=== PATIENT | male | born 1970 | race Two or more races ===

== ENCOUNTER 2020-03-23 09:07 | Outpatient (REF) | payer OTHER, SELFPAY ==
--- NOTE | 2020-03-23 | XR_ITS ---
EXAMINATION: XR SHOULDER, LEFT CLINICAL INFORMATION: Left shoulder pain COMPARISON: None TECHNIQUE: 2 views of the left shoulder FINDINGS: Moderate hypertrophic acromioclavicular osteoarthritis. The glenohumeral joint is unremarkable. Normal alignment with no fracture. No suspicious soft tissue calcification. IMPRESSION: Moderate acromioclavicular osteoarthritis.
--- NOTE | 2020-03-23 | XR_ITS ---
EXAMINATION: XR SHOULDER, RIGHT CLINICAL INFORMATION: Right shoulder pain COMPARISON: 04/16/2016 TECHNIQUE: 2 views of the right shoulder FINDINGS: Mild acromioclavicular osteoarthritis. The glenohumeral joint is unremarkable. Normal alignment. No fracture. No suspicious soft tissue calcification. IMPRESSION: Mild acromioclavicular osteoarthritis. No significant change.
== END 2020-03-23 09:08 | disposition home or self-care (01) ==
LOC: HO.XRAY 09:07
PROVIDERS: PCP Internal Medicine; Visit Provider Internal Medicine
DX: M25.511 Pain in right shoulder (principal); M25.512 Pain in left shoulder
CPT/HCPCS: 73030

== ENCOUNTER 2020-04-27 12:56 | Emergency (ER) | payer OTHER, SELFPAY ==
[2020-04-27 13:50] VITALS: BP 154/78; PULSE 84; RESP 16; TEMP 36.6; O2SAT 97; BMI 63.3
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
[2020-04-27] MEDS: Cyclobenzaprine HCl 5 MG TABLET PO (14:39)
[2020-04-27] MEDS: Acetaminophen 325 MG TABLET 650 MG PO (14:39)
== END 2020-04-27 16:45 | disposition home or self-care (01) ==
PROVIDERS: Emergency Provider Emergency Medicine; PCP Internal Medicine
DX: S39.92XA Unspecified injury of lower back, initial encounter (principal); S09.90XA Unspecified injury of head, initial encounter; M79.10 Myalgia, unspecified site; G44.309 Post-traumatic headache, unspecified, not intractable; R42 Dizziness and giddiness; V49.9XXA Car occupant (driver) (passenger) injured in unspecified traffic accident, initial encounter; Y93.9 Activity, unspecified; Y92.410 Unspecified street and highway as the place of occurrence of the external cause; Y99.9 Unspecified external cause status; Z79.899 Other long term (current) drug therapy
CPT/HCPCS: 70450; 99284

== ENCOUNTER 2020-05-04 15:43 | Outpatient (REF) | payer OTHER, SELFPAY ==
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
== END 2020-05-04 15:44 | disposition home or self-care (01) ==
LOC: HO.XRAY 15:43
PROVIDERS: PCP Internal Medicine; Visit Provider Internal Medicine
DX: M54.5 Low back pain (principal); V89.2XXA Person injured in unspecified motor-vehicle accident, traffic, initial encounter
CPT/HCPCS: 72220

== ENCOUNTER → 2020-09-05 09:06 | Outpatient (BNVA) | payer OTHER, SELFPAY | PROVIDERS: PCP Internal Medicine; Visit Provider Internal Medicine Endocrinology, Diabetes & Metabolism | DX: E11.21 Type 2 diabetes mellitus with diabetic nephropathy (principal); E11.22 Type 2 diabetes mellitus with diabetic chronic kidney disease; I12.9 Hypertensive chronic kidney disease with stage 1 through stage 4 chronic kidney disease, or unspecified chronic kidney disease; N18.32 Chronic kidney disease, stage 3b; Z79.4 Long term (current) use of insulin; E78.00 Pure hypercholesterolemia, unspecified; E55.9 Vitamin D deficiency, unspecified; E66.3 Overweight | CPT/HCPCS: 82947; 99212 ==

== ENCOUNTER 2020-09-05 09:47 | Outpatient (REF) | payer OTHER, SELFPAY ==
[2020-09-05 11:07] LABS: Alanine Aminotransferase 48 U/L (0-40); Albumin Level 4.4 g/dL (3.5-5.0); Alkaline Phosphatase 103 U/L (39-117); Anion Gap 13 (12-20); Aspartate Amino Transferase 20 U/L (5-37); Bilirubin Total 0.8 mg/dL (0.0-1.0); Blood Urea Nitrogen 23 mg/dL (9-16); Calcium 8.8 mg/dL (8.4-10.2); Carbon Dioxide 21 mmol/L (22-29); Chloride 110 mmol/L (96-108); Cholesterol 155 mg/dL; Estimated Glomerular Filt Rate 41; Glucose Fasting 166 mg/dL (60-99); HDL Cholesterol 43 mg/dL; LDL Cholesterol Calculated 87 mg/dl; Potassium 4.1 mmol/L (3.3-5.1); Sodium 140 mmol/L (135-145); Total Protein 6.7 g/dL (6.5-8.0); Triglycerides 125 mg/dL
[2020-09-05 11:11] LABS: Creatinine Urine 188.63 mg/dL; Microalbum/Creatinine Ratio Ur 51.9 ug/mg cr
[2020-09-05 11:22] LABS: Vitamin D 25-OH Total 20.4 ng/mL (>30)
[2020-09-06 08:07] LABS: LDL Cholesterol Direct 93 mg/dL (<100)
== END 2020-09-05 09:48 | disposition home or self-care (01) ==
LOC: HO.10HDL 09:47
PROVIDERS: Visit Provider Internal Medicine Endocrinology, Diabetes & Metabolism
DX: E11.21 Type 2 diabetes mellitus with diabetic nephropathy (principal); E11.22 Type 2 diabetes mellitus with diabetic chronic kidney disease; N18.32 Chronic kidney disease, stage 3b
CPT/HCPCS: 36415; 80053; 80061; 82043; 82306; 83721

== ENCOUNTER 2021-03-12 06:05 | Outpatient (REF) | payer OTHER, SELFPAY ==
[2021-03-12 07:10] LABS: MANUAL DIFF FLAG NO
[2021-03-12 07:12] LABS: Basophils Percent Auto 0.4 % (0-2); Eosinophils Absolute Auto 0.1 X10*3/uL (0.0-0.4); Eosinophils Percent Auto 1.5 % (0-4); Hematocrit 47.6 % (42-52); Hemoglobin 16.3 g/dl (14.0-18.0); Imm Gran Abs Auto 0.04 X10*3/uL (0.00-0.03); Imm Gran Pct Auto 0.6 % (0.0-0.4); Lymphocytes Absolute Auto 2.2 X10*3/uL (1.2-4.9); Lymphocytes Percent Auto 32.1 % (20-40); Mean Corpuscular HGB Conc 34.2 g/dl (31.0-36.0); Mean Corpuscular Hemoglobin 29.4 pg (27.0-33.0); Mean Corpuscular Volume 85.9 fL (80-98); Mean Platelet Volume 12.4 fL (9.4-12.4); Monocytes Absolute Auto 0.7 X10*3/uL (0.1-1.2); Monocytes Percent Auto 10.3 % (2-11); Neutrophils Absolute Auto 3.7 X10*3/uL (2.0-8.3); Neutrophils Percent Auto 55.1 % (45-73); Platelet Count 135 X10*3/uL (160-400); Red Blood Count 5.54 X10*6/uL (4.60-5.80); Red Cell Distribution Width 12.4 % (11.0-16.0); White Blood Count 6.7 X10*3/uL (4.8-10.8)
[2021-03-12 07:16] LABS: Appearance Urine CLEAR; Color Urine YELLOW; Glucose Urine UA NEG (NEG); Leukocyte Esterase Urine NEG (NEG); Nitrite Urine NEG (NEG); Urine Blood NEG (NEG); Urine Ketones NEG (NEG); Urine Protein NEG (NEG-TRACE)
[2021-03-12 07:41] LABS: Estimated Average Glucose 131 mg/dL; Hemoglobin A1c % 6.2 %
[2021-03-12 07:48] LABS: Alanine Aminotransferase 34 U/L (0-40); Albumin Level 4.3 g/dL (3.5-5.0); Alkaline Phosphatase 78 U/L (39-117); Anion Gap 11 (12-20); Aspartate Amino Transferase 22 U/L (5-37); Bilirubin Total 0.3 mg/dL (0.0-1.0); Blood Urea Nitrogen 24 mg/dL (9-16); Calcium 8.4 mg/dL (8.4-10.2); Carbon Dioxide 22 mmol/L (22-29); Chloride 111 mmol/L (96-108); Cholesterol 191 mg/dL; Estimated Glomerular Filt Rate 42; Glucose Fasting 128 mg/dL (60-99); HDL Cholesterol 40 mg/dL; LDL Cholesterol Calculated 111 mg/dl; Sodium 140 mmol/L (135-145); Total Protein 6.3 g/dL (6.5-8.0); Triglycerides 204 mg/dL
[2021-03-12 07:59] LABS: Microalbum/Creatinine Ratio Ur 43.2 ug/mg cr
[2021-03-12 08:03] LABS: TSH reflex Free T4 1.76 uIU/mL (0.32-4.0); Vitamin D 25-OH Total 22.4 ng/mL (>30)
== END 2021-03-12 06:06 | disposition home or self-care (01) ==
LOC: HO.LAB 06:05
PROVIDERS: PCP Internal Medicine; Visit Provider Internal Medicine
DX: I12.9 Hypertensive chronic kidney disease with stage 1 through stage 4 chronic kidney disease, or unspecified chronic kidney disease (principal); N18.32 Chronic kidney disease, stage 3b; E11.22 Type 2 diabetes mellitus with diabetic chronic kidney disease; E11.21 Type 2 diabetes mellitus with diabetic nephropathy; E78.00 Pure hypercholesterolemia, unspecified; E55.9 Vitamin D deficiency, unspecified; E66.9 Obesity, unspecified; C64.1 Malignant neoplasm of right kidney, except renal pelvis; D69.6 Thrombocytopenia, unspecified; D75.1 Secondary polycythemia
CPT/HCPCS: 36415; 80053; 80061; 81003; 82043; 82306; 83036; 84443; 85025

== ENCOUNTER → 2021-05-02 11:15 | Outpatient (REF) | payer OTHER, SELFPAY ==
--- NOTE | 2021-05-02 11:19 | HM_ITS ---
Total monitoring time 4 days and 1 hour. Underlying rhythm is sinus. Minimum heart rate 46/Min. Maximum 128/Min. Average 76/Min. No atrial fibrillation or flutter or AV blocks or pauses. Rare supraventricular ectopy with a burden of 1.5%. No significant runs. Very rare PVCs with a burden of less than 0.01%. No patient events. MTDD
== END ==
LOC: HO.CARD 11:15
PROVIDERS: Visit Provider Internal Medicine
DX: R55 Syncope and collapse (principal)
CPT/HCPCS: 93242

== ENCOUNTER 2021-07-23 06:09 | Outpatient (REF) | payer OTHER, SELFPAY ==
[2021-07-23 06:22] LABS: MANUAL DIFF FLAG NO
[2021-07-23 07:27] LABS: Appearance Urine CLEAR; Color Urine STRAW; Glucose Urine UA >=1000 MG/DL (NEG); Leukocyte Esterase Urine NEG (NEG); Nitrite Urine NEG (NEG); Urine Blood NEG (NEG); Urine Ketones NEG (NEG); Urine Protein NEG (NEG-TRACE)
[2021-07-23 07:36] LABS: Estimated Average Glucose 309 mg/dL; Hemoglobin A1c % 12.4 %
[2021-07-23 07:37] LABS: RBC Urine 0 /HPF (0); Squamous Epithelial Cell Urine TRACE /LPF; WBC Urine 0-2 /HPF (0-4)
[2021-07-23 07:41] LABS: Basophils Percent Auto 0.6 % (0-2); Eosinophils Absolute Auto 0.1 X10*3/uL (0.0-0.4); Eosinophils Percent Auto 0.9 % (0-4); Hematocrit 48.3 % (42.0-52.0); Hemoglobin 16.7 g/dl (14.0-18.0); Imm Gran Abs Auto 0.06 X10*3/uL (0.00-0.03); Imm Gran Pct Auto 0.9 % (0.0-0.4); Lymphocytes Percent Auto 28.4 % (20-40); Mean Corpuscular HGB Conc 34.6 g/dl (31.0-36.0); Mean Corpuscular Hemoglobin 29.3 pg (27.0-33.0); Mean Corpuscular Volume 84.9 fL (80.0-98.0); Mean Platelet Volume 13.1 fL (9.4-12.4); Monocytes Absolute Auto 0.6 X10*3/uL (0.1-1.2); Monocytes Percent Auto 8.4 % (2-11); Neutrophils Absolute Auto 4.3 x10*3/uL (2.0-8.3); Neutrophils Percent Auto 60.8 % (45-73); Platelet Count 128 X10*3/uL (160-400); Red Blood Count 5.69 X10*6/uL (4.60-5.80); Red Cell Distribution Width 11.9 % (11.0-16.0); White Blood Count 7.1 X10*3/uL (4.8-10.8)
[2021-07-23 08:06] LABS: Alanine Aminotransferase 47 U/L (0-40); Albumin Level 4.3 g/dL (3.5-5.0); Alkaline Phosphatase 115 U/L (39-117); Anion Gap 12 (12-20); Aspartate Amino Transferase 30 U/L (5-37); Bilirubin Total 0.6 mg/dL (0.0-1.0); Blood Urea Nitrogen 29 mg/dL (9-16); Calcium 9.3 mg/dL (8.4-10.2); Carbon Dioxide 23 mmol/L (22-29); Chloride 105 mmol/L (96-108); Cholesterol 272 mg/dL; Estimated Glomerular Filt Rate 31; Glucose Fasting 374 mg/dL (60-99); HDL Cholesterol 37 mg/dL; LDL Cholesterol Calculated 163 mg/dl; Potassium 4.5 mmol/L (3.3-5.1); Sodium 135 mmol/L (135-145); Total Protein 6.7 g/dL (6.5-8.0); Triglycerides 360 mg/dL
[2021-07-23 08:15] LABS: TSH reflex Free T4 2.04 uIU/mL (0.32-4.0); Vitamin D 25-OH Total 12.9 ng/mL (>30)
[2021-07-23 08:36] LABS: Creatinine Urine 64.71 mg/dL; Microalbum/Creatinine Ratio Ur 108.1 ug/mg cr
== END 2021-07-23 06:10 | disposition home or self-care (01) ==
LOC: HO.LAB 06:09
PROVIDERS: PCP Internal Medicine; Visit Provider Internal Medicine
DX: E78.00 Pure hypercholesterolemia, unspecified (principal); E11.9 Type 2 diabetes mellitus without complications; I10 Essential (primary) hypertension; E55.9 Vitamin D deficiency, unspecified
CPT/HCPCS: 36415; 80053; 80061; 81001; 82043; 82306; 83036; 84443; 85025

== ENCOUNTER 2021-11-07 05:59 | Outpatient (REF) | payer OTHER, SELFPAY ==
[2021-11-07 06:11] LABS: MANUAL DIFF FLAG NO
[2021-11-07 07:30] LABS: Basophils Percent Auto 0.4 % (0-2); Eosinophils Absolute Auto 0.1 X10*3/uL (0.0-0.4); Hematocrit 48.3 % (42.0-52.0); Hemoglobin 16.6 g/dl (14.0-18.0); Imm Gran Abs Auto 0.04 X10*3/uL (0.00-0.03); Imm Gran Pct Auto 0.6 % (0.0-0.4); Lymphocytes Absolute Auto 1.9 X10*3/uL (1.2-4.9); Lymphocytes Percent Auto 28.3 % (20-40); Mean Corpuscular HGB Conc 34.4 g/dl (31.0-36.0); Mean Corpuscular Hemoglobin 29.2 pg (27.0-33.0); Mean Corpuscular Volume 84.9 fL (80.0-98.0); Mean Platelet Volume 12.5 fL (9.4-12.4); Monocytes Absolute Auto 0.6 X10*3/uL (0.1-1.2); Monocytes Percent Auto 9.4 % (2-11); Neutrophils Absolute Auto 4.1 x10*3/uL (2.0-8.3); Neutrophils Percent Auto 59.3 % (45-73); Platelet Count 156 X10*3/uL (160-400); Red Blood Count 5.69 X10*6/uL (4.60-5.80); Red Cell Distribution Width 12.3 % (11.0-16.0); White Blood Count 6.8 X10*3/uL (4.8-10.8)
[2021-11-07 07:33] LABS: Appearance Urine CLEAR; Color Urine YELLOW; Glucose Urine UA NEG (NEG); Leukocyte Esterase Urine NEG (NEG); Nitrite Urine NEG (NEG); Specific Gravity - Urine 1.025 (1.005-1.025); Urine Blood NEG (NEG); Urine Ketones NEG (NEG); Urine Protein TRACE MG/DL (NEG-TRACE)
[2021-11-07 08:01] LABS: Alanine Aminotransferase 41 U/L (0-40); Albumin Level 4.2 g/dL (3.5-5.0); Alkaline Phosphatase 101 U/L (39-117); Anion Gap 15 (12-20); Aspartate Amino Transferase 24 U/L (5-37); Bilirubin Total 0.4 mg/dL (0.0-1.0); Blood Urea Nitrogen 28 mg/dL (9-16); Calcium 9.5 mg/dL (8.4-10.2); Carbon Dioxide 22 mmol/L (22-29); Chloride 107 mmol/L (96-108); Cholesterol 169 mg/dL; Estimated Glomerular Filt Rate 39; Glucose Fasting 164 mg/dL (60-99); HDL Cholesterol 39 mg/dL; LDL Cholesterol Calculated 78 mg/dl; Potassium 4.2 mmol/L (3.3-5.1); Sodium 140 mmol/L (135-145); Total Protein 6.5 g/dL (6.5-8.0); Triglycerides 263 mg/dL
[2021-11-07 08:21] LABS: Microalbum/Creatinine Ratio Ur 77.6 ug/mg cr
[2021-11-07 08:23] LABS: TSH reflex Free T4 2.07 uIU/mL (0.32-4.0); Vitamin D 25-OH Total 18.5 ng/mL (>30)
== END 2021-11-07 06:00 | disposition home or self-care (01) ==
LOC: HO.LAB 05:59
PROVIDERS: PCP Internal Medicine; Visit Provider Internal Medicine
DX: I10 Essential (primary) hypertension (principal); E78.00 Pure hypercholesterolemia, unspecified; E11.9 Type 2 diabetes mellitus without complications; E55.9 Vitamin D deficiency, unspecified
CPT/HCPCS: 36415; 80053; 80061; 81003; 82043; 82306; 84443; 85025

== ENCOUNTER → 2022-01-30 15:16 | Outpatient (BNVA) | payer OTHER, SELFPAY | PROVIDERS: PCP Internal Medicine; Visit Provider Internal Medicine Endocrinology, Diabetes & Metabolism | DX: E11.22 Type 2 diabetes mellitus with diabetic chronic kidney disease (principal); N18.32 Chronic kidney disease, stage 3b; Z90.5 Acquired absence of kidney | CPT/HCPCS: 82947; 83036; 99212 ==

== ENCOUNTER 2022-07-20 16:47 | Emergency (ER) | payer OTHER, SELFPAY ==
--- NOTE | ~2022-07-20 | US_ITS ---
EXAMINATION: US EXTRACRANIAL CAROTID DUPLEX, BILATERAL CLINICAL INFORMATION: TIA COMPARISON: None TECHNIQUE: Real-time ultrasound and Doppler techniques (integrating B-mode 2-D vascular images, Doppler spectral analysis and color-flow Doppler imaging) were utilized to interrogate the extracranial carotid arteries, the vertebral arteries and proximal subclavian arteries bilaterally. The degree of stenosis is determined by criteria similar to NASCET. FINDINGS: Right Side: 1. There is minimal atherosclerotic plaque seen in the bifurcation/proximal ICA region. 2. The common carotid artery PSV proximally is 98 cm/s and distally 84 cm/s. 3. The proximal internal carotid artery velocities are 69 cm/s systolic and 14 cm/s diastolic. 4. The proximal external carotid artery PSV is 91 cm/s. 5. The vertebral artery shows antegrade flow. 6. The subclavian artery waveforms are normal. Left Side: 1. There is minimal atherosclerotic plaque seen in the bifurcation/proximal ICA region. 2. The common carotid artery PSV proximally is 94 cm/s and distally 70 set cm/s. 3. The proximal internal carotid artery velocities are 83 cm/s systolic and 22 cm/s diastolic. 4. The proximal external carotid artery PSV is 97 cm/s. 5. The vertebral artery shows antegrade flow. 6. The subclavian artery waveforms are normal. US/US carotid duplex BI IMPRESSION: 1. RIGHT: Minimal, non-hemodynamically significant stenosis of the proximal right internal carotid artery corresponding to a 0-49% stenosis by velocity criteria. 2. LEFT: Minimal, non-hemodynamically significant stenosis of the proximal left internal carotid artery corresponding to a 0-49% stenosis by velocity criteria.
--- NOTE | ~2022-07-20 | CT_ITS ---
EXAMINATION: CHEST. CT BRAIN WITHOUT CONTRAST. CLINICAL INFORMATION: Left-sided weakness. COMPARISON: None TECHNIQUE: Chest 2 views. 5 mm thin axial and reformatted 2 mm thin sagittal and coronal images of brain were obtained. DLP 629. mGy/cm. FINDINGS: Chest: The lungs are well-expanded and clear. The heart size and pulmonary vascularity is normal. There is a moderate-sized vertebral osteophyte and mid dorsal spine on lateral view Brain: There is no acute intra-axial, extra-axial bleed, masses or midline shift. There is extra-axial right CP angle arachnoid cyst. It is unchanged to previous CT brain exam 04/27/2020 and MRI brain 12/25/2012. There is no acute infarction evolution. The sorto to white matter differentiation is maintained. The lateral ventricles are symmetrical in size and configuration without enlargement. Bone windows reveal no calvarial abnormality. There is no scalp soft tissue abnormality. The nasal sinuses and mastoid air cells are well-aerated. CT/CT head/brain wo IV con IMPRESSION: 1. Unremarkable chest exam. 2. No acute intracranial process seen.
--- NOTE | 2022-07-20 16:49 | ED.GENADULT ---
HPI - General Adult General Chief complaint: General Medical <VANESSA Tovar - Last Filed: 07/20/22 16:52> Stated complaint: Left side numbness <VANESSA Tovar - Last Filed: 07/20/22 16:52> Time Seen by Provider: 07/20/22 17:54 <VANESSA Tovar - Last Filed: 07/20/22 16:52> Source: patient and family <Francisco Blount MD - Last Filed: 07/20/22 23:58> Mode of arrival: ambulatory <Francisco Blount MD - Last Filed: 07/20/22 23:58> Limitations: no limitations <Francisco Blount MD - Last Filed: 07/20/22 23:58> History of Present Illness HPI narrative: Patient with history of absence seizure ADHD thrombocytopenia hypertension renal cell carcinoma with single kidney was in stable health working outside felt funny with left-sided numbness and weakness came inside the house noticed that patient was weak on the left side with slight slurred speech whole symptoms lasted for 10-15 minutes by the time patient came to the ER no numbness or weakness noticed patient had mild headache which is resolved no seizures activity patient never had similar symptoms in the past <Francisco Blount MD - Last Filed: 07/20/22 23:58> Related Data Home medications: Home Medications Medication Instructions Recorded Confirmed blood sugar diagnostic (FreeStyle 01/30/22 02/01/22 Lite Strips) flash glucose scanning reader 01/30/22 02/01/22 (FreeStyle Dexter 14 Day [place]) insulin glargine U-300 conc 300 20 unit subcut .AM 01/30/22 02/01/22 unit/mL (3 mL) subcutaneous pen lancets 28 gauge (FreeStyle 01/30/22 02/01/22 Lancets) Previous Rx's Medication Instructions Recorded acetaminophen 500 mg tablet 500 mg PO Q6H PRN pain or fever 04/27/20 (Tylenol Extra Strength) #20 tabs pen needle, diabetic 32 gauge x #50 ea 09/05/20 (BD Katya 2nd Gen Pen Needle) cholecalciferol (vitamin D3) 50 100 mcg PO DAILY 30 days #60 caps 07/24/21 mcg (2,000 unit) capsule rosuvastatin 40 mg tablet 40 mg PO DAILY 30 days #30 tabs 07/24/21 Trulicity 1.5 mg/0.5 mL 1.5 mg (0.5 mL) subcut QWEEK 4 04/22/22 subcutaneous pen injector weeks #2 mL (dulaglutide) aspirin 81 mg tablet,delayed 81 mg PO DAILY #30 tabs 07/20/22 release (Adult Low Dose Aspirin) <VANESSA Tovar - Last Filed: 07/20/22 16:52> Allergies/adverse reactions: Allergies Allergy/AdvReac Type Severity Reaction Status Date / Time Latex, Natural Rubber Allergy Mild Rash Verified 02/01/22 13:35 pseudoephedrine [Sudafed] AdvReac Intermediate dizziness, Verified 02/01/22 13:35 panic attacks <VANESSA Tovar - Last Filed: 07/20/22 16:52> Review of Systems Review of Systems: Yes all other systems are reviewed and are negative <Francisco Blount MD - Last Filed: 07/20/22 23:58> FOR[facility]LY [facility] Past Medical History Medical History: 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), stage III (moderate) snf (current) use of insulin Overweight (BMI 25.0-29.9) Polycythemia Pure hypercholesterolemia Renal cell carcinoma of right kidney Thrombocytopenia Type 2 diabetes mellitus with diabetic chronic kidney disease Vitamin D deficiency <VANESSA Tovar - Last Filed: 07/20/22 16:52> Surgical History: Surgical History History of right nephrectomy (~03/30/13) Status post cervical discectomy (~09/04/16) <VANESSA Tovar - Last Filed: 07/20/22 16:52> Family History Family History: Family History Mother Hypertension <VANESSA Tovar - Last Filed: 07/20/22 16:52> Social History Social History: Social History Housing: House Alcohol intake: never Patient Tobacco Use Status: Former Tobacco user Smoked in Last 30 Days: No e-Cigarette/Vaping Use: Never Used Second Hand Smoke Exposure: Yes Use of substances other than those prescribed or required for medical reasons: No Advance Directives: No Advance Directives Information Provided: No service: No Current occupational status: employed Cognitive needs: No Hearing needs: No Vision needs: Yes (glasses) <VANESSA Tovar - Last Filed: 07/20/22 16:52> Physical Exam ED Vital Signs: Vital Signs - 24 hr 07/20/22 16:50 07/20/22 18:00 07/20/22 21:48 Temperature 97.9 F 97.5 F Pulse Rate 85 69 71 Respiratory Rate 20 16 16 Blood Pressure 162/84 H 132/83 130/67 Pulse Oximetry 98 98 98 Oxygen Delivery Method Room Air Room Air Room Air BMI result Body Mass Index 29.0 <VANESSA Tovar - Last Filed: 07/20/22 16:52> Vital Signs - 24 hr 07/20/22 16:50 07/20/22 18:00 07/20/22 21:48 Temperature 97.9 F 97.5 F Pulse Rate 85 69 71 Respiratory Rate 20 16 16 Blood Pressure 162/84 H 132/83 130/67 Pulse Oximetry 98 98 98 Oxygen Delivery Method Room Air Room Air Room Air BMI result Body Mass Index 29.0 <Francisco Blount MD - Last Filed: 07/20/22 23:58> Appearance: Alert. Oriented X3. No acute distress. Eyes: PERRLA, No Nystagmus ENT: Pharynx normal. Oral Mucosa moist Neck: Normal inspection. Neck supple. CVS: Normal heart rate and rhythm. Pulses normal. Respiratory: No respiratory distress. Equal air entry bilateral, no wheezing/rales/rhonchi Abdomen: Soft and nontender. Bowel sounds are present, no mass palpable, no CVA tenderness Skin: Skin warm and dry. Normal skin color. Normal skin turgor. Extremities: No lower extremity edema. No calf tenderness Neuro: Oriented X 3. No motor deficit. No sensory deficit.No cerebellar signs , cranial nerves II-XII intact normal speech <Francisco Blount MD - Last Filed: 07/20/22 23:58> NIH Stroke Scale Internal: Initial- Upon Arrival <Francisco Blount MD - Last Filed: 07/20/22 23:58> Level of Consciousness: Alert <Francisco Blount MD - Last Filed: 07/20/22 23:58> Level of Consciousness Questions: Answers both questions correctly <Francisco Blount MD - Last Filed: 07/20/22 23:58> Level of Consciousness Commands: Performs both tasks correctly <Francisco Blount MD - Last Filed: 07/20/22 23:58> Best Gaze: Normal <Francisco Blount MD - Last Filed: 07/20/22 23:58> Visual: No visual loss <Francisco Blount MD - Last Filed: 07/20/22 23:58> Facial Palsy: Normal <Francisco Blount MD - Last Filed: 07/20/22 23:58> Motor Arm (Right): No drift <Francisco Blount MD - Last Filed: 07/20/22 23:58> Motor Arm (Left): No drift <Francisco Blount MD - Last Filed: 07/20/22 23:58> Motor Leg (Right): No drift <Francisco Blount MD - Last Filed: 07/20/22 23:58> Motor Leg (Left): No drift <Francisco Blount MD - Last Filed: 07/20/22 23:58> Limb Ataxia: Absent <Francisco Blount MD - Last Filed: 07/20/22 23:58> Sensory: Normal <Francisco Blount MD - Last Filed: 07/20/22 23:58> Best Language: No aphasia <Francisco Blount MD - Last Filed: 07/20/22 23:58> Dysarthia: Normal <Francisco Blount MD - Last Filed: 07/20/22 23:58> Extinction and Inattention: No abnormality <Francisco Blount MD - Last Filed: 07/20/22 23:58> Score: 0 <Francisco Blount MD - Last Filed: 07/20/22 23:58> Course Course Course Narrative: RME performed by Keisha Yin PA-C. Patient is a 52 year old male presenting to the emergency department with left sided numbness. Patient states that the left side of his tongue was numb and that was affected his speech. Patient states that he is a diabetic. Patient states that he does have a left sided headache. Patient states that he has a history of silent seizures. Blood work and head CT ordered. <VANESSA Tovar - Last Filed: 07/20/22 16:52> Medications Administered Discontinued Medications Generic Name Dose Route Start Last Admin Trade Name Freq PRN Reason Stop Dose Admin Aspirin 162 mg 07/20/22 18:54 07/20/22 19:08 Aspirin 81 Mg Tab.Chew PO 07/20/22 18:55 162 mg ONCE ONE Administration <VANESSA Tovar - Last Filed: 07/20/22 16:52> Medications Administered Discontinued Medications Generic Name Dose Route Start Last Admin Trade Name Freq PRN Reason Stop Dose Admin Aspirin 162 mg 07/20/22 18:54 07/20/22 19:08 Aspirin 81 Mg Tab.Chew PO 07/20/22 18:55 162 mg ONCE ONE Administration <Francisco Blount MD - Last Filed: 07/20/22 23:58> Medical Decision Making Medical Decision Making [facility] Narrative: Patient with TIA with significant renal disease unable to CTA as he has single kidney and symptoms have resolved carotid Doppler was done which was negative for acute significant lesion. Case discussed with Dr. Galloway neurologist advised to start on 81 mg aspirin daily follow up as outpatient may need MRA MRI as outpatient no acute intervention needed at this time <Francisco Blount MD - Last Filed: 07/20/22 23:58> Consult Healthcare Provider Management of the patient was discussed with: Legal File Clerk <Francisco Blount MD - Last Filed: 07/20/22 23:58> Neurologist Dr. Galloway <Francisco Blount MD - Last Filed: 07/20/22 23:58> Lab Data [facility] Lab Attestation statement: I reviewed the patient's lab results. <Francisco Blount MD - Last Filed: 07/20/22 23:58> Result Diagrams: 07/20/22 17:20 07/20/22 17:20 <VANESSA Tovar - Last Filed: 07/20/22 16:52> Labs: Lab Results 07/20/22 07/20/22 07/20/22 Range/Units 17:20 17:20 17:20 WBC 7.2 (4.8-10.8) X10*3/uL RBC 5.27 (4.60-5.80) X10*6/uL Hgb 16.0 (14.0-18.0) g/dl Hct 44.4 (42.0-52.0) % MCV 84.3 (80.0-98.0) fL MCH 30.4 (27.0-33.0) pg MCHC 36.0 (31.0-36.0) g/dl RDW 12.3 (11.0-16.0) % Plt Count 147 L (160-400) X10*3/uL MPV 12.4 (9.4-12.4) fL Immature Gran % (Auto) 0.7 H (0.0-0.4) % Neut % (Auto) 60.5 (45-73) % Lymph % (Auto) 27.7 (20-40) % Bartholomew % (Auto) 9.9 (2-11) % Eos % (Auto) 0.8 (0-4) % Baso % (Auto) 0.4 (0-2) % Lymph # (Auto) 2.0 (1.2-4.9) X10*3/uL Bartholomew # (Auto) 0.7 (0.1-1.2) X10*3/uL Eos # (Auto) 0.1 (0.0-0.4) X10*3/uL Baso # (Auto) 0.0 (0.0-0.2) X10*3/uL Abs Immat Gran (auto) 0.05 H (0.00-0.03) X10*3/uL Absolute Neuts (auto) 4.3 (2.0-8.3) x10*3/uL Absolute Nucleated RBC 0.000 (0.0-0.012) X10*3/uL Nucleated RBC % (auto) 0.0 (0.0-0.2) /100WBC PT 10.5 (10.0-13.1) SEC INR 0.9 (0.9-1.1) APTT 28.7 (26.0-36.4) SEC Sodium 139 (135-145) mmol/L Potassium 4.2 (3.3-5.1) mmol/L Chloride 108 (96-108) mmol/L Carbon Dioxide 22 (22-29) mmol/L Anion Gap 13 (12-20) BUN 27 H (9-16) mg/dL Creatinine 2.10 H (0.5-1.4) mg/dL Estim Creat Clear Calc 41.2 Estimated GFR 33 Random Glucose 188 H (60-115) mg/dL Calcium 9.0 (8.4-10.2) mg/dL Magnesium 2.1 (1.6-2.6) mg/dL Total Bilirubin 0.4 (0.0-1.0) mg/dL AST 15 (5-37) U/L ALT 37 (0-40) U/L Alkaline Phosphatase 96 (39-117) U/L Total Protein 6.5 (6.5-8.0) g/dL Albumin 4.3 (3.5-5.0) g/dL Influenza Type A (PCR) (Negative) Influenza Type B (PCR) (Negative) RSV RNA Qual (PCR) (Negative) SARS-CoV-2 RNA (RT-PCR) (Negative) 07/20/22 Range/Units 17:22 WBC (4.8-10.8) X10*3/uL RBC (4.60-5.80) X10*6/uL Hgb (14.0-18.0) g/dl Hct (42.0-52.0) % MCV (80.0-98.0) fL MCH (27.0-33.0) pg MCHC (31.0-36.0) g/dl RDW (11.0-16.0) % Plt Count (160-400) X10*3/uL MPV (9.4-12.4) fL Immature Gran % (Auto) (0.0-0.4) % Neut % (Auto) (45-73) % Lymph % (Auto) (20-40) % Bartholomew % (Auto) (2-11) % Eos % (Auto) (0-4) % Baso % (Auto) (0-2) % Lymph # (Auto) (1.2-4.9) X10*3/uL Bartholomew # (Auto) (0.1-1.2) X10*3/uL Eos # (Auto) (0.0-0.4) X10*3/uL Baso # (Auto) (0.0-0.2) X10*3/uL Abs Immat Gran (auto) (0.00-0.03) X10*3/uL Absolute Neuts (auto) (2.0-8.3) x10*3/uL Absolute Nucleated RBC (0.0-0.012) X10*3/uL Nucleated RBC % (auto) (0.0-0.2) /100WBC PT (10.0-13.1) SEC INR (0.9-1.1) APTT (26.0-36.4) SEC Sodium (135-145) mmol/L Potassium (3.3-5.1) mmol/L Chloride (96-108) mmol/L Carbon Dioxide (22-29) mmol/L Anion Gap (12-20) BUN (9-16) mg/dL Creatinine (0.5-1.4) mg/dL Estim Creat Clear Calc Estimated GFR Random Glucose (60-115) mg/dL Calcium (8.4-10.2) mg/dL Magnesium (1.6-2.6) mg/dL Total Bilirubin (0.0-1.0) mg/dL AST (5-37) U/L ALT (0-40) U/L Alkaline Phosphatase (39-117) U/L Total Protein (6.5-8.0) g/dL Albumin (3.5-5.0) g/dL Influenza Type A (PCR) NEGATIVE (Negative) Influenza Type B (PCR) NEGATIVE (Negative) RSV RNA Qual (PCR) NEGATIVE (Negative) SARS-CoV-2 RNA (RT-PCR) NEGATIVE (Negative) <VANESSA Tovar - Last Filed: 07/20/22 16:52> Lab Results 07/20/22 07/20/22 07/20/22 Range/Units 17:20 17:20 17:20 WBC 7.2 (4.8-10.8) X10*3/uL RBC 5.27 (4.60-5.80) X10*6/uL Hgb 16.0 (14.0-18.0) g/dl Hct 44.4 (42.0-52.0) % MCV 84.3 (80.0-98.0) fL MCH 30.4 (27.0-33.0) pg MCHC 36.0 (31.0-36.0) g/dl RDW 12.3 (11.0-16.0) % Plt Count 147 L (160-400) X10*3/uL MPV 12.4 (9.4-12.4) fL Immature Gran % (Auto) 0.7 H (0.0-0.4) % Neut % (Auto) 60.5 (45-73) % Lymph % (Auto) 27.7 (20-40) % Bartholomew % (Auto) 9.9 (2-11) % Eos % (Auto) 0.8 (0-4) % Baso % (Auto) 0.4 (0-2) % Lymph # (Auto) 2.0 (1.2-4.9) X10*3/uL Bartholomew # (Auto) 0.7 (0.1-1.2) X10*3/uL Eos # (Auto) 0.1 (0.0-0.4) X10*3/uL Baso # (Auto) 0.0 (0.0-0.2) X10*3/uL Abs Immat Gran (auto) 0.05 H (0.00-0.03) X10*3/uL Absolute Neuts (auto) 4.3 (2.0-8.3) x10*3/uL Absolute Nucleated RBC 0.000 (0.0-0.012) X10*3/uL Nucleated RBC % (auto) 0.0 (0.0-0.2) /100WBC PT 10.5 (10.0-13.1) SEC INR 0.9 (0.9-1.1) APTT 28.7 (26.0-36.4) SEC Sodium 139 (135-145) mmol/L Potassium 4.2 (3.3-5.1) mmol/L Chloride 108 (96-108) mmol/L Carbon Dioxide 22 (22-29) mmol/L Anion Gap 13 (12-20) BUN 27 H (9-16) mg/dL Creatinine 2.10 H (0.5-1.4) mg/dL Estim Creat Clear Calc 41.2 Estimated GFR 33 Random Glucose 188 H (60-115) mg/dL Calcium 9.0 (8.4-10.2) mg/dL Magnesium 2.1 (1.6-2.6) mg/dL Total Bilirubin 0.4 (0.0-1.0) mg/dL AST 15 (5-37) U/L ALT 37 (0-40) U/L Alkaline Phosphatase 96 (39-117) U/L Total Protein 6.5 (6.5-8.0) g/dL Albumin 4.3 (3.5-5.0) g/dL Influenza Type A (PCR) (Negative) Influenza Type B (PCR) (Negative) RSV RNA Qual (PCR) (Negative) SARS-CoV-2 RNA (RT-PCR) (Negative) 07/20/22 Range/Units 17:22 WBC (4.8-10.8) X10*3/uL RBC (4.60-5.80) X10*6/uL Hgb (14.0-18.0) g/dl Hct (42.0-52.0) % MCV (80.0-98.0) fL MCH (27.0-33.0) pg MCHC (31.0-36.0) g/dl RDW (11.0-16.0) % Plt Count (160-400) X10*3/uL MPV (9.4-12.4) fL Immature Gran % (Auto) (0.0-0.4) % Neut % (Auto) (45-73) % Lymph % (Auto) (20-40) % Bartholomew % (Auto) (2-11) % Eos % (Auto) (0-4) % Baso % (Auto) (0-2) % Lymph # (Auto) (1.2-4.9) X10*3/uL Bartholomew # (Auto) (0.1-1.2) X10*3/uL Eos # (Auto) (0.0-0.4) X10*3/uL Baso # (Auto) (0.0-0.2) X10*3/uL Abs Immat Gran (auto) (0.00-0.03) X10*3/uL Absolute Neuts (auto) (2.0-8.3) x10*3/uL Absolute Nucleated RBC (0.0-0.012) X10*3/uL Nucleated RBC % (auto) (0.0-0.2) /100WBC PT (10.0-13.1) SEC INR (0.9-1.1) APTT (26.0-36.4) SEC Sodium (135-145) mmol/L Potassium (3.3-5.1) mmol/L Chloride (96-108) mmol/L Carbon Dioxide (22-29) mmol/L Anion Gap (12-20) BUN (9-16) mg/dL Creatinine (0.5-1.4) mg/dL Estim Creat Clear Calc Estimated GFR Random Glucose (60-115) mg/dL Calcium (8.4-10.2) mg/dL Magnesium (1.6-2.6) mg/dL Total Bilirubin (0.0-1.0) mg/dL AST (5-37) U/L ALT (0-40) U/L Alkaline Phosphatase (39-117) U/L Total Protein (6.5-8.0) g/dL Albumin (3.5-5.0) g/dL Influenza Type A (PCR) NEGATIVE (Negative) Influenza Type B (PCR) NEGATIVE (Negative) RSV RNA Qual (PCR) NEGATIVE (Negative) SARS-CoV-2 RNA (RT-PCR) NEGATIVE (Negative) <Francisco Blount MD - Last Filed: 07/20/22 23:58> Independent Interpretation I performed an independent interpretation of an: EKG <Francisco Blount MD - Last Filed: 07/20/22 23:58> Interpretation: Normal sinus rhythm heart rate 61 beats per minute normal interval normal axis no acute ST wave changes <Francisco Blount MD - Last Filed: 07/20/22 23:58> Discharge Plan Discharge Clinical Impression: Brain TIA <VANESSA Tovar - Last Filed: 07/20/22 16:52> Patient Disposition: Home, Self-Care <VANESSA Tovar - Last Filed: 07/20/22 16:52> Instructions: Transient Ischemic Attack (ED) <VANESSA Tovar - Last Filed: 07/20/22 16:52> Additional Instructions: Take baby aspirin daily Follow with neurologist Report to the ER if recurrence of symptoms or weakness <VANESSA Tovar - Last Filed: 07/20/22 16:52> Prescriptions: New aspirin [Adult Low Dose Aspirin] 81 mg tablet,delayed release (DR/EC) 81 mg PO DAILY Qty: 30 0RF No Action Trulicity 1.5 mg/0.5 mL pen injector 1.5 mg subcut QWEEK 28 Days Qty: 2 2RF acetaminophen [Tylenol Extra Strength] 500 mg tablet 500 mg PO Q6H PRN (Reason: pain or fever) Qty: 20 0RF cholecalciferol (vitamin D3) 50 mcg (2,000 unit) capsule 100 mcg PO DAILY 30 Days Qty: 60 6RF Rx Instructions: Dose increased. Please disregard prior prescription. rosuvastatin 40 mg tablet 40 mg PO DAILY 30 Days Qty: 30 6RF (DME) pen needle, diabetic [BD Katya 2nd Gen Pen Needle] 32 gauge x 5/32 needle See Rx Instructions .MEDSUPPLY Qty: 50 4RF Rx Instructions: once a day insulin glargine U-300 conc 300 unit/mL (3 mL) insulin pen 20 unit subcut .AM (DME) FreeStyle Dexter 14 Day [place] Misc See Rx Instructions .Route Rx Instructions: As directed (DME) lancets [FreeStyle Lancets] 28 gauge misc See Rx Instructions .Route Rx Instructions: As directed (DME) FreeStyle Lite Strips Strip See Rx Instructions .Route Rx Instructions: As directed <VANESSA Tovar - Last Filed: 07/20/22 16:52> Referrals: Josefa Galloway MD [Physician] - 1 week <VANESSA Tovar - Last Filed: 07/20/22 16:52> Interventions: ED Discharge Assessment Last Done: 07/20/22 21:49 <VANESSA Tovar - Last Filed: 07/20/22 16:52> Discharge Date/Time: 07/20/22 21:50 <VANESSA Tovar - Last Filed: 07/20/22 16:52>
[2022-07-20 16:50] VITALS: BP 162/84; PULSE 85; RESP 20; TEMP 36.6; O2SAT 98; BMI 29.0
--- NOTE | 2022-07-20 16:52 | ECG_ITS ---
Test Reason : numbness Blood Pressure : / mmHG Vent. Rate : 061 BPM Atrial Rate : 061 BPM P-R Int : 144 ms QRS Dur : 074 ms QT Int : 382 ms P-R-T Axes : 055 030 033 degrees QTc Int : 384 ms Normal sinus rhythm Normal ECG When compared with ECG of 30-JAN-2019 12:30, No significant change was found Referred By: Keisha Yin Electronically Signed By:ZUHAIR HODGES
[2022-07-20 17:33] LABS: MANUAL DIFF FLAG NO
[2022-07-20 17:35] LABS: Basophils Percent Auto 0.4 % (0-2); Eosinophils Absolute Auto 0.1 X10*3/uL (0.0-0.4); Eosinophils Percent Auto 0.8 % (0-4); Hematocrit 44.4 % (42.0-52.0); Imm Gran Abs Auto 0.05 X10*3/uL (0.00-0.03); Imm Gran Pct Auto 0.7 % (0.0-0.4); Lymphocytes Percent Auto 27.7 % (20-40); Mean Corpuscular Hemoglobin 30.4 pg (27.0-33.0); Mean Corpuscular Volume 84.3 fL (80.0-98.0); Mean Platelet Volume 12.4 fL (9.4-12.4); Monocytes Absolute Auto 0.7 X10*3/uL (0.1-1.2); Monocytes Percent Auto 9.9 % (2-11); Neutrophils Absolute Auto 4.3 x10*3/uL (2.0-8.3); Neutrophils Percent Auto 60.5 % (45-73); Platelet Count 147 X10*3/uL (160-400); Red Blood Count 5.27 X10*6/uL (4.60-5.80); Red Cell Distribution Width 12.3 % (11.0-16.0); White Blood Count 7.2 X10*3/uL (4.8-10.8)
[2022-07-20 17:40] LABS: INTERNATIONAL NORM RATIO 0.9 (0.9-1.1); Prothrombin Time 10.5 SEC (10.0-13.1)
[2022-07-20 17:43] LABS: Partial Thromboplastin Time 28.7 SEC (26.0-36.4)
[2022-07-20 17:59] LABS: Alanine Aminotransferase 37 U/L (0-40); Albumin Level 4.3 g/dL (3.5-5.0); Alkaline Phosphatase 96 U/L (39-117); Anion Gap 13 (12-20); Aspartate Amino Transferase 15 U/L (5-37); Bilirubin Total 0.4 mg/dL (0.0-1.0); Blood Urea Nitrogen 27 mg/dL (9-16); Carbon Dioxide 22 mmol/L (22-29); Chloride 108 mmol/L (96-108); Creatinine Clr Calc Pharmacy 41.2; Estimated Glomerular Filt Rate 33; Glucose Random 188 mg/dL (60-115); Magnesium 2.1 mg/dL (1.6-2.6); Potassium 4.2 mmol/L (3.3-5.1); Sodium 139 mmol/L (135-145); Total Protein 6.5 g/dL (6.5-8.0)
[2022-07-20 18:00] VITALS: BP 132/83; PULSE 69; RESP 16; TEMP 36.4; O2SAT 98
[2022-07-20 18:12] LABS: Influenza A PCR NEGATIVE (Negative); Influenza B PCR NEGATIVE (Negative); Resp Syncy Virus RNA Qual PCR NEGATIVE (Negative); SARS COV2 PCR INHOUSE NEGATIVE (Negative)
[2022-07-20] MEDS: Aspirin 81 MG TAB.CHEW 162 MG PO (19:08)
[2022-07-20 21:48] VITALS: BP 130/67; PULSE 71; RESP 16; O2SAT 98
== END 2022-07-20 21:50 | disposition home or self-care (01) ==
PROVIDERS: Physician Assistant Medical; Emergency Provider Internal Medicine; PCP Internal Medicine
DX: G45.9 Transient cerebral ischemic attack, unspecified (principal); E11.22 Type 2 diabetes mellitus with diabetic chronic kidney disease; I12.9 Hypertensive chronic kidney disease with stage 1 through stage 4 chronic kidney disease, or unspecified chronic kidney disease; N18.30 Chronic kidney disease, stage 3 unspecified; E78.00 Pure hypercholesterolemia, unspecified; Z90.5 Acquired absence of kidney; Z87.891 Personal history of nicotine dependence; Z79.02 Long term (current) use of antithrombotics/antiplatelets; Z79.82 Long term (current) use of aspirin; Z79.4 Long term (current) use of insulin; Z20.822 Contact with and (suspected) exposure to COVID-19; Z20.828 Contact with and (suspected) exposure to other viral communicable diseases
CPT/HCPCS: 0241U; 70450; 71046; 80053; 83735; 85025; 85610; 85730; 93005; 93880; 99284

== ENCOUNTER 2022-07-23 16:30 | Emergency (ER) | payer OTHER, SELFPAY ==
--- NOTE | ~2022-07-23 | CT_ITS ---
EXAMINATION: CT HEAD WITHOUT CONTRAST CLINICAL INFORMATION: Headache. COMPARISON: CT head 07/20/2022 TECHNIQUE: Contiguous axial imaging was performed from the skull base to vertex without intravenous administration of contrast. Coronal and sagittal reformatted images are performed at the CT scanner. [This CT examination was performed using dose optimization techniques as appropriate, variously including the following: *Automated exposure control *Adjustment of mA and/or kV according to patient size (this includes techniques or standardized protocols for targeted exams where dose is matched to indication/reason for exam; i.e. extremities or head) *Use of iterative reconstruction technique] DLP: 1339 mGy-cm. FINDINGS: There is no evidence of acute intracranial hemorrhage or territorial infarction. No abnormal mass-effect or midline shift is seen. Jackman to white matter differentiation is well preserved. No extra-axial fluid collections are identified. Stable prominent extra-axial CSF space at the right CP angle consistent with an arachnoid cyst. The ventricles are normal in size. There is no abnormal attenuation within the brain parenchyma. There is no osseous abnormality. The mastoid air cells and visualized portions of the paranasal sinuses are well-aerated. CT/CT head/brain wo IV con IMPRESSION: No acute intracranial pathology.
--- NOTE | ~2022-07-23 | CT_ITS ---
EXAMINATION: CT HEAD WITHOUT CONTRAST CLINICAL INFORMATION: Headache. COMPARISON: CT head 07/20/2022 TECHNIQUE: Contiguous axial imaging was performed from the skull base to vertex without intravenous administration of contrast. Coronal and sagittal reformatted images are performed at the CT scanner. [This CT examination was performed using dose optimization techniques as appropriate, variously including the following: *Automated exposure control *Adjustment of mA and/or kV according to patient size (this includes techniques or standardized protocols for targeted exams where dose is matched to indication/reason for exam; i.e. extremities or head) *Use of iterative reconstruction technique] DLP: 1339 mGy-cm. FINDINGS: There is no evidence of acute intracranial hemorrhage or territorial infarction. No abnormal mass-effect or midline shift is seen. Jackman to white matter differentiation is well preserved. No extra-axial fluid collections are identified. Stable prominent extra-axial CSF space at the right CP angle consistent with an arachnoid cyst. The ventricles are normal in size. There is no abnormal attenuation within the brain parenchyma. There is no osseous abnormality. The mastoid air cells and visualized portions of the paranasal sinuses are well-aerated. CT/CT cervical spine wo IV con IMPRESSION: No acute intracranial pathology.
[2022-07-23 16:54] VITALS: BP 158/81; PULSE 82; RESP 16; TEMP 36.8; O2SAT 98; BMI 28.8
--- NOTE | 2022-07-23 16:55 | ECG_ITS ---
Test Reason : HEADACHE Blood Pressure : / mmHG Vent. Rate : 076 BPM Atrial Rate : 076 BPM P-R Int : 144 ms QRS Dur : 074 ms QT Int : 338 ms P-R-T Axes : 056 028 053 degrees QTc Int : 380 ms Normal sinus rhythm Nonspecific T wave abnormality Abnormal ECG When compared with ECG of 20-JUL-2022 18:07, No significant change was found Referred By: Kevin Webb Electronically Signed By:Melvin Wiseman
--- NOTE | 2022-07-23 16:58 | ED_ITS ---
HPI - General Adult General Chief complaint: Neuro Symptoms/Deficit Stated complaint: had stroke recently/ still has symptoms Time Seen by Provider: 07/23/22 17:32 Related Data Home Medications Medication Instructions Recorded Confirmed blood sugar diagnostic (FreeStyle 01/30/22 07/23/22 Lite Strips) flash glucose scanning reader 01/30/22 07/23/22 (FreeStyle Dexter 14 Day [place]) insulin glargine U-300 conc 300 20 unit subcut .AM 01/30/22 07/23/22 unit/mL (3 mL) subcutaneous pen lancets 28 gauge (FreeStyle 01/30/22 07/23/22 Lancets) Previous Rx's Medication Instructions Recorded acetaminophen 500 mg tablet 500 mg PO Q6H PRN pain or fever 04/27/20 (Tylenol Extra Strength) #20 tabs pen needle, diabetic 32 gauge x #50 ea 09/05/20 (BD Katya 2nd Gen Pen Needle) cholecalciferol (vitamin D3) 50 100 mcg PO DAILY 30 days #60 caps 07/24/21 mcg (2,000 unit) capsule rosuvastatin 40 mg tablet 40 mg PO DAILY 30 days #30 tabs 07/24/21 Trulicity 1.5 mg/0.5 mL 1.5 mg (0.5 mL) subcut QWEEK 4 04/22/22 subcutaneous pen injector weeks #2 mL (dulaglutide) aspirin 81 mg tablet,delayed 81 mg PO DAILY #30 tabs 07/20/22 release (Adult Low Dose Aspirin) blood pressure monitor #1 ea 07/23/22 insulin degludec 100 unit/mL (3 20 unit (0.2 mL) subcut QAM 30 07/23/22 mL) subcutaneous pen (Tresiba days #6 mL FlexTouch U-100 insulin) Allergies Allergy/AdvReac Type Severity Reaction Status Date / Time Latex, Natural Rubber Allergy Mild Rash Verified 07/23/22 09:09 pseudoephedrine [Sudafed] AdvReac Intermediate dizziness, Verified 07/23/22 09:09 panic attacks PMFSH Past Medical History 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), stage III (moderate) residential (current) use of insulin Overweight (BMI 25.0-29.9) Polycythemia Pure hypercholesterolemia Renal cell carcinoma of right kidney Thrombocytopenia Type 2 diabetes mellitus with diabetic chronic kidney disease Vitamin D deficiency Surgical History History of right nephrectomy (~03/30/13) Status post cervical discectomy (~09/04/16) Family History Family History Mother Hypertension Social History Social History Housing: House Alcohol intake: never Patient Tobacco Use Status: Former Tobacco user e-Cigarette/Vaping Use: Never Used Second Hand Smoke Exposure: Yes service: No Current occupational status: employed Cognitive needs: No Hearing needs: No Vision needs: Yes (glasses) Physical Exam ED Vital Signs: BMI result Body Mass Index 28.8 Course Course Course Narrative: RME: 52 yold male presents to the ED for posterior headache, and neck pain. patient states left eye floaters since friday. patient was seen on friday for TIA. patient is pending a follow up with NEurology for MRI. NO neuro deficit on exam. NIH score 0. patient has normal gait. ekg. rEPEAT HEAD ct, LABS OR DERED. Medications Administered Discontinued Medications Generic Name Dose Route Start Last Admin Trade Name Otilia PRN Reason Stop Dose Admin Acetaminophen 975 mg 07/23/22 19:44 07/23/22 19:49 Acetaminophen 325 Mg Tablet PO 07/23/22 19:45 975 mg ONCE ONE Administration Medical Decision Making Lab Data 07/23/22 17:10 07/23/22 17:10 Labs: Lab Results 07/23/22 07/23/22 07/23/22 Range/Units 17:10 17:10 17:10 WBC 7.8 (4.8-10.8) X10*3/uL RBC 5.53 (4.60-5.80) X10*6/uL Hgb 16.4 (14.0-18.0) g/dl Hct 45.1 (42.0-52.0) % MCV 81.6 (80.0-98.0) fL MCH 29.7 (27.0-33.0) pg MCHC 36.4 H (31.0-36.0) g/dl RDW 12.1 (11.0-16.0) % Plt Count 152 L (160-400) X10*3/uL MPV 12.3 (9.4-12.4) fL Immature Gran % (Auto) 0.9 H (0.0-0.4) % Neut % (Auto) 64.0 (45-73) % Lymph % (Auto) 24.1 (20-40) % [place] % (Auto) 9.8 (2-11) % Eos % (Auto) 0.8 (0-4) % Baso % (Auto) 0.4 (0-2) % Lymph # (Auto) 1.9 (1.2-4.9) X10*3/uL [place] # (Auto) 0.8 (0.1-1.2) X10*3/uL Eos # (Auto) 0.1 (0.0-0.4) X10*3/uL Baso # (Auto) 0.0 (0.0-0.2) X10*3/uL Abs Immat Gran (auto) 0.07 H (0.00-0.03) X10*3/uL Absolute Neuts (auto) 5.0 (2.0-8.3) x10*3/uL Absolute Nucleated RBC 0.000 (0.0-0.012) X10*3/uL Nucleated RBC % (auto) 0.0 (0.0-0.2) /100WBC PT 10.5 (10.0-13.1) SEC INR 0.9 (0.9-1.1) APTT 28.0 (26.0-36.4) SEC Sodium 139 (135-145) mmol/L Potassium 3.8 (3.3-5.1) mmol/L Chloride 109 H (96-108) mmol/L Carbon Dioxide 20 L (22-29) mmol/L Anion Gap 14 (12-20) BUN 27 H (9-16) mg/dL Creatinine 1.99 H (0.5-1.4) mg/dL Estim Creat Clear Calc 43.4 Estimated GFR 35 Random Glucose 218 H (60-115) mg/dL Calcium 8.4 D (8.4-10.2) mg/dL Total Bilirubin 0.4 (0.0-1.0) mg/dL AST 20 (5-37) U/L ALT 38 (0-40) U/L Alkaline Phosphatase 98 (39-117) U/L Troponin I High Sens (<3.5-35.0) ng/L Total Protein 6.2 L (6.5-8.0) g/dL Albumin 4.2 (3.5-5.0) g/dL 07/23/22 Range/Units 17:10 WBC (4.8-10.8) X10*3/uL RBC (4.60-5.80) X10*6/uL Hgb (14.0-18.0) g/dl Hct (42.0-52.0) % MCV (80.0-98.0) fL MCH (27.0-33.0) pg MCHC (31.0-36.0) g/dl RDW (11.0-16.0) % Plt Count (160-400) X10*3/uL MPV (9.4-12.4) fL Immature Gran % (Auto) (0.0-0.4) % Neut % (Auto) (45-73) % Lymph % (Auto) (20-40) % [place] % (Auto) (2-11) % Eos % (Auto) (0-4) % Baso % (Auto) (0-2) % Lymph # (Auto) (1.2-4.9) X10*3/uL [place] # (Auto) (0.1-1.2) X10*3/uL Eos # (Auto) (0.0-0.4) X10*3/uL Baso # (Auto) (0.0-0.2) X10*3/uL Abs Immat Gran (auto) (0.00-0.03) X10*3/uL Absolute Neuts (auto) (2.0-8.3) x10*3/uL Absolute Nucleated RBC (0.0-0.012) X10*3/uL Nucleated RBC % (auto) (0.0-0.2) /100WBC PT (10.0-13.1) SEC INR (0.9-1.1) APTT (26.0-36.4) SEC Sodium (135-145) mmol/L Potassium (3.3-5.1) mmol/L Chloride (96-108) mmol/L Carbon Dioxide (22-29) mmol/L Anion Gap (12-20) BUN (9-16) mg/dL Creatinine (0.5-1.4) mg/dL Estim Creat Clear Calc Estimated GFR Random Glucose (60-115) mg/dL Calcium (8.4-10.2) mg/dL Total Bilirubin (0.0-1.0) mg/dL AST (5-37) U/L ALT (0-40) U/L Alkaline Phosphatase (39-117) U/L Troponin I High Sens 24.1 (<3.5-35.0) ng/L Total Protein (6.5-8.0) g/dL Albumin (3.5-5.0) g/dL Discharge Plan Discharge Clinical Impression: Headache Patient Disposition: Home, Self-Care Instructions: Acute Headache (ED) Prescriptions: No Action Trulicity 1.5 mg/0.5 mL pen injector 1.5 mg subcut QWEEK 28 Days Qty: 2 2RF insulin degludec [Tresiba FlexTouch U-100] 100 unit/mL (3 mL) insulin pen 20 unit subcut QAM 30 Days Qty: 6 0RF acetaminophen [Tylenol Extra Strength] 500 mg tablet 500 mg PO Q6H PRN (Reason: pain or fever) Qty: 20 0RF aspirin [Adult Low Dose Aspirin] 81 mg tablet,delayed release (DR/EC) 81 mg PO DAILY Qty: 30 0RF cholecalciferol (vitamin D3) 50 mcg (2,000 unit) capsule 100 mcg PO DAILY 30 Days Qty: 60 6RF Rx Instructions: Dose increased. Please disregard prior prescription. rosuvastatin 40 mg tablet 40 mg PO DAILY 30 Days Qty: 30 6RF (DME) blood pressure monitor Kit See Rx Instructions .Route Qty: 1 0RF Rx Instructions: As directed (DME) pen needle, diabetic [BD Katya 2nd Gen Pen Needle] 32 gauge x 5/32 needle See Rx Instructions .MEDSUPPLY Qty: 50 4RF Rx Instructions: once a day insulin glargine U-300 conc 300 unit/mL (3 mL) insulin pen 20 unit subcut .AM (DME) FreeStyle Dexter 14 Day [place] Misc See Rx Instructions .Route Rx Instructions: As directed (DME) lancets [FreeStyle Lancets] 28 gauge misc See Rx Instructions .Route Rx Instructions: As directed (DME) FreeStyle Lite Strips Strip See Rx Instructions .Route Rx Instructions: As directed Referrals: Austin Luna MD [Primary Care Provider] - Interventions: ED Discharge Assessment Last Done: 07/23/22 19:50 Discharge Date/Time: 07/23/22 19:50
[2022-07-23 17:18] LABS: MANUAL DIFF FLAG NO
[2022-07-23 17:22] LABS: Basophils Percent Auto 0.4 % (0-2); Eosinophils Absolute Auto 0.1 X10*3/uL (0.0-0.4); Eosinophils Percent Auto 0.8 % (0-4); Hematocrit 45.1 % (42.0-52.0); Hemoglobin 16.4 g/dl (14.0-18.0); Imm Gran Abs Auto 0.07 X10*3/uL (0.00-0.03); Imm Gran Pct Auto 0.9 % (0.0-0.4); Lymphocytes Absolute Auto 1.9 X10*3/uL (1.2-4.9); Lymphocytes Percent Auto 24.1 % (20-40); Mean Corpuscular HGB Conc 36.4 g/dl (31.0-36.0); Mean Corpuscular Hemoglobin 29.7 pg (27.0-33.0); Mean Corpuscular Volume 81.6 fL (80.0-98.0); Mean Platelet Volume 12.3 fL (9.4-12.4); Monocytes Absolute Auto 0.8 X10*3/uL (0.1-1.2); Monocytes Percent Auto 9.8 % (2-11); Platelet Count 152 X10*3/uL (160-400); Red Blood Count 5.53 X10*6/uL (4.60-5.80); Red Cell Distribution Width 12.1 % (11.0-16.0); White Blood Count 7.8 X10*3/uL (4.8-10.8)
[2022-07-23 17:39] LABS: INTERNATIONAL NORM RATIO 0.9 (0.9-1.1); Prothrombin Time 10.5 SEC (10.0-13.1)
[2022-07-23 17:46] LABS: Alanine Aminotransferase 38 U/L (0-40); Albumin Level 4.2 g/dL (3.5-5.0); Alkaline Phosphatase 98 U/L (39-117); Anion Gap 14 (12-20); Aspartate Amino Transferase 20 U/L (5-37); Bilirubin Total 0.4 mg/dL (0.0-1.0); Blood Urea Nitrogen 27 mg/dL (9-16); Calcium 8.4 mg/dL (8.4-10.2); Carbon Dioxide 20 mmol/L (22-29); Chloride 109 mmol/L (96-108); Creatinine Clr Calc Pharmacy 43.4; Estimated Glomerular Filt Rate 35; Glucose Random 218 mg/dL (60-115); Potassium 3.8 mmol/L (3.3-5.1); Sodium 139 mmol/L (135-145); Total Protein 6.2 g/dL (6.5-8.0)
[2022-07-23 17:52] LABS: Troponin-I High Sensitivity 24.1 ng/L (<3.5-35.0)
--- NOTE | 2022-07-23 17:57 | ED_ITS ---
HPI - Neuro Symptoms/Deficit General Chief Complaint: Neuro Symptoms/Deficit Stated Complaint: had stroke recently/ still has symptoms Time Seen by Provider: 07/23/22 17:32 History of Present Illness HPI Narrative: Patient is a 52-year-old male with a history of high blood pressure high cholesterol diabetes patient had a TIA was recently admitted to the hospital. Presented today with having headaches. Patient claims the headache is in the occipital area. It was fairly sudden in onset happened approximately 3 hours ago. Patient was evaluated previously had CT scan had carotid Dopplers done they are all negative. No evidence of bleeding. Patient is not on blood thinners. No fever no chills no coughing or congestion or upper respiratory symptoms. No diaphoresis. No new focal weakness. Patient has recover all of the weakness in his left upper extremity. Patient was scheduled for follow-up with Neurology. Noted to have a headache. Sent for further evaluation. Shannan haywood claims he also has floaters from time to time. This has been an ongoing issue not new. It last for few seconds. Patient claims that at the current time his vision is back to normal. It seems like it is happening at a slightly increased frequency. Denies any fever chills. No coughing congestion upper respiratory symptoms. No diaphoresis. No slurred speech. No clumsiness. No nausea no vomiting no fever. Related Data Home Medications Medication Instructions Recorded Confirmed blood sugar diagnostic (FreeStyle 01/30/22 07/23/22 Lite Strips) flash glucose scanning reader 01/30/22 07/23/22 (FreeStyle Dexter 14 Day [place]) insulin glargine U-300 conc 300 20 unit subcut .AM 01/30/22 07/23/22 unit/mL (3 mL) subcutaneous pen lancets 28 gauge (FreeStyle 01/30/22 07/23/22 Lancets) Previous Rx's Medication Instructions Recorded acetaminophen 500 mg tablet 500 mg PO Q6H PRN pain or fever 04/27/20 (Tylenol Extra Strength) #20 tabs pen needle, diabetic 32 gauge x #50 ea 09/05/20 (BD Katya 2nd Gen Pen Needle) cholecalciferol (vitamin D3) 50 100 mcg PO DAILY 30 days #60 caps 07/24/21 mcg (2,000 unit) capsule rosuvastatin 40 mg tablet 40 mg PO DAILY 30 days #30 tabs 07/24/21 Trulicity 1.5 mg/0.5 mL 1.5 mg (0.5 mL) subcut QWEEK 4 04/22/22 subcutaneous pen injector weeks #2 mL (dulaglutide) aspirin 81 mg tablet,delayed 81 mg PO DAILY #30 tabs 07/20/22 release (Adult Low Dose Aspirin) blood pressure monitor #1 ea 07/23/22 insulin degludec 100 unit/mL (3 20 unit (0.2 mL) subcut QAM 30 07/23/22 mL) subcutaneous pen (Tresiba days #6 mL FlexTouch U-100 insulin) Allergies Allergy/AdvReac Type Severity Reaction Status Date / Time Latex, Natural Rubber Allergy Mild Rash Verified 07/23/22 09:09 pseudoephedrine [Sudafed] AdvReac Intermediate dizziness, Verified 07/23/22 09:09 panic attacks Review of Systems Review of Systems: Positive headache in the occipital area Yes all other systems are reviewed and are negative PMFSH Past Medical History Attestation statement: The following information was validated with the patient. 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 Overweight (BMI 25.0-29.9) Polycythemia Pure hypercholesterolemia Renal cell carcinoma of right kidney Thrombocytopenia Type 2 diabetes mellitus with diabetic chronic kidney disease Vitamin D deficiency Surgical History History of right nephrectomy (~03/30/13) Status post cervical discectomy (~09/04/16) Family History Family History Mother Hypertension Social History Social History Housing: House Alcohol intake: never Patient Tobacco Use Status: Former Tobacco user e-Cigarette/Vaping Use: Never Used Second Hand Smoke Exposure: Yes Advance Directives: No Advance Directives Information Provided: No service: No Current occupational status: employed Cognitive needs: No Hearing needs: No Vision needs: Yes (glasses) Physical Exam Vital Signs: Vital Signs: Last Vital Signs Temp 98.2 F 07/23/22 16:54 Pulse 82 01/31/23 16:54 Resp 16 07/23/22 16:54 BP 158/81 H 07/23/22 16:54 Pulse Ox 98 07/23/22 16:54 O2 Del Method 07/23/22 16:54 BMI result Body Mass Index 28.8 Appearance: Alert. Oriented X3. No acute distress. Eyes: Pupils equal, round and reactive to light. ENT: Pharynx normal. Neck: Normal inspection. Neck supple. No lymph nodes noted. No crepitus CVS: Normal heart rate and rhythm. Pulses normal. Normal S1 and S2 Respiratory: No respiratory distress. Breath sounds normal. No Wheezing. No rales Abdomen: Soft and nontender. No rigidity. No distention. good BS x4 Skin: Skin warm and dry. Normal skin color. Normal skin turgor. Extremities: No lower extremity edema. Neurovascular intact to all extremities. No Lacerations. No Rash Neuro: Oriented X 3. No motor deficit. No sensory deficit. Moving all extermities. No slurred speech Medical Decision Making Medical Decision Making MDM Narrative: Patient had a TIA/CVA last week. Had carotid Dopplers done which were negative. Not on blood thinners. Presented today with having headache in the occipital area. Patient is 52 years old less likely to have temporal arteritis. Patient vision is actually grossly intact here. He had some floaters which are chronic. Patient's CT scan of the head was grossly negative. Given patient's headache less than 6 hours. Unlikely to have a bleed. Patient's headache actually subsided with time. History not consistent with meningitis. Neurologically intact. No evidence for CVA. Patient is currently in stable condition discharge patient home follow up on an outpatient basis. Differential Diagnosis Differential Diagnoses: The differential diagnosis associated with the pr esentation includes Headache, tension headache, meningitis, intracranial bleed, mass, fracture Admission/Observation Consideration of admission/observation: Escalation of care including admission/observation considered Symptom improved neurologically intact no need for admission Lab Data MDM Lab Attestation statement: I reviewed the patient's lab results. 07/23/22 17:10 07/23/22 17:10 Labs: Lab Results 07/23/22 07/23/22 07/23/22 Range/Units 17:10 17:10 17:10 WBC 7.8 (4.8-10.8) X10*3/uL RBC 5.53 (4.60-5.80) X10*6/uL Hgb 16.4 (14.0-18.0) g/dl Hct 45.1 (42.0-52.0) % MCV 81.6 (80.0-98.0) fL MCH 29.7 (27.0-33.0) pg MCHC 36.4 H (31.0-36.0) g/dl RDW 12.1 (11.0-16.0) % Plt Count 152 L (160-400) X10*3/uL MPV 12.3 (9.4-12.4) fL Immature Gran % (Auto) 0.9 H (0.0-0.4) % Neut % (Auto) 64.0 (45-73) % Lymph % (Auto) 24.1 (20-40) % [place] % (Auto) 9.8 (2-11) % Eos % (Auto) 0.8 (0-4) % Baso % (Auto) 0.4 (0-2) % Lymph # (Auto) 1.9 (1.2-4.9) X10*3/uL [place] # (Auto) 0.8 (0.1-1.2) X10*3/uL Eos # (Auto) 0.1 (0.0-0.4) X10*3/uL Baso # (Auto) 0.0 (0.0-0.2) X10*3/uL Abs Immat Gran (auto) 0.07 H (0.00-0.03) X10*3/uL Absolute Neuts (auto) 5.0 (2.0-8.3) x10*3/uL Absolute Nucleated RBC 0.000 (0.0-0.012) X10*3/uL Nucleated RBC % (auto) 0.0 (0.0-0.2) /100WBC PT 10.5 (10.0-13.1) SEC INR 0.9 (0.9-1.1) APTT 28.0 (26.0-36.4) SEC Sodium 139 (135-145) mmol/L Potassium 3.8 (3.3-5.1) mmol/L Chloride 109 H (96-108) mmol/L Carbon Dioxide 20 L (22-29) mmol/L Anion Gap 14 (12-20) BUN 27 H (9-16) mg/dL Creatinine 1.99 H (0.5-1.4) mg/dL Estim Creat Clear Calc 43.4 Estimated GFR 35 Random Glucose 218 H (60-115) mg/dL Calcium 8.4 D (8.4-10.2) mg/dL Total Bilirubin 0.4 (0.0-1.0) mg/dL AST 20 (5-37) U/L ALT 38 (0-40) U/L Alkaline Phosphatase 98 (39-117) U/L Troponin I High Sens (<3.5-35.0) ng/L Total Protein 6.2 L (6.5-8.0) g/dL Albumin 4.2 (3.5-5.0) g/dL 07/23/22 Range/Units 17:10 WBC (4.8-10.8) X10*3/uL RBC (4.60-5.80) X10*6/uL Hgb (14.0-18.0) g/dl Hct (42.0-52.0) % MCV (80.0-98.0) fL MCH (27.0-33.0) pg MCHC (31.0-36.0) g/dl RDW (11.0-16.0) % Plt Count (160-400) X10*3/uL MPV (9.4-12.4) fL Immature Gran % (Auto) (0.0-0.4) % Neut % (Auto) (45-73) % Lymph % (Auto) (20-40) % [place] % (Auto) (2-11) % Eos % (Auto) (0-4) % Baso % (Auto) (0-2) % Lymph # (Auto) (1.2-4.9) X10*3/uL [place] # (Auto) (0.1-1.2) X10*3/uL Eos # (Auto) (0.0-0.4) X10*3/uL Baso # (Auto) (0.0-0.2) X10*3/uL Abs Immat Gran (auto) (0.00-0.03) X10*3/uL Absolute Neuts (auto) (2.0-8.3) x10*3/uL Absolute Nucleated RBC (0.0-0.012) X10*3/uL Nucleated RBC % (auto) (0.0-0.2) /100WBC PT (10.0-13.1) SEC INR (0.9-1.1) APTT (26.0-36.4) SEC Sodium (135-145) mmol/L Potassium (3.3-5.1) mmol/L Chloride (96-108) mmol/L Carbon Dioxide (22-29) mmol/L Anion Gap (12-20) BUN (9-16) mg/dL Creatinine (0.5-1.4) mg/dL Estim Creat Clear Calc Estimated GFR Random Glucose (60-115) mg/dL Calcium (8.4-10.2) mg/dL Total Bilirubin (0.0-1.0) mg/dL AST (5-37) U/L ALT (0-40) U/L Alkaline Phosphatase (39-117) U/L Troponin I High Sens 24.1 (<3.5-35.0) ng/L Total Protein (6.5-8.0) g/dL Albumin (3.5-5.0) g/dL Independent Historian Clinical information obtained from an independent historian. History obtained from or confirmed by: Spouse External Record Review External record reviewed: Inpatient record Chronic Conditions Patient?s care impacted by: Diabetes and Hypertension Social Determinants Patient?s care significantly limited by Social Determinants of Health including: Problems related to primary support group Discharge Plan Discharge Clinical Impression: Headache Patient Disposition: Home, Self-Care Instructions: Acute Headache (ED) Prescriptions: No Action Trulicity 1.5 mg/0.5 mL pen injector 1.5 mg subcut QWEEK 28 Days Qty: 2 2RF insulin degludec [Tresiba FlexTouch U-100] 100 unit/mL (3 mL) insulin pen 20 unit subcut QAM 30 Days Qty: 6 0RF acetaminophen [Tylenol Extra Strength] 500 mg tablet 500 mg PO Q6H PRN (Reason: pain or fever) Qty: 20 0RF aspirin [Adult Low Dose Aspirin] 81 mg tablet,delayed release (DR/EC) 81 mg PO DAILY Qty: 30 0RF cholecalciferol (vitamin D3) 50 mcg (2,000 unit) capsule 100 mcg PO DAILY 30 Days Qty: 60 6RF Rx Instructions: Dose increased. Please disregard prior prescription. rosuvastatin 40 mg tablet 40 mg PO DAILY 30 Days Qty: 30 6RF (DME) blood pressure monitor Kit See Rx Instructions .Route Qty: 1 0RF Rx Instructions: As directed (DME) pen needle, diabetic [BD Katya 2nd Gen Pen Needle] 32 gauge x 5/32 needle See Rx Instructions .MEDSUPPLY Qty: 50 4RF Rx Instructions: once a day insulin glargine U-300 conc 300 unit/mL (3 mL) insulin pen 20 unit subcut .AM (DME) FreeStyle Dexter 14 Day [place] Misc See Rx Instructions .Route Rx Instructions: As directed (DME) lancets [FreeStyle Lancets] 28 gauge misc See Rx Instructions .Route Rx Instructions: As directed (DME) FreeStyle Lite Strips Strip See Rx Instructions .Route Rx Instructions: As directed Referrals: Austin Luna MD [Primary Care Provider] -
[2022-07-23] MEDS: Acetaminophen 325 MG TABLET 975 MG PO (19:49)
== END 2022-07-23 19:50 | disposition home or self-care (01) ==
PROVIDERS: Physician Assistant; Emergency Provider Emergency Medicine Emergency Medical Services; PCP Internal Medicine
DX: R51.9 Headache, unspecified (principal); E11.22 Type 2 diabetes mellitus with diabetic chronic kidney disease; I12.9 Hypertensive chronic kidney disease with stage 1 through stage 4 chronic kidney disease, or unspecified chronic kidney disease; N18.30 Chronic kidney disease, stage 3 unspecified; E78.5 Hyperlipidemia, unspecified; C64.1 Malignant neoplasm of right kidney, except renal pelvis; Z86.73 Personal history of transient ischemic attack (TIA), and cerebral infarction without residual deficits; Z79.4 Long term (current) use of insulin; Z79.899 Other long term (current) drug therapy; Z79.82 Long term (current) use of aspirin
CPT/HCPCS: 36415; 70450; 72125; 80053; 84484; 85025; 85610; 85730; 93005; 99283; 99284

== ENCOUNTER → 2022-08-05 14:48 | Outpatient (REF) | payer OTHER, SELFPAY ==
--- NOTE | 2022-08-05 14:52 | CA_ITS ---
Transthoracic Echocardiogram Patient (Last, First, Middle): Brayan Maza D Gender: Male Date of : 1970 Age: 52 Procedure Date: 08/05/2022 Procedure Type: Transthoracic Echocardiogram Location: OP Height: 167.64 cm Weight: 81.19 kg BSA: 1.91 m2 Heart Rate: bpm BP: 144 / 76 mmHg Platform Attendant: HONEY Referring MD: Austin Luna MD Symptoms: G45.9 - Transient cerebral ischemic attack, unspecified Study Quality: Adequate ECG Rhythm: Sinus Conclusions: - The left ventricular systolic function is normal. The calculated ejection fraction is 57% by biplane method. - No obvious valvular pathology seen on this study. Findings Left Ventricle Normal left ventricular cavity size. There is normal left ventricular wall thickness. The left ventricular systolic function is normal. The calculated ejection fraction is 57% by biplane method. There is no evidence of regional wall motion abnormalities. Diastolic function is normal for age. LV peak GLS -17.7%. Right Ventricle Normal right ventricular cavity size and systolic function. Atria Both atria are normal in size. Aortic Valve The aortic valve was not well visualized. There is no aortic valve stenosis. There is no aortic valve regurgitation. Mitral Valve The mitral valve appears normal. There is trace mitral valve regurgitation. There is no mitral valve stenosis. Pulmonic Valve The pulmonic valve is likely normal. Tricuspid Valve There is trace tricuspid valve regurgitation. There is no evidence of pulmonary hypertension. Great Vessels The asc aorta is normal in size. Venous The inferior vena cava is normal in size and collapses greater than 50% with inspiration. Pericardium/Pleural There is no evidence of pericardial effusion. Prior Study Comparison No prior study available for comparison. Recommendations, Care & Conclusions No obvious valvular pathology seen on this study. Measurements 2D Linear Measurements IVSd: 0.69 0.6-0.9/0.6-1.0 cm LVIDd: 3.90 3.9-5.3/4.2-5.9 cm LVIDd Index: 2.04 2.4-3.2/2.2-3.1 cm/m2 LVIDs: 2.11 2.0-3.6 cm LVPWd: 1.04 0.7-1.1 cm LA Diam: 2.70 2.7-3.8/3.0-4.0 cm LAIDs Index: 1.41 1.5-2.3 cm/m2 LV Mass: 123.80 67-162/88-224 g LV Mass Index: 64.82 43-95/49-115 g/m2 LVOT Diam: 2.00 3.0+(-)1.3 cm 2D Systolic Function EF 4C: 57.10 >55% EF 2C: 57.40 >55% EF BiP: 57.00 >55% Mitral Valve MV Pk E: 0.79 MV PK A: 0.87 MV Decel Time: 238.00 E/A: 0.90 E'Lateral: 10.20 E'Medial: 7.94 E/E' Med: 9.90 E/E' Lat: 7.70 PHT: 70.00 MVA PHT: 3.14 Decel [place]: 3.30 Aortic Valve AoV Pk Todd: 1.33 AoV Mn Todd: 0.86 AoV VTI: 0.26 AoV Pk Grad: 7.00 Aov Mn Grad: 3.00 ASHWIN Cont.VTI: 2.50 LVOT LVOT Pk Todd: 1.22 LVOT Mn Todd: 0.73 LVOT VTI: 0.20 LVOT Pk Grad: 6.00 LVOT Mn Grad: 3.00 LVOT Diam: 2.00 LVOT Area: 3.14 Diastolic Function MV Pk E: 0.79 MV Pk A: 0.87 E/A: 0.90 E'Medial: 7.94 E/E' Med: 9.90 E' Laterial: 10.20 E/E' Lat: 7.70 Right Ventricle TAPSE (mm): 20.70 TVS' Todd: 14.50 Tricuspid Valve TR Pk Todd: 1.75 TR Pk Grad: 12.00 RA Press: 3.00 RVSP: 15.00 Great Vessels Aorta Sinus of Valsalva: 3.01 2.0-3.5 cm Ao Asc: 2.70 2.1-3.4 cm Updated in Other Vendor System with Status of Final Robbie Hernandez MD electronically signed on 08/06/2022 8:39:34 AM with status of Final
== END ==
LOC: HO.CARD 14:48
PROVIDERS: PCP Internal Medicine; Visit Provider Internal Medicine
DX: G45.9 Transient cerebral ischemic attack, unspecified (principal)
CPT/HCPCS: 93306; 93356

== ENCOUNTER 2022-08-06 08:13 | Outpatient (REF) | payer OTHER, SELFPAY ==
--- NOTE | ~2022-08-06 | MR_ITS ---
EXAMINATION: MR BRAIN WITHOUT CONTRAST CLINICAL INFORMATION: Transient ischemic attack. COMPARISON: Brain MRI dated 12/25/2012. TECHNIQUE: Multiplanar, multisequence imaging of the brain was performed without contrast. FINDINGS: No diffusion abnormalities are identified to suggest an acute infarct. The ventricles are normal in size. No new mass effect or midline shift is seen. Minimal bifrontal white matter signal changes are stable. An arachnoid cyst versus chronic subdural hygroma in the right aspect of the posterior fossa is stable with mild distortion of the right cerebellar hemisphere. The brainstem is normal. The gradient refocused acquisition is normal. The craniovertebral junction, marrow signal, and midline structures are normal. The major intracranial flow voids at the level of the [place] are preserved. The dural venous sinus flow voids are maintained. The mastoid air cells are well aerated. There is [id number] ethmoid sinus mucosal thickening. MR/MR head/brain wo con IMPRESSION: Stable arachnoid cyst versus subdural hygroma in the right aspect of the posterior fossa. Minimal chronic bifrontal white matter signal changes, as on prior imaging. Otherwise, relatively normal MRI of the brain.
== END 2022-08-06 08:14 | disposition home or self-care (01) ==
LOC: HO.MRI 08:13
PROVIDERS: Visit Provider Internal Medicine
DX: G45.9 Transient cerebral ischemic attack, unspecified (principal)
CPT/HCPCS: 70551

== ENCOUNTER 2022-11-12 06:06 | Outpatient (REF) | payer OTHER, SELFPAY ==
[2022-11-12 06:18] LABS: MANUAL DIFF FLAG NO
[2022-11-12 07:31] LABS: Basophils Percent Auto 0.5 % (0-2); Eosinophils Absolute Auto 0.1 X10*3/uL (0.0-0.4); Eosinophils Percent Auto 1.3 % (0-4); Hematocrit 48.1 % (42.0-52.0); Hemoglobin 16.7 g/dl (14.0-18.0); Imm Gran Abs Auto 0.03 X10*3/uL (0.00-0.03); Imm Gran Pct Auto 0.5 % (0.0-0.4); Mean Corpuscular HGB Conc 34.7 g/dl (31.0-36.0); Mean Corpuscular Hemoglobin 29.5 pg (27.0-33.0); Mean Platelet Volume 12.5 fL (9.4-12.4); Monocytes Absolute Auto 0.6 X10*3/uL (0.1-1.2); Monocytes Percent Auto 10.1 % (2-11); Neutrophils Absolute Auto 3.6 x10*3/uL (2.0-8.3); Neutrophils Percent Auto 56.6 % (45-73); Platelet Count 155 X10*3/uL (160-400); Red Blood Count 5.66 X10*6/uL (4.60-5.80); Red Cell Distribution Width 12.7 % (11.0-16.0); White Blood Count 6.4 X10*3/uL (4.8-10.8)
[2022-11-12 07:39] LABS: Estimated Average Glucose 123 mg/dL; Hemoglobin A1c % 5.9 %
[2022-11-12 08:08] LABS: Alanine Aminotransferase 35 U/L (0-40); Albumin Level 4.3 g/dL (3.5-5.0); Alkaline Phosphatase 67 U/L (39-117); Anion Gap 11 (12-20); Aspartate Amino Transferase 31 U/L (5-37); Bilirubin Total 0.8 mg/dL (0.0-1.0); Blood Urea Nitrogen 20 mg/dL (9-16); Calcium 8.9 mg/dL (8.4-10.2); Carbon Dioxide 23 mmol/L (22-29); Chloride 110 mmol/L (96-108); Cholesterol 205 mg/dL; Estimated Glomerular Filt Rate 42; Glucose Fasting 120 mg/dL (60-99); HDL Cholesterol 44 mg/dL; LDL Cholesterol Calculated 134 mg/dl; Potassium 4.2 mmol/L (3.3-5.1); Sodium 140 mmol/L (135-145); Total Protein 6.3 g/dL (6.5-8.0); Triglycerides 135 mg/dL
[2022-11-12 08:27] LABS: TSH reflex Free T4 1.96 uIU/mL (0.32-4.0)
[2022-11-12 09:43] LABS: Appearance Urine Clear; Color Urine Yellow; Glucose Urine UA Negative (Negative); Leukocyte Esterase Urine Negative (Negative); Nitrite Urine Negative (Negative); PH 5.5 (5.0-9.0); Specific Gravity - Urine 1.015 (1.005-1.025); Urine Blood Negative (Negative); Urine Ketones Negative (Negative); Urine Protein Trace mg/dL (Neg-Trace)
[2022-11-12 10:04] LABS: Creatinine Urine 130.76 mg/dL; Microalbum/Creatinine Ratio Ur 39.7 ug/mg cr
== END 2022-11-12 06:07 | disposition home or self-care (01) ==
LOC: HO.LAB 06:06
PROVIDERS: PCP Internal Medicine; Visit Provider Internal Medicine
DX: I10 Essential (primary) hypertension (principal); E78.00 Pure hypercholesterolemia, unspecified; E11.9 Type 2 diabetes mellitus without complications; E55.9 Vitamin D deficiency, unspecified; R30.0 Dysuria
CPT/HCPCS: 36415; 80053; 80061; 81003; 82043; 82306; 83036; 84443; 85025

== ENCOUNTER 2023-05-01 14:42 | Outpatient (AMB) | payer OTHER, SELFPAY ==
--- NOTE | 2023-05-01 14:51 | MHC.OFFVIS ---
Intake Vital Signs 05/01/23 14:52 Height 5 ft 6 in Weight 176 lb 12.972 oz BMI 28.5 BP 158/72 H Blood Pressure Location Lt brachial Position Sitting Pulse 75 Intake Visit Reasons: Colonoscopy Screening Intake Note: Patient presents to in office visit today as a new patient for colonoscopy screening. CC: Patient denies having any new GI symptoms today. Allergies Latex, Natural Rubber Allergy (Mild, Verified 05/01/23 14:55) Rash pseudoephedrine [Sudafed] Adverse Reaction (Intermediate, Verified 05/01/23 14:55) dizziness, panic attacks HPI Colonoscopy Screening HPI Details 52-year-old male here for preprocedural meeting to discuss a screening colonoscopy. He is referred by Austin Luna of [facility] [place]. PMX History of TIA Attention deficit disorder Epilepsy History of renal cell carcinoma Obesity Cervical degenerative disc disease Polycythemia Hypertension High cholesterol Diabetes Chronic kidney disease stage 3 * SURGICAL HISTORY Cervical diskectomy Right nephrectomy Tonsillectomy * ALLERGIES Latex Sudafed * [employer]: Laboratory Tests 11/12/22 06:17 WBC 6.4 Hgb 16.7 Hct 48.1 Plt Count 155 L Estimated GFR 42 Total Bilirubin 0.8 AST 31 ALT 35 Alkaline Phosphata se 67 TSH 1.96 TODAY'S VISIT This is his first colonoscopy. He has occasional diarrhea depending on what he eats like greasy foods, no chronic upper GI problems. There are no prior problems with anesthesia or sedation. He denies any cardiac or respiratory problems. No ID problems. There is no known FHX or crc or polyps. 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 Overweight (BMI 25.0-29.9) 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 disc herniation Vitamin D deficiency Polycythemia Thrombocytopenia Pure hypercholesterolemia Benign essential hypertension Chronic kidney disease (CKD), stage III (moderate) Type 2 diabetes mellitus with diabetic chronic kidney disease Surgical History Status post cervical discectomy (~09/04/16) History of right nephrectomy (~03/30/13) Family History Mother Hypertension Social History Housing: House Alcohol intake: never Patient Tobacco Use Status: Former Tobacco user e-Cigarette/Vaping Use: Never Used Second Hand Smoke Exposure: Yes service: No Current occupational status: employed Cognitive needs: No Hearing needs: No Vision needs: Yes (glasses) Review of Systems Const Denies fatigue, Denies fever(s), Denies night sweats, Denies poor appetite and Denies weight loss ENT Reports Normal hearing present, Denies dental pain, Denies dysphagia, Denies hearing loss, Denies mouth pain, Denies odynophagia, Denies throat swelling, Denies tongue swelling and Reports other (Dentition adequate) Card Reports no additional complaints Resp Reports no additional complaints GI Denies abdominal pain, Denies melena, Denies bloating, Denies hematochezia, Denies constipation, Denies GI cramping, Denies dysphagia, Denies excessive flatus, Denies early satiety, Denies heartburn, Reports diarrhea, Denies nausea, Denies odynophagia, Denies vomiting and Denies hematemesis Skin/Breast Denies pruritus, Denies lesions, Denies rash and Denies jaundice Neuro Reports Normal hearing present, Denies Abnormal speech present and Reports convulsions Endo Denies fatigue Aller/Immun Denies throat swelling and Denies tongue swelling Physical Exam Vital Signs: Last Vital Signs Pulse 75 05/01/23 14:52 BP 158/72 H 05/01/23 14:52 BMI result Body Mass Index 28.5 Const General: cooperative, no acute distress, well developed and well groomed Nutritional Appearance: well nourished and overweight Orientation/consciousness: oriented to person, oriented to place and oriented to time Limitations: No language barrier HEENT Head: Yes normocephalic and Yes atraumatic Eyes General: appearance normal, both eyes and all related structures Pupils: Equal, round and reactive pupils present Neck Neck: Yes normal visual inspection and Yes no lymphadenopathy Thyroid: Thyroid normal Resp Effort & Inspection: normal respiratory effort and able to speak in complete sentences Auscultation: clear to auscultation bilaterally Cardio Rate: regular rate Rhythm: regular rhythm Heart sounds: Normal, physiologic split S2 sound present Peripheral pulses: radial pulses present and posterior tibial pulses present GI Inspection: No distended, No Abdominal panniculus present and Yes obesity Palpation (GI): Soft to palpation, nontender, no guarding, not rigid and No hepatosplenomegaly present Percussion: Yes normal to percussion Auscultation: normal bowel sounds Rectal Exam - Male: Yes deferred Abdomen image: 1. surgical scars 2. Skin General skin exam: no rashes or lesions noted, turgor normal, skin not dry, no jaundice, No spider nevi and no striae Rashes: no rashes Nails: normal Neuro General: oriented to person, oriented to place and oriented to time Cranial nerves: Yes Equal, round and reactive pupils present and Yes Normal hearing present Speech: No Abnormal speech present Extrem General: Yes normal to inspection, No clubbing, No cyanosis and No edema Psych Appearance: grossly normal and well kempt Mental Status: mental status grossly normal Speech and movement: Normal speech and movement present Affect: normal affect Attitude: cooperative Thought process: Normal thought process present and not confabulating Thought content: Normal thought content present Insight: Fair insight present (Psych) Judgement: Fair judgement present (Psych) Assessment & Plan Assessment & Plan (1) Preoperative examination: Code(s): Z01.818 - Encounter for other preprocedural examination (2) Epilepsy: Code(s): G40.909 - Epilepsy, unspecified, not intractable, without status epilepticus Qualifiers: Epilepsy type: unspecified Intractability: not intractable Status epilepticus: without status epilepticus Qualified Code(s): G40.909 - Epilepsy, unspecified, not intractable, without status epilepticus (3) Renal cell carcinoma of right kidney: Comment: S/P right nephrectomy 03/30/2013 Code(s): C64.1 - Malignant neoplasm of right kidney, except renal pelvis (4) Chronic kidney disease (CKD), stage III (moderate): Code(s): N18.30 - Chronic kidney disease, stage 3 unspecified Qualifiers: Chronic kidney disease stage 3 subtype: stage 3b (GFR 30-44) Qualified Code(s): N18.32 - Chronic kidney disease, stage 3b Plan This is his first colonoscopy. He has occasional diarrhea depending on what he eats like greasy foods, no chronic upper GI problems. There are no prior problems with anesthesia or sedation. He denies any cardiac or respiratory problems. He says the epilepsy is well controlled. No ID problems. There is no known FHX or crc or polyps. Orders: Orders Colonoscopy - GI Use Only 05/01/23 Z01.818 - Encounter for other preprocedural examination Medications: New peg 3350-electrolytes 236-22.74-6.74 -5.86 gram (Golytely) until fecal effluent is clear; do not exceed a total volume of 2,000 mL 240 mL PO Q10M 4,000 mL 0RF 1 day Z12.11 - Encounter for screening for malignant neoplasm of colon Coding Level of Care Code New Pt Level 3 (27768) Diagnoses Preoperative examination Z01.818 Nonintractable epilepsy without status epilepticus, unspecified epilepsy type G40.909 Epilepsy type: unspecified Intractability: not intractable Status epilepticus: without status epilepticus Renal cell carcinoma of right kidney C64.1 Stage 3b chronic kidney disease N18.32 Chronic kidney disease stage 3 subtype: stage 3b (GFR 30-44)
[2023-05-01 14:52] VITALS: BP 158/72; PULSE 75; BMI 28.5
== END 2023-05-01 15:39 | disposition home or self-care (01) ==
PROVIDERS: PCP Internal Medicine; Visit Provider Nurse Practitioner
DX: Z01.818 Encounter for other preprocedural examination (principal); G40.909 Epilepsy, unspecified, not intractable, without status epilepticus; C64.1 Malignant neoplasm of right kidney, except renal pelvis; N18.32 Chronic kidney disease, stage 3b
CPT/HCPCS: 99203

== ENCOUNTER → 2023-05-01 14:42 | Outpatient (BNVA) | payer OTHER, SELFPAY | PROVIDERS: PCP Internal Medicine; Visit Provider Nurse Practitioner | DX: Z01.818 Encounter for other preprocedural examination (principal); G40.909 Epilepsy, unspecified, not intractable, without status epilepticus; C64.1 Malignant neoplasm of right kidney, except renal pelvis; N18.32 Chronic kidney disease, stage 3b | CPT/HCPCS: 99202 ==

== ENCOUNTER 2023-07-28 08:19 | Outpatient (REF) | payer OTHER, SELFPAY ==
--- NOTE | ~2023-07-28 | US_ITS ---
EXAMINATION: US RETROPERITONEAL LIMITED (RENAL ONLY) CLINICAL INFORMATION: History of malignant neoplasm of kidney. COMPARISON: X-ray abdomen 06/08/2019. Ultrasound abdomen complete 12/23/2018. CT abdomen and pelvis without contrast 02/19/2016. X-ray abdomen 01/31/2016. TECHNIQUE: Real-time imaging of the kidneys. FINDINGS: RIGHT KIDNEY: Surgically absent. LEFT KIDNEY: 11.8 x 6.6 x 5.4 cm (SAG x AP x TRV). The kidney is normal in size, contour, and echogenicity. Renal cortical thickness is normal. No renal calculi or hydronephrosis. Multiple simple parapelvic cysts are seen, the largest at the lower pole measuring 1.8 cm. These require no imaging follow-up. US/US renal BI IMPRESSION: The right kidney surgically absent. No residual recurrent mass is seen within the former right renal bed. The examination is otherwise unremarkable.
== END 2023-07-28 08:20 | disposition home or self-care (01) ==
LOC: HO.US 08:19
PROVIDERS: PCP Internal Medicine; Visit Provider Urology
DX: Z85.528 Personal history of other malignant neoplasm of kidney (principal)
CPT/HCPCS: 76775

== ENCOUNTER 2023-08-01 06:07 | Outpatient (REF) | payer OTHER, SELFPAY ==
[2023-08-01 08:36] LABS: Anion Gap 13 (12-20); Blood Urea Nitrogen 22 mg/dL (9-16); Calcium 8.6 mg/dL (8.4-10.2); Carbon Dioxide 20 mmol/L (22-29); Chloride 109 mmol/L (96-108); Estimated Glomerular Filt Rate 44; Glucose Random 269 mg/dL (60-115); Potassium 3.4 mmol/L (3.3-5.1); Sodium 139 mmol/L (135-145)
== END 2023-08-01 06:08 | disposition home or self-care (01) ==
LOC: HO.LAB 06:07
PROVIDERS: PCP Internal Medicine; Visit Provider Urology
DX: Z85.528 Personal history of other malignant neoplasm of kidney (principal)
CPT/HCPCS: 36415; 80048

== ENCOUNTER 2023-08-04 08:53 | Outpatient (REF) | payer OTHER, SELFPAY ==
--- NOTE | ~2023-08-04 | XR_ITS ---
EXAMINATION: XR CHEST CLINICAL INFORMATION: Personal history of malignant neoplasm of the kidney. COMPARISON: Chest radiograph of 07/20/2022. TECHNIQUE: 2 views of the chest were obtained. FINDINGS: There is no gross pneumothorax. Heart size is normal. No pleural effusion. No focal consolidation to suggest pneumonia. Mild changes in the thoracic spine. XR/XR chest 2V IMPRESSION: No evidence of pneumonia.
== END 2023-08-04 08:54 | disposition home or self-care (01) ==
LOC: HO.XRAY 08:53
PROVIDERS: Visit Provider Urology
DX: Z85.528 Personal history of other malignant neoplasm of kidney (principal)
CPT/HCPCS: 71046

== ENCOUNTER 2023-09-04 05:54 | Outpatient (REF) | payer OTHER, SELFPAY ==
[2023-09-04 07:56] LABS: Appearance Urine Clear; Color Urine Yellow; Glucose Urine UA >=1000 mg/dL (Negative); Leukocyte Esterase Urine Negative (Negative); Nitrite Urine Negative (Negative); Specific Gravity - Urine 1.025 (1.005-1.025); UMIC TRIGGER UA YES; Urine Blood Negative (Negative); Urine Ketones Negative (Negative); Urine Protein Negative (Neg-Trace)
[2023-09-04 08:02] LABS: Bacteria Urine None Seen (None Seen); Hyaline Casts Urine 0-2 /LPF (0-2); RBC Urine 0-2 /HPF (0-2); Squamous Epithelial Cell Urine 0-2 /HPF (0-2); WBC Urine 0-5 /HPF (0-5)
[2023-09-04 08:13] LABS: Creatinine Urine 38.25 mg/dL; Microalbum/Creatinine Ratio Ur 41.8 ug/mg cr (<30); Total Protein Urine Random < 7 mg/dL (<12)
== END 2023-09-04 05:55 | disposition home or self-care (01) ==
LOC: HO.LAB 05:54
PROVIDERS: PCP Internal Medicine; Visit Provider Student in an Organized Health Care Education/Training Program
DX: N18.32 Chronic kidney disease, stage 3b (principal)
CPT/HCPCS: 81001; 82043; 82570; 84156

== ENCOUNTER 2023-09-24 06:43 | Day surgery (SDC) | payer OTHER, SELFPAY ==
[2023-09-22 15:36] VITALS: BMI 28.5
[2023-09-22 15:43] VITALS: BMI 25.8
[2023-09-24 06:49] VITALS: BMI 27.5
[2023-09-24 07:10] LABS: Glucose, Whole Blood 175 mg/dL (60-115)
[2023-09-24 07:12] VITALS: BP 164/81; PULSE 80; RESP 14; TEMP 36.8; O2SAT 98
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
[2023-09-24] MEDS: Lactated Ringers 1,000 ML 100 ML IVCONT (08:27)
--- NOTE | 2023-09-24 08:30 | MHC.SHP ---
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 Overweight (BMI 25.0-29.9) 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 disc herniation Vitamin D deficiency Polycythemia Thrombocytopenia Pure hypercholesterolemia Benign essential hypertension Chronic kidney disease (CKD), stage III (moderate) Type 2 diabetes me) History of Previous Operations: Relevant previous surgery/procedure and date(s) ( Status post cervical discectomy (~09/04/16) History of right nephrectomy (~03/30/13)) Allergies: Allergies Allergy/AdvReac Type Severity Reaction Status Date / Time Latex, Natural Rubber Allergy Mild Rash Verified 05/01/23 14:55 pseudoephedrine [Sudafed] AdvReac Intermediate dizziness, Verified 05/01/23 14:55 panic attacks Review of Systems Sugical H&P ROS: Negative: Constitution, Cardiovascular, Respiratory, Neurological, Psychiatric, Hem-Onc, Allergic/Immunologic, Gastrointestinal, Genitourinary, Musculoskeletal, Integumentary, Endocrine and Eyes/Ears/Nose/Throat Exam Surgical H&P Exam: Normal: HEENT, Normal: Heart, Normal: Lungs, Normal: Extremities, Normal: Abdomen, Normal: Skin and Normal: Neurological Plan Diagnosis/Plan: Unchanged I have reviewed the history and physical and performed a pertinent physical examination on my patient. No changes have occurred unless specified. Time Spent With Patient Time: Total time managing care of this patient today ____ minutes.
--- NOTE | 2023-09-24 08:31 | W.PM.OPN ---
Operative Note Operative Note Date of Service: 09/24/23 Narrative: Operative Information Procedure Description: Colonoscopy Indication: screening Anesthesia: MAC COLONOSCOPY Instrument: Olympus variable stiffness pediatric scope 190L Colonoscopy Monitoring: Vital signs and clinical assessment, continuous EKG monitoring, Pulse oximetry, Carbon Dioxide monitoring and blood pressure monitoring were done throughout the procedure. Colon withdrawal time was 11 minutes. Procedure: The patient was placed in the left lateral decubitis position and pre-procedure medications were administered. After a digital rectal examination of the ano-rectum, the video colonoscope was inserted into the rectum and advanced through the colon to the cecum/TI. The colonoscope was slowly withdrawn in a retrograde panoramic fashion and the colon mucosa was carefully examined including a retroflexed view of the rectum. Findings and interventions are described below. Procedure Difficulty: easy Findings: Terminal Ileum-normal Cecum:normal Ascending Colon: normal Transverse Colon -normal Descending Colon: 4-5 mm sessile polyp removed with cold forceps Sigmoid Colon: normal Rectum: Retroflexion with small internal hemorrhoids seen, grade I Anorectum - normal Intervention: cold forceps Colon preparation: [place] Bowel Preparation Scale Right colon; 2 Transverse colon: 2 Left colon; 2 (0 = Unprepared colon segment with mucosa not seen due to solid stool that cannot be cleared. 1 = Portion of mucosa of the colon segment seen, but other areas of the colon segment not well seen due to staining, residual stool and/or opaque liquid. 2 = Minor amount of residual staining, small fragments of stool and/or opaque liquid, but mucosa of colon segment seen well. 3 = Entire mucosa of colon segment seen well with no residual staining, small fragments of stool or opaque liquid) Impression and Post Procedure Diagnosis: colon polyp internal hemorrhoids Plan: High fiber diet leaflet Avoid straining at stool, epsom salts and sitz bath, anusol supps or cream Repeat Colonoscopy in 5-7 years if adenomatous polyp, 10 yrs if non adenomatous or earlier if clinically indicated Above findings were reviewed with the patient and relevant handouts were provided if indicated.
[2023-09-24 08:56] VITALS: BP 103/55; PULSE 77; RESP 16; TEMP 36.3; O2SAT 98
[2023-09-24 09:11] VITALS: BP 108/52; PULSE 63; RESP 16; O2SAT 98
[2023-09-24 09:26] VITALS: BP 110/53; PULSE 73; RESP 16; TEMP 37; O2SAT 98
== END 2023-09-24 10:29 | disposition home or self-care (01) ==
PROVIDERS: PCP Internal Medicine; Visit Provider Internal Medicine Gastroenterology
PROC: 0DJD8ZZ Inspection of Lower Intestinal Tract, Via Natural or Artificial Opening Endoscopic (ICD-10-PCS; CPT 45378; principal; 2023-09-24 08:30)
DX: Z12.11 Encounter for screening for malignant neoplasm of colon (principal); K63.5 Polyp of colon; K64.0 First degree hemorrhoids; I12.9 Hypertensive chronic kidney disease with stage 1 through stage 4 chronic kidney disease, or unspecified chronic kidney disease; E11.22 Type 2 diabetes mellitus with diabetic chronic kidney disease; N18.32 Chronic kidney disease, stage 3b; G40.909 Epilepsy, unspecified, not intractable, without status epilepticus; Z85.528 Personal history of other malignant neoplasm of kidney; Z79.4 Long term (current) use of insulin
CPT/HCPCS: 45380; 82947; 88305; J2704

== ENCOUNTER → 2023-09-24 06:43 | Outpatient (BNV) | payer OTHER, SELFPAY | PROVIDERS: PCP Internal Medicine; Visit Provider Internal Medicine Gastroenterology | DX: Z12.11 Encounter for screening for malignant neoplasm of colon (principal); K63.5 Polyp of colon; K64.0 First degree hemorrhoids | CPT/HCPCS: 45380 ==

== ENCOUNTER 2023-12-01 08:06 | Outpatient (AMB) | payer OTHER, SELFPAY ==
--- NOTE | 2023-12-01 08:26 | MHC.OFFWIV ---
Intake Vital Signs 12/01/23 08:27 Weight 165 lb BP 138/68 Blood Pressure Location Rt brachial Position Sitting Pulse 96 Pulse Source Pulse Oximeter Pulse Oximetry (%) 98 Oxygen Delivery Method Room Air Intake Visit Reasons: Left Ear pain Patient Tobacco Use Status: Former Tobacco user Quit Date: 20 yr ago Allergies Latex, Natural Rubber Allergy (Mild, Verified 12/01/23 08:28) Rash pseudoephedrine [Sudafed] Adverse Reaction (Intermediate, Verified 12/01/23 08:28) dizziness, panic attacks Medication List - Last Reconciled 12/01/23 by Margaret Magana, [facility] blood pressure monitor As directed blood sugar diagnostic (FreeStyle Lite Strips) As directed flash glucose scanning reader (FreeStyle Dexter 14 Day [place]) As directed insulin degludec (Tresiba FlexTouch U-100 insulin) 20 units (0.2 mL) subcut QAM 30 days insulin glargine U-300 conc (Toujeo SoloStar U-300 Insulin) 20 units (0.0667 mL) subcut QAM lancets (FreeStyle Lancets) As directed peg 3350-electrolytes 236-22.74-6.74 -5.86 gram (Golytely) 240 mL PO Q10M 1 day pen needle, diabetic (BD Katya 2nd Gen Pen Needle) once a day Trulicity (dulaglutide) 1.5 mg (0.5 mL) subcut QWEEK 4 weeks NS HPI HPI Comments History of Present Illness Details Here today w/ c/o Acute URI sx Left sinus pressure, congestion, left ear feels full,chest congestion Used tussin w/ little relief. 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 Overweight (BMI 25.0-29.9) 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 disc herniation Vitamin D deficiency Polycythemia Thrombocytopenia Pure hypercholesterolemia Benign essential hypertension Chronic kidney disease (CKD), stage III (moderate) Type 2 diabetes mellitus with diabetic chronic kidney disease Surgical History Status post cervical discectomy (~09/04/16) History of right nephrectomy (~03/30/13) Family History Mother Hypertension Social History Housing: House Alcohol intake: never Patient Tobacco Use Status: Former Tobacco user e-Cigarette/Vaping Use: Never Used Second Hand Smoke Exposure: Yes service: No Current occupational status: employed Cognitive needs: No Hearing needs: No Vision needs: Yes (glasses) Review of Systems Const All systems reviewed & are unremarkable except as noted in HPI and below Physical Exam HEENT Other: Awake alert NAD Sclera and conjunctiva clear bilat Nares with thick mucoid discharge, turbinates pale and edematous bilat worse on the left, no sinus tenderness with palpation bilat TM appears to be ruptured on the left, white, mucoid drainage noted in the EAC, congestion on the right TM intact MMM, pharynx postnasal drip RRR LS inspiratory expiratory wheezes throughout Assessment & Plan Assessment & Plan (1) Sinusitis: Code(s): J32.9 - Chronic sinusitis, unspecified Qualifiers: Sinusitis location: pansinusitis Chronicity: acute Recurrence: non-recurrent Qualified Code(s): J01.40 - Acute pansinusitis, unspecified Plan: . (2) Wheezing on auscultation: Code(s): R06.2 - Wheezing Plan Total time spent caring for the patient today was 30 minutes. This includes time spent before the visit reviewing the chart, time spent during the visit, and time spent after the visit on documentation This note is constructed using voice recognition software. While every effort has been made to ensure accuracy in lighthouse keeper, still errors may have been included Sometimes, these errors may affect the content or meaning of the given sentence . Patient denies a history of asthma. We will treat with short course of p.r.n. Raven. I have advised him he needs to return to the office either here or at his primary care in about 1 week for re-evaluation of both his lungs as well as his left tympanic membrane. Should he develop any worsening of his symptoms he should return to the office sooner. Medications: New amoxicillin-pot clavulanate 875-125 mg 1 tab PO BID 7 days 14 tabs 0RF albuterol sulfate 90 mcg/actuation 2 puffs inhalation Q4-6H 30 days PRN 8.5 grams 0RF shortness of breath or wheezing fluticasone propionate 50 mcg/actuation administer into each nostril 1 spray intranasal BID 16 grams 0RF Patient Instructions: What Is It? Sinuses are air-filled spaces behind the bones of the upper face: between the eyes and behind the forehead, nose and cheeks. The lining of the sinuses are made up of cells with tiny hairs on their surfaces called cilia. Other cells in the lining produce mucus. The mucus traps germs and pollutants and the cilia push the mucus out through narrow sinus openings into the nose. When the sinuses become inflamed or infected, the mucus thickens and clogs the openings to one or more sinuses. Fluid builds up inside the sinuses causing increased pressure. Also bacteria can become trapped, multiply and infect the lining. This is sinusitis. Prevention There are some measures you can take to decrease your risk of developing sinusitis. If you smoke cigarettes, you should quit. The smoke can irritate nasal passageways and increase the likelihood of infection. Nasal allergies can trigger sinus infections, too. By identifying the allergen (the substance causing the allergic reaction) and avoiding it, you can help prevent sinusitis. If you have congestion from a cold or allergies, the following may help to reduce the risk of developing sinusitis: Drink lots of water. This thins nasal secretions and keeps mucous membranes moist. Use steam to soothe nasal passages. Breathe deeply while standing in a hot shower, or inhale the vapor from a basin filled with hot water while holding a towel over your head. Avoid blowing your nose with great force, which can push bacteria into the sinuses. Some doctors advise periodic home nasal washings to clear secretions. This may help prevent, and also treat, sinus infections. Treatment Many sinus infections improve without treatment. However, several medications may speed recovery and reduce the chance that an infection will become chronic. Decongestants - Congestion often triggers sinus infections, and decongestants can open the sinuses and allow them to drain. Several are available: Pseudoephedrine (Sudafed) is available without prescription, alone or in combination with other medications in multi-symptom cold and sinus remedies. Pseudoephedrine can cause insomnia, racing pulse and jitteriness. Do not use if you have high blood pressure or a heart condition. Phenylephrine (such as Sudafed PE) is an alternative [id number] oral decongestant. If you take products containing oral phenylephrine, check with the pharmacist to be certain there is no interaction with other medications you take. Oxymetazoline (AfErvin cabrera and others) and phenylephrine (Macario-Synephrine and others) are found in nasal sprays. They are effective and may be less likely to cause the side effects seen with pseudoephedrine. However, using a nasal decongestant for more than three days can cause worse symptoms when you stop the medication. This is called the rebound effect. Antihistamines - These medications help to relieve the symptoms of nasal allergies that lead to inflammation and infections. However, some doctors advise against using antihistamines during a sinus infection because they can cause excessive drying and slow the drainage process. Vumt-liw-shsylhp antihistamines include diphenhydramine (Benadryl and others), chlorpheniramine (Chlor-Trimeton and others) and loratadine (Claritin). Fexofenadine (Tata) and cetrizine (Zyrtec) are available by prescription. Nasal steroids - Anti-inflammatory sprays such as mometasone (Nasonex) and fluticasone (Flonase), both available by prescription, reduce swelling of nasal membranes. Like antihistamines, nasal steroids can be most useful for those who have nasal allergies. Nasal steroids tend to produce less drying than antihistamines. Unlike nasal decongestants, nasal steroids can be used for prolonged periods. Saline nasal sprays - These salt-water sprays are safe to use and can provide some relief by adding moisture to the nasal passages, thinning mucus secretions and helping to flush out any bacteria that may be present. Pain relievers - Acetaminophen (Tylenol), ibuprofen (Advil, Motrin and others) or naproxen (Aleve) can be taken sinus pain. Antibiotics - Your doctor may prescribe an antibiotic if he or she suspects that a bacterial infection is causing your sinusitis. If you start taking an antibiotic, complete the entire course so that the infection is completely killed off. Not all cases of sinusitis require antibiotic treatment: Talk with your doctor about whether an antibiotic is right for you. Keep in mind that antibiotics can cause side effects, such as allergic reactions, rash and diarrhea. In addition, overusing antibiotics eventually leads to the spread of bacteria that no longer can be killed by the most commonly prescribed antibiotics. When To Call A Professional Contact a doctor if you experience facial pain along with a headache and fever, cold symptoms that last longer than seven to 10 days, or persistent green discharge from the nose. If your symptoms don't improve within a week of beginning treatment, call your doctor. Call sooner if symptoms are getting worse. If you have repeated bouts of acute sinusitis, you may have allergies or another treatable cause of sinus congestion. Ask your doctor for advice. Coding Level of Care Code Est Pt Level 4 (68056) Diagnoses Acute non-recurrent pansinusitis J01.40 Sinusitis location: pansinusitis Chronicity: acute Recurrence: non-recurrent Wheezing on auscultation R06.2
[2023-12-01 08:27] VITALS: BP 138/68; PULSE 96; O2SAT 98
== END 2023-12-01 08:38 | disposition home or self-care (01) ==
PROVIDERS: PCP Internal Medicine; Visit Provider Nurse Practitioner Family
DX: J01.40 Acute pansinusitis, unspecified (principal); R06.2 Wheezing
CPT/HCPCS: 99214

== ENCOUNTER 2024-01-23 15:37 | Outpatient (AMB) | payer OTHER, SELFPAY ==
--- NOTE | 2024-01-23 15:44 | A.OFFPC_ITS ---
Vital Signs 01/23/24 15:48 Height 5 ft 6 in Weight 162 lb BMI 26.1 BP 164/78 H Blood Pressure Location Lt brachial Position Sitting Pulse 76 Pulse Source Pulse Oximeter Pulse Oximetry (%) 98 Oxygen Delivery Method Room Air Intake Visit Reasons: DM, CKD Manager Registration Required: No Accompanied by: Spouse Allergies Latex, Natural Rubber Allergy (Mild, Verified 01/23/24 16:12) Rash pseudoephedrine [Sudafed] Adverse Reaction (Intermediate, Verified 01/23/24 16:12) dizziness, panic attacks Medication List - Last Reconciled 01/23/24 by Austin Luna MD albuterol sulfate 90 mcg/actuation 2 puffs inhalation Q4-6H PRN 30 days blood pressure monitor As directed blood sugar diagnostic (FreeStyle Lite Strips) As directed flash glucose scanning reader (FreeStyle Dexter 14 Day [place]) As directed fluticasone propionate 50 mcg/actuation 1 spray intranasal BID insulin degludec (Tresiba FlexTouch U-100 insulin) 20 units (0.2 mL) subcut QAM 30 days insulin glargine U-300 conc (Toujeo SoloStar U-300 Insulin) 20 units (0.0667 mL) subcut QAM lancets (FreeStyle Lancets) As directed peg 3350-electrolytes 236-22.74-6.74 -5.86 gram (Golytely) 240 mL PO Q10M 1 day pen needle, diabetic (BD Katya 2nd Gen Pen Needle) once a day Trulicity (dulaglutide) 1.5 mg (0.5 mL) subcut QWEEK 4 weeks NS Tobacco use date assessed: 01/23/24 Dental Screening Dental Screen Date: 01/23/24 Did you have a dental visit in the last 12 months?: Yes Did you have a dental problem in the last 6 months where you did not have access to dental care?: No Was dental information given to patient?: Patient has dentist HPI DM, CKD HPI Details Patient comes in today for her follow up visit - he was last seen here by me over a year ago on 11/01/2022 Patient states that he has been losing a lot of weight and has been experiencing frequent muscle cramping lately He called up earlier this week asking to have some labs ordered but as he has not been seen in over a year, was advised to come in for a follow up visit He admitted that he stopped taking all of his diabetes meds (it looks like he also stopped taking his BP meds are there are no records of these ever being re filled recently and only the nephrology OV notes we received in July 2023 indicated that he was on Amlodipine 10 mg QD and HCTZ 12. 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 Overweight (BMI 25.0-29.9) 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 disc herniation Vitamin D deficiency Polycythemia Thrombocytopenia Pure hypercholesterolemia Benign essential hypertension Chronic kidney disease (CKD), stage III (moderate) Type 2 diabetes mellitus with diabetic chronic kidney disease Surgical History Status post cervical discectomy (~09/04/16) History of right nephrectomy (~03/30/13) Family History Mother Hypertension Social History Housing: House Alcohol intake: never Patient Tobacco Use Status: Former Tobacco user e-Cigarette/Vaping Use: Never Used Second Hand Smoke Exposure: Yes service: No Current occupational status: employed Cognitive needs: No Hearing needs: No Vision needs: Yes (glasses) Questionnaire PHQ-9 Over the last 2 weeks, how often have you been bothered by any of the following problems? 1. Little interest or pleasure in doing things: not at all 2. Feeling down, depressed, or hopeless: not at all 3. Trouble falling or staying asleep, or sleeping too much: not at all 4. Feeling tired or having little energy: not at all 5. Poor appetite or overeating: not at all 6. Feeling bad about yourself - or that you are a failure or have let yourself or your family down: not at all 7. Trouble concentrating on things, such as reading the newspaper or watching television: not at all 8. Moving or speaking so slowly that other people could have noticed. Or the opposite - being so fidgety or restless that you have been moving around a lot more than usual: not at all 9. Thoughts that you would be better off or of hurting yourself in some way: not at all Total score: 0 Depression Screening Interpretation: Negative Depression Screening Done: Yes [id number] - PHQ-9 Billing: Yes Source: Developed by Drs. Korey Izaguirre, Sravani Meyer, Johnson Sykes and colleagues, with an educational alvaro from [employer]. Thrive Questionnaire Date Thrive assessed: 01/23/24 I am a: Patient What is your living situation today?: I have a steady place to live Within the past 12 months, did the food you bought not last and you didn't have the money to get more?: Never true Within the past 12 months, did you worry whether your food would run out before you got money to buy more?: Never true Do you have trouble paying for medicines?: No Do you have trouble getting transportation to medical appointments?: No Do you have trouble paying your heating and electricity bill?: No Do you have trouble taking care of your child, family member or friend?: No Do you have trouble with day-to-day activities such as bathing, preparing meals, shopping, managing finances, etc.?: No Are you currently unemployed and looking for a job?: No Are you interested in more education?: No Please select the resources that you would like help with: None Currently or been in a relationship where the following occur: No concerns reported THRIVE Score: 0 AUDIT C Alcohol Use Questionnaire (AUDIT-C) 1. How often do you have a drink containing alcohol?: Never 3. How often do you have six or more drinks on one occasion?: Never Total Score: 0 Score Reviewed/Action Taken: Yes RYAN-7 AMB Questionnaire RYAN-7 Date RYAN - 7 assessed: 01/23/24 Feeling nervous, anxious, or on edge: 0 = Not at all Not being able to stop or control worryin = Not at all Worrying too much about different things: 0 = Not at all Trouble relaxin = Not at all Being so restless that it is hard to sit still: 0 = Not at all Becoming easily annoyed or irritable: 0 = Not at all Feeling afraid as if something awful might happen: 0 = Not at all Total RYAN-7 score (0-4 normal; 5-9 mild; 10-14 moderate; 15-21 severe): 0 Source: Developed by Drs. Korey Izaguirre, Sravani Meyer, Johnson Sykes and colleagues, with an educational alvaro from [employer]. RYAN-7 Assessment Billing RYAN-7 Assessment Tool: RYAN-7 Assessment 02857 Review of Systems Const Denies chills, Reports fatigue, Denies fever(s), Denies headache(s) and Reports weight loss ENT Denies dysphagia, Denies dizziness, Denies otalgia, Denies headache(s), Denies neck pain, Denies odynophagia and Denies sore throat Card Denies chest pain, Denies palpitations and Denies dyspnea Resp Denies cough, Denies dyspnea and Denies wheezing GI Denies abdominal pain, Denies constipation, Denies dysphagia, Denies heartburn, Denies diarrhea, Denies nausea, Denies odynophagia and Denies vomiting Denies dysuria, Reports nocturia and Reports urinary frequency Musc Reports muscle cramps (recurrent lately) and Denies neck pain Skin/Breast Denies rash Neuro Denies dizziness and Denies headache(s) Endo Reports fatigue and Denies palpitations Aller/Immun Denies wheezing Physical exam (Primary Care) Vital Signs: Last Vital Signs Pulse 76 01/23/24 15:48 BP 164/78 H 01/23/24 15:48 Pulse Ox 98 01/23/24 15:48 Oxygen Delivery Method Room Air 01/23/24 15:48 BMI result Body Mass Index 26.1 Tobacco/Smoking Status: Tobacco use Status Tobacco use date assessed 01/23/24 01/23/24 15:54 Patient Tobacco Use Status Former Tobacco user 01/23/24 15:45 e-Cigarette/Vaping Use Never Used 01/23/24 15:45 PHQ-9: PHQ-9 Score PHQ-9: Total score 0 01/23/24 15:58 Depression Screening Interpretation: Negative Thrive Assessment: Date of Thrive Assessment Date Thrive assessed 01/23/24 01/23/24 15:54 Currently or been in a relationship where the following occur: No concerns reported Const General: no acute distress and alert HENMT Ears: TM's normal bilaterally and EAC's normal Throat: Yes posterior oropharynx normal and Yes tonsils normal (no TP con gestion) Neck Neck: Yes no lymphadenopathy and Yes supple Thyroid: Thyroid normal Resp Auscultation: clear to auscultation bilaterally, no rales and no wheezes Cardio Rate: regular rate Rhythm: regular rhythm Heart sounds: no murmurs GI Palpation (GI): Soft to palpation and nontender Auscultation: normal bowel sounds General: Yes no CVA tenderness Back/Spine/Pelvis Back: no CVA tenderness Thoracic/Lumbar Spine: No lumbar spinal tenderness Skin Rashes: no rashes Extrem General: Yes no clubbing, cyanosis or edema Results AMB Hemoglobin A1c AMB Hemoglobin A1c 14.0 % Last Edit by KODI Palmer on 01/23/24 16:00 Results Reviewed Results Reviewed: Laboratory Last Values Hgb A1c (Clinic) 14.0 % (4.0-6.0) H 01/23/24 15:59 Assessment and Plan Assessment & Plan (1) Muscle cramps: Code(s): R25.2 - Cramp and spasm Plan: Have discussed with patient that his recent recurrent muscle cramps may have been brought about by some electrolyte imbalance, possibly triggered by his uncontrolled diabetes, his recent weight loss or a combination of several other issues Have instructed him to make sure he stays hydrated, especially if the weather is hot and humid like today Will send him for some labs TERESO for further evaluation Will also have him try taking some OTC Mag-Ox 400 mg BID for now until we get more clarification on his problems when his lab results are available (2) Type 2 diabetes mellitus with diabetic chronic kidney disease: Code(s): E11.22 - Type 2 diabetes mellitus with diabetic chronic kidney disease Qualifiers: Diabetes mellitus detention insulin use: without facing machine operator use Chronic kidney disease stage: stage 3 (moderate) Chronic kidney disease stage 3 subtype: stage 3b (GFR 30-44) Qualified Code(s): E11.21 - Type 2 diabetes mellitus with diabetic nephropathy; N18.32 - Chronic kidney disease, stage 3b Plan: His in-office HgbA1c done today is >14.0% (it was at 7.8% when it was previously checked back on 07/23/2022) - goal is at least < 7.0% Reinforced diabetic diet He was on Toujeo 20 units once a day in the morning and Trulicity 1.5 mg once a week but he admitted to stopping both of these a few months ago when his Rx ran out as he decided then he wanted to try controlling his diabetes again through diet and exercise alone He was also seeing endocrinology before but has not been back to see them for follow up in over a year now Will start him back for now on Toujeo 20 units QD and Trulicity 1.5 mg once a week but advised that depending on his his labs come out, we will likely have to add to his Rx or make some adjustments on his dosages Will send him to get some follow up labs TERESO (3) Benign essential hypertension: Code(s): I10 - Essential (primary) hypertension Plan: Reinforced low-sodium diet -? goal is systolic BP of 120 mm or less He was supposedly on Hydrochlorothiazide 12.5 mg QD and Amlodipine 10 mg QD based on the last OV notes we received from his annual giving director in July 2023 but patient admitted to not taking these for a few months now Will start him back at least on these 2 meds for now for his blood pressure, pending the results of his follow up labs (4) Chronic kidney disease (CKD), stage III (moderate): Code(s): N18.30 - Chronic kidney disease, stage 3 unspecified Qualifiers: Chronic kidney disease stage 3 subtype: stage 3b (GFR 30-44) Qualified Code(s): N18.32 - Chronic kidney disease, stage 3b Plan: His renal function was reportedly stable when he was last seen by nephrology in July 2023 - unknown at this time how it is now considering how high his Hg bA1c is presently Will send him for some follow up labs TERESO He is also advised to reach out to his annual giving director and schedule a follow up appt with them as soon as possible (5) Pure hypercholesterolemia: Code(s): E78.00 - Pure hypercholesterolemia, unspecified Plan: Reinforced low cholesterol diet He was on Rosuvastatin 40 mg QD but also has not been taking this for a while now as his cholesterol numbers when last checked in October 2022 were elevated Will recheck his labs and fasting lipids TERESO for follow up and will likely start him back on this as well once his results are available (6) TIA (transient ischemic attack): Code(s): G45.9 - Transient cerebral ischemic attack, unspecified Plan: Work ups done in the ER in June 2022, including labs, EKG, head CT and carotid US, all came back normal/negative His brain MRI done a few months prior revealed findings of a stable arachnoid cyst versus subdural hygroma in the right aspect of the posterior fossa with min imal chronic bifrontal white matter signal changes, as on prior imaging. Otherwise, this is a relatively normal MRI of the brain Echocardiogram done back then also came out normal - LVEF was normal, EF was at 57% and no valvular pathology was noted He was also seen by neurology a few months before and was advised that his symptoms then were more consistent with migraine with aura rather than a CVA or TIA He also had an EEG done for further evaluation and to rule out seizures - EEG came out reportedly normal He was advised to continue on Aspirin 81 mg QD although patient is currently NO LONGER taking his low dose Aspirin Patient is again advised to stay hydrated and to make sure he gets enough rest and sleep at night regularly Follow up with neurology as scheduled (7) Epilepsy: Code(s): G40.909 - Epilepsy, unspecified, not intractable, without status epilepticus Qualifiers: Epilepsy type: unspecified Intractability: not intractable Status epilepticus: without status epilepticus Qualified Code(s): G40.909 - Epilepsy, unspecified, not intractable, without status epilepticus Plan: Repeat EEG done last year reportedly came out normal He was supposed to be on Carbamazepine 200 mg BID but ot looks like he also has not been taking this for a while now He reports NO recurrence of his seizures lately Follow up with neurology as scheduled (8) Thrombocytopenia: Code(s): D69.6 - Thrombocytopenia, unspecified Plan: Patient's platelet count has been slightly lower than normal for over a year but his overall numbers have been stable previously Abdominal ultrasound done a couple of years ago showed only (+) cholelithiasis with no obstruction, splenomegaly or any other acute findings Will recheck his CBC and platelet count TERESO for follow up (9) Vitamin D deficiency: Code(s): E55.9 - Vitamin D deficiency, unspecified Plan: Will recheck his Vitamin D level for follow up (10) Cervical disc herniation: Code(s): M50.20 - Other cervical disc displacement, unspecified cervical region Plan: S/P ACDF of C6-C7 vertebrae by Dr. Renee on 09/04/2016 with significant improvement of his symptoms He has been advised that this may actually have been a cause of his on and off tightness and pressure-like sensation over the left side and back of his neck (11) Renal cell carcinoma of right kidney: Comment: S/P right nephrectomy 03/30/2013 Code(s): C64.1 - Malignant neoplasm of right kidney, except renal pelvis Plan: S/P right nephrectomy Follow-up with urology and nephrology as scheduled (12) Overweight (BMI 25.0-29.9): Code(s): E66.3 - Overweight Plan: Reinforced diet/exercise as tolerated/lose weight Plan Follow up in February 2024 Orders: Orders Complete Blood Count Auto Diff Today D64.9 - Anemia, unspecified, M79.10 - Myalgia, unspecified site Lipid Panel Today E78.00 - Pure hypercholesterolemia, unspecified, M79.10 - Myalgia, unspecified site Microalbumin, Random (w Creat) Today E11.9 - Type 2 diabetes mellitus without complications, M79.10 - Myalgia, unspecified site Vitamin D 25-OH Total Today E55.9 - Vitamin D deficiency, unspecified, M79.10 - Myalgia, unspecified site AMB Hemoglobin A1c Today E11.21 - Type 2 diabetes mellitus with diabetic nephropathy, N18.32 - Chronic kidney disease, stage 3b Comprehensive Datto. Panel Fast Today E78.00 - Pure hypercholesterolemia, unspecified, M79.10 - Myalgia, unspecified site TSH reflex Free T4 Today E78.00 - Pure hypercholesterolemia, unspecified, M79.10 - Myalgia, unspecified site UA CC w/rflx Micro + Cult Today M79.10 - Myalgia, unspecified site, R30.0 - Dysuria Vitamin B12 and Folate Today E53.8 - Deficiency of other specified B group vitamins, M79.10 - Myalgia, unspecified site Erythrocyte Sedimentation Rate Today M79.10 - Myalgia, unspecified site, M79.7 - Fibromyalgia C Reactive Protein Today M79.10 - Myalgia, unspecified site CK, Total+Isoenzymes, Serum Today M79.10 - Myalgia, unspecified site Medications: New amlodipine 10 mg PO DAILY 90 days 90 tabs 0RF hydrochlorothiazide 12.5 mg PO DAILY 90 days 90 caps 0RF magnesium oxide 400 mg PO BID 30 days 60 tabs 0RF Changed From insulin glargine U-300 conc (Toujeo SoloStar U-300 Insulin) 20 units (0.0667 mL) subcut QAM 6 mL 0RF E11.21 - Type 2 diabetes mellitus with diabetic nephropathy, N18.32 - Chronic kidney disease, stage 3b To Toujeo SoloStar U-300 Insulin (insulin glargine U-300 conc) 20 units (0.0667 mL) subcut QAM 4.5 mL 2RF NS E11.21 - Type 2 diabetes mellitus with diabetic nephropathy, N18.32 - Chronic kidney disease, stage 3b Refilled Trulicity (dulaglutide) 1.5 mg (0.5 mL) subcut QWEEK 4 weeks 2 mL 2RF NS E11.21 - Type 2 diabetes mellitus with diabetic nephropathy, N18.32 - Chronic kidney disease, stage 3b Coding Level of Care Code Est Pt Level 4 (61913) Complex EM visit Add On G2211 Diagnoses Muscle cramps R25.2 Type 2 diabetes mellitus with stage 3b chronic kidney disease, without long-term current use of insulin E11.21; N18.32 Diabetes mellitus facing machine operator insulin use: without facing machine operator use Chronic kidney disease stage: stage 3 (moderate) Chronic kidney disease stage 3 subtype: stage 3b (GFR 30-44) Benign essential hypertension I10 Stage 3b chronic kidney disease N18.32 Chronic kidney disease stage 3 subtype: stage 3b (GFR 30-44) Pure hypercholesterolemia E78.00 TIA (transient ischemic attack) G45.9 Nonintractable epilepsy without status epilepticus, unspecified epilepsy type G40.909 Epilepsy type: unspecified Intractability: not intractable Status epilepticus: without status epilepticus Thrombocytopenia D69.6 Vitamin D deficiency E55.9 Cervical disc herniation M50.20 Renal cell carcinoma of right kidney C64.1 Overweight (BMI 25.0-29.9) E66.3 Additional Codes RYAN-7 Assessment Billing - RYAN-7 Assessment Tool: RYAN-7 Assessment [id number] ([id number])
[2024-01-23 15:48] VITALS: BP 164/78; PULSE 76; O2SAT 98; BMI 26.1
== END 2024-01-23 16:25 | disposition home or self-care (01) ==
PROVIDERS: PCP Internal Medicine; Visit Provider Internal Medicine
DX: R25.2 Cramp and spasm (principal); I12.9 Hypertensive chronic kidney disease with stage 1 through stage 4 chronic kidney disease, or unspecified chronic kidney disease; E11.22 Type 2 diabetes mellitus with diabetic chronic kidney disease; N18.32 Chronic kidney disease, stage 3b; E78.00 Pure hypercholesterolemia, unspecified; G45.9 Transient cerebral ischemic attack, unspecified; G40.909 Epilepsy, unspecified, not intractable, without status epilepticus; D69.6 Thrombocytopenia, unspecified; E55.9 Vitamin D deficiency, unspecified; M50.20 Other cervical disc displacement, unspecified cervical region; C64.1 Malignant neoplasm of right kidney, except renal pelvis; E66.3 Overweight
CPT/HCPCS: 83036; 99214; G2211

== ENCOUNTER 2024-01-24 06:58 | Outpatient (REF) | payer OTHER, SELFPAY ==
[2024-01-24 08:06] LABS: Appearance Urine Clear; Color Urine Yellow; Glucose Urine UA >=1000 mg/dL (Negative); Leukocyte Esterase Urine Negative (Negative); Nitrite Urine Negative (Negative); PH 5.5 (5.0-9.0); Specific Gravity - Urine >= 1.030 (1.005-1.025); UMIC TRIGGER UACC YES; Urine Blood Negative (Negative); Urine Ketones Negative (Negative); Urine Protein Negative (Neg-Trace)
[2024-01-24 08:07] LABS: Basophils Percent Auto 0.5 % (0-2); Eosinophils Percent Auto 0.6 % (0-4); Hematocrit 43.5 % (42.0-52.0); Hemoglobin 15.6 g/dl (14.0-18.0); Imm Gran Abs Auto 0.08 X10*3/uL (0.00-0.03); Imm Gran Pct Auto 1.2 % (0.0-0.4); Lymphocytes Absolute Auto 1.2 X10*3/uL (1.2-4.9); Lymphocytes Percent Auto 18.7 % (20-40); MANUAL DIFF FLAG SCAN; Mean Corpuscular HGB Conc 35.9 g/dl (31.0-36.0); Mean Corpuscular Hemoglobin 29.5 pg (27.0-33.0); Mean Corpuscular Volume 82.4 fL (80.0-98.0); Monocytes Absolute Auto 0.5 X10*3/uL (0.1-1.2); Monocytes Percent Auto 7.6 % (2-11); Neutrophils Absolute Auto 4.7 x10*3/uL (2.0-8.3); Neutrophils Percent Auto 71.4 % (45-73); PLT CLUMP 1; Red Blood Count 5.28 X10*6/uL (4.60-5.80); Red Cell Distribution Width 12.5 % (11.0-16.0); SCAN SMEAR FLAG 1
[2024-01-24 08:09] LABS: White Blood Count 6.5 X10*3/uL (4.8-10.8)
[2024-01-24 08:18] LABS: Mean Platelet Volume 13.5 fL (9.4-12.4); Platelet Count 119 X10*3/uL (160-400)
[2024-01-24 08:19] LABS: SLIDE REVIEW VERIFIED
[2024-01-24 08:21] LABS: Bacteria Urine None Seen (None Seen); Hyaline Casts Urine 0-2 /LPF (0-2); RBC Urine 0-2 /HPF (0-2); Squamous Epithelial Cell Urine 0-2 /HPF (0-2); WBC Urine 0-5 /HPF (0-5)
[2024-01-24 08:29] LABS: Alanine Aminotransferase 42 U/L (0-40); Albumin Level 4.3 g/dL (3.5-5.0); Alkaline Phosphatase 175 U/L (39-117); Anion Gap 15 (12-20); Aspartate Amino Transferase 19 U/L (5-37); Bilirubin Total 0.5 mg/dL (0.0-1.0); Blood Urea Nitrogen 33 mg/dL (9-16); Calcium 10.1 mg/dL (8.4-10.2); Carbon Dioxide 16 mmol/L (22-29); Chloride 108 mmol/L (96-108); Cholesterol 272 mg/dL (<200); Estimated Glomerular Filt Rate 30; HDL Cholesterol 44 mg/dL (>40); LDL Cholesterol Calculated 179 mg/dL (<100); Potassium 4.6 mmol/L (3.3-5.1); Sodium 134 mmol/L (135-145); Total Protein 6.7 g/dL (6.5-8.0); Triglycerides 247 mg/dL (<150)
[2024-01-24 08:34] LABS: Creatinine Urine 35.58 mg/dL; Microalbum/Creatinine Ratio Ur 87.1 ug/mg cr (<30)
[2024-01-24 08:43] LABS: Erythrocyte Sedimentation Rate 3 MM/HR (0-15)
[2024-01-24 08:44] LABS: TSH reflex Free T4 1.26 uIU/mL (0.32-4.0); Vitamin D 25-OH Total 27.5 ng/mL (>30)
[2024-01-24 08:56] LABS: Folate 15.3 ng/mL (> or = 4.0); Vitamin B12 1315 pg/mL (200-900)
[2024-01-24 09:02] LABS: Glucose Fasting 560 mg/dL (60-99)
[2024-01-29 22:07] LABS: CK-BB 3 % (None Detected); CK-MB 0 % (<5); CK-MM 89 % (95-100); Creatine Kinase Isoenzyme Itrp BB BAND PRESENT.; Creatine Kinase,Total,Serum 146 U/L (44-196)
== END 2024-01-24 06:59 | disposition home or self-care (01) ==
LOC: HO.LAB 06:58
PROVIDERS: PCP Internal Medicine; Visit Provider Internal Medicine
DX: E78.00 Pure hypercholesterolemia, unspecified (principal); E11.9 Type 2 diabetes mellitus without complications; E55.9 Vitamin D deficiency, unspecified; E53.8 Deficiency of other specified B group vitamins; D64.9 Anemia, unspecified; M79.7 Fibromyalgia
CPT/HCPCS: 36415; 80053; 80061; 81001; 81003; 82043; 82306; 82552; 82570; 82607; 82746; 84443; 85025; 85652; 86140

== ENCOUNTER 2024-02-18 22:23 | Inpatient (IN) | payer OTHER, SELFPAY ==
--- NOTE | ~2024-02-18 | CT_ITS ---
EXAMINATION: CT HEAD WITHOUT CONTRAST CLINICAL INFORMATION: Vomiting. Altered mental status. COMPARISON: CT dated 07/23/2022, MRI dated 08/06/2022 and MRI dated 12/25/2012. TECHNIQUE: Multidetector volumetric imaging of the head was performed without intravenous contrast material. This CT examination was performed using dose optimization techniques as appropriate, variously including the following: *Automated exposure control *Adjustment of mA and/or kV according to patient size (this includes techniques or standardized protocols for targeted exams where dose is matched to indication/reason for exam; i.e. extremities or head) *Use of iterative reconstruction technique Dose: 672 mGy-cm FINDINGS: At the left temporal lobe laterally, there is a new wedge-shaped region of parenchymal hypoattenuation which was not apparent on prior studies as recently as 08/06/2022. No additional acute parenchymal abnormalities are identified. Within the right lateral aspect of the posterior fossa, there is a cystlike fluid attenuation region measuring approximately 5 x 1.5 cm an area which is not appreciably changed as compared to prior study and is most consistent with an arachnoid as noted on prior MRI dating back to 2012. No additional mass-effect identified. No midline shift is seen. [place] to white matter differentiation is well preserved. No new extra axial fluid collections. The ventricles are normal in size and configuration. The soft tissues and osseous structures are normal. The sinuses and mastoid air cells are clear. CT/CT head/brain wo IV con IMPRESSION: 1. New wedge-shaped region of parenchymal hypoattenuation in the left temporal lobe, potentially corresponded to an acute or subacute infarct. Recommend correlation with MRI of the brain with and without contrast. No acute intracranial hemorrhage. 2. Unchanged right posterior fossa arachnoid cyst. Electronically signed by: Jey Quintero MD 02/19/2024 01:31 AM EDT
--- NOTE | ~2024-02-18 | MR_ITS ---
EXAMINATION: MR BRAIN WITHOUT CONTRAST MR ANGIOGRAM WITHOUT CONTRAST CLINICAL INFORMATION: New left temporal and lobe infarction. COMPARISON: CT head 02/19/2024. MR brain 08/06/2022. TECHNIQUE: Multiplanar MR imaging of the brain was performed noncontrast. An MR angiogram of the head was also performed contrast. FINDINGS: There is an arachnoid cyst located at the right anterolateral aspect of the posterior fossa that has remained stable when compared to prior MR imaging of the brain from 08/06/2022. There is a small chronic cortical infarct involving the left temporal lobe that is new when compared to prior MR imaging of the brain from 2022. A few scattered chronic small vessel ischemic changes are visualized within the periventricular white matter. No acute territorial infarct. No pathological magnetic susceptibility artifact. Intracranial vascular flow voids are grossly maintained. There is no intracranial mass effect or midline shift. No abnormal extra-axial collection. Lateral and third ventricles are normal. No hydrocephalus. Midline structures including the cervicomedullary junction are normal. No acute bone marrow signal changes. There are trace mastoid tip effusions. Mild to moderate paranasal sinus disease primarily affecting the ethmoid air cells. Globes and orbits are symmetric. Intracranial internal carotid arteries are normal. Anterolateral vertebral artery segments and basilar artery are normal. Visualized portions of the anterior, middle, and posterior cerebral artery complexes are normal. No intracranial large vessel occlusion. No identifiable aneurysm or high flow vascular lesion. MR/MR angio head wo con IMPRESSION: There is a small chronic cortical infarct involving the left temporal lobe that is new when compared to prior MR imaging of the brain from 08/06/2022. A few scattered chronic small vessel ischemic changes are visualized within the periventricular white matter. No evidence of acute territorial infarct or hemorrhage. Stable arachnoid cyst located at the right anterolateral aspect of the posterior fossa. Normal MR angiogram of the head. Electronically signed by: Korey Staton MD 02/19/2024 10:59 AM EDT
[2024-02-18 22:30] VITALS: BP 136/63; PULSE 106; O2SAT 98
[2024-02-18 22:44] VITALS: BP 141/66; PULSE 103; RESP 16; TEMP 36.5; O2SAT 98; BMI 24.8
[2024-02-18 23:17] LABS: MANUAL DIFF FLAG NO
[2024-02-18 23:24] LABS: Basophils Percent Auto 0.2 % (0-2); Hemoglobin 14.4 g/dl (14.0-18.0); Imm Gran Abs Auto 0.07 X10*3/uL (0.00-0.03); Imm Gran Pct Auto 0.5 % (0.0-0.4); Lymphocytes Absolute Auto 0.6 X10*3/uL (1.2-4.9); Lymphocytes Percent Auto 4.2 % (20-40); Mean Corpuscular Hemoglobin 29.8 pg (27.0-33.0); Mean Corpuscular Volume 82.6 fL (80.0-98.0); Monocytes Absolute Auto 0.9 X10*3/uL (0.1-1.2); Monocytes Percent Auto 6.2 % (2-11); Neutrophils Absolute Auto 12.8 x10*3/uL (2.0-8.3); Neutrophils Percent Auto 88.9 % (45-73); Platelet Count 134 X10*3/uL (160-400); Red Blood Count 4.84 X10*6/uL (4.60-5.80); Red Cell Distribution Width 12.2 % (11.0-16.0); White Blood Count 14.4 X10*3/uL (4.8-10.8)
--- NOTE | 2024-02-18 23:28 | ED.NAVMDI ---
HPI - Nausea/Vomiting/Diarrhea General Chief complaint: Nausea/Vomiting/Diarrhea Stated complaint: vomiting, pale, marijuana use Time Seen by Provider: 02/18/24 23:28 Source: patient, family and EMS Mode of arrival: EMS Limitations: altered mental status History of Present Illness ED Provider: Dr. Burks HPI Narrative: patient has a history of seizures, he had been vomiting for hours and then his family found him to be staring and confused. Patient following commands but slow with word finding MD elicited complaint: nausea and vomiting Onset (ago): hour(s) Related Data Home Medications ?Medication ?Instructions ?Recorded ?Confirmed blood sugar diagnostic (FreeStyle 01/30/22 01/23/24 Lite Strips) flash glucose scanning reader 01/30/22 01/23/24 (FreeStyle Dexter 14 Day Hillister) lancets 28 gauge (FreeStyle 01/30/22 01/23/24 Lancets) Previous Rx's ?Medication ?Instructions ?Recorded pen needle, diabetic 32 gauge x #50 ea 09/05/20 (BD Katya 2nd Gen Pen Needle) blood pressure monitor #1 ea 07/23/22 insulin degludec 100 unit/mL (3 20 unit (0.2 mL) subcut QAM 30 07/23/22 mL) subcutaneous pen (Tresi days #6 mL FlexTouch U-100 insulin) peg 3350-electrolytes 236 240 ml PO Q10M 1 day #4,000 mL 05/01/23 gram-22.74 gram-6.74 gram-5.86 gram solution (Golytely) albuterol sulfate 90 mcg/actuation 2 puff inhalation Q4-6H PRN 12/01/23 aerosol inhaler shortness of breath or wheezing 30 days #8.5 grams fluticasone propionate 50 1 spray intranasal BID #16 grams 12/01/23 mcg/actuation nasal spray,suspension Toujeo SoloStar U-300 Insulin 300 20 unit (0.0667 mL) subcut QAM 01/23/24 unit/mL (1.5 mL) subcutaneous pen #4.5 mL (insulin glargine U-300 conc) Trulicity 1.5 mg/0.5 mL 1.5 mg (0.5 mL) subcut QWEEK 4 01/23/24 subcutaneous pen injector weeks #2 mL (dulaglutide) amlodipine 10 mg tablet 10 mg PO DAILY 90 days #90 tabs 01/23/24 hydrochlorothiazide 12.5 mg capsule 12.5 mg PO DAILY 90 days #90 caps 01/23/24 magnesium oxide 400 mg PO BID 30 days #60 tabs 01/23/24 atorvastatin 20 mg tablet 20 mg PO BEDTIME 90 days #90 tabs 01/27/24 Allergies Allergy/AdvReac Type Severity Reaction Status Date / Time Latex, Natural Rubber Allergy Mild Rash Verified 02/18/24 22:45 pseudoephedrine [Sudafed] AdvReac Intermediate dizziness, Verified 02/18/24 22:45 panic attacks Review of Systems Review of Systems: Yes all other systems are reviewed and are negative Neurologic: Denies Sensory deficit (Neuro) [facility] Past Medical History Medical History 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 Overweight (BMI 25.0-29.9) 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 disc herniation Vitamin D deficiency Polycythemia Thrombocytopenia Pure hypercholesterolemia Benign essential hypertension Chronic kidney disease (CKD), stage III (moderate) Type 2 diabetes mellitus with diabetic chronic kidney disease Surgical History Status post cervical discectomy (~09/04/16) History of right nephrectomy (~03/30/13) Family History Family History Mother Hypertension Social History Social History Housing: House Alcohol intake: never Patient Tobacco Use Status: Former Tobacco user Smoked in Last 30 Days: No e-Cigarette/Vaping Use: Never Used Second Hand Smoke Exposure: Yes Use of substances other than those prescribed or required for medical reasons: No Advance Directives: No Advance Directives Information Provided: Yes Do you have a plan to hurt others: No Plan service: No Current occupational status: employed Cognitive needs: No Hearing needs: No Vision needs: Yes (glasses) Physical Exam Vital Signs: Vital Signs: Last Vital Signs Temp 97.8 F 02/19/24 06:54 Pulse 63 02/19/24 06:54 Resp 18 02/19/24 06:54 BP 110/65 02/19/24 06:54 Pulse Ox 99 02/19/24 06:54 O2 Del Method Room Air 02/19/24 06:54 BMI result Body Mass Index 24.8 Const: Other: Male appearing intoxicated, flat affect Nutritional Appearance: average body habitus Orientation/consciousness: oriented to person Limitations: altered mental status HEENT: Head: Yes normal to inspection Ears: external ears normal General nose exam: Normal external nose present Mouth: Normal oral and palatal mucosa present and oropharynx normal Throat: Yes posterior oropharynx normal Eyes: General: appearance normal, both eyes and all related structures Neck: Other: supple Neck: Yes normal visual inspection Chest: Chest palpation & inspection: normal inspection of the chest Resp: Auscultation: clear to auscultation bilaterally Cardio: Jugular venous distension: no JVD Rate: regular rate Rhythm: regular rhythm Heart sounds: S1 normal heart sound present and S2 normal heart sound present GI: Inspection: Yes normal to inspection Palpation (GI): Soft to palpation, nontender and No hepatosplenomegaly present Auscultation: normal bowel sounds : General: Yes no CVA tenderness Back/Spine/Pelvis: Back: no CVA tenderness Skin: General skin exam: no rashes or lesions noted Neuro: General: oriented to person Cranial nerves: Yes CN's II-XII intact bilaterally Motor exam (neuro): 5/5 motor strength present throughout Sensory Exam: No Sensory deficit (Neuro) Extrem: General: Yes normal to inspection Psych: Other: flat affect NIH Stroke Scale Level of Consciousness: Alert Level of Consciousness Questions: Answers both questions correctly Level of Consciousness Commands: Performs both tasks correctly Best Gaze: Normal Visual: No visual loss Facial Palsy: Normal Motor Arm (Right): No drift Motor Arm (Left): No drift Motor Leg (Right): No drift Motor Leg (Left): No drift Limb Ataxia: Absent Sensory: Normal Best Language: Mild to moderate aphasia Dysarthia: Normal Extinction and Inattention: No abnormality Score: 1 Course Reevaluation(s) Reevaluation #1: patient with what appeared to be postictal with flat affect and weird behaviors, Patients CT shows new left temperal infarct with edema, I discussed at lenght with his that he needed a CT angio however he only has one kidney and has significant renal impairment. felt that we should wait for MRI as opposed to CTA. We shared in the decision making process Time: 07:06 Reevaluation #2: physician observation: started now as patient needs time to evaluate his potential stroke with MRA since CTA could not be performed Time: 07:07 Medical Decision Making Lab Data 02/18/24 23:12 02/18/24 23:12 Labs: Lab Results 02/18/24 02/19/24 02/19/24 Range/Units 23:12 02:10 04:11 WBC 14.4 H (4.8-10.8) X10*3/uL RBC 4.84 (4.60-5.80) X10*6/uL Hgb 14.4 (14.0-18.0) g/dl Hct 40.0 L (42.0-52.0) % MCV 82.6 (80.0-98.0) fL MCH 29.8 (27.0-33.0) pg MCHC 36.0 (31.0-36.0) g/dl RDW 12.2 (11.0-16.0) % Plt Count 134 L (160-400) X10*3/uL MPV 12.0 (9.4-12.4) fL Immature Gran % (Auto) 0.5 H (0.0-0.4) % Neut % (Auto) 88.9 H (45-73) % Lymph % (Auto) 4.2 L (20-40) % [place] % (Auto) 6.2 (2-11) % Eos % (Auto) 0.0 (0-4) % Baso % (Auto) 0.2 (0-2) % Lymph # (Auto) 0.6 L (1.2-4.9) X10*3/uL [place] # (Auto) 0.9 (0.1-1.2) X10*3/uL Eos # (Auto) 0.0 (0.0-0.4) X10*3/uL Baso # (Auto) 0.0 (0.0-0.2) X10*3/uL Abs Immat Gran (auto) 0.07 H (0.00-0.03) X10*3/uL Absolute Neuts (auto) 12.8 H (2.0-8.3) x10*3/uL Absolute Nucleated RBC 0.000 (0.0-0.012) X10*3/uL Nucleated RBC % (auto) 0.0 (0.0-0.2) /100WBC Sodium 140 (135-145) mmol/L Potassium 4.1 (3.3-5.1) mmol/L Chloride 109 H (96-108) mmol/L Carbon Dioxide 23 (22-29) mmol/L Anion Gap 12 (12-20) BUN 34 H (9-16) mg/dL Creatinine 2.44 H (0.5-1.4) mg/dL Estim Creat Clear Calc 36.1 Estimated GFR 28 Random Glucose 163 H (60-115) mg/dL Calcium 9.0 D (8.4-10.2) mg/dL Magnesium 2.5 (1.6-2.6) mg/dL Total Bilirubin 0.5 (0.0-1.0) mg/dL AST 21 (5-37) U/L ALT 20 (0-40) U/L Alkaline Phosphatase 86 (39-117) U/L Troponin I High Sens 4.8 D < 2.7 (<3.5-35.0) ng/L Total Protein 6.7 (6.5-8.0) g/dL Albumin 4.2 (3.5-5.0) g/dL Triglycerides 56 (<150) mg/dL Cholesterol 132 (<200) mg/dL LDL Cholesterol, Calc 75 (<100) mg/dL HDL Cholesterol 46 (>40) mg/dL Lipase 163 H (8-78) U/L Urine Color Yellow Urine Appearance Clear Urine pH 5.5 (5.0-9.0) Ur Specific [place] 1.015 (1.005-1.025) Urine Protein Trace (Neg-Trace) mg/dL Urine Glucose (UA) Negative (Negative) mg/dL Urine Ketones Negative (Negative) mg/dL Urine Blood Negative (Negative) Urine Nitrite Negative (Negative) Ur Leukocyte Esterase Negative (Negative) Urine Opiates Screen Not Detected (Not Detect) Ur Buprenorphine Scrn Not Detected (Not Detect) ng/mL Ur Oxycodone Screen Not Detected (Not Detect) ng/mL Urine Methadone Screen Not Detected (Not Detect) ng/mL Urine Fentanyl Screen Not Detected (Not Detect) Ur Barbiturates Screen Not Detected (Not Detect) Ur Phencyclidine Scrn Not Detected (Not Detect) Ur Amphetamines Screen Not Detected (Not Detect) U Benzodiazepines Scrn Not Detected (Not Detect) Urine Cocaine Screen Not Detected (Not Detect) U Marijuana (THC) Screen POSITIVE H (Not Detect) Ethyl Alcohol < 10 mg/dL Discharge Plan Discharge Clinical Impression: Acute alteration in mental status Patient Disposition: Still a Patient Prescriptions: No Action insulin degludec [Tresiba FlexTouch U-100] 100 unit/mL (3 mL) insulin pen 20 unit subcut QAM 30 Days Qty: 6 0RF atorvastatin 20 mg tablet 20 mg PO BEDTIME 90 Days Qty: 90 1RF albuterol sulfate 90 mcg/actuation HFA aerosol inhaler 2 puff inhalation Q4-6H PRN (Reason: shortness of breath or wheezing) 30 Days Qty: 8.5 0RF fluticasone propionate 50 mcg/actuation spray,suspension 1 spray intranasal BID Qty: 16 0RF Rx Instructions: administer into each nostril (DME) blood pressure monitor Kit See Rx Instructions .Route Qty: 1 0RF Rx Instructions: As directed insulin glargine U-300 conc [Toujeo SoloStar U-300 Insulin] 300 unit/mL (1.5 mL) insulin pen 20 unit subcut QAM Qty: 4.5 2RF Trulicity 1.5 mg/0.5 mL pen injector 1.5 mg subcut QWEEK 28 Days Qty: 2 2RF magnesium oxide 400 mg magnesium tablet 400 mg PO BID 30 Days Qty: 60 0RF amlodipine 10 mg tablet 10 mg PO DAILY 90 Days Qty: 90 0RF hydrochlorothiazide 12.5 mg capsule 12.5 mg PO DAILY 90 Days Qty: 90 0RF (DME) pen needle, diabetic [BD Katya 2nd Gen Pen Needle] 32 gauge x 5/32 needle See Rx Instructions .MEDSUPPLY Qty: 50 4RF Rx Instructions: once a day (DME) FreeStyle Dexter 14 Day Hillister Misc See Rx Instructions .Route Rx Instructions: As directed (DME) lancets [FreeStyle Lancets] 28 gauge misc See Rx Instructions .Route Rx Instructions: As directed (DME) FreeStyle Lite Strips Strip See Rx Instructions .Route Rx Instructions: As directed peg 3350-electrolytes [Golytely] 236-22.74-6.74 -5.86 gram recon soln 240 ml PO Q10M 1 Days Qty: 4000 0RF Rx Instructions: until fecal effluent is clear; do not exceed a total volume of 2,000 mL Print Language: Vietnamese
[2024-02-18 23:33] LABS: Alanine Aminotransferase 20 U/L (0-40); Albumin Level 4.2 g/dL (3.5-5.0); Alkaline Phosphatase 86 U/L (39-117); Anion Gap 12 (12-20); Aspartate Amino Transferase 21 U/L (5-37); Bilirubin Total 0.5 mg/dL (0.0-1.0); Blood Urea Nitrogen 34 mg/dL (9-16); Carbon Dioxide 23 mmol/L (22-29); Chloride 109 mmol/L (96-108); Creatinine Clr Calc Pharmacy 36.1; Estimated Glomerular Filt Rate 28; Glucose Random 163 mg/dL (60-115); Lipase 163 U/L (8-78); Magnesium 2.5 mg/dL (1.6-2.6); Potassium 4.1 mmol/L (3.3-5.1); Sodium 140 mmol/L (135-145); Total Protein 6.7 g/dL (6.5-8.0)
[2024-02-18 23:41] LABS: Troponin-I High Sensitivity 4.8 ng/L (<3.5-35.0)
[2024-02-19 00:20] LABS: Ethanol < 10 mg/dL
--- NOTE | 2024-02-19 01:42 | ECG_ITS ---
Test Reason : STROKE PROTOCOL Blood Pressure : / mmHG Vent. Rate : 079 BPM Atrial Rate : 079 BPM P-R Int : 166 ms QRS Dur : 078 ms QT Int : 380 ms P-R-T Axes : 064 047 049 degrees QTc Int : 435 ms Normal sinus rhythm Normal ECG When compared with ECG of 23-JUL-2022 18:01, QT has lengthened Referred By: Danilo Burks Electronically Signed By:KARL BENITEZ
[2024-02-19 02:29] LABS: Cholesterol 132 mg/dL (<200); HDL Cholesterol 46 mg/dL (>40); LDL Cholesterol Calculated 75 mg/dL (<100); Triglycerides 56 mg/dL (<150)
[2024-02-19 02:39] LABS: Troponin-I High Sensitivity < 2.7 ng/L (<3.5-35.0)
[2024-02-19 04:22] LABS: Appearance Urine Clear; Color Urine Yellow; Glucose Urine UA Negative (Negative); Leukocyte Esterase Urine Negative (Negative); Nitrite Urine Negative (Negative); PH 5.5 (5.0-9.0); Specific Gravity - Urine 1.015 (1.005-1.025); Urine Blood Negative (Negative); Urine Ketones Negative (Negative); Urine Protein Trace mg/dL (Neg-Trace)
[2024-02-19 04:36] LABS: Amphetamine Screen Urine Not Detected (Not Detect); Barbiturates, Urine Not Detected (Not Detect); Benzodiazepines Screen Urine Not Detected (Not Detect); Buprenorphine Scr Not Detected (Not Detect); Cannabinoid Screen Urine POSITIVE (Not Detect); Cocaine Screen Urine Not Detected (Not Detect); Fentanyl, urine Not Detected (Not Detect); Methadone Screen, Urine Not Detected (Not Detect); Opiate Screen Urine Not Detected (Not Detect); Oxycodone Screen Urine Not Detected (Not Detect); Phencyclidine Screen Urine Not Detected (Not Detect)
[2024-02-19 06:54] VITALS: BP 110/65; PULSE 63; RESP 18; TEMP 36.6; O2SAT 99
--- NOTE | 2024-02-19 07:00 | CA_ITS ---
Transthoracic Echocardiogram Patient (Last, First, Middle): Brayan Maza D Gender: Male Date of : 1970 Age: 53 Procedure Date: 02/19/2024 Procedure Type: Transthoracic Echocardiogram Location: ER Height: 177.8 cm Weight: 78.02 kg BSA: 1.96 m2 Heart Rate: 63 bpm BP: 110 / 65 mmHg Priest: LENORA Gtz MD: Alejandro Desouza MD Library Specialist: Maury Ordonez MD Symptoms: acute stroke Study Quality: Adequate ECG Rhythm: Sinus Conclusions: - Essentially normal study with no clear evidence of PFO by bubble contrast Findings Left Ventricle Normal left ventricular size, thickness, and systolic function. The visually estimated ejection fraction is between 60-65%. Spectral Doppler is indicative of a normal filling pattern. Right Ventricle Normal right ventricular cavity size and systolic function. Atria Both atria are normal in size. There is no evidence of interatrial shunt by agitated saline. Aortic Valve Normal aortic valve structure and function. There is no aortic valve stenosis. There is no aortic valve regurgitation. Mitral Valve Normal mitral valve structure and function. There is trace mitral valve regurgitation. There is no mitral valve stenosis. Pulmonic Valve The pulmonic valve is likely normal. There is trace pulmonic valve regurgitation. Tricuspid Valve Normal tricuspid valve structure. Tricuspid regurgitation envelope is inadequate for calculation of right ventricular systolic pressure. Normal right atrial pressure. Great Vessels All visible segments of the aorta are normal in size. The pulmonary artery was not well visualized. Venous The inferior vena cava is normal in size and collapses greater than 50% with inspiration. Pericardium/Pleural There is no evidence of pericardial effusion. Prior Study Comparison No significant change compared to prior study dated: 08/05/2022. Measurements 2D Linear Measurements IVSd: 0.65 0.6-0.9/0.6-1.0 cm LVIDd: 3.83 3.9-5.3/4.2-5.9 cm LVIDd Index: 1.95 2.4-3.2/2.2-3.1 cm/m2 LVIDs: 2.05 2.0-3.6 cm LVPWd: 0.84 0.7-1.1 cm LA Diam: 2.50 2.7-3.8/3.0-4.0 cm LAIDs Index: 1.28 1.5-2.3 cm/m2 LV Mass: 98.52 67-162/88-224 g LV Mass Index: 50.26 43-95/49-115 g/m2 LVOT Diam: 2.00 3.0+(-)1.3 cm 2D Systolic Function EF 4C: 65.10 >55% EF 2C: 67.90 >55% EF BiP: 65.10 >55% Mitral Valve MV Pk E: 0.92 MV PK A: 0.75 MV Decel Time: 156.00 E/A: 1.20 E'Lateral: 11.60 E'Medial: 8.81 E/E' Med: 10.50 E/E' Lat: 7.90 PHT: 46.00 MVA PHT: 4.78 Decel [place]: 5.91 Aortic Valve AoV Pk Todd: 1.11 AoV Mn Todd: 0.77 AoV VTI: 0.24 AoV Pk Grad: 5.00 Aov Mn Grad: 3.00 ASHWIN Cont.VTI: 2.37 LVOT LVOT Pk Todd: 0.89 LVOT Mn Todd: 0.55 LVOT VTI: 0.18 LVOT Pk Grad: 3.00 LVOT Mn Grad: 1.00 LVOT Diam: 2.00 LVOT Area: 3.14 Diastolic Function MV Pk E: 0.92 MV Pk A: 0.75 E/A: 1.20 E'Medial: 8.81 E/E' Med: 10.50 E' Laterial: 11.60 E/E' Lat: 7.90 Right Ventricle TAPSE (mm): 19.50 TVS' Todd: 11.90 Tricuspid Valve RA Press: 3.00 Great Vessels Aorta Sinus of Valsalva: 3.10 2.0-3.5 cm Ao Asc: 2.60 2.1-3.4 cm Pulmonary Valve PV Pk Todd: 0.90 Peak PV Grad: 3.00 Updated in Other Vendor System with Status of Final Maury Ordonez MD electronically signed on 02/19/2024 11:52:30 AM with status of Final
[2024-02-19] MEDS: Aspirin Enteric Coated 81 MG TABLET.DR PO (08:27)
[2024-02-19 08:33] LABS: Estimated Average Glucose 315 mg/dL; Hemoglobin A1c % 12.6 % (<6.0)
--- NOTE | 2024-02-19 08:34 | PM.IMHP ---
History of Present Illness Date of Service: 02/19/24 Chief Complaint: vomiting, aphasia The patient is a 53-year-old male with a past medical history of diabetes, hypertension, renal cell carcinoma status post right nephrectomy, CKD stage 3 who presents to the emergency room overnight with nausea and vomiting which began on the evening prior to arrival. After his vomiting episode, the patient who was reported by the family to be confused and staring blankly. Hence he was brought to the emergency room. In the emergency room, the patient was found to have slow speech with no significant motor deficits reported. Workup in the emergency room showed a CT scan with a wedge-shaped i hypoattenuation in the left temporal lobe possibly corresponding to an acute versus subacute infarct. Given his solitary kidney and CKD, CTA angiogram was deferred. MRI and MRA have been ordered, he will not be admitted for further care. Patient is seen and examined the emergency room around 815 this morning. His and mother are bedside. Both corroborate the story as the patient his currently. As noted above, the patient's symptoms started the evening prior to admission. The patient had also complained of a headache that day before. In regards to his chronic conditions, the patient had been off of his medications for many months. He had recently seen his primary care doctor and was restarted on his antihypertensive as well as diabetic medications. 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 Overweight (BMI 25.0-29.9) 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 disc herniation Vitamin D deficiency Polycythemia Thrombocytopenia Pure hypercholesterolemia Benign essential hypertension Chronic kidney disease (CKD), stage III (moderate) Type 2 diabetes mellitus with diabetic chronic kidney disease Family History Mother Hypertension Surgical History Status post cervical discectomy (~09/04/16) History of right nephrectomy (~03/30/13) Social History Housing: House Alcohol intake: never Patient Tobacco Use Status: Former Tobacco user Smoked in Last 30 Days: No e-Cigarette/Vaping Use: Never Used Second Hand Smoke Exposure: Yes Use of substances other than those prescribed or required for medical reasons: No Advance Directives: No Advance Directives Information Provided: Yes Do you have a plan to hurt others: No Plan Nutrition Risks: No Nutritional Risk service: No Current occupational status: employed Cognitive needs: No Hearing needs: No Vision needs: Yes (glasses) Meds Allergies Allergy/AdvReac Type Severity Reaction Status Date / Time Latex, Natural Rubber Allergy Mild Rash Verified 02/18/24 22:45 pseudoephedrine [Sudafed] AdvReac Intermediate dizziness, Verified 02/18/24 22:45 panic attacks Active Medications: Current Medications Acetaminophen (Acetaminophen 325 Mg Tablet) 650 mg PO Q6H PRN PRN Reason: Pain, Mild (Pain Scale 1-3), fever or headache Atorvastatin Calcium (Atorvastatin Calcium 80 Mg Tablet) 80 mg PO DAILY DARSHAN Calcium Carbonate (Calcium Carbonate 750 Mg Tab.Chew) 750 mg PO Q4H PRN PRN Reason: Heartburn Lactated Ringer's (Lr) 1,000 mls @ 100 mls/hr IVCONT .Q10H DARSHAN Stop: 02/19/24 18:44 Magnesium Hydroxide (Milk Of Magnesia 30 Ml Oral.Susp) 30 ml PO DAILY PRN PRN Reason: Constipation Melatonin (Melatonin 3 Mg Tablet) 6 mg PO BEDTIME PRN PRN Reason: Insomnia Sodium Chloride (0.9 % Sodium Chloride Flush 3 Ml Syringe) 3 ml IVFLUSH QSHIFT [facility] Home Medications ?Medication ?Instructions ?Recorded ?Confirmed ?Last Taken ?Type blood sugar diagnostic (FreeStyle 01/30/22 01/23/24 Unknown History Lite Strips) flash glucose scanning reader 01/30/22 01/23/24 Unknown History (FreeStyle Dexter 14 Day [place]) lancets 28 gauge (FreeStyle 01/30/22 01/23/24 Unknown History Lancets) Physical Exam Vital Signs and Narrative: Vital Signs: Last Vital Signs Temp 97.8 F 02/19/24 06:54 Pulse 63 02/19/24 06:54 Resp 18 02/19/24 06:54 BP 110/65 02/19/24 06:54 Pulse Ox 99 02/19/24 06:54 O2 Del Method Room Air 02/19/24 06:54 BMI result Body Mass Index 24.8 Const: Other: Constitutional - Awake and Alert, obeying basic commands very slowly; appears fearful Eyes - PERRLA, EOMI Cardiovascular - S1S2, RRR, No edema Respiratory - Normal lung expansion, Normal respiratory effort, No respiratory distress, CTA bilaterally Gastrointestinal - NT / ND; +BS; No rebound or guarding - No CVA tenderness Extremities - no calf tenderness bilaterally, no swelling Musculoskeletal - Normal inspection, normal ROM Skin - Warm/Dry Neurological - awake and alert, able to follow basic commands some what but slow; speech in low volume and slow, dysarthric; no facial asymmetry appreciated; do not appreciate major difference in motor between the 2 sides, maybe slight right sided weakness; CN intact b/l Psychological - appears fearful Results Labs 02/18/24 23:12 02/18/24 23:12 Labs: Laboratory Results - last 24 hr 02/18/24 02/19/24 02/19/24 23:12 02:10 04:11 MCV 82.6 MCH 29.8 MCHC 36.0 RDW 12.2 Plt Count 134 L MPV 12.0 Immature Gran % (Auto) 0.5 H Neut % (Auto) 88.9 H Lymph % (Auto) 4.2 L [place] % (Auto) 6.2 Eos % (Auto) 0.0 Baso % (Auto) 0.2 Lymph # (Auto) 0.6 L [place] # (Auto) 0.9 Eos # (Auto) 0.0 Baso # (Auto) 0.0 Abs Immat Gran (auto) 0.07 H Absolute Neuts (auto) 12.8 H Absolute Nucleated RBC 0.000 Nucleated RBC % (auto) 0.0 Anion Gap 12 Estim Creat Clear Calc 36.1 Estimated GFR 28 Random Glucose 163 H Estimat Average Glucose 315 Hemoglobin A1c % 12.6 H Calcium 9.0 D Magnesium 2.5 Total Bilirubin 0.5 AST 21 ALT 20 Alkaline Phosphatase 86 Troponin I High Sens 4.8 D < 2.7 Total Protein 6.7 Albumin 4.2 Triglycerides 56 Cholesterol 132 LDL Cholesterol, Calc 75 HDL Cholesterol 46 Lipase 163 H Urine Color Yellow Urine Appearance Clear Urine pH 5.5 Ur Specific [place] 1.015 Urine Protein Trace Urine Glucose (UA) Negative Urine Ketones Negative Urine Blood Negative Urine Nitrite Negative Ur Leukocyte Esterase Negative Urine Opiates Screen Not Detected Ur Buprenorphine Scrn Not Detected Ur Oxycodone Screen Not Detected Urine Methadone Screen Not Detected Urine Fentanyl Screen Not Detected Ur Barbiturates Screen Not Detected Ur Phencyclidine Scrn Not Detected Ur Amphetamines Screen Not Detected U Benzodiazepines Scrn Not Detected Urine Cocaine Screen Not Detected U Marijuana (THC) Screen POSITIVE H Ethyl Alcohol < 10 Imaging Radiologist's Impressions: Impressions Head CT 02/19/24 00:00 IMPRESSION: 1. New wedge-shaped region of parenchymal hypoattenuation in the left temporal lobe, potentially corresponded to an acute or subacute infarct. Recommend correlation with MRI of the brain with and without contrast. No acute intracranial hemorrhage. 2. Unchanged right posterior fossa arachnoid cyst. Electronically signed by: Jey Quintero MD 02/19/2024 01:31 AM EDT RP Assessment and Plan (1) Acute alteration in mental status: Status: Acute (2) Aphasia: Status: Acute Plan 53 yo male with diabetes, hypertension, renal cell carcinoma status post right nephrectomy, CKD 3 who was noncompliant with his medications for many months (restarted his medications about 2 weeks ago) and now presents with acute onset nausea and vomiting with associated, followed by neurological changes. His workup in the emergency room shows what likely is a left-sided infarct. 1. Suspected acute CVA Currently no obvious significant motor deficits, most pronounced feature is his speech. MRA and MRI ordered in the ED Neurology consult Stroke workup including MRI/MRA, echo, tele monitor Lipid profile, check A1c Neuro checks Stroke Education Has passed at nursing swallow eval PT/OT/speech and swallow therapies Aspirin, statin Blood pressure is in the lower end of the normal range, will give 1 L fluid Avoid hypotension and hold antihypertensives for now Patient's reports prior history of seizure, but is not on any anti epileptics for many years. Unknown last seizure. Await Neurology input 2. Uncontrolled diabetes mellitus Will use point of cares and sliding scale for the time being A1c is over 12 Diabetic Education 3. CKD stage 3 Serum creatinine slightly elevated compared to recent outpatient labs Will monitor closely 4. Hypertension Hold antihypertensives, allow for permissive hypertension Full Code DVT pptx, subcut. lovenox Pt with suspected acute CVA in the setting of uncontrolled DM/HTN/CKD with prior non-compliance therefore expected to require at a minimum 2 midnights in the hospital, hence will be admitted as inpatient. Quality Stroke Does the patient have a stroke diagnosis?: No VTE Prior VTE?: No VTE Risk Level:: Medical - moderate - high VTE Device Contraindication: Treatment Not Indicated VTE Drug Contraindication: N/A - Med Ordered
[2024-02-19] MEDS: Lactated Ringers 1,000 ML 100 ML IVCONT (09:52)
[2024-02-19] MEDS: Atorvastatin Calcium 80 MG TABLET PO (09:58)
[2024-02-19 11:02] VITALS: BP 113/62; PULSE 59; O2SAT 99
--- NOTE | 2024-02-19 11:59 | PHA.MEDREC ---
Addendum entered by Paolo Newman [facility] 02/19/24 13:22: Med rec checked by [facility] Original Note: Pharmacy Consult ? Medication Reconciliation Pharmacy has completed the medication reconciliation. Spoke to patient family at bedside. family states patient takes Toujeo 20 units daily, and Trulicity 1.5mg in once a week , however they don't know what day patient takes it and Patient is AMS.
[2024-02-19 12:08] VITALS: BP 113/62; PULSE 59; RESP 18; TEMP 36.5; O2SAT 99
[2024-02-19] MEDS: Enoxaparin Sodium 40 MG/0.4 ML SYRINGE SUBCUT (12:35)
[2024-02-19 12:39] LABS: Glucose, Whole Blood 117 mg/dL (60-115)
--- NOTE | 2024-02-19 14:19 | MHC.SL.SWA ---
Speech Pathologist Impression: Risk of Aspiration Due to: Neurological Condition Dysphasia Diet Status: Liquid Consistency and Strategies for Safe Swallow: Liquid Intake Recommendation: Thin Liquid Intake Strategies: Unrestricted Solid Food Consistency: Dietary Recommendations: Chopped/Advanced (NDD3) Additional Modifications to Solid Foods: Straws o.k. on liquids. Patient may consume meals at slow rate. Oral Medication Intake: Whole with Liquid Please contact the pharmacy regarding appropriate crushable or liquid drug formulations that are available whenever modified delivery is recommended. Compensatory Strategies and Precautions to be Taken for Safe Swallow: Sitting Upright (90 deg) Small Bites and Sips Alternate Liquids/Solids Rate of Ingestion Change Supervision While Eating and Drinking for Safe Swallow: None Needed Foods to Avoid: Tough, difficult to chew solids Swallowing Recommended Treatments: Compens. Strategy Educat. Recommendation for Speech: Inpatient Speech Therapy Comment: Patient presents with swallow mostly WFL, however is currently presents as very tentative/anxious and also has c/o sore throat. Recommend patient initially start with softer foods offered in Chopped/Advanced diet (NDD3) with THIN liquids (straw o.k.) and pills whole with liquid. Patient will likely be able to advance to Regular diet quickly, as recommendation is to accommodate mostly behavior, as swallow is WFL. FORGE OPERATOR will follow 1-2X, screen language skills. , RD aware of recommendations by secure text, RN in person. Frequency/Duration: Date Range for Service Req: Timeline to reassess: Rn Intern Clinican/Clinical Fellow: No Supervisory Statement: I have reviewed and agree with the student/clinical fellow's documentation: N/A Speech Language Pathologist: Rebecca Mcdonald M.A., [facility])-FORGE OPERATOR
--- NOTE | 2024-02-19 14:23 | PM.NEUROCN ---
History of Present Illness Data of Consult Service Date: 02/19/24 Primary Care Provider: Unknown Physician HPI Reason for consult: Stroke 53 years old man with past medical history of hypertension, diabetes, status post right nephrectomy, chronic renal insufficiency, and complex migraine with stroke-like symptoms usually causing left-sided numbness and headache but no define stroke on previous MRI came to hospital with nausea and vomiting. He had a CT scan of brain that revealed a left temporal hypodensity that was investigated with an MRI of brain, which revealed a cortical left temporal infarct that was new compared to previous MRI. When I saw him he was little bit better. 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 Overweight (BMI 25.0-29.9) 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 disc herniation Vitamin D deficiency Polycythemia Thrombocytopenia Pure hypercholesterolemia Benign essential hypertension Chronic kidney disease (CKD), stage III (moderate) Type 2 diabetes mellitus with diabetic chronic kidney disease Family History Family History Mother Hypertension Surgical History Surgical History Status post cervical discectomy (~09/04/16) History of right nephrectomy (~03/30/13) Social History Social History Housing: House Alcohol intake: never Patient Tobacco Use Status: Former Tobacco user Smoked in Last 30 Days: No e-Cigarette/Vaping Use: Never Used Second Hand Smoke Exposure: Yes Use of substances other than those prescribed or required for medical reasons: No Advance Directives: No Advance Directives Information Provided: Yes Do you have a plan to hurt others: No Plan Nutrition Risks: No Nutritional Risk service: No Current occupational status: employed Cognitive needs: No Hearing needs: No Vision needs: Yes (glasses) Meds Allergies Allergy/AdvReac Type Severity Reaction Status Date / Time Latex, Natural Rubber Allergy Mild Rash Verified 02/18/24 22:45 pseudoephedrine [Sudafed] AdvReac Intermediate dizziness, Verified 02/18/24 22:45 panic attacks Active Medications: Current Medications Acetaminophen (Acetaminophen 325 Mg Tablet) 650 mg PO Q6H PRN PRN Reason: Pain, Mild (Pain Scale 1-3), fever or headache Atorvastatin Calcium (Atorvastatin Calcium 80 Mg Tablet) 80 mg PO DAILY [facility] Last Admin: 02/19/24 09:58 Dose: 80 mg Calcium Carbonate (Calcium Carbonate 750 Mg Tab.Chew) 750 mg PO Q4H PRN PRN Reason: Heartburn Enoxaparin Sodium (Enoxaparin Sodium 40 Mg/0.4 Ml Syringe) 40 mg SUBCUT Q24H [facility] Last Admin: 02/19/24 12:35 Dose: 40 mg Lactated Ringer's (Lr) 1,000 mls @ 100 mls/hr IVCONT .Q10H [facility] Stop: 02/19/24 18:44 Last Admin: 02/19/24 09:52 Dose: 100 mls/hr Magnesium Hydroxide (Milk Of Magnesia 30 Ml Oral.Susp) 30 ml PO DAILY PRN PRN Reason: Constipation Melatonin (Melatonin 3 Mg Tablet) 6 mg PO BEDTIME PRN PRN Reason: Insomnia Sodium Chloride (0.9 % Sodium Chloride Flush 3 Ml Syringe) 3 ml IVFLUSH QSHIFT [facility] Last Admin: 02/19/24 12:35 Dose: Not Given Home Medications ?Medication ?Instructions ?Recorded ?Confirmed ?Last Taken ?Type blood sugar diagnostic (FreeStyle 01/30/22 01/23/24 Unknown History Lite Strips) flash glucose scanning reader 01/30/22 01/23/24 Unknown History (FreeStyle Dexter 14 Day [place]) lancets 28 gauge (FreeStyle 01/30/22 01/23/24 Unknown History Lancets) insulin glargine U-300 conc 300 20 unit subcut DAILY 02/19/24 02/19/24 02/18/24 History unit/mL (1.5 mL) subcutaneous pen (Tourosanna SoloStar U-300 Insulin) Physical Exam Vital Signs: Vital Signs: Last Vital Signs Temp 97.7 F 02/19/24 12:08 Pulse 59 02/19/24 12:08 Resp 18 02/19/24 12:08 BP 113/62 02/19/24 12:08 Pulse Ox 99 02/19/24 12:08 O2 Del Method Room Air 02/19/24 12:08 BMI result Body Mass Index 24.8 Neuro: Other: He is alert and awake with his family standing around. He was eating potato chips when I saw him. Spontaneity and fluency of speech was decreased. But he was able to answer simple questions, repeat, and name. Family said that he was not talking much. Face was symmetrical. Visual ayala are full. There was no focal weakness. Results Labs 02/18/24 23:12 02/18/24 23:12 Labs: Short CBC 02/18/24 Range/Units 23:12 WBC 14.4 H (4.8-10.8) X10*3/uL Hgb 14.4 (14.0-18.0) g/dl Hct 40.0 L (42.0-52.0) % Plt Count 134 L (160-400) X10*3/uL BMP 02/18/24 23:12 Sodium 140 Potassium 4.1 Chloride 109 H Carbon Dioxide 23 BUN 34 H Creatinine 2.44 H Calcium 9.0 D Liver Function 02/18/24 Range/Units 23:12 Total Bilirubin 0.5 (0.0-1.0) mg/dL AST 21 (5-37) U/L ALT 20 (0-40) U/L Alkaline Phosphatase 86 (39-117) U/L Albumin 4.2 (3.5-5.0) g/dL Urine 02/19/24 Range/Units 04:11 Urine Color Yellow Urine Appearance Clear Urine pH 5.5 (5.0-9.0) Ur Specific [place] 1.015 (1.005-1.025) Urine Protein Trace (Neg-Trace) mg/dL Urine Glucose (UA) Negative (Negative) mg/dL MRI of brain revealed a left temporal cortical chronic ischemic infarction with mild microvascular ischemic changes. MRA of brain did not reveal any significant abnormality. Last year his carotid ultrasound did not reveal any significant stenosis. Assessment and Plan (1) Migraine equivalent syndrome: Status: Acute 53 years old man who has clinical presentation was likely due to complex migraine. He had similar type of situation before with negative brain imaging. In away, his brain imaging was still negative not revealing any acute pathology. Basic elements of his language were intact. I recommend reassurance and education in continuation of symptomatic treatment. As far as headache management is concerned, vasoconstricted type of medicines leg Triptan are contraindicated. (2) Cerebral infarction: Qualifiers: Cerebral infarction mechanism: embolism Precerebral and cerebral artery: middle cerebral artery Laterality of affected vessel: left Qualified Code(s): I63.412 - Cerebral infarction due to embolism of left middle cerebral artery Status: Acute A left temporal cortical infarct is a new finding but this is not an acute lesion. I recommend anti-platelet therapy and obtaining transesophageal echocardiogram to rule out PFO. Procedures Date of Service Date of Service: 02/19/24
[2024-02-19 16:05] VITALS: BP 114/63; PULSE 73; RESP 15; TEMP 36.7; O2SAT 98
[2024-02-19 18:20] LABS: Glucose, Whole Blood 129 mg/dL (60-115)
[2024-02-19 19:53] VITALS: BP 151/77; PULSE 74; RESP 21; TEMP 37.3; O2SAT 98
[2024-02-19 20:12] LABS: Glucose, Whole Blood 113 mg/dL (60-115)
[2024-02-19 22:23] VITALS: BP 129/61; PULSE 67; RESP 22; TEMP 36.6; O2SAT 97
--- NOTE | 2024-02-20 | EEG_ITS ---
This is a 16-channel EEG with an EKG lead. The patient is reported awake during the tracing. Background EEG rhythm is 8 to 10 hertz 5 to 50 microvolt posteriorly and lower amplitude fast anteriorly. Photic stimulation does not produce any significant abnormality. Hyperventilation is not performed. Cardiac lead does not reveal any significant abnormality. No obvious sharp wave spikes or paroxysmal tendency noted. IMPRESSION: Unremarkable EEG. MD JAVID Harris/ALEX / [id number]
[2024-02-20] MEDS: 0.9 % Sodium Chloride Flush 3 ML SYRINGE IVFLUSH ×4 (02:01→20:33)
[2024-02-20 03:40] VITALS: BP 132/70; PULSE 81; RESP 18; TEMP 36.7; O2SAT 99
[2024-02-20 07:19] VITALS: BMI 24.8
[2024-02-20 07:25] LABS: Hematocrit 42.9 % (42.0-52.0); Mean Corpuscular Hemoglobin 29.8 pg (27.0-33.0); Mean Corpuscular Volume 85.1 fL (80.0-98.0); Mean Platelet Volume 12.2 fL (9.4-12.4); Platelet Count 129 X10*3/uL (160-400); Red Blood Count 5.04 X10*6/uL (4.60-5.80); Red Cell Distribution Width 12.4 % (11.0-16.0); White Blood Count 6.3 X10*3/uL (4.8-10.8)
[2024-02-20 07:46] LABS: Glucose, Whole Blood 128 mg/dL (60-115)
[2024-02-20 07:51] LABS: Anion Gap 10 (12-20); Blood Urea Nitrogen 28 mg/dL (9-16); Calcium 8.7 mg/dL (8.4-10.2); Carbon Dioxide 26 mmol/L (22-29); Chloride 109 mmol/L (96-108); Creatinine Clr Calc Pharmacy 43.2; Estimated Glomerular Filt Rate 34; Glucose Random 130 mg/dL (60-115); Potassium 3.9 mmol/L (3.3-5.1); Sodium 141 mmol/L (135-145)
[2024-02-20 08:00] VITALS: BP 141/67; PULSE 70; RESP 18; TEMP 36.4; O2SAT 98
[2024-02-20] MEDS: Aspirin Enteric Coated 81 MG TABLET.DR PO (08:24)
[2024-02-20] MEDS: Atorvastatin Calcium 80 MG TABLET PO (08:25)
[2024-02-20 08:48] VITALS: BP 141/67; PULSE 70; O2SAT 98
--- NOTE | 2024-02-20 10:57 | MHC.SL.SOA ---
Referring Provider: Dr. Desouza Reason for Referral: Assess Swallow Date of Plan of Treatment:02/19/24 Onset of Symptoms/Illness:02/18/24 Date Treatment Started:02/19/24 Medical Diagnosis:(1) Acute alteration in mental status: (2) Aphasia: Head CT 02/19/24 00:00 IMPRESSION: 1. New wedge-shaped region of parenchymal hypoattenuation in the left temporal lobe, potentially corresponded to an acute or subacute infarct. Recommend correlation with MRI of the brain with and without contrast. No acute intracranial hemorrhage. 2. Unchanged right posterior fossa arachnoid cyst. Brain MRI: MR/MR head/brain wo con IMPRESSION: There is a small chronic cortical infarct involving the left temporal lobe that is new when compared to prior MR imaging of the brain from 08/06/2022. A few scattered chronic small vessel ischemic changes are visualized within the periventricular white matter. No evidence of acute territorial infarct or hemorrhage. Stable arachnoid cyst located at the right anterolateral aspect of the posterior fossa. Normal MR angiogram of the head. Primary Speech Language Diagnosis:R13.10 Dysphagia Secondary Speech Language Diagnosis:R47.01 Aphasia Number of Authorized Visits Remaining: Authorization End Date: Reason for Visit:47110 Individual Treatment Other: Subjective: Objective: Patient seen this morning to assess toleration of diet/upgrade and to screen langauge skills Patient's overall affect is remarkably improved from yesterday, presents as very engaging and pleasant, calm and confident. Patient was also talkative but noticeably hesitant at times, searching for words. At breakfast, patient was having oatmeal, cut peaches, cofee and juices. and patient reported that first meal he received in ER was a regular diet, apparently a wrap which then cut up, although pointed out to GSR that this was not likely the diet ordered. Patient put on Chopped/Advanced yesterday, given slow rate of mastication, sore throat from vomiting, and general anxiety about food. After discussion with patient, recommend UPGRADE diet to Regular, continue on thin liquids, pills whole with liquid. HEAD GRINDER entered upgrade in diet orders. Assessment: Patient given the short form of the BNT. ON this brief assessment, patient demonstrated 8/15 accuracy. On errors, patient demonstrated a mix of behaviors, including evident tip of tongue word finding errors and hesitancies, (e.g. on cactus: that's in the [place], carton? [place]?), use of association to try to retrieve the word, e.g. on [place] I know what that is, my brother used to use them.... and lack of knowledge of the word, e.g. on Sphinx that's in [place] but I don't know what it is called. Patient was presented with the Meaghan Theft narrative elicitation task from the BDAE, after a delay produce a narrative with some paucity of language, omission of details and hesitancies noted. On brief screening of receptive language using word, color and letter discrimination tasks, all presented as WFL. Summary/Comment: Patient on brief assessment is presenting with a mild expressive aphasia characterized by word finding difficulty on confrontation naming tasks, and in the context of conversational speech. Recommend discharge planning include plan for Speech/Language Therapy at next level care. Notes: Recommend UPGRADE diet to REGULAR continue with THIN liquids, pills whole with liquid. Plan: Ongoing assessment of receptive/expressive language as inpatient, recommend speech/language therapy at next level of care. Goal # : Status of Goal: Goal # : Status of Goal: Goal # : Status of Goal: Goal # : Status of Goal: Seen by: Graduate/Clinical Fellow: No Supervisory Statement: f_Reg Query Last Value , [facility] Speech Language Pathologist: Rebecca Mcdonald M.A., CCC-HEAD GRINDER
[2024-02-20 11:10] LABS: Glucose, Whole Blood 211 mg/dL (60-115)
[2024-02-20 11:58] VITALS: BP 137/68; PULSE 83; RESP 19; TEMP 36.4; O2SAT 99
[2024-02-20] MEDS: Enoxaparin Sodium 40 MG/0.4 ML SYRINGE SUBCUT (12:28)
--- NOTE | 2024-02-20 12:58 | MHC.CM.PN ---
Pt lives with his , he is independent, no home health services or DME. PCP is Dr. June. HCP will be completed and added to chart. to transport home at [place]. DCP: home, self care.
--- NOTE | 2024-02-20 13:42 | MHC.CM.PN ---
Addendum entered by Reta Choudhury 02/20/24 15:42: Pt and family are considering, CM informed them that sometimes ins does not cover Acute, and then we try for STR, or he could go home and do out pt. rehab. So, they are aware of options and will let us know what they think. Original Note: PT and OT rec. acute rehab, pt preferance is [facility], referrals out to [facility].
[2024-02-20 16:00] VITALS: BP 144/67; PULSE 77; RESP 18; TEMP 37.2; O2SAT 99
--- NOTE | 2024-02-20 16:39 | HO.PM.IMPN ---
Subjective Subjective Date of Service: 02/20/24 Interval History: seen and examined this morning follow up for aphasia speech much improved no focal deficits Review of Systems Review of Systems: Yes all other systems are reviewed and are negative Constitutional Constitutional: Denies chills and Denies fever(s) Cardiovascular Cardiovascular: Denies chest pain, Denies palpitations and Denies dyspnea Respiratory Respiratory: Denies cough and Denies dyspnea Gastrointestinal Gastrointestinal: Denies abdominal pain Endocrine Endocrine: Denies palpitations Physical Exam Vital Signs: Vital Signs: Last Vital Signs Temp 97.5 F 02/20/24 11:58 Pulse 83 02/20/24 11:58 Resp 19 02/20/24 11:58 BP 137/68 02/20/24 11:58 Pulse Ox 99 02/20/24 11:58 O2 Del Method Room Air 02/20/24 11:58 BMI result Body Mass Index 24.8 Const: Other: a little slow to respond at first but then began talking in full complete sentences; no slurred speech General: cooperative, comfortable, no acute distress, alert and awake Nutritional Appearance: average body habitus Orientation/consciousness: patient oriented x3 Resp: Effort & Inspection: normal respiratory effort, able to speak in complete sentences, no respiratory distress and no use of accessory muscles Cardio: Rate: regular rate GI: Inspection: No distended Neuro: General: patient oriented x3, moves all extremities and CN's II-XI intact bilaterally Extrem: General: Yes no pedal edema Objective Data Active Medications Acetaminophen (Acetaminophen 325 Mg Tablet) 650 mg PO Q6H PRN PRN Reason: Pain, Mild (Pain Scale 1-3), fever or headache Aspirin (Aspirin Enteric Coated 81 Mg Tablet.) 81 mg PO DAILY [facility] Last Admin: 02/20/24 08:24 Dose: 81 mg Documented By: MAY Atorvastatin Calcium (Atorvastatin Calcium 80 Mg Tablet) 80 mg PO DAILY [facility] Last Admin: 02/20/24 08:25 Dose: 80 mg Documented By: MAY Calcium Carbonate (Calcium Carbonate 750 Mg Tab.Chew) 750 mg PO Q4H PRN PRN Reason: Heartburn Enoxaparin Sodium (Enoxaparin Sodium 40 Mg/0.4 Ml Syringe) 40 mg SUBCUT Q24H [facility] Last Admin: 02/20/24 12:28 Dose: 40 mg Documented By: HO.GUILMAT Fluticasone Propionate (Fluticasone Propionate Nasal 16 Gm [place]) 1 spray NOSTRIL-B BID [facility] Glucose (Glucose Gel 15 Gm Gel..Gram.) 15 gm PO Q15M PRN; Protocol PRN Reason: per Hypoglycemia Standing Ord. Dextrose (D10) 250 mls @ 750 mls/hr IV Q15M PRN; Protocol PRN Reason: per Hypoglycemia Standing Ord. Insulin Glargine (Insulin Glargine,Hum.Rec.Anlog 100 Unit/Ml 10 Ml Vial) 8 unit SUBCUT DAILY [facility] Insulin Human Lispro (Insulin Lispro 100 Unit/Ml 3 Ml Vial) 0 unit SUBCUT QIDACHS [facility]; Protocol Magnesium Hydroxide (Milk Of Magnesia 30 Ml Oral.Susp) 30 ml PO DAILY PRN PRN Reason: Constipation Magnesium Oxide (Magnesium Oxide 400 Mg Tablet) 400 mg PO BID [facility] Melatonin (Melatonin 3 Mg Tablet) 6 mg PO BEDTIME PRN PRN Reason: Insomnia Sodium Chloride (0.9 % Sodium Chloride Flush 3 Ml Syringe) 3 ml IVFLUSH QSHIFT [facility] Last Admin: 02/20/24 08:26 Dose: 3 ml Documented By: MAY Labs 02/20/24 07:09 02/20/24 07:09 Labs: Laboratory Results - last 24 hr 02/19/24 02/19/24 02/20/24 18:15 20:08 07:09 MCV 85.1 MCH 29.8 MCHC 35.0 RDW 12.4 Plt Count 129 L MPV 12.2 Absolute Nucleated RBC 0.000 Nucleated RBC % (auto) 0.0 Anion Gap 10 L Estim Creat Clear Calc 43.2 Estimated GFR 34 POC Glucose 129 H 113 Random Glucose 130 H Calcium 8.7 02/20/24 02/20/24 07:38 10:56 MCV MCH MCHC RDW Plt Count MPV Absolute Nucleated RBC Nucleated RBC % (auto) Anion Gap Estim Creat Clear Calc Estimated GFR POC Glucose 128 H 211 H Random Glucose Calcium Assessment and Plan (1) Migraine equivalent syndrome: Status: Acute (2) Cerebral infarction: Status: Acute Plan 53 yo male with diabetes, hypertension, renal cell carcinoma status post right nephrectomy, CKD 3 who was noncompliant with his medications for many months (restarted his medications about 2 weeks ago) and now presents with acute onset nausea and vomiting with associated, followed by neurological changes. His workup in the emergency room shows what likely is a left-sided infarct. Aphasia Suspected acute CVA. no obvious significant motor deficits, most pronounced feature is his speech. MRA and MRI negative seen by Neurology likely due to migraine equivalent, no acute stroke Imaging did show chronic stroke passed at nursing swallow eval PT/OT/speech and swallow therapies - PT rec acute rehab LDL 75 continue Aspirin, statin Avoid hypotension and hold antihypertensives for now. bp controlled without meds Patient's reports prior history of seizure, but is not on any anti epileptics for many years. Unknown last seizure EEG done, report pending - outpatient follow up with neurology Uncontrolled diabetes mellitus A1c is over 12, recently resumed back on lantus will resume lower dose of Lantus and follow POCs, cover with SSI Diabetic Education CKD stage 3 Serum creatinine slightly elevated compared to recent outpatient labs improving follow BMP Hypertension Hold antihypertensives, bp controlled resume as bp allows Full Code DVT pptx, subcut. lovenox requires ongoing inpatient stay for close observation of blood pressure, safe disposition Quality Stroke Does the patient have a stroke diagnosis?: No VTE Prior VTE?: No VTE Risk Level:: Medical - moderate - high VTE Device Contraindication: Treatment Not Indicated VTE Drug Contraindication: N/A - Med Ordered
[2024-02-20 17:38] LABS: Glucose, Whole Blood 192 mg/dL (60-115)
[2024-02-20] MEDS: Insulin Lispro 100 UNIT/ML 3 ML VIAL SUBCUT ×2 (18:15→20:32)
[2024-02-20 20:00] VITALS: BP 134/68; PULSE 76; RESP 20; TEMP 36.7; O2SAT 98
[2024-02-20] MEDS: Magnesium Oxide 400 MG TABLET PO (20:33)
[2024-02-20 20:34] LABS: Glucose, Whole Blood 152 mg/dL (60-115)
[2024-02-21] VITALS (8 sets, daily range): BP systolic 123–138; BP diastolic 70–79; PULSE 56–86; RESP 18–20; TEMP 36.1–36.6; O2SAT 98–99
[2024-02-21 00:18] LABS: Glucose, Whole Blood 84 mg/dL (60-115)
--- NOTE | 2024-02-21 06:11 | PC.NURSE ---
Bologna Lacer assumed care of patient at 23:00. Pt neuros intact, see shift and neuro assessments in worklist for full details. VSS. Safety measures in place.
[2024-02-21 06:54] LABS: Anion Gap 10 (12-20); Blood Urea Nitrogen 25 mg/dL (9-16); Calcium 8.8 mg/dL (8.4-10.2); Carbon Dioxide 25 mmol/L (22-29); Chloride 110 mmol/L (96-108); Estimated Glomerular Filt Rate 40; Glucose Random 118 mg/dL (60-115); Potassium 3.9 mmol/L (3.3-5.1); Sodium 141 mmol/L (135-145)
[2024-02-21 07:17] LABS: Glucose, Whole Blood 110 mg/dL (60-115)
--- NOTE | 2024-02-21 09:07 | HO.PM.IMPN ---
Subjective Subjective Date of Service: 02/21/24 Interval History: seen and examined this morning follow up for aphasia, difficulty ambulating speech better no overnight events Review of Systems Review of Systems: Yes all other systems are reviewed and are negative Constitutional Constitutional: Denies fever(s) Cardiovascular Cardiovascular: Denies chest pain Gastrointestinal Gastrointestinal: Reports abdominal pain, Denies nausea and Denies vomiting Physical Exam Vital Signs: Vital Signs: Last Vital Signs Temp 97.5 F 02/21/24 07:18 Pulse 70 02/21/24 07:18 Resp 20 02/21/24 07:18 BP 137/74 02/21/24 07:18 Pulse Ox 99 02/21/24 07:18 O2 Del Method Room Air 02/21/24 07:18 BMI result Body Mass Index 24.8 Const: General: cooperative, comfortable, no acute distress, alert and awake Nutritional Appearance: average body habitus Orientation/consciousness: patient oriented x3 Resp: Effort & Inspection: normal respiratory effort, able to speak in complete sentences, no respiratory distress and no use of accessory muscles Auscultation: clear to auscultation bilaterally Cardio: Rate: regular rate GI: Inspection: No distended Neuro: Other: speech improved General: patient oriented x3, moves all extremities and CN's II-XI intact bilaterally Extrem: General: Yes no pedal edema Objective Data Active Medications Acetaminophen (Acetaminophen 325 Mg Tablet) 650 mg PO Q6H PRN PRN Reason: Pain, Mild (Pain Scale 1-3), fever or headache Albuterol Sulfate (Albuterol Sulfate 90 Mcg 8 Gm Inhaler) 2 puff INHALE Q4H PRN PRN Reason: shortness of breath or wheezing Aspirin (Aspirin Enteric Coated 81 Mg Tablet.) 81 mg PO DAILY [facility] Last Admin: 02/20/24 08:24 Dose: 81 mg Documented By: MAY Atorvastatin Calcium (Atorvastatin Calcium 80 Mg Tablet) 80 mg PO DAILY [facility] Last Admin: 02/20/24 08:25 Dose: 80 mg Documented By: MAY Calcium Carbonate (Calcium Carbonate 750 Mg Tab.Chew) 750 mg PO Q4H PRN PRN Reason: Heartburn Enoxaparin Sodium (Enoxaparin Sodium 40 Mg/0.4 Ml Syringe) 40 mg SUBCUT Q24H [facility] Last Admin: 02/20/24 12:28 Dose: 40 mg Documented By: MAY Fluticasone Propionate (Fluticasone Propionate Nasal 16 Gm [place]) 1 spray NOSTRIL-B BID [facility] Last Admin: 02/20/24 21:18 Dose: Not Given Documented By: PAOLA Non-Admin Reason: Patient Refused Glucose (Glucose Gel 15 Gm Gel..Gram.) 15 gm PO Q15M PRN; Protocol PRN Reason: per Hypoglycemia Standing Ord. Dextrose (D10) 250 mls @ 750 mls/hr IV Q15M PRN; Protocol PRN Reason: per Hypoglycemia Standing Ord. Insulin Glargine (Insulin Glargine,Hum.Rec.Anlog 100 Unit/Ml 10 Ml Vial) 8 unit SUBCUT DAILY [facility] Insulin Human Lispro (Insulin Lispro 100 Unit/Ml 3 Ml Vial) 0 unit SUBCUT QIDACHS [facility]; Protocol Last Admin: 02/21/24 08:25 Dose: Not Given Documented By: GAVIOTA Non-Admin Reason: No Insulin Coverage Magnesium Hydroxide (Milk Of Magnesia 30 Ml Oral.Susp) 30 ml PO DAILY PRN PRN Reason: Constipation Magnesium Oxide (Magnesium Oxide 400 Mg Tablet) 400 mg PO BID [facility] Last Admin: 02/20/24 20:33 Dose: 400 mg Documented By: PAOLA Melatonin (Melatonin 3 Mg Tablet) 6 mg PO BEDTIME PRN PRN Reason: Insomnia Sodium Chloride (0.9 % Sodium Chloride Flush 3 Ml Syringe) 3 ml IVFLUSH QSHIFT [facility] Last Admin: 02/20/24 20:33 Dose: 3 ml Documented By: PAOLA Labs 02/20/24 07:09 02/21/24 06:07 Labs: Laboratory Results - last 24 hr 02/20/24 02/20/24 02/20/24 10:56 17:19 20:21 Hold Purple Top Anion Gap Estim Creat Clear Calc Estimated GFR POC Glucose 211 H 192 H 152 H Random Glucose Calcium 02/20/24 02/21/24 02/21/24 22:08 06:07 07:13 Hold Purple Top SEE NOTE Anion Gap 10 L Estim Creat Clear Calc 49.0 Estimated GFR 40 POC Glucose 84 110 Random Glucose 118 H Calcium 8.8 Assessment and Plan (1) Migraine equivalent syndrome: Status: Acute (2) Cerebral infarction: Status: Acute Plan 53 yo male with diabetes, hypertension, renal cell carcinoma status post right nephrectomy, CKD 3 who was noncompliant with his medications for many months (restarted his medications about 2 weeks ago) and now presents with acute onset nausea and vomiting with associated, followed by neurological changes. His workup in the emergency room shows what likely is a left-sided infarct. Aphasia Suspected acute CVA. no obvious significant motor deficits, most pronounced feature is his speech. MRA and MRI negative seen by Neurology likely due to migraine equivalent, no acute stroke Imaging did show chronic stroke passed at nursing swallow eval PT/OT/speech and swallow therapies - PT rec acute rehab LDL 75 continue Aspirin, statin Avoid hypotension and hold antihypertensives for now. 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 No recent seizure activity EEG done, report pending - outpatient follow up with neurology. no seizure activity noted Uncontrolled diabetes mellitus A1c is over 12, recently resumed back on lantus will resume lower dose of Lantus (on 20u Toujeo at baseline) and follow POCs, cover with SSI Diabetic Education LUCIANA on CKD stage 3 Serum creatinine slightly elevated compared to recent outpatient labs Improving, appears to be near baseline Hypertension Hold antihypertensives, bp controlled Hold Norvasc, HCTZ resume as bp allows Full Code DVT pptx, subcut. lovenox requires ongoing inpatient stay for close observation of blood pressure, safe disposition Quality Stroke Does the patient have a stroke diagnosis?: No VTE Prior VTE?: No VTE Risk Level:: Medical - moderate - high VTE Device Contraindication: Treatment Not Indicated VTE Drug Contraindication: N/A - Med Ordered
[2024-02-21] MEDS: Atorvastatin Calcium 80 MG TABLET PO (09:26)
[2024-02-21] MEDS: Magnesium Oxide 400 MG TABLET PO ×2 (09:26→21:56)
[2024-02-21] MEDS: Aspirin Enteric Coated 81 MG TABLET.DR PO (09:27)
[2024-02-21] MEDS: 0.9 % Sodium Chloride Flush 3 ML SYRINGE IVFLUSH ×2 (09:29→23:55)
[2024-02-21] MEDS: Insulin Glargine,Hum.rec.anlog 100 UNIT/ML 10 ML VIAL 8 UNIT SUBCUT (09:30)
[2024-02-21 11:21] LABS: Glucose, Whole Blood 159 mg/dL (60-115)
[2024-02-21] MEDS: Enoxaparin Sodium 40 MG/0.4 ML SYRINGE SUBCUT (11:54)
[2024-02-21] MEDS: Insulin Lispro 100 UNIT/ML 3 ML VIAL SUBCUT (11:56)
[2024-02-21 16:27] LABS: Glucose, Whole Blood 98 mg/dL (60-115)
[2024-02-21 20:55] LABS: Glucose, Whole Blood 134 mg/dL (60-115)
[2024-02-22 03:22] VITALS: BP 125/69; PULSE 76; RESP 18; TEMP 36; O2SAT 98
[2024-02-22 07:09] VITALS: BP 127/72; PULSE 88; RESP 20; TEMP 36.4; O2SAT 100
--- NOTE | 2024-02-22 07:32 | P.PNIM_ITS ---
Subjective Subjective Date of Service: 02/22/24 Interval History: seen and examined this morning follow up for aphasia, difficulty ambulating speech better, still feels shaky when walking. awaiting placement no overnight events Review of Systems Review of Systems: Yes all other systems are reviewed and are negative Constitutional Constitutional: Denies fever(s) Cardiovascular Cardiovascular: Denies chest pain Gastrointestinal Gastrointestinal: Reports abdominal pain, Denies nausea and Denies vomiting Physical Exam 2 Vital Signs: Vital Signs: Last Vital Signs Temp 97.6 F 02/22/24 07:09 Pulse 88 02/22/24 07:09 Resp 20 02/22/24 07:09 BP 127/72 02/22/24 07:09 Pulse Ox 100 02/22/24 07:09 O2 Del Method Room Air 02/22/24 07:09 BMI result Body Mass Index 24.8 Constitutional - Awake and Alert, No apparent distress Eyes - PERRLA, EOMI Cardiovascular - S1S2, RRR, No edema Respiratory - Normal lung expansion, Normal respiratory effort, No respiratory distress, CTA bilaterally Gastrointestinal - NT / ND; +BS; No rebound or guarding Extremities - no calf tenderness bilaterally, no swelling Skin - Warm/Dry Neurological - Alert & oriented x3, CN II-XII in tact, 5/5 strength BUE and BLE Psychological - Appropriate affect Objective Data Active Medications Acetaminophen (Acetaminophen 325 Mg Tablet) 650 mg PO Q6H PRN PRN Reason: Pain, Mild (Pain Scale 1-3), fever or headache Albuterol Sulfate (Albuterol Sulfate 90 Mcg 8 Gm Inhaler) 2 puff INHALE Q4H PRN PRN Reason: shortness of breath or wheezing Aspirin (Aspirin Enteric Coated 81 Mg Tablet.) 81 mg PO DAILY [facility] Last Admin: 02/21/24 09:27 Dose: 81 mg Documented By: GAVIOTA Atorvastatin Calcium (Atorvastatin Calcium 80 Mg Tablet) 80 mg PO DAILY [facility] Last Admin: 02/21/24 09:26 Dose: 80 mg Documented By: GAVIOTA Calcium Carbonate (Calcium Carbonate 750 Mg Tab.Chew) 750 mg PO Q4H PRN PRN Reason: Heartburn Enoxaparin Sodium (Enoxaparin Sodium 40 Mg/0.4 Ml Syringe) 40 mg SUBCUT Q24H [facility] Last Admin: 02/21/24 11:54 Dose: 40 mg Documented By: GAVIOTA Fluticasone Propionate (Fluticasone Propionate Nasal 16 Gm [place]) 1 spray NOSTRIL-B BID [facility] Last Admin: 02/21/24 21:56 Dose: Not Given Documented By: GINETTE Non-Admin Reason: Patient Refused Glucose (Glucose Gel 15 Gm Gel..Gram.) 15 gm PO Q15M PRN; Protocol PRN Reason: per Hypoglycemia Standing Ord. Dextrose (D10) 250 mls @ 750 mls/hr IV Q15M PRN; Protocol PRN Reason: per Hypoglycemia Standing Ord. Insulin Glargine (Insulin Glargine,Hum.Rec.Anlog 100 Unit/Ml 10 Ml Vial) 8 unit SUBCUT DAILY [facility] Last Admin: 02/21/24 09:30 Dose: 8 unit Documented By: GAVIOTA Insulin Human Lispro (Insulin Lispro 100 Unit/Ml 3 Ml Vial) 0 unit SUBCUT QIDACHS [facility]; Protocol Last Admin: 02/21/24 21:57 Dose: Not Given Documented By: GINETTE Non-Admin Reason: No Insulin Coverage Magnesium Hydroxide (Milk Of Magnesia 30 Ml Oral.Susp) 30 ml PO DAILY PRN PRN Reason: Constipation Magnesium Oxide (Magnesium Oxide 400 Mg Tablet) 400 mg PO BID [facility] Last Admin: 02/21/24 21:56 Dose: 400 mg Documented By: GINETTE Melatonin (Melatonin 3 Mg Tablet) 6 mg PO BEDTIME PRN PRN Reason: Insomnia Sodium Chloride (0.9 % Sodium Chloride Flush 3 Ml Syringe) 3 ml IVFLUSH QSHIFT [facility] Last Admin: 02/21/24 23:55 Dose: 3 ml Documented By: PEREZ Labs 02/20/24 07:09 02/21/24 06:07 Labs: Laboratory Results - last 24 hr 02/21/24 02/21/24 02/21/24 11:10 16:17 20:35 POC Glucose 159 H 98 134 H Assessment and Plan (1) Migraine equivalent syndrome: Status: Acute (2) Cerebral infarction: Status: Acute Plan 53 yo male with diabetes, hypertension, renal cell carcinoma status post right nephrectomy, CKD 3 who was noncompliant with his medications for many months (restarted his medications about 2 weeks ago) and now presents with acute onset nausea and vomiting with associated, followed by neurological changes. His workup in the emergency room shows what likely is a left-sided infarct. Aphasia- resolving Suspected acute CVA. no obvious significant motor deficits, most pronounced feature is his speech. MRA and MRI negative seen by Neurology likely due to migraine equivalent, no acute stroke Imaging did show chronic stroke passed at nursing swallow eval PT/OT/speech and swallow therapies - PT rec acute rehab LDL 75 continue Aspirin, statin Avoid hypotension and hold antihypertensives for now. 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 No recent seizure activity EEG done, report pending - outpatient follow up with neurology. no seizure activity noted Uncontrolled diabetes mellitus A1c is over 12, recently resumed back on lantus will resume lower dose of Lantus (on 20u Tou[place] at baseline) and follow POCs, cover with SSI Diabetic Education LUCIANA on CKD stage 3 Serum creatinine slightly elevated compared to recent outpatient labs Improving, appears to be near baseline Hypertension Hold antihypertensives, bp controlled Hold Norvasc, HCTZ resume as bp allows Full Code DVT pptx, subcut. lovenox requires ongoing inpatient stay for close observation of blood pressure, safe disposition Quality Stroke Does the patient have a stroke diagnosis?: No VTE Prior VTE?: No VTE Risk Level:: Medical - moderate - high VTE Device Contraindication: Treatment Not Indicated VTE Drug Contraindication: N/A - Med Ordered
[2024-02-22 07:46] LABS: Glucose, Whole Blood 119 mg/dL (60-115)
[2024-02-22] MEDS: Atorvastatin Calcium 80 MG TABLET PO (08:25)
[2024-02-22] MEDS: Aspirin Enteric Coated 81 MG TABLET.DR PO (08:25)
[2024-02-22] MEDS: Magnesium Oxide 400 MG TABLET PO ×2 (08:26→21:05)
[2024-02-22] MEDS: 0.9 % Sodium Chloride Flush 3 ML SYRINGE IVFLUSH ×2 (08:27→23:45)
[2024-02-22] MEDS: Insulin Glargine,Hum.rec.anlog 100 UNIT/ML 10 ML VIAL 8 UNIT SUBCUT (08:27)
--- NOTE | 2024-02-22 10:05 | MHC.CM.PN ---
CM met with Patient and 2 family members at bedside. Patient/family WILL be interested in appealing, should [facility] deny Acute Rehab ([facility] is first choice). CM will follow.
[2024-02-22 11:04] VITALS: BP 140/64; PULSE 75; RESP 20; TEMP 36.1; O2SAT 99
[2024-02-22 11:33] LABS: Glucose, Whole Blood 131 mg/dL (60-115)
[2024-02-22] MEDS: Enoxaparin Sodium 40 MG/0.4 ML SYRINGE SUBCUT (12:25)
[2024-02-22 15:12] VITALS: BP 133/68; PULSE 78; RESP 20; TEMP 36.2; O2SAT 99
[2024-02-22 16:11] LABS: Glucose, Whole Blood 144 mg/dL (60-115)
[2024-02-22 19:36] VITALS: BP 133/67; PULSE 70; RESP 18; TEMP 36.6; O2SAT 99
[2024-02-22 20:11] LABS: Glucose, Whole Blood 161 mg/dL (60-115)
[2024-02-22 23:07] VITALS: BP 132/67; PULSE 66; RESP 18; TEMP 36.6; O2SAT 99
[2024-02-23 03:47] VITALS: BP 107/58; PULSE 64; RESP 18; TEMP 36.6; O2SAT 98
[2024-02-23 07:24] LABS: Glucose, Whole Blood 128 mg/dL (60-115)
[2024-02-23] MEDS: 0.9 % Sodium Chloride Flush 3 ML SYRINGE IVFLUSH ×3 (09:06→20:24)
[2024-02-23] MEDS: Insulin Glargine,Hum.rec.anlog 100 UNIT/ML 10 ML VIAL 8 UNIT SUBCUT (09:07)
[2024-02-23] MEDS: Aspirin Enteric Coated 81 MG TABLET.DR PO (09:07)
[2024-02-23] MEDS: Atorvastatin Calcium 80 MG TABLET PO (09:08)
[2024-02-23] MEDS: Magnesium Oxide 400 MG TABLET PO ×2 (09:08→20:24)
--- NOTE | 2024-02-23 10:22 | P.PNIM_ITS ---
Subjective Subjective Date of Service: 02/23/24 Interval History: No acute issues overnight Review of Systems Denies chest pain Denies shortness of breath Denies nausea vomiting diarrhea Denies fever chills Physical Exam 2 Vital Signs: Vital Signs: Last Vital Signs Temp 97.8 F 02/23/24 03:47 Pulse 64 02/23/24 03:47 Resp 18 02/23/24 03:47 BP 107/58 L 02/23/24 03:47 Pulse Ox 98 02/23/24 03:47 O2 Del Method Room Air 02/23/24 03:47 BMI result Body Mass Index 24.8 Const: Other: Awake alert no acute distress Resp: Other: Clear to auscultation bilaterally no rales rhonchi or wheezes Cardio: Other: No S4; positive S1-S2; no S3 murmurs rubs or GI: Other: Soft nontender nondistended normoactive bowel sounds Extrem: Other: No edema bilaterally Objective Data Active Medications Acetaminophen (Acetaminophen 325 Mg Tablet) 650 mg PO Q6H PRN PRN Reason: Pain, Mild (Pain Scale 1-3), fever or headache Albuterol Sulfate (Albuterol Sulfate 90 Mcg 8 Gm Inhaler) 2 puff INHALE Q4H PRN PRN Reason: shortness of breath or wheezing Aspirin (Aspirin Enteric Coated 81 Mg Tablet.Dr) 81 mg PO DAILY [facility] Last Admin: 02/23/24 09:07 Dose: 81 mg Documented By: CHITO Atorvastatin Calcium (Atorvastatin Calcium 80 Mg Tablet) 80 mg PO DAILY [facility] Last Admin: 02/23/24 09:08 Dose: 80 mg Documented By: CHITO Calcium Carbonate (Calcium Carbonate 750 Mg Tab.Chew) 750 mg PO Q4H PRN PRN Reason: Heartburn Enoxaparin Sodium (Enoxaparin Sodium 40 Mg/0.4 Ml Syringe) 40 mg SUBCUT Q24H [facility] Last Admin: 02/22/24 12:25 Dose: 40 mg Documented By: GAVIOTA Fluticasone Propionate (Fluticasone Propionate Nasal 16 Gm [place]) 1 spray NOSTRIL-B BID [facility] Last Admin: 02/23/24 09:14 Dose: Not Given Documented By: CHITO Non-Admin Reason: Patient Refused Glucose (Glucose Gel 15 Gm Gel..Gram.) 15 gm PO Q15M PRN; Protocol PRN Reason: per Hypoglycemia Standing Ord. Dextrose (D10) 250 mls @ 750 mls/hr IV Q15M PRN; Protocol PRN Reason: per Hypoglycemia Standing Ord. Insulin Glargine (Insulin Glargine,Hum.Rec.Anlog 100 Unit/Ml 10 Ml Vial) 8 unit SUBCUT DAILY [facility] Last Admin: 02/23/24 09:07 Dose: 8 unit Documented By: CHITO Insulin Human Lispro (Insulin Lispro 100 Unit/Ml 3 Ml Vial) 0 unit SUBCUT QIDACHS [facility]; Protocol Last Admin: 02/23/24 08:21 Dose: Not Given Documented By: CHITO Non-Admin Reason: No Insulin Coverage Magnesium Hydroxide (Milk Of Magnesia 30 Ml Oral.Susp) 30 ml PO DAILY PRN PRN Reason: Constipation Magnesium Oxide (Magnesium Oxide 400 Mg Tablet) 400 mg PO BID [facility] Last Admin: 02/23/24 09:08 Dose: 400 mg Documented By: CHITO Melatonin (Melatonin 3 Mg Tablet) 6 mg PO BEDTIME PRN PRN Reason: Insomnia Sodium Chloride (0.9 % Sodium Chloride Flush 3 Ml Syringe) 3 ml IVFLUSH QSHIFT [facility] Last Admin: 02/23/24 09:06 Dose: 3 ml Documented By: CHITO Labs 02/20/24 07:09 02/21/24 06:07 Labs: Laboratory Results - last 24 hr 02/22/24 02/22/24 02/22/24 11:08 16:08 20:07 POC Glucose 131 H 144 H 161 H 02/23/24 07:19 POC Glucose 128 H Assessment and Plan (1) Cerebral infarction: Status: Acute (2) Type 2 diabetes mellitus with diabetic chronic kidney disease: Status: Acute Plan 53 yo male with diabetes, hypertension, renal cell carcinoma status post right nephrectomy, CKD 3 who was noncompliant with his medications for many months (restarted his medications about 2 weeks ago) and now presents with acute onset nausea and vomiting with associated, followed by neurological changes. His workup in the emergency room shows what likely is a left-sided infarct. 1.Left temporal corticqal infarct -PT/OT/speech and swallow therapies - PT rec acute rehab -ASA/statin -hold antihypertensive -acute rehab when bed available 2.Uncontrolled diabetes mellitus -acceptable control -lispro correctional scale -add basilar insulin as tolerated -outpatient follow up 4.LUCIANA on CKD stage 3 -returning to baseline -follow renals/divalents 5.Hypertension -acceptable control off therapies -resume outpatient therapies when clinically appropriate Full Code DVT pptx, subcut. lovenox requires ongoing inpatient stay for close observation of blood pressure, safe disposition Quality Stroke Does the patient have a stroke diagnosis?: No VTE Prior VTE?: No VTE Risk Level:: Medical - moderate - high VTE Device Contraindication: Treatment Not Indicated VTE Drug Contraindication: N/A - Med Ordered
[2024-02-23 10:54] LABS: Glucose, Whole Blood 147 mg/dL (60-115)
[2024-02-23 12:00] VITALS: BP 144/76; PULSE 77; RESP 18; TEMP 36.4; O2SAT 99
[2024-02-23] MEDS: Enoxaparin Sodium 40 MG/0.4 ML SYRINGE SUBCUT (12:28)
[2024-02-23 15:42] VITALS: BP 120/63; PULSE 80; RESP 20; TEMP 36.7; O2SAT 99
[2024-02-23 16:24] LABS: Glucose, Whole Blood 190 mg/dL (60-115)
[2024-02-23 19:53] VITALS: BP 124/65; PULSE 70; RESP 18; TEMP 36.6; O2SAT 99
[2024-02-23 20:48] LABS: Glucose, Whole Blood 155 mg/dL (60-115)
[2024-02-23 23:54] VITALS: BP 124/67; PULSE 70; RESP 18; TEMP 36.2; O2SAT 98
[2024-02-24 04:00] VITALS: BP 136/67; PULSE 76; RESP 16; TEMP 36.3; O2SAT 98
[2024-02-24 07:34] LABS: Glucose, Whole Blood 137 mg/dL (60-115)
[2024-02-24 07:44] VITALS: BP 140/72; PULSE 72; RESP 20; TEMP 36.1; O2SAT 100
[2024-02-24 08:07] LABS: MANUAL DIFF FLAG NO
[2024-02-24 08:12] LABS: Basophils Percent Auto 0.3 % (0-2); Eosinophils Absolute Auto 0.1 X10*3/uL (0.0-0.4); Eosinophils Percent Auto 1.2 % (0-4); Hemoglobin 14.4 g/dl (14.0-18.0); Imm Gran Abs Auto 0.06 X10*3/uL (0.00-0.03); Imm Gran Pct Auto 0.9 % (0.0-0.4); Lymphocytes Absolute Auto 1.4 X10*3/uL (1.2-4.9); Lymphocytes Percent Auto 21.1 % (20-40); Mean Corpuscular Hemoglobin 30.3 pg (27.0-33.0); Mean Platelet Volume 11.9 fL (9.4-12.4); Monocytes Absolute Auto 0.7 X10*3/uL (0.1-1.2); Monocytes Percent Auto 10.1 % (2-11); Neutrophils Absolute Auto 4.3 x10*3/uL (2.0-8.3); Neutrophils Percent Auto 66.4 % (45-73); Platelet Count 125 X10*3/uL (160-400); Red Blood Count 4.76 X10*6/uL (4.60-5.80); Red Cell Distribution Width 12.3 % (11.0-16.0); White Blood Count 6.5 X10*3/uL (4.8-10.8)
[2024-02-24 08:23] LABS: Alanine Aminotransferase 84 U/L (0-40); Albumin Level 3.7 g/dL (3.5-5.0); Alkaline Phosphatase 82 U/L (39-117); Anion Gap 10 (12-20); Aspartate Amino Transferase 93 U/L (5-37); Bilirubin Total 0.4 mg/dL (0.0-1.0); Blood Urea Nitrogen 26 mg/dL (9-16); Calcium 8.6 mg/dL (8.4-10.2); Carbon Dioxide 21 mmol/L (22-29); Chloride 112 mmol/L (96-108); Creatinine Clr Calc Pharmacy 53.7; Estimated Glomerular Filt Rate 44; Glucose Random 137 mg/dL (60-115); Potassium 4.3 mmol/L (3.3-5.1); Sodium 139 mmol/L (135-145); Total Protein 5.7 g/dL (6.5-8.0)
[2024-02-24] MEDS: Atorvastatin Calcium 80 MG TABLET PO (09:30)
[2024-02-24] MEDS: Magnesium Oxide 400 MG TABLET PO ×2 (09:30→20:53)
[2024-02-24] MEDS: Aspirin Enteric Coated 81 MG TABLET.DR PO (09:30)
[2024-02-24] MEDS: Insulin Glargine,Hum.rec.anlog 100 UNIT/ML 10 ML VIAL 8 UNIT SUBCUT (09:30)
[2024-02-24] MEDS: Enoxaparin Sodium 40 MG/0.4 ML SYRINGE SUBCUT (09:30)
[2024-02-24] MEDS: 0.9 % Sodium Chloride Flush 3 ML SYRINGE IVFLUSH ×2 (09:34→20:54)
[2024-02-24 10:06] VITALS: BP 140/72; PULSE 72; O2SAT 100
[2024-02-24 11:14] LABS: Glucose, Whole Blood 162 mg/dL (60-115)
[2024-02-24 11:19] VITALS: BP 142/67; PULSE 72; RESP 20; TEMP 36.4; O2SAT 100
--- NOTE | 2024-02-24 11:22 | P.PNIM_ITS ---
Subjective Subjective Date of Service: 02/24/24 Interval History: No acute issues overall. Continues to make progress Review of Systems Denies chest pain Denies shortness of breath Denies nausea vomiting diarrhea Denies fever chills Physical Exam 2 Vital Signs: Vital Signs: Last Vital Signs Temp 97.6 F 02/24/24 11:19 Pulse 72 02/24/24 11:19 Resp 20 02/24/24 11:19 BP 142/67 H 02/24/24 11:19 Pulse Ox 100 02/24/24 11:19 O2 Del Method Room Air 02/24/24 11:19 BMI result Body Mass Index 24.8 Const: Other: Awake alert no acute distress Resp: Other: Clear to auscultation bilaterally no rales rhonchi or wheezes Cardio: Other: No S4; positive S1-S2; no S3 murmurs rubs or GI: Other: Soft nontender nondistended normoactive bowel sounds Extrem: Other: No edema bilaterally Objective Data Active Medications Acetaminophen (Acetaminophen 325 Mg Tablet) 650 mg PO Q6H PRN PRN Reason: Pain, Mild (Pain Scale 1-3), fever or headache Albuterol Sulfate (Albuterol Sulfate 90 Mcg 8 Gm Inhaler) 2 puff INHALE Q4H PRN PRN Reason: shortness of breath or wheezing Aspirin (Aspirin Enteric Coated 81 Mg Tablet.) 81 mg PO DAILY [facility] Last Admin: 02/24/24 09:30 Dose: 81 mg Documented By: WENDY Atorvastatin Calcium (Atorvastatin Calcium 80 Mg Tablet) 80 mg PO DAILY [facility] Last Admin: 02/24/24 09:30 Dose: 80 mg Documented By: WENDY Calcium Carbonate (Calcium Carbonate 750 Mg Tab.Chew) 750 mg PO Q4H PRN PRN Reason: Heartburn Enoxaparin Sodium (Enoxaparin Sodium 40 Mg/0.4 Ml Syringe) 40 mg SUBCUT Q24H [facility] Last Admin: 02/24/24 09:30 Dose: 40 mg Documented By: WENDY Fluticasone Propionate (Fluticasone Propionate Nasal 16 Gm [place]) 1 spray NOSTRIL-B BID [facility] Last Admin: 02/24/24 09:31 Dose: Not Given Documented By: WENDY Non-Admin Reason: Patient Refused Glucose (Glucose Gel 15 Gm Gel..Gram.) 15 gm PO Q15M PRN; Protocol PRN Reason: per Hypoglycemia Standing Ord. Dextrose (D10) 250 mls @ 750 mls/hr IV Q15M PRN; Protocol PRN Reason: per Hypoglycemia Standing Ord. Insulin Glargine (Insulin Glargine,Hum.Rec.Anlog 100 Unit/Ml 10 Ml Vial) 8 unit SUBCUT DAILY [facility] Last Admin: 02/24/24 09:30 Dose: 8 unit Documented By: WENDY Insulin Human Lispro (Insulin Lispro 100 Unit/Ml 3 Ml Vial) 0 unit SUBCUT QIDACHS [facility]; Protocol Last Admin: 02/24/24 07:34 Dose: Not Given Documented By: WENDY Non-Admin Reason: No Insulin Coverage Magnesium Hydroxide (Milk Of Magnesia 30 Ml Oral.Susp) 30 ml PO DAILY PRN PRN Reason: Constipation Magnesium Oxide (Magnesium Oxide 400 Mg Tablet) 400 mg PO BID [facility] Last Admin: 02/24/24 09:30 Dose: 400 mg Documented By: WENDY Melatonin (Melatonin 3 Mg Tablet) 6 mg PO BEDTIME PRN PRN Reason: Insomnia Sodium Chloride (0.9 % Sodium Chloride Flush 3 Ml Syringe) 3 ml IVFLUSH QSHIFT [facility] Last Admin: 02/24/24 09:34 Dose: 3 ml Documented By: WENDY Labs 02/24/24 07:59 02/24/24 07:59 Labs: Laboratory Results - last 24 hr 02/23/24 02/23/24 02/24/24 16:21 20:43 07:31 MCV MCH MCHC RDW Plt Count MPV Immature Gran % (Auto) Neut % (Auto) Lymph % (Auto) [place] % (Auto) Eos % (Auto) Baso % (Auto) Lymph # (Auto) [place] # (Auto) Eos # (Auto) Baso # (Auto) Abs Immat Gran (auto) Absolute Neuts (auto) Absolute Nucleated RBC Nucleated RBC % (auto) Anion Gap Estim Creat Clear Calc Estimated GFR POC Glucose 190 H 155 H 137 H Random Glucose Calcium Total Bilirubin AST ALT Alkaline Phosphatase Total Protein Albumin 02/24/24 02/24/24 07:59 11:10 MCV 84.0 MCH 30.3 MCHC 36.0 RDW 12.3 Plt Count 125 L MPV 11.9 Immature Gran % (Auto) 0.9 H Neut % (Auto) 66.4 Lymph % (Auto) 21.1 [place] % (Auto) 10.1 Eos % (Auto) 1.2 Baso % (Auto) 0.3 Lymph # (Auto) 1.4 [place] # (Auto) 0.7 Eos # (Auto) 0.1 Baso # (Auto) 0.0 Abs Immat Gran (auto) 0.06 H Absolute Neuts (auto) 4.3 Absolute Nucleated RBC 0.000 Nucleated RBC % (auto) 0.0 Anion Gap 10 L Estim Creat Clear Calc 53.7 Estimated GFR 44 POC Glucose 162 H Random Glucose 137 H Calcium 8.6 Total Bilirubin 0.4 AST 93 H ALT 84 H Alkaline Phosphatase 82 Total Protein 5.7 L Albumin 3.7 Assessment and Plan (1) Cerebral infarction: Status: Acute (2) Migraine equivalent syndrome: Status: Acute (3) Chronic kidney disease (CKD), stage III (moderate): Status: Acute Plan 53 yo male with diabetes, hypertension, renal cell carcinoma status post right nephrectomy, CKD 3 who was noncompliant with his medications for many months (restarted his medications about 2 weeks ago) and now presents with acute onset nausea and vomiting with associated, followed by neurological changes. His workup in the emergency room shows what likely is a left-sided infarct. 1.Left temporal cortical infarct -PT/OT/speech and swallow therapies - PT rec acute rehab -ASA/statin -hold antihypertensive -acute rehab when bed available 2.Uncontrolled diabetes mellitus -acceptable control -lispro correctional scale -add basilar insulin as tolerated -outpatient follow up 4.LUCIANA on CKD stage 3 -returning to baseline -follow renals/divalents 5.Hypertension -acceptable control off therapies -resume outpatient therapies when clinically appropriate Full Code DVT pptx, subcut. lovenox requires ongoing inpatient stay for close observation of blood pressure, safe disposition Quality Stroke Does the patient have a stroke diagnosis?: No VTE Prior VTE?: No VTE Risk Level:: Medical - moderate - high VTE Device Contraindication: Treatment Not Indicated VTE Drug Contraindication: N/A - Med Ordered
--- NOTE | 2024-02-24 13:51 | MHC.CM.PN ---
EMR reviewed and per MD rounds, pt is medically cleared for discharge to acute rehab, Bed offer given from [facility], pts first choice. Insurance auth is now pending for [facility].
--- NOTE | 2024-02-24 14:55 | MHC.SL.DTX ---
Dysphagia Diet modifications: Last documented Solid diet consistencies: Chopped/Advanced (NDD3) Last documented Liquid consistency: Thin Last documented Medication Administration: Changes made to current diet?: Yes: UPGRADE Liquid Consistency and Strategies: Liquid Intake Recommendation: Thin Compensatory Strategies for Safe Swallow: Unrestricted Compensatory Strategies for Safe Swallow(b): Sitting Upright (90 deg) Solid Food Consistency: Dietary Recommendations: Regular Additional Modifications to Solids: Straws o.k. on liquids. Patient may consume meals at slow rate. Oral Medication Intake: Whole with Liquid Strategies and Precautions to be Taken for Safe Swallow: Sitting Upright (90 deg) Supervision While Eating and/Drinking: None Needed Foods to Avoid: Swallowing Recommended Treatments: Compens. Strategy Educat. Recommendation for Speech: Inpatient Speech Therapy Comment: 02/19/25: Diet upgraded to Regular/Thin/pills whole with liquid, as patient less anxious/tentative and with decreased throat pain. Language skills screened, patient presenting with mild expressive aphasia/word finding issues . Recommend Speech/Language Therapy at next level of care, ongoing assessment. Frequency/Duration: Date Range for Service Req: Timeline to reassess: Additional Comments: Treatment: Pt continues to tolerate a Regular Diet with Thin Liquids. Based on EMR reports his Speech today is significantly improved from his initial presentation. He still endorses that, I have to go slow and think about what I'm saying . He also reports continued right-side hemiparesis. Incidentally he also endorse. new onset difficulty recognizing people's faces. He is given the Western Aphasia Battery - Revised: Bedside Record Form. His scores are tabled below: Content: 03/02 Fluency: 04/01 Comprehension: 04/01 Commands: 04/01 Repetition: 04/01 Namin/10 Readin/10 Writin/10 Aphasia Score: 75 Language Score: 78 This screening device does not replace a full battery of tests, however indicates a Mild Anomia Aphasia that has not resolved on it's own. One of the more surprising findings from today's assessment was difficulty with a reading task. When asked to read a short paragraph his expression was dysfluent and halting. This also negatively impacted his Reading Comprehension (4/5). Assessment: Metal Checker Clinican/Clinical Fellow: No Supervisory Statement: I have reviewed and agree with the student/clinical fellow's documentation: N/A Speech Language Pathologist: Iglesia Castelan M.A., [facility]
[2024-02-24 16:00] VITALS: BP 146/66; PULSE 80; RESP 18; TEMP 36.3; O2SAT 100
[2024-02-24 16:29] LABS: Glucose, Whole Blood 172 mg/dL (60-115)
[2024-02-24 18:59] VITALS: BP 145/69; PULSE 84; RESP 20; TEMP 36.2; O2SAT 97
[2024-02-24 19:44] LABS: Glucose, Whole Blood 209 mg/dL (60-115)
[2024-02-24] MEDS: Insulin Lispro 100 UNIT/ML 3 ML VIAL SUBCUT (20:53)
[2024-02-25] VITALS (7 sets, daily range): BP systolic 116–161; BP diastolic 62–74; PULSE 57–77; RESP 18–20; TEMP 36.2–36.8; O2SAT 99–100
[2024-02-25 06:19] LABS: MANUAL DIFF FLAG NO
[2024-02-25 06:28] LABS: Basophils Absolute Auto 0.1 X10*3/uL (0.0-0.2); Basophils Percent Auto 0.7 % (0-2); Eosinophils Absolute Auto 0.1 X10*3/uL (0.0-0.4); Eosinophils Percent Auto 1.2 % (0-4); Hematocrit 41.6 % (42.0-52.0); Hemoglobin 14.4 g/dl (14.0-18.0); Imm Gran Abs Auto 0.09 X10*3/uL (0.00-0.03); Imm Gran Pct Auto 1.2 % (0.0-0.4); Lymphocytes Absolute Auto 1.5 X10*3/uL (1.2-4.9); Lymphocytes Percent Auto 19.9 % (20-40); Mean Corpuscular HGB Conc 34.6 g/dl (31.0-36.0); Mean Corpuscular Hemoglobin 29.2 pg (27.0-33.0); Mean Corpuscular Volume 84.4 fL (80.0-98.0); Mean Platelet Volume 12.5 fL (9.4-12.4); Monocytes Absolute Auto 0.7 X10*3/uL (0.1-1.2); Monocytes Percent Auto 9.5 % (2-11); Neutrophils Absolute Auto 5.2 x10*3/uL (2.0-8.3); Neutrophils Percent Auto 67.5 % (45-73); Platelet Count 128 X10*3/uL (160-400); Red Blood Count 4.93 X10*6/uL (4.60-5.80); Red Cell Distribution Width 12.3 % (11.0-16.0); White Blood Count 7.7 X10*3/uL (4.8-10.8)
[2024-02-25 06:49] LABS: Alanine Aminotransferase 108 U/L (0-40); Albumin Level 3.8 g/dL (3.5-5.0); Alkaline Phosphatase 102 U/L (39-117); Anion Gap 10 (12-20); Aspartate Amino Transferase 91 U/L (5-37); Bilirubin Total 0.3 mg/dL (0.0-1.0); Blood Urea Nitrogen 26 mg/dL (9-16); Calcium 9.1 mg/dL (8.4-10.2); Carbon Dioxide 23 mmol/L (22-29); Chloride 112 mmol/L (96-108); Creatinine Clr Calc Pharmacy 52.8; Estimated Glomerular Filt Rate 43; Glucose Fasting 146 mg/dL (60-99); Potassium 4.2 mmol/L (3.3-5.1); Sodium 141 mmol/L (135-145); Total Protein 5.9 g/dL (6.5-8.0)
[2024-02-25 07:26] LABS: Glucose, Whole Blood 152 mg/dL (60-115)
[2024-02-25] MEDS: Aspirin Enteric Coated 81 MG TABLET.DR PO (08:20)
[2024-02-25] MEDS: Atorvastatin Calcium 80 MG TABLET PO (08:20)
[2024-02-25] MEDS: Acetaminophen 325 MG TABLET 650 MG PO (08:20)
[2024-02-25] MEDS: Magnesium Oxide 400 MG TABLET PO ×2 (08:20→20:38)
[2024-02-25] MEDS: Insulin Glargine,Hum.rec.anlog 100 UNIT/ML 10 ML VIAL 8 UNIT SUBCUT (08:22)
[2024-02-25] MEDS: 0.9 % Sodium Chloride Flush 3 ML SYRINGE IVFLUSH ×2 (08:23→20:39)
--- NOTE | 2024-02-25 11:10 | MHC.SL.SOA ---
Referring Provider: Dr. Desouza Reason for Referral: Assess Swallow Date of Plan of Treatment:02/19/24 Onset of Symptoms/Illness:02/18/24 Date Treatment Started:02/19/24 Medical Diagnosis: (1) Acute alteration in mental status: (2) Aphasia: Head CT 02/19/24 00:00 IMPRESSION: 1. New wedge-shaped region of parenchymal hypoattenuation in the left temporal lobe, potentially corresponded to an acute or subacute infarct. Recommend correlation with MRI of the brain with and without contrast. No acute intracranial hemorrhage. 2. Unchanged right posterior fossa arachnoid cyst. Brain MRI: MR/MR head/brain wo con IMPRESSION: There is a small chronic cortical infarct involving the left temporal lobe that is new when compared to prior MR imaging of the brain from 08/06/2022. A few scattered chronic small vessel ischemic changes are visualized within the periventricular white matter. No evidence of acute territorial infarct or hemorrhage. Stable arachnoid cyst located at the right anterolateral aspect of the posterior fossa. Normal MR angiogram of the head. Primary Speech Language Diagnosis:R13.10 Dysphagia Secondary Speech Language Diagnosis:R47.01 Aphasia Reason for Visit:35943 Individual Treatment Subjective:Bilingual Cypriot/Montserratian speaking male. Brain MRI showing small chronic cortical infarct in left temporal lobe. Objective: Pt seen for f/u language tx by [employer] [facility]. Pt language f/u focused on tasks of confrontational naming, repetition, and reading. Pt presented w/ hesitations in all tasks. Assessment:Pt presented w/ some hesitations in conversation, however speech became more fluent as patient continued to converse. His mother was in room and reports hesitations in conversation and some difficulty w/ word finding. Pt reporting that he is often producing words in Montserratian and asking what the word is in Cypriot; he and his mother report this is new. Difficulty w/ word finding in conversation in Montserratian w/ [employer] on this date was not observed. Pt named 10/10 items around hospital room correctly. He experienced hesitation with some words including clock, ear, and mouth. He reported that he had difficulty processing the pictures of the ear and mouth. During repetition task, pt presented w/ longer hesitations as utterances increased, starting w/ 7 syllable utterance (the telephone is ringing). As utterances became longer, patient omitted an increasing number of words. Pt noted to read some words incorrectly, unclear what pt's baseline reading skills are. Pt demonstrating hesitations while reading which he reports is not consistent w/ his baseline. Pt reporting some continued difficulty w/ recognizing people's faces; reports relying in voices for some guests. He also reports cognitive concerns and disorientation which started last Friday. Notes: Pt recommended REGULAR solids with THIN liquids, pills whole with liquid on 02/23. Not seen for dysphagia tx on this date. Recommend [facility] tx at next level of care for language and cognition d/t some hesitancies with confrontational naming, reading, repetition, and conversation. May also benefit from further monitoring regarding swallowing. Seen by: Graduate/Clinical Fellow: No Supervisory Statement: f_Reg Query Last Value , MHC.AU.SIGNAT Speech Language Pathologist: Liberty Lee M.A., [facility]
[2024-02-25 11:20] LABS: Glucose, Whole Blood 163 mg/dL (60-115)
--- NOTE | 2024-02-25 11:46 | P.PNIM_ITS ---
Subjective Subjective Date of Service: 02/25/24 Interval History: Doing well. No acute issues. Awaiting placement Review of Systems Denies chest pain Denies shortness of breath Denies nausea vomiting diarrhea Denies fever chills Physical Exam 2 Vital Signs: Vital Signs: Last Vital Signs Temp 97.5 F 02/25/24 08:00 Pulse 70 02/25/24 11:03 Resp 20 02/25/24 08:00 BP 133/69 02/25/24 11:03 Pulse Ox 99 02/25/24 11:03 O2 Del Method Room Air 02/25/24 08:00 BMI result Body Mass Index 24.8 Const: Other: Awake alert no acute distress Resp: Other: Clear to auscultation bilaterally no rales rhonchi or wheezes Cardio: Other: No S4; positive S1-S2; no S3 murmurs rubs or GI: Other: Soft nontender nondistended normoactive bowel sounds Extrem: Other: No edema bilaterally Objective Data Active Medications Acetaminophen (Acetaminophen 325 Mg Tablet) 650 mg PO Q6H PRN PRN Reason: Pain, Mild (Pain Scale 1-3), fever or headache Last Admin: 02/25/24 08:20 Dose: 650 mg Documented By: GAVIOTA Albuterol Sulfate (Albuterol Sulfate 90 Mcg 8 Gm Inhaler) 2 puff INHALE Q4H PRN PRN Reason: shortness of breath or wheezing Aspirin (Aspirin Enteric Coated 81 Mg Tablet.) 81 mg PO DAILY [facility] Last Admin: 02/25/24 08:20 Dose: 81 mg Documented By: GAVIOTA Atorvastatin Calcium (Atorvastatin Calcium 80 Mg Tablet) 80 mg PO DAILY [facility] Last Admin: 02/25/24 08:20 Dose: 80 mg Documented By: GAVIOTA Calcium Carbonate (Calcium Carbonate 750 Mg Tab.Chew) 750 mg PO Q4H PRN PRN Reason: Heartburn Enoxaparin Sodium (Enoxaparin Sodium 40 Mg/0.4 Ml Syringe) 40 mg SUBCUT Q24H [facility] Last Admin: 02/24/24 09:30 Dose: 40 mg Documented By: WENDY Fluticasone Propionate (Fluticasone Propionate Nasal 16 Gm [place]) 1 spray NOSTRIL-B BID [facility] Last Admin: 02/25/24 08:22 Dose: Not Given Documented By: GAVIOTA Non-Admin Reason: Patient Refused Glucose (Glucose Gel 15 Gm Gel..Gram.) 15 gm PO Q15M PRN; Protocol PRN Reason: per Hypoglycemia Standing Ord. Dextrose (D10) 250 mls @ 750 mls/hr IV Q15M PRN; Protocol PRN Reason: per Hypoglycemia Standing Ord. Insulin Glargine (Insulin Glargine,Hum.Rec.Anlog 100 Unit/Ml 10 Ml Vial) 8 unit SUBCUT DAILY [facility] Last Admin: 02/25/24 08:22 Dose: 8 unit Documented By: GAVIOTA Insulin Human Lispro (Insulin Lispro 100 Unit/Ml 3 Ml Vial) 0 unit SUBCUT QIDACHS [facility]; Protocol Last Admin: 02/25/24 07:49 Dose: Not Given Documented By: GAVIOTA Non-Admin Reason: No Insulin Coverage Magnesium Hydroxide (Milk Of Magnesia 30 Ml Oral.Susp) 30 ml PO DAILY PRN PRN Reason: Constipation Magnesium Oxide (Magnesium Oxide 400 Mg Tablet) 400 mg PO BID [facility] Last Admin: 02/25/24 08:20 Dose: 400 mg Documented By: GAVIOTA Melatonin (Melatonin 3 Mg Tablet) 6 mg PO BEDTIME PRN PRN Reason: Insomnia Sodium Chloride (0.9 % Sodium Chloride Flush 3 Ml Syringe) 3 ml IVFLUSH QSHIFT [facility] Last Admin: 02/25/24 08:23 Dose: 3 ml Documented By: GAVIOTA Labs 02/25/24 05:42 02/25/24 05:42 Labs: Laboratory Results - last 24 hr 02/24/24 02/24/24 02/25/24 16:19 19:41 05:42 MCV 84.4 MCH 29.2 MCHC 34.6 RDW 12.3 Plt Count 128 L MPV 12.5 H Immature Gran % (Auto) 1.2 H Neut % (Auto) 67.5 Lymph % (Auto) 19.9 L [place] % (Auto) 9.5 Eos % (Auto) 1.2 Baso % (Auto) 0.7 Lymph # (Auto) 1.5 [place] # (Auto) 0.7 Eos # (Auto) 0.1 Baso # (Auto) 0.1 Abs Immat Gran (auto) 0.09 H Absolute Neuts (auto) 5.2 Absolute Nucleated RBC 0.000 Nucleated RBC % (auto) 0.0 Anion Gap 10 L Estim Creat Clear Calc 52.8 Estimated GFR 43 POC Glucose 172 H 209 H Fasting Glucose 146 H Calcium 9.1 Total Bilirubin 0.3 AST 91 H ALT 108 H Alkaline Phosphatase 102 Total Protein 5.9 L Albumin 3.8 02/25/24 02/25/24 07:22 11:16 MCV MCH MCHC RDW Plt Count MPV Immature Gran % (Auto) Neut % (Auto) Lymph % (Auto) [place] % (Auto) Eos % (Auto) Baso % (Auto) Lymph # (Auto) [place] # (Auto) Eos # (Auto) Baso # (Auto) Abs Immat Gran (auto) Absolute Neuts (auto) Absolute Nucleated RBC Nucleated RBC % (auto) Anion Gap Estim Creat Clear Calc Estimated GFR POC Glucose 152 H 163 H Fasting Glucose Calcium Total Bilirubin AST ALT Alkaline Phosphatase Total Protein Albumin Assessment and Plan (1) Cerebral infarction: Status: Acute Plan 53 yo male with diabetes, hypertension, renal cell carcinoma status post right nephrectomy, CKD 3 who was noncompliant with his medications for many months (restarted his medications about 2 weeks ago) and now presents with acute onset nausea and vomiting with associated, followed by neurological changes. His workup in the emergency room shows what likely is a left-sided infarct. 1.Left temporal cortical infarct -PT/OT/speech and swallow therapies - PT rec acute rehab -ASA/statin -hold antihypertensive... Acceptable control at this time -acute rehab when bed available 2.Uncontrolled diabetes mellitus -acceptable control -lispro correctional scale -add basilar insulin as tolerated -outpatient follow up 4.LUCIANA on CKD stage 3 -returning to baseline -follow renals/divalents 5.Hypertension -acceptable control off therapies -resume outpatient therapies when clinically appropriate Full Code DVT pptx, subcut. lovenox requires ongoing inpatient stay for close observation of blood pressure, safe disposition Quality Stroke Does the patient have a stroke diagnosis?: No VTE Prior VTE?: No VTE Risk Level:: Medical - moderate - high VTE Device Contraindication: Treatment Not Indicated VTE Drug Contraindication: N/A - Med Ordered
[2024-02-25] MEDS: Enoxaparin Sodium 40 MG/0.4 ML SYRINGE SUBCUT (12:03)
--- NOTE | 2024-02-25 12:26 | MHC.CM.PN ---
Per [facility], pt was denied for acute rehab from [facility] due to high functional level. This CM met with pt to discuss and he would like to appeal this decision. Hospitalist notified and will move forward with doing a peer to peer.
[2024-02-25 16:16] LABS: Glucose, Whole Blood 150 mg/dL (60-115)
[2024-02-25 20:29] LABS: Glucose, Whole Blood 197 mg/dL (60-115)
[2024-02-26 07:08] VITALS: BP 127/68; PULSE 83; RESP 20; TEMP 36.3; O2SAT 97
[2024-02-26 07:14] LABS: Glucose, Whole Blood 148 mg/dL (60-115)
[2024-02-26] MEDS: Aspirin Enteric Coated 81 MG TABLET.DR PO (08:49)
[2024-02-26] MEDS: Magnesium Oxide 400 MG TABLET PO ×2 (08:49→20:29)
[2024-02-26] MEDS: 0.9 % Sodium Chloride Flush 3 ML SYRINGE IVFLUSH ×3 (08:50→20:30)
[2024-02-26] MEDS: Insulin Glargine,Hum.rec.anlog 100 UNIT/ML 10 ML VIAL 8 UNIT SUBCUT (08:50)
[2024-02-26] MEDS: Atorvastatin Calcium 80 MG TABLET PO (08:50)
[2024-02-26 10:42] VITALS: BP 127/68; PULSE 83; O2SAT 97
--- NOTE | 2024-02-26 10:49 | MHC.CM.PN ---
Addendum entered by Rebecca Wong RN 02/26/24 16:24: [facility] STILL AWAITING AUTH Addendum entered by Rebecca Wong RN 02/26/24 12:11: PT CHOSE STR AT [facility] D/T CLOSEST TO MILAN, MICHAEL PENDING Original Note: EMR REVIEWED, CM MET W/PT TO DISCUSS DISPO, PT'S MOTHER AT BEDSIDE, PT VERY INSISTENT THAT HE NEEDS ACUTE REHAB, CM DID LET PT KNOW IT IS VERY UNLIKELY [facility] WILL APPROVE HE IS DOING WELL W/OT/PT AND HAS BEEN INDEP IN ROOM, PT IS ARGUMENTATIVE ABOUT HOWEVER DOES NOT HAVE MONEY TO PRIVATE PAY, CM DID OFFER HOME SERVICES SN/OT/PT, PT'S MOTHER AGREEABLE HOWEVER PATIENT WOULD LIKE TO INVOLVE HIS IN DECISION, CM GAVE PT CM OFFICE # AND REQUESTED CALL CM TO DISCUSS PLAN, CM ALSO ATTEMPTED TO CONTACT PT'S GENNY AND DETAILED MESSAGE LEFT HOWEVER GENNY CALLED CM BACK WHILE WRITING THIS NOTE, ISABEL DISCUSSED APPEAL DECISION AND NEW OPTIONS OF HOME W/SERVICES VS STR W/GENNY AND SHE REPORTS SHE WILL CONTACT ÓSCAR TO DISCUSS AND CM WILL FOLLOW UP W/PT AT NOON.
[2024-02-26 11:09] LABS: Glucose, Whole Blood 198 mg/dL (60-115)
[2024-02-26 11:21] VITALS: BP 150/67; PULSE 89; RESP 20; TEMP 36.6; O2SAT 99
--- NOTE | 2024-02-26 11:45 | PM.DS ---
DS: Providers Provider Date of Service: 02/27/24 Date of admission: 02/19/24 08:28 Date of discharge: 02/27/24 Primary care physician: Austin Luna MD Consults: 02/19/24 08:30 Consult to Neurology Routine Consulting Provider: [facility] Reason for consultation: acute stroke Attending physician on discharge: Alejandro Desouza Discharging clinician: Nisha Wagner DS: Diagnosis Discharge Diagnosis (1) Cerebral infarction: Status: Acute (2) Migraine equivalent syndrome: Status: Acute (3) Aphasia: Status: Acute DS: Summary Hospital Course Hospital Course: From H&P on the day of admission The patient is a 53-year-old male with a past medical history of diabetes, hypertension, renal cell carcinoma status post right nephrectomy, CKD stage 3 who presents to the emergency room overnight with nausea and vomiting which began on the evening prior to arrival. After his vomiting episode, the patient who was reported by the family to be confused and staring blankly. Hence he was brought to the emergency room. In the emergency room, the patient was found to have slow speech with no significant motor deficits reported. Workup in the emergency room showed a CT scan with a wedge-shaped i hypoattenuation in the left temporal lobe possibly corresponding to an acute versus subacute infarct. Given his solitary kidney and CKD, CTA angiogram was deferred. MRI and MRA have been ordered, he will not be admitted for further care. Patient is seen and examined the emergency room around 815 this morning. His and mother are bedside. Both corroborate the story as the patient his currently. As noted above, the patient's symptoms started the evening prior to admission. The patient had also complained of a headache that day before. In regards to his chronic conditions, the patient had been off of his medications for many months. He had recently seen his primary care doctor and was restarted on his antihypertensive as well as diabetic medications. He has been taking his meds for about 2 weeks now Aphasia- resolving admitted due to suspected acute CVA. (He had no other obvious significant deficits, most pronounced feature is his speech.) MRA and MRI were obtained and were negative for any acute changes. MRI did however show chronic stroke. He was seen by Neurology who felt his acute symptoms were likely due to migraine equivalent and not due to any acute stroke. He passed nursing swallow eval. He was evaluated PT/OT/speech and swallow therapies - due to balance issues PT initially recommended acute rehab. Acute rehab and STR were not authorized by insurance. His ambulation and balance has improved over the past few days he feels comfortable returning home with home PT and VNA. LDL 75 treated with Aspirin, statin. 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 He has not been on antiepileptic medications for several years and has had No recent seizure activity. No seizure activity noted during hospitalization. Recommend outpatient follow-up with Neurology. some increase in LFTs, reduced lipitor to 40 mg daily - recommend outpatient follow up. Due to chronic thrombocytopenia, recommend close monitoring of platelet levels as outpatient. Uncontrolled diabetes mellitus A1c is over 12, recently resumed back on insulin. Blood sugar well controlled on 8U of Lantus during hospital stay, did not require frequent coverage insulin sliding scale. will be discharged with Lantus 8U upon discharge. stop trulicity. close outpatient follow up with PCP LUCIANA on CKD stage 3 HCTZ on hold, renal function trended back to baseline. blood pressure under adequate control. Hypertension Hold Norvasc, HCTZ initially for permissive hypertension as it was initially thought to be admitted for stroke. We will resume Norvasc at 5 mg. Hold hydrochlorothiazide Time Attestation Discharge Coordination Time (in mins): 40 Quality: Safe Use of Opioids Does Pt have an Active Cancer Diagnosis on the Problem List?: No Quality: Stroke Does the patient have a stroke diagnosis?: No Physical Exam Vital Signs: Vital Signs: Last Vital Signs Temp 97.9 F 02/26/24 11:21 Pulse 89 02/26/24 11:21 Resp 20 02/26/24 11:21 BP 150/67 H 02/26/24 11:21 Pulse Ox 99 02/26/24 11:21 O2 Del Method Room Air 02/26/24 11:21 BMI result Body Mass Index 24.8 Const: General: cooperative, comfortable, no acute distress, alert and awake Nutritional Appearance: average body habitus Orientation/consciousness: patient oriented x3 Resp: Effort & Inspection: normal respiratory effort, able to speak in complete sentences, no respiratory distress and no use of accessory muscles Cardio: Rate: regular rate GI: Inspection: No distended Palpation (GI): Soft to palpation Neuro: General: patient oriented x3, moves all extremities and CN's II-XI intact bilaterally Extrem: General: Yes no pedal edema DS: Data Data Completed and Pending Labs on day of discharge: Laboratory Results - last 24 hr 02/25/24 02/25/24 02/26/24 16:01 20:25 07:11 POC Glucose 150 H 197 H 148 H 02/26/24 11:06 POC Glucose 198 H Discharge Plan Discharge Anticipated Discharge Date/Time: 02/27/24 16:18 Patient Disposition: Home Health Service Discharge Diagnosis: 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 Chronic stroke Referrals: [facility] [Outside] - 1 Week Austin Luna MD [Primary Care Provider] - 1 Week Discharge Medications: New insulin glargine [Lantus U-100 Insulin] 100 unit/mL Solution 8 unit subcut DAILY Qty: 10 0RF aspirin 81 mg Tablet,Delayed Release (Dr/Ec) 81 mg PO DAILY 90 Days Qty: 90 0RF atorvastatin 40 mg tablet 40 mg PO BEDTIME Qty: 90 0RF Continued magnesium oxide 400 mg magnesium tablet 400 mg PO BID 30 Days Qty: 60 3RF albuterol sulfate 90 mcg/actuation HFA aerosol inhaler 2 puff inhalation Q4-6H PRN (Reason: shortness of breath or wheezing) 30 Days Qty: 8.5 0RF fluticasone propionate 50 mcg/actuation spray,suspension 1 spray intranasal BID Qty: 16 0RF Rx Instructions: administer into each nostril Changed amlodipine 10 mg tablet 5 mg PO DAILY 90 Days Qty: 90 0RF Discontinued atorvastatin 20 mg tablet 20 mg PO BEDTIME 90 Days Qty: 90 1RF insulin glargine U-300 conc [Toujeo SoloStar U-300 Insulin] 300 unit/mL (1.5 mL) insulin pen 20 unit subcut DAILY Trulicity 1.5 mg/0.5 mL pen injector 1.5 mg subcut QWEEK 28 Days Qty: 2 2RF hydrochlorothiazide 12.5 mg capsule 12.5 mg PO DAILY 90 Days Qty: 90 0RF No Action (DME) blood pressure monitor Kit See Rx Instructions .Route Qty: 1 0RF Rx Instructions: As directed (DME) pen needle, diabetic [BD Katya 2nd Gen Pen Needle] 32 gauge x 5/32 needle See Rx Instructions .MEDSUPPLY Qty: 50 4RF Rx Instructions: once a day (DME) FreeStyle Dexter 14 Day [place] Misc See Rx Instructions .Route Rx Instructions: As directed (DME) lancets [FreeStyle Lancets] 28 gauge misc See Rx Instructions .Route Rx Instructions: As directed (DME) FreeStyle Lite Strips Strip See Rx Instructions .Route Rx Instructions: As directed Discharge Orders: Discharge Order (Routine); Ordered 02/27/24 Ordered By: Nisha Wagner Activity on Discharge: As tolerated Stand Alone Forms: Patient Portal Discharge page Print Language: Tamazight Care Plan Goals: See below Health Concerns: 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 resolved Chronic thrombocytopenia Plan of Treatment: Take aspirin, statin to reduce risk of future stroke Aphasia-resolved Call to schedule follow-up appointment with PCP Follow-up with Neurology Recommend repeat CBC periodically to monitor chronic thrombocytopenia while taking antiplatelet agent. Recommend repeat lipid profile due to mild transaminitis, dose of atorvastatin reduced to 40 mg Norvasc reduced to 5 mg daily Hydrochlorothiazide discontinued stop Trulicity Dose of long-acting insulin changed to Lantus 8 units. Monitor blood sugar closely Assessment: See discharge summary
--- NOTE | 2024-02-26 13:04 | MHC.SL.SOA ---
Referring Provider: Dr. Desouza Reason for Referral: Assess Swallow Date of Plan of Treatment:02/19/24 Onset of Symptoms/Illness:02/18/24 Date Treatment Started:02/19/24 Medical Diagnosis:(1) Acute alteration in mental status: (2) Aphasia: Head CT 02/19/24 00:00 IMPRESSION: 1. New wedge-shaped region of parenchymal hypoattenuation in the left temporal lobe, potentially corresponded to an acute or subacute infarct. Recommend correlation with MRI of the brain with and without contrast. No acute intracranial hemorrhage. 2. Unchanged right posterior fossa arachnoid cyst. Brain MRI: MR/MR head/brain wo con IMPRESSION: There is a small chronic cortical infarct involving the left temporal lobe that is new when compared to prior MR imaging of the brain from 08/06/2022. A few scattered chronic small vessel ischemic changes are visualized within the periventricular white matter. No evidence of acute territorial infarct or hemorrhage. Stable arachnoid cyst located at the right anterolateral aspect of the posterior fossa. Normal MR angiogram of the head. Primary Speech Language Diagnosis:R13.10 Dysphagia Secondary Speech Language Diagnosis:R47.01 Aphasia Number of Authorized Visits Remaining: Authorization End Date: Reason for Visit:07156 Individual Treatment Other: Subjective:Patient seen today was just finishing meeting with case management who was informing him of his appeal with insurance for acute rehab had been rejected. He was given the option of going instead to STR, which he wanted to discuss with his . Patient expressed that he does not feel ready yet to return home, nor, for that matter, to return to his work as a [employer]. He stated that he feels unsteady and his hands shake. He also reports still having difficulties with hesitancies and word finding, which is a definite change from baseline. This session was interrupted by a call from his , for which he was left in private to have that conversation. Upon return, patient reported that a decision had been made for him to go to STR with one he selected that is convenient for him location[place] (in [place]). It continues to be recommended that he receive speech therapy services at the next level of care (STR). Objective: Pt seen for language [place] focused on word finding and strategies. Patient was given structured exercises and follow up/carry over work for him to complete independently. Assessment:On closed set category task, Brayan was able to retrieve the category given a set of words (90% accuracy) but had several episodes of struggle to retrieve the word, with evident strategy of making an association in these contexts which was reviewed and reflected on. On open set category task, Brayan had more difficulty retrieving the target of at least three words from the category (<70% accuracy). In moments of struggle he was cued to either visualize or make associations or both (e.g. for name three toys he was cued to picture/remember toys his children had, triggering legos immediately then further associations were made). With this cuing retrieval improved. On a finish the phrase task, he was successful on familiar items, with some items a miss more for level of familiarity. Brayan was given several related tasks to what was completed today for independent practice. Notes: Recommend continued Speech/Language Therapy at next level of care for wordfinding/verbal fluency needs (mild expressive aphasia). Plan: Goal # : Status of Goal: Goal # : Status of Goal: Goal # : Status of Goal: Goal # : Status of Goal: Seen by: Graduate/Clinical Fellow: No Supervisory Statement: f_Reg Query Last Value , [facility] Speech Language Pathologist: Liberty Lee M.A., CCC-INGREDIENT SCALER
[2024-02-26 15:06] VITALS: BP 132/61; PULSE 70; RESP 20; TEMP 36.6; O2SAT 98
[2024-02-26 15:52] LABS: Glucose, Whole Blood 205 mg/dL (60-115)
[2024-02-26] MEDS: Insulin Lispro 100 UNIT/ML 3 ML VIAL SUBCUT ×2 (16:17→20:30)
--- NOTE | 2024-02-26 16:27 | HO.PM.IMPN ---
Subjective Subjective Date of Service: 02/26/24 Interval History: Seen and examined this morning Follow-up for aphasia Awaiting placement No specific complaints Review of Systems Review of Systems: Yes all other systems are reviewed and are negative Constitutional Constitutional: Denies chills and Denies fever(s) Cardiovascular Cardiovascular: Denies dyspnea Respiratory Respiratory: Denies dyspnea Gastrointestinal Gastrointestinal: Denies abdominal pain Physical Exam Vital Signs: Vital Signs: Last Vital Signs Temp 97.8 F 02/26/24 15:06 Pulse 70 02/26/24 15:06 Resp 20 02/26/24 15:06 BP 132/61 02/26/24 15:06 Pulse Ox 98 02/26/24 15:06 O2 Del Method Room Air 02/26/24 15:06 BMI result Body Mass Index 24.8 Const: Other: speech normal General: cooperative, comfortable, no acute distress, alert and awake Nutritional Appearance: average body habitus Resp: Effort & Inspection: normal respiratory effort, able to speak in complete sentences, no respiratory distress and no use of accessory muscles Auscultation: clear to auscultation bilaterally Cardio: Rate: regular rate GI: Inspection: No distended Palpation (GI): Soft to palpation Extrem: General: Yes no pedal edema Objective Data Active Medications Acetaminophen (Acetaminophen 325 Mg Tablet) 650 mg PO Q6H PRN PRN Reason: Pain, Mild (Pain Scale 1-3), fever or headache Last Admin: 02/25/24 08:20 Dose: 650 mg Documented By: GAVIOTA Albuterol Sulfate (Albuterol Sulfate 90 Mcg 8 Gm Inhaler) 2 puff INHALE Q4H PRN PRN Reason: shortness of breath or wheezing Aspirin (Aspirin Enteric Coated 81 Mg Tablet.Dr) 81 mg PO DAILY [facility] Last Admin: 02/26/24 08:49 Dose: 81 mg Documented By: JOSEPH Atorvastatin Calcium (Atorvastatin Calcium 80 Mg Tablet) 80 mg PO DAILY [facility] Last Admin: 02/26/24 08:50 Dose: 80 mg Documented By: JOSEPH Calcium Carbonate (Calcium Carbonate 750 Mg Tab.Chew) 750 mg PO Q4H PRN PRN Reason: Heartburn Enoxaparin Sodium (Enoxaparin Sodium 40 Mg/0.4 Ml Syringe) 40 mg SUBCUT Q24H [facility] Last Admin: 02/26/24 14:26 Dose: Not Given Documented By: JOSEPH Non-Admin Reason: Patient Refused Glucose (Glucose Gel 15 Gm Gel..Gram.) 15 gm PO Q15M PRN; Protocol PRN Reason: per Hypoglycemia Standing Ord. Dextrose (D10) 250 mls @ 750 mls/hr IV Q15M PRN; Protocol PRN Reason: per Hypoglycemia Standing Ord. Insulin Glargine (Insulin Glargine,Hum.Rec.Anlog 100 Unit/Ml 10 Ml Vial) 8 unit SUBCUT DAILY [facility] Last Admin: 02/26/24 08:50 Dose: 8 unit Documented By: JOSEPH Insulin Human Lispro (Insulin Lispro 100 Unit/Ml 3 Ml Vial) 0 unit SUBCUT QIDACHS [facility]; Protocol Last Admin: 02/26/24 16:17 Dose: 3 unit Documented By: JOSEPH Magnesium Hydroxide (Milk Of Magnesia 30 Ml Oral.Susp) 30 ml PO DAILY PRN PRN Reason: Constipation Magnesium Oxide (Magnesium Oxide 400 Mg Tablet) 400 mg PO BID [facility] Last Admin: 02/26/24 08:49 Dose: 400 mg Documented By: JOSEPH Melatonin (Melatonin 3 Mg Tablet) 6 mg PO BEDTIME PRN PRN Reason: Insomnia Sodium Chloride (0.9 % Sodium Chloride Flush 3 Ml Syringe) 3 ml IVFLUSH QSHIFT [facility] Last Admin: 02/26/24 16:18 Dose: 3 ml Documented By: JOSEPH Labs 02/25/24 05:42 02/25/24 05:42 Labs: Laboratory Results - last 24 hr 02/25/24 02/26/24 02/26/24 20:25 07:11 11:06 POC Glucose 197 H 148 H 198 H 02/26/24 15:47 POC Glucose 205 H Assessment and Plan (1) Aphasia: Status: Acute Plan 53 yo male with diabetes, hypertension, renal cell carcinoma status post right nephrectomy, CKD 3 who was noncompliant with his medications for many months (restarted his medications about 2 weeks ago) and now presents with acute onset nausea and vomiting with associated, followed by neurological changes. His workup in the emergency room shows what likely is a left-sided infarct. Aphasia Suspected acute CVA. no obvious significant motor deficits, most pronounced feature is his speech. MRA and MRI negative seen by Neurology likely due to migraine equivalent, no acute stroke Imaging did show chronic stroke passed at nursing swallow eval PT/OT/speech and swallow therapies - PT rec acute rehab LDL 75 continue Aspirin, statin Avoid hypotension and hold antihypertensives for now. 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 No recent seizure activity EEG done, report pending - outpatient follow up with neurology. no seizure activity noted Uncontrolled diabetes mellitus A1c is over 12, recently resumed back on lantus will resume lower dose of Lantus (on 20u Toujeo at baseline) and follow POCs, cover with [employer] Diabetic Education LUCIANA on CKD stage 3 Serum creatinine slightly elevated compared to recent outpatient labs Improving, appears to be near baseline Hypertension Hold antihypertensives, bp controlled Hold Norvasc, HCTZ resume as bp allows thrombocytopenia Chronic, outpatient follow-up Full Code DVT pptx, subcut. lovenox requires ongoing inpatient stay for close observation of blood pressure, safe disposition Quality Stroke Does the patient have a stroke diagnosis?: No VTE Prior VTE?: No VTE Risk Level:: Medical - moderate - high VTE Device Contraindication: Treatment Not Indicated VTE Drug Contraindication: N/A - Med Ordered
[2024-02-26 19:05] VITALS: BP 117/63; PULSE 72; RESP 20; TEMP 36.9; O2SAT 99
[2024-02-26 20:14] LABS: Glucose, Whole Blood 213 mg/dL (60-115)
[2024-02-26 23:17] VITALS: BP 137/66; PULSE 71; RESP 16; TEMP 36.5; O2SAT 99
[2024-02-27 07:59] LABS: Glucose, Whole Blood 153 mg/dL (60-115)
[2024-02-27 08:00] VITALS: BP 133/70; PULSE 83; RESP 20; TEMP 36.7; O2SAT 99
[2024-02-27] MEDS: Atorvastatin Calcium 80 MG TABLET PO (09:25)
[2024-02-27] MEDS: 0.9 % Sodium Chloride Flush 3 ML SYRINGE IVFLUSH ×2 (09:25→15:43)
[2024-02-27] MEDS: Magnesium Oxide 400 MG TABLET PO (09:25)
[2024-02-27] MEDS: Aspirin Enteric Coated 81 MG TABLET.DR PO (09:25)
[2024-02-27] MEDS: Insulin Glargine,Hum.rec.anlog 100 UNIT/ML 10 ML VIAL 8 UNIT SUBCUT (09:25)
[2024-02-27 11:51] VITALS: BP 119/70; PULSE 75; RESP 18; TEMP 36.5; O2SAT 98
[2024-02-27 12:49] LABS: Glucose, Whole Blood 194 mg/dL (60-115)
--- NOTE | 2024-02-27 12:56 | MHC.SL.SOA ---
Referring Provider: Dr. Desouza Reason for Referral: Assess Swallow Date of Plan of Treatment:02/19/24 Onset of Symptoms/Illness:02/18/24 Date Treatment Started:02/19/24 Medical Diagnosis: (1) Acute alteration in mental status: (2) Aphasia: Head CT 02/19/24 00:00 IMPRESSION: 1. New wedge-shaped region of parenchymal hypoattenuation in the left temporal lobe, potentially corresponded to an acute or subacute infarct. Recommend correlation with MRI of the brain with and without contrast. No acute intracranial hemorrhage. 2. Unchanged right posterior fossa arachnoid cyst. Brain MRI: MR/MR head/brain wo con IMPRESSION: There is a small chronic cortical infarct involving the left temporal lobe that is new when compared to prior MR imaging of the brain from 08/06/2022. A few scattered chronic small vessel ischemic changes are visualized within the periventricular white matter. No evidence of acute territorial infarct or hemorrhage. Stable arachnoid cyst located at the right anterolateral aspect of the posterior fossa. Normal MR angiogram of the head. Primary Speech Language Diagnosis:R13.10 Dysphagia Secondary Speech Language Diagnosis:R47.01 Aphasia Reason for Visit:22936 Individual Treatment Subjective:Patient seen today for speech therapy at bedside. Patient was ending a phone conversation when NUTRITION PROGRAM INSTRUCTOR arrived and was very pleasant and engaging. Patient says he feels that his speech is getting better over time, but that he still needs to think longer to come up with words. It continues to be recommended that he receive speech therapy services at the next level of care (STR). Per , patient opted for STR at [facility], with authorization pending. Objective: Patient seen for language [place] focused on word finding and strategies. Patient was given written educational material RE: aphasia and structured exercises and follow up/carry over work for him to complete independently. Assessment:During a confrontational naming task, patient correctly named 20/20 line drawings. Note some delay in word retrieval, but patient was able to complete this task without cuing. Patient completed sentences in 5/5 trials and identified synonyms in the context of a sentence in 5/5 trials. Patient engaged in conversation, again note some hesitancies with delayed retrieval of words. Patient appropriately responded to open ended questions and followed commands. Note appropriate use of syntax and word choice. We discussed strategies for word finding: circumlocution, using associations ( it's not a knife, it's a... ), phonemic cues ( it starts with ssss... for spoon ), gesturing (gesturing motion for writing with a pencil) and sentence completion cues ( you cut with sci... for scissors ). Patient says he's been looking for word puzzle apps and has been reading when he can. Patient was given several related tasks to what was completed today for independent practice. Notes: Recommend continued Speech/Language Therapy at next level of care for wordfinding/verbal fluency needs (mild expressive aphasia). Seen by: Graduate/Clinical Fellow: No Supervisory Statement: f_Reg Query Last Value , [facility] Speech Language Pathologist: Tonie Hernandez M.A., CCC-NUTRITION PROGRAM INSTRUCTOR
--- NOTE | 2024-02-27 13:52 | MHC.CM.PN ---
EMR reviewed and per MD rounds, pt remains medically cleared for discharge, however insurance auth is pending for pt to go to STR at [facility].
[2024-02-27 14:26] VITALS: BP 119/70; PULSE 75; O2SAT 98
[2024-02-27 15:34] LABS: Glucose, Whole Blood 171 mg/dL (60-115)
[2024-02-27 15:47] VITALS: BP 150/73; PULSE 77; RESP 18; TEMP 36.7; O2SAT 98
--- NOTE | 2024-02-27 16:04 | MHC.CM.PN ---
This CM called [facility], they have stated they have not received any insurance auth requests from [facility], although [facility] has submitted x 3 since yesterday. Fax number confirmed, and and escalation inquiry was submitted by by this CM. Per [facility], if they are able to recover the lost documents, they will review by 5pm and let [facility] know if he is denied or approved. [facility] will let us know if they receive auth and we can plan for pt to discharge tomorrow am. Although [facility] is close Sat/Sun, and we may not hear from them until Friday. This CM met with pt to discuss discharge plan and explain the current insurance barriers. Pt stated his will be in soon and he will discuss things with her but he is leaning towards going home this evening. This CM updated the hospitalist about tentative discharge tonight. Referral placed for VNA services.
--- NOTE | 2024-02-27 16:16 | W.MHC.F2F ---
Service Date Service Date: 02/27/24 Encounter Date of encounter: 02/27/24 Reasons for Services Signs and symptoms assessed: needs longterm for med management and PT for strengthening exercises, balance Reason for longterm: medication management Overseeing Care: Austin Luna Homebound: Leaving the home is medically contraindicated at this time without the asist of a device and/or another person due th the listed conditions above and below. Reason homebound: unsteady gait / fall risk and weakness related to hospital stay Certification: Based on the above findings, I certify that this patient is confined to the home and needs intermittent longterm care, physical therapy and/or speech therapy, or continues to need occupational therapy. The patient is under my care, and I have initiated the establishment of the plan of care. The patient will be followed by a physician who will periodically review the plan of care. Time Spent With Patient Time: Total time managing care of this patient today ____ minutes.
--- NOTE | 2024-02-27 16:27 | MHC.CM.PN ---
This CM received a phone call from [facility] quality liaison to let us know that [facility] is denying the pt for STR. This CM explained to pt that the insurance denied him for STR. Pt is disappointed but understands and the plan will be for him to go home this evening with new NA services. Pts will transport him home.
== END 2024-02-27 18:02 | disposition home health service (06) | DRG 54 ==
LOC: HO.ED 02-19 07:41 → HO.EDOVER 02-19 08:38 → HO.IMC 02-19 17:40
PROVIDERS: Emergency Medicine; Hospitalist; Physician Assistant; Admitting Provider Family Medicine; Emergency Provider Emergency Medicine; PCP Internal Medicine; Visit Provider Physician Assistant Medical
DX: G43.109 Migraine with aura, not intractable, without status migrainosus (principal); D69.6 Thrombocytopenia, unspecified; N17.9 Acute kidney failure, unspecified; E11.22 Type 2 diabetes mellitus with diabetic chronic kidney disease; R47.01 Aphasia; N18.30 Chronic kidney disease, stage 3 unspecified; I12.9 Hypertensive chronic kidney disease with stage 1 through stage 4 chronic kidney disease, or unspecified chronic kidney disease; Z90.5 Acquired absence of kidney; Z86.73 Personal history of transient ischemic attack (TIA), and cerebral infarction without residual deficits; Z85.528 Personal history of other malignant neoplasm of kidney; Z91.148 Patient's other noncompliance with medication regimen for other reason; Z87.891 Personal history of nicotine dependence; Z79.4 Long term (current) use of insulin; Z79.51 Long term (current) use of inhaled steroids; Z79.899 Other long term (current) drug therapy
CPT/HCPCS: 36415; 70450; 70544; 70551; 80048; 80053; 80061; 80307; 81003; 82947; 83036; 83690; 83735; 84484; 85025; 85027; 92507; 92610; 93005; 93306; 95816; 97112; 97116; 97163; 97167; 97530; 99285; J1650; J7120

== ENCOUNTER → 2024-02-19 07:00 | Outpatient (BNV) | payer OTHER, SELFPAY | PROVIDERS: Admitting Provider Family Medicine; Emergency Provider Emergency Medicine; Visit Provider Internal Medicine Cardiovascular Disease | DX: I63.9 Cerebral infarction, unspecified (principal) | CPT/HCPCS: 93306 ==

== ENCOUNTER → 2024-02-19 08:28 | Outpatient (BNV) | payer OTHER, SELFPAY | PROVIDERS: Admitting Provider Family Medicine; Emergency Provider Emergency Medicine; Visit Provider Family Medicine | DX: I69.320 Aphasia following cerebral infarction (principal) | CPT/HCPCS: 99223; 99231; 99232; 99239; G0180 ==

== ENCOUNTER → 2024-02-19 08:28 | Outpatient (BNV) | payer OTHER, SELFPAY | PROVIDERS: Admitting Provider Family Medicine; Emergency Provider Emergency Medicine; Visit Provider Psychiatry & Neurology Neurology | DX: I63.412 Cerebral infarction due to embolism of left middle cerebral artery (principal); G43.109 Migraine with aura, not intractable, without status migrainosus | CPT/HCPCS: 99222 ==

== ENCOUNTER 2024-03-02 12:38 | Outpatient (REF) | payer OTHER, SELFPAY ==
[2024-03-02 12:54] LABS: MANUAL DIFF FLAG NO
[2024-03-02 13:31] LABS: Basophils Percent Auto 0.5 % (0-2); Eosinophils Absolute Auto 0.1 X10*3/uL (0.0-0.4); Eosinophils Percent Auto 0.9 % (0-4); Hematocrit 40.7 % (42.0-52.0); Hemoglobin 14.3 g/dl (14.0-18.0); Imm Gran Abs Auto 0.05 X10*3/uL (0.00-0.03); Imm Gran Pct Auto 0.8 % (0.0-0.4); Lymphocytes Absolute Auto 1.6 X10*3/uL (1.2-4.9); Lymphocytes Percent Auto 24.3 % (20-40); Mean Corpuscular HGB Conc 35.1 g/dl (31.0-36.0); Mean Corpuscular Hemoglobin 29.7 pg (27.0-33.0); Mean Corpuscular Volume 84.4 fL (80.0-98.0); Mean Platelet Volume 12.2 fL (9.4-12.4); Monocytes Absolute Auto 0.6 X10*3/uL (0.1-1.2); Neutrophils Absolute Auto 4.1 x10*3/uL (2.0-8.3); Neutrophils Percent Auto 64.5 % (45-73); Platelet Count 168 X10*3/uL (160-400); Red Blood Count 4.82 X10*6/uL (4.60-5.80); Red Cell Distribution Width 12.5 % (11.0-16.0); White Blood Count 6.4 X10*3/uL (4.8-10.8)
== END 2024-03-02 12:39 | disposition home or self-care (01) ==
LOC: HO.LAB 12:38
PROVIDERS: PCP Internal Medicine; Visit Provider Internal Medicine
DX: D64.9 Anemia, unspecified (principal)
CPT/HCPCS: 36415; 85025

== ENCOUNTER 2024-03-03 09:35 | Outpatient (AMB) | payer OTHER, SELFPAY ==
[2024-03-03 09:36] VITALS: BP 118/68; PULSE 83; O2SAT 98
--- NOTE | 2024-03-03 09:36 | A.OFFPC_ITS ---
Vital Signs 03/03/24 09:36 Weight 165 lb 6 oz BP 118/68 Blood Pressure Location Lt brachial Position Sitting Pulse 83 Pulse Source Pulse Oximeter Pulse Oximetry (%) 98 Oxygen Delivery Method Room Air Intake Visit Reasons: TCM chronic stroke [employer] Worker Required: No Accompanied by: Self / Same As Patient Allergies Latex, Natural Rubber Allergy (Mild, Verified 03/03/24 10:27) Rash pseudoephedrine [Sudafed] Adverse Reaction (Intermediate, Verified 03/03/24 10:27) dizziness, panic attacks Medication List - Last Reconciled 03/03/24 by Austin Luna MD albuterol sulfate 90 mcg/actuation 2 puffs inhalation Q4-6H PRN 30 days amlodipine 5 mg (1/2 x 10 mg) PO DAILY 90 days aspirin 81 mg PO DAILY 90 days atorvastatin 40 mg PO BEDTIME blood pressure monitor As directed blood sugar diagnostic (FreeStyle Lite Strips) As directed flash glucose scanning reader (FreeStyle Dexter 14 Day Villalba) As directed fluticasone propionate 50 mcg/actuation 1 spray intranasal BID insulin glargine (Lantus U-100 Insulin) 8 units (0.08 mL) subcut DAILY lancets (FreeStyle Lancets) As directed magnesium oxide 400 mg PO BID 30 days pen needle, diabetic (BD Katya 2nd Gen Pen Needle) once a day Tobacco use date assessed: 03/03/24 Dental Screening Dental Screen Date: 03/03/24 Did you have a dental visit in the last 12 months?: Yes Did you have a dental problem in the last 6 months where you did not have access to dental care?: No Was dental information given to patient?: Patient has dentist HPI TCM chronic stroke HPI Details Patient comes in today for his TCM follow up visit He was admitted to [facility] for about a week (admitted on 02/19/24; discharged on 02/27/2024) when he presented to the ER for sudden onset of confusion with blank stare following a bout of nausea and vomiting He was also reportedly found to have a slow speech while in the ER but without any significant motor deficits Head CT done at the ER revealed (+) wedge-shaped hypoattentuation in the left temporal lobe that suggests either an acute or subacute infarct and he was admitted for further work ups and management as CTA could not be done due to the patient having a solitary kidney (s/p right nephrectomy due to RCC) MRI and MRA of the brain subsequently done were both negative for acute findings although his MRI did have findings consistent with an old infarct - (+) small chronic cortical infarct involving the left temporal lobe that was not present on his previous MRI from 08/06/2022 Neurology was also consulted and they have advised that there is a possibility that his current acute symptoms are due to a migraine equivalent rather than an acute stroke EEG was done for completion due to his Hx of seizures - EEG came back normal Patient reportedly passed swallow evaluation in the hospital Short-term rehab was not approved by his insurance so he was eventually discharged home with PT and VNA services He was also advised to follow up with neurology and PCP as outpatient TERESO There were also some changes made to his medications while he was in the hospital Of note, he was started back on several of his previous meds during his most recent follow up visit last month on 01/23/2024 following over a year-long absence (previously seen on 11/01/2022) wherein he supposedly stopped taking all of his diabetes and blood pressure meds and was hoping to just control his medical issues with diet and lifestyle changes Due to his recent events and hospitalization, his Amlodipine was lowered in half to 5 mg QD, HCTZ and Trulicity were discontinued, Atorvastatin was lowered to 40 mg QD (due to LFT elevation) and Toujeo 20 units was switched to Lantus but at a lower 8 units dose He is scheduled to see endocrinology tomorrow (03/04/2024) for follow up of his diabetes His spouse also mentioned that they were advised by neurology that he may benefit from a KAMILAH for further evaluation of his recently discovered CVA to help figure out other possible etiologies of his cerebral infarct Patient states that he currently feels okay and his spouss states that his mental status is back to his baseline Patient denies any headaches or dizziness lately He denies any chest pains, no SOB No nausea/vomiting, no abdominal pain No change in bowel habits noted Of note: patient also had symptoms of a TIA back in June 2022 wherein his work ups done, including labs, EKG, head CT, carotid US and EEG all came back normal/negative His brain MRI done a few months prior to then revealed findings of a stable arachnoid cyst versus subdural hygroma in the right aspect of the posterior fossa with minimal chronic bifrontal white matter signal changes, as on prior imaging. Otherwise, he had a relatively normal MRI of the brain Echocardiogram done back then also came out normal - LVEF was normal, EF was at 57% and no valvular pathology was noted He was also seen by neurology a few months before and was advised that his symptoms then were more consistent with migraine with aura rather than a CVA or TIA He was advised to start taking Aspirin 81 mg QD but he self-discontinued this after a few months TCM TCM Information Date of Discharge 02/27/24 Discharged From [facility] Interactive Contact Date (Reference documentation from this date) 03/01/24 [facility] Medical History 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 Overweight (BMI 25.0-29.9) 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 disc herniation Vitamin D deficiency Polycythemia Thrombocytopenia Pure hypercholesterolemia Benign essential hypertension Chronic kidney disease (CKD), stage III (moderate) Type 2 diabetes mellitus with diabetic chronic kidney disease Surgical History Status post cervical discectomy (~09/04/16) History of right nephrectomy (~03/30/13) Family History Mother Hypertension Social History Household Members: Spouse Housing: House Do you presently have visiting nurse or other home services: No Alcohol intake: never Comment: pt low fall, calls appropriately for assistance OOB Patient Tobacco Use Status: Former Tobacco user e-Cigarette/Vaping Use: Never Used Second Hand Smoke Exposure: No Substance Use Type: Marijuana Advance Directives Date on File: 02/19/24 service: No Current occupational status: employed Cognitive needs: No Hearing needs: No Vision needs: Yes (glasses) Questionnaire PHQ-9 Over the last 2 weeks, how often have you been bothered by any of the following problems? 1. Little interest or pleasure in doing things: not at all 2. Feeling down, depressed, or hopeless: not at all 3. Trouble falling or staying asleep, or sleeping too much: not at all 4. Feeling tired or having little energy: not at all 5. Poor appetite or overeating: not at all 6. Feeling bad about yourself - or that you are a failure or have let yourself or your family down: not at all 7. Trouble concentrating on things, such as reading the newspaper or watching television: not at all 8. Moving or speaking so slowly that other people could have noticed. Or the opposite - being so fidgety or restless that you have been moving around a lot more than usual: not at all 9. Thoughts that you would be better off or of hurting yourself in some way: not at all Total score: 0 Depression Screening Interpretation: Negative Depression Screening Done: Yes 25972 - PHQ-9 Billing: Yes Source: Developed by Drs. Korey Izaguirre, Sravani Meyer, Johnson Sykes and colleagues, with an educational alvaro from [employer]. Thrive Questionnaire Date Thrive assessed: 03/03/24 I am a: Patient What is your living situation today?: I have a steady place to live Within the past 12 months, did the food you bought not last and you didn't have the money to get more?: Never true Within the past 12 months, did you worry whether your food would run out before you got money to buy more?: Never true Do you have trouble paying for medicines?: No Do you have trouble getting transportation to medical appointments?: No Do you have trouble paying your heating and electricity bill?: No Do you have trouble taking care of your child, family member or friend?: No Do you have trouble with day-to-day activities such as bathing, preparing meals, shopping, managing finances, etc.?: No Are you currently unemployed and looking for a job?: No Are you interested in more education?: No Please select the resources that you would like help with: None Currently or been in a relationship where the following occur: No concerns reported THRIVE Score: 0 AUDIT C Alcohol Use Questionnaire (AUDIT-C) 1. How often do you have a drink containing alcohol?: Never 3. How often do you have six or more drinks on one occasion?: Never Total Score: 0 Score Reviewed/Action Taken: Yes RYAN-7 AMB Questionnaire RYAN-7 Date RYAN - 7 assessed: 03/03/24 Feeling nervous, anxious, or on edge: 0 = Not at all Not being able to stop or control worryin = Not at all Worrying too much about different things: 0 = Not at all Trouble relaxin = Not at all Being so restless that it is hard to sit still: 0 = Not at all Becoming easily annoyed or irritable: 0 = Not at all Feeling afraid as if something awful might happen: 0 = Not at all Total RYAN-7 score (0-4 normal; 5-9 mild; 10-14 moderate; 15-21 severe): 0 Source: Developed by Drs. Korey Izaguirre, Sravani Meyer, Johnson Sykes and colleagues, with an educational alvaro from [employer]. RYAN-7 Assessment Billing RYAN-7 Assessment Tool: RYAN-7 Assessment 08098 Review of Systems Const Denies chills, Reports fatigue, Denies fever(s) and Denies headache(s) ENT Denies dysphagia, Denies dizziness, Denies headache(s), Denies neck pain, Denies odynophagia and Denies sore throat Card Denies chest pain, Denies palpitations and Denies dyspnea Resp Denies cough, Denies dyspnea and Denies wheezing GI Denies abdominal pain, Denies constipation, Denies dysphagia, Denies heartburn, Denies diarrhea, Denies nausea, Denies odynophagia and Denies vomiting Denies dysuria, Reports nocturia and Reports urinary frequency Musc Denies muscle weakness and Denies neck pain Skin/Breast Denies rash Neuro Denies dizziness, Denies headache(s), Denies focal weakness and Denies memory loss Psych Denies memory loss Endo Reports fatigue and Denies palpitations Aller/Immun Denies wheezing Physical exam (Primary Care) Vital Signs: Last Vital Signs Pulse 83 03/03/24 09:36 BP 118/68 03/03/24 09:36 Pulse Ox 98 03/03/24 09:36 Oxygen Delivery Method Room Air 03/03/24 09:36 Tobacco/Smoking Status: Tobacco use Status Tobacco use date assessed 03/03/24 03/03/24 09:38 Patient Tobacco Use Status Former Tobacco user 03/03/24 09:38 e-Cigarette/Vaping Use Never Used 03/03/24 09:38 PHQ-9: PHQ-9 Score PHQ-9: Total score 0 03/03/24 09:54 Depression Screening Interpretation: Negative Thrive Assessment: Date of Thrive Assessment Date Thrive assessed 03/03/24 03/03/24 09:38 Currently or been in a relationship where the following occur: No concerns reported Const General: no acute distress and alert Orientation/consciousness: patient oriented x3 HENMT Throat: Yes posterior oropharynx normal and Yes tonsils normal (no TP congestion) Neck Neck: Yes no lymphadenopathy and Yes supple Thyroid: Thyroid normal Resp Auscultation: clear to auscultation bilaterally, no rales and no wheezes Cardio Rate: regular rate Rhythm: regular rhythm Heart sounds: no murmurs GI Palpation (GI): Soft to palpation and nontender Auscultation: normal bowel sounds General: Yes no CVA tenderness Back/Spine/Pelvis Back: no CVA tenderness Thoracic/Lumbar Spine: No lumbar spinal tenderness Skin Rashes: no rashes Neuro General: patient oriented x3, moves all extremities and no focal motor deficits Cranial nerves: Yes CN's II-XII intact bilaterally Cognition (Neuro): normal cognition Extrem General: Yes no clubbing, cyanosis or edema Results Reviewed Results Reviewed: Laboratory Tests 02/18/24 02/25/24 03/02/24 23:12 05:42 12:52 WBC 6.4 Hgb 14.3 Hct 40.7 L Plt Count 168 D Creatinine 1.67 H Estimated GFR 43 Fasting Glucose 146 H Hemoglobin A1c % 12.6 H AST 91 H ALT 108 H Assessment and Plan Assessment & Plan (1) Cerebral infarction: Code(s): I63.9 - Cerebral infarction, unspecified Qualifiers: Cerebral infarction mechanism: embolism Precerebral and cerebral artery: middle cerebral artery Laterality of affected vessel: left Qualified Code(s): I63.412 - Cerebral infarction due to embolism of left middle cerebral artery Plan: MRI of the brain done on 02/19/2024 revealed (+) small chronic cortical infarct involving the left temporal lobe that is new when compared to prior MR imaging of the brain from 08/06/2022. There were a few scattered chronic small vessel ischemic changes visualized within the periventricular white matter but no evidence of acute territorial infarct or hemorrhage MRA of the brain came out normal EEG was also normal He was seen by neurology and was advised that his recent symptoms were likely due to migraine (migraine equivalent) rather than an acute CVA but was reportedly advised to see cardiology about getting a KAMILAH done for completion of his evaluation - referral to cardiology placed Continue Aspirin 81 mg QD Follow up with neurology as scheduled (2) Migraine equivalent syndrome: Code(s): G43.109 - Migraine with aura, not intractable, without status migrainosus Plan: As mentioned, he was advised by neurology that his recent symptoms are likely due to migraine He is currently NOT taking anything prescribed for migraine headaches regularly Follow up with neurology as scheduled (3) Elevated LFTs: Code(s): R79.89 - Other specified abnormal findings of blood chemistry Plan: His LFTs were noted to be elevated significantly on his labs when they were done on admission (his LFTs were previously normal when last checked about a month prior) His Atorvastatin was lowered from 80 mg to 40 mg QD as a result WIll have patient recheck his LFTs in a month for follow up (4) Type 2 diabetes mellitus with diabetic chronic kidney disease: Code(s): E11.22 - Type 2 diabetes mellitus with diabetic chronic kidney disease Qualifiers: Diabetes mellitus termination clerk insulin use: without half-way use Chronic kidney disease stage: stage 3 (moderate) Chronic kidney disease stage 3 subtype: stage 3b (GFR 30-44) Qualified Code(s): E11.21 - Type 2 diabetes mellitus with diabetic nephropathy; N18.32 - Chronic kidney disease, stage 3b Plan: His HgbA1c was down to 12.4% when it was last checked on 02/18/2024 (in-office HgbA1c was >14.0% during his last office visit here in early January 2024) - goal is at least < 7.0% Reinforced diabetic diet He was started back on Toujeo 20 units QD and Trulicity 1.5 mg once a week last month but these were changed/adjusted during his recent hospitalization and he is now on Lantus 8 units QD only for his diabetes He is scheduled to see endocrinology for follow up and further management tomorrow (5) Benign essential hypertension: Code(s): I10 - Essential (primary) hypertension Plan: Reinforced low-sodium diet -? goal is systolic BP of 120 mm or less He was also started back on Hydrochlorothiazide 12.5 mg QD and Amlodipine 10 mg QD last month but he is now on Amlodipine 5 mg QD only; HCTZ was discontinued due to lab findings of renal insufficiency He has a follow up appointment coming up with his locomotive inspector in [place] next week, which I have encouraged him to keep (6) Chronic kidney disease (CKD), stage III (moderate): Code(s): N18.30 - Chronic kidney disease, stage 3 unspecified Qualifiers: Chronic kidney disease stage 3 subtype: stage 3b (GFR 30-44) Qualified Code(s): N18.32 - Chronic kidney disease, stage 3b Plan: His renal function was reportedly stable when he was last seen by nephrology in July 2023 (GFR was at 44 back then) but as he was not taking any of his meds for a while, his follow up GFR early last month (January 2024) was down to 30 This came back up recently to 43 (on 02/25/2024) with adjustments of his meds as well as IV hydration He will be following up with his locomotive inspector in [place] next week (7) Pure hypercholesterolemia: Code(s): E78.00 - Pure hypercholesterolemia, unspecified Plan: Reinforced low cholesterol diet He was on Rosuvastatin 40 mg QD but he stopped taking this a while back - his cholesterol numbers when last checked in October 2022 were elevated (LDL was at 134) His repeat LDL cholesterol last month was at 179 mg/dl He was initially started on Atorvastatin 80 mg but this was eventually lowered to 40 mg QD due to his LFTs now being elevated (8) Epilepsy: Code(s): G40.909 - Epilepsy, unspecified, not intractable, without status epilepticus Qualifiers: Epilepsy type: unspecified Intractability: not intractable Status epilepticus: without status epilepticus Qualified Code(s): G40.909 - Epilepsy, unspecified, not intractable, without status epilepticus Plan: Repeat EEG done last week reportedly came out normal; he also had a normal EEG about a year ago when he had TIA back in June 2022 He was supposed to be on Carbamazepine 200 mg BID but he has not been taking this for a while now He reports NO recurrence of his seizures lately Follow up with neurology as scheduled (9) Thrombocytopenia: Code(s): D69.6 - Thrombocytopenia, unspecified Plan: Patient's platelet count has been slightly lower than normal for over a year but his overall numbers have been stable previously Abdominal ultrasound done a couple of years ago showed only (+) cholelithiasis with no obstruction, splenomegaly or any other acute findings Repeat CBC done yesterday showed NORMAL platelet count of 872388 (10) Renal cell carcinoma of right kidney: Comment: S/P right nephrectomy 03/30/2013 Code(s): C64.1 - Malignant neoplasm of right kidney, except renal pelvis Plan: S/P right nephrectomy Follow-up with urology and nephrology as scheduled Plan Follow up in late March 2024 (can cancel original appt for next week 03/11/24) Orders: Orders Comprehensive Met. Panel 04/06/24 R79.89 - Other specified abnormal findings of blood chemistry Referrals Cardiology Referral I63.412 - Cerebral infarction due to embolism of left middle cerebral artery, R47.01 - Aphasia Neurology Referral G40.909 - Epilepsy, unspecified, not intractable, without status epilepticus, G43.109 - Migraine with aura, not intractable, without status migrainosus, I63.412 - Cerebral infarction due to embolism of left middle cerebral artery Coding Level of Care Code TCM Mod MDM <= 7 Days Diagnoses Cerebral infarction due to embolism of left middle cerebral artery I63.412 Cerebral infarction mechanism: embolism Precerebral and cerebral artery: middle cerebral artery Laterality of affected vessel: left Migraine equivalent syndrome G43.109 Elevated LFTs R79.89 Type 2 diabetes mellitus with stage 3b chronic kidney disease, without long-term current use of insulin E11.21; N18.32 Diabetes mellitus termination clerk insulin use: without half-way use Chronic kidney disease stage: stage 3 (moderate) Chronic kidney disease stage 3 subtype: stage 3b (GFR 30-44) Benign essential hypertension I10 Stage 3b chronic kidney disease N18.32 Chronic kidney disease stage 3 subtype: stage 3b (GFR 30-44) Pure hypercholesterolemia E78.00 Nonintractable epilepsy without status epilepticus, unspecified epilepsy type G40.909 Epilepsy type: unspecified Intractability: not intractable Status epilepticus: without status epilepticus Thrombocytopenia D69.6 Renal cell carcinoma of right kidney C64.1 Additional Codes RYAN-7 Assessment Billing - RYAN-7 Assessment Tool: RYAN-7 Assessment [id number] ([id number])
== END 2024-03-03 10:36 | disposition home or self-care (01) ==
PROVIDERS: PCP Internal Medicine; Visit Provider Internal Medicine
DX: I63.412 Cerebral infarction due to embolism of left middle cerebral artery (principal); G43.109 Migraine with aura, not intractable, without status migrainosus; E11.21 Type 2 diabetes mellitus with diabetic nephropathy; N18.32 Chronic kidney disease, stage 3b; I10 Essential (primary) hypertension; E78.00 Pure hypercholesterolemia, unspecified
CPT/HCPCS: 99495

== ENCOUNTER 2024-03-04 10:56 | Outpatient (AMB) | payer OTHER, SELFPAY ==
--- NOTE | 2024-03-04 10:58 | A.OFFVIS_ITS ---
Vital Signs 03/04/24 11:00 Height 5 ft 6 in Weight 167 lb 8.821 oz BMI 27.0 BP 128/78 Blood Pressure Location Rt brachial Position Sitting Pulse 76 Pulse Source Pulse Oximeter Intake Visit Reasons: DM/CONFIRMED Intake Note: Patient presents today to re-establish treatment for Type 2 Diabetes Mellitus: Last Diabetic eye exam was on: 03/31/2023, [facility]. Last Podiatry exam was on: Does not see a Hospital Medicine Director Most recent HbA1c: 14.0%, 01/23/2024, 12.6%, 02/18/2024 Random Glucose- 182 mg/dL, Today Proposal Lead Writer Required: No Accompanied by: Other Relationship Allergies Latex, Natural Rubber Allergy (Mild, Verified 03/04/24 11:02) Rash pseudoephedrine [Sudafed] Adverse Reaction (Intermediate, Verified 03/04/24 11:02) dizziness, panic attacks HPI Comments Details: 53 year old male with uncontrolled type 2 diabetes presenting for diabetes Medical history: CVA, htn, hld, solitary kidney. Diagnosed with diabetes 2017 per patient In past year patient decided to go off medications and try to improve health with diet and exercise. In mid January restarted his former medications Toujeo 20 units and Trulicity. Just two weeks later he was admitted to [facility] [place], 02/19/24- 02/27/2024. He presenting for stroke like symptoms. A1C 12.6%. Head CT done at the ER revealed (+) wedge-shaped hypoattentuation in the left temporal lobe that suggests either an acute or subacute infarct. MRI did have findings consistent with an old infarct - (+) small chronic cortical infarct involving the left temporal lobe that was not present on his previous MRI from 08/06/2022. Received sliding scale insulin while hospitalized and discharged on Lantus 8 units as he had not been requiring high doses during hospitalization Current meds: Lantus 8 units. Has been on this for the past 5 days. Reports am blood glucose 106-177. Didn't bring his meter or log readings. Macrovascular/microvascular complications: CVA Diet: low carbohydrate. Declines referral to certified breastfeeding educator or nutrition Family history of type 2 diabetes ROS CONSTITUTIONAL: Denies weight loss, fever and chills. HEENT: Denies changes in vision and hearing. RESPIRATORY: Denies SOB and cough. CV: Denies palpitations and CP GI: Denies abdominal pain, nausea, vomiting and diarrhea. : Denies dysuria and urinary frequency. MSK: Denies new myalgia and joint pain. SKIN: Denies rash and pruritus. NEUROLOGICAL: Denies headache PSYCHIATRIC: Denies recent changes in mood. PHYSICAL EXAM: GENERAL: Alert and oriented x 3. NAD EYES: EOMI. Anicteric. HENT: Moist mucous membranes. No scleral icterus. No cervical lymphadenopathy. LUNGS: Clear to auscultation bilaterally. CARDIOVASCULAR: Regular rate and rhythm. No murmur. No JVD. ABDOMEN: Soft, non-tender +bs EXTREMITIES: No edema. Non-tender. SKIN: No rashes or lesions. Warm. NEUROLOGIC: No focal neurological deficits. CN II-XII grossly intact PSYCHIATRIC: Cooperative. 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 Overweight (BMI 25.0-29.9) 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 disc herniation Vitamin D deficiency Polycythemia Thrombocytopenia Pure hypercholesterolemia Benign essential hypertension Chronic kidney disease (CKD), stage III (moderate) Type 2 diabetes mellitus with diabetic chronic kidney disease Surgical History Status post cervical discectomy (~09/04/16) History of right nephrectomy (~03/30/13) Family History Mother Hypertension Social History Household Members: Spouse Housing: House Do you presently have visiting nurse or other home services: No Alcohol intake: never Comment: pt low fall, calls appropriately for assistance OOB Patient Tobacco Use Status: Former Tobacco user e-Cigarette/Vaping Use: Never Used Second Hand Smoke Exposure: No Substance Use Type: Marijuana Advance Directives Date on File: 02/19/24 service: No Current occupational status: employed Cognitive needs: No Hearing needs: No Vision needs: Yes (glasses) Physical Exam Vital Signs: Last Vital Signs Pulse 76 03/04/24 11:00 BP 128/78 03/04/24 11:00 BMI result Body Mass Index 27.0 Results Reviewed Results Reviewed: Laboratory Last Values Glucose (Clinic) 182 mg/dL (60-115) H 03/04/24 11:06 Assessment & Plan Assessment & Plan (1) Type 2 diabetes mellitus with diabetic chronic kidney disease: Code(s): E11.22 - Type 2 diabetes mellitus with diabetic chronic kidney disease Category: Medical Qualifiers: Diabetes mellitus termite technician insulin use: without termite technician use Chronic kidney disease stage: stage 3 (moderate) Chronic kidney disease stage 3 subtype: stage 3b (GFR 30-44) Qualified Code(s): E11.21 - Type 2 diabetes mellitus with diabetic nephropathy; N18.32 - Chronic kidney disease, stage 3b Plan: Uncontrolled. Discussed micro/macrovascular complications of diabetes, especially uncontrolled He has only been on his current insulin regimen for less than a week and has not brought blood glucose readings with him He will return in two weeks with daily fasting readings. If hypoglycemia or marked hyperglycemia in the interim he will call the office. (2) Chronic kidney disease (CKD), stage III (moderate): Code(s): N18.30 - Chronic kidney disease, stage 3 unspecified Category: Medical Qualifiers: Chronic kidney disease stage 3 subtype: stage 3b (GFR 30-44) Qualified Code(s): N18.32 - Chronic kidney disease, stage 3b Plan: stable Coding Level of Care Code Est Pt Level 5 (22076) Diagnoses Type 2 diabetes mellitus with stage 3b chronic kidney disease, without long-term current use of insulin E11.21; N18.32 Diabetes mellitus penitentiary insulin use: without penitentiary use Chronic kidney disease stage: stage 3 (moderate) Chronic kidney disease stage 3 subtype: stage 3b (GFR 30-44) Stage 3b chronic kidney disease N18.32 Chronic kidney disease stage 3 subtype: stage 3b (GFR 30-44) Time Spent (min) 42
[2024-03-04 11:00] VITALS: BP 128/78; PULSE 76; BMI 27.0
[2024-03-04 11:10] LABS: Glucose, Whole Blood 182 mg/dL (60-115)
== END 2024-03-04 11:24 | disposition home or self-care (01) ==
PROVIDERS: PCP Internal Medicine; Visit Provider Internal Medicine
DX: E11.21 Type 2 diabetes mellitus with diabetic nephropathy (principal); N18.32 Chronic kidney disease, stage 3b
CPT/HCPCS: 99215

== ENCOUNTER → 2024-03-04 10:56 | Outpatient (BNVA) | payer OTHER, SELFPAY | PROVIDERS: PCP Internal Medicine; Visit Provider Internal Medicine | DX: E11.65 Type 2 diabetes mellitus with hyperglycemia (principal); E11.22 Type 2 diabetes mellitus with diabetic chronic kidney disease; I12.9 Hypertensive chronic kidney disease with stage 1 through stage 4 chronic kidney disease, or unspecified chronic kidney disease; N18.32 Chronic kidney disease, stage 3b; Z79.4 Long term (current) use of insulin; Z83.3 Family history of diabetes mellitus | CPT/HCPCS: 82947; 99212 ==

== ENCOUNTER 2024-03-18 14:23 | Outpatient (AMB) | payer OTHER, SELFPAY ==
--- NOTE | 2024-03-18 14:24 | A.OFFVIS_ITS ---
Vital Signs 03/18/24 14:26 Height 5 ft 6 in Weight 163 lb 2.273 oz BMI 26.3 BP 120/70 Blood Pressure Location Rt brachial Position Sitting Pulse 76 Pulse Source Pulse Oximeter Intake Visit Reasons: Blood glucose review Intake Note: Patient presents today for a follow-up on Type 2 Diabetes Mellitus: Last Diabetic eye exam was on: 03/31/2023, [facility]. 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: No Accompanied by: Other Relationship Allergies Latex, Natural Rubber Allergy (Mild, Verified 03/04/24 11:02) Rash pseudoephedrine [Sudafed] Adverse Reaction (Intermediate, Verified 03/04/24 11:02) dizziness, panic attacks Medication List - Last Reconciled 03/18/24 by Rebecca Gonzales MD albuterol sulfate 90 mcg/actuation 2 puffs inhalation Q4-6H PRN 30 days amlodipine 5 mg (1/2 x 10 mg) PO DAILY 90 days aspirin 81 mg PO DAILY 90 days atorvastatin 40 mg PO BEDTIME blood pressure monitor As directed blood sugar diagnostic (FreeStyle Lite Strips) As directed empagliflozin (Jardiance) 10 mg PO DAILY flash glucose scanning reader (FreeStyle Dexter 14 Day [place]) As directed fluticasone propionate 50 mcg/actuation 1 spray intranasal BID insulin glargine (Lantus U-100 Insulin) 8 units (0.08 mL) subcut DAILY lancets (FreeStyle Lancets) As directed magnesium oxide 400 mg PO BID 30 days pen needle, diabetic (BD Katya 2nd Gen Pen Needle) once a day HPI Comments Details: 53 year old male with uncontrolled type 2 diabetes presenting for diabetes Medical history: CVA, htn, hld, solitary kidney-follows with dr Hodgkins Diagnosed with diabetes 2017 per patient In past year patient decided to go off medications and try to improve health with diet and exercise. In mid January restarted his former medications Toujeo 20 units and Trulicity. Just two weeks later he was admitted to [facility] 02[place]19[place]24- 02/27/2024. He presenting for stroke like symptoms. A1C 12.6%. Head CT done at the ER revealed (+) wedge-shaped hypoattentuation in the left temporal lobe that suggests either an acute or subacute infarct. MRI did have findings consistent with an old infarct - (+) small chronic cortical infarct involving the left temporal lobe that was not present on his previous MRI from 08/06/2022. Received sliding scale insulin while hospitalized and discharged on Lantus 8 units as he had not been requiring high doses during hospitalization Current meds: Lantus 8 units. Dexter downloaded and reviewed with fasting glucose 113-167. Last two readings 113, 115 after start jardiance at nephrologists office on Friday this week. No hypoglycemia Macrovascular/microvascular complications: CVA Diet: low carbohydrate. Declines referral to wellness educator or nutrition Family history of type 2 diabetes ROS CONSTITUTIONAL: Denies weight loss, fever and chills. HEENT: Denies changes in vision and hearing. RESPIRATORY: Denies SOB and cough. CV: Denies palpitations and CP GI: Denies abdominal pain, nausea, vomiting and diarrhea. : Denies dysuria and urinary frequency. MSK: Denies new myalgia and joint pain. SKIN: Denies rash and pruritus. NEUROLOGICAL: Denies headache PSYCHIATRIC: Denies recent changes in mood. PHYSICAL EXAM: GENERAL: Alert and oriented x 3. NAD EYES: EOMI. Anicteric. HENT: Moist mucous membranes. No scleral icterus. No cervical lymphadenopathy. LUNGS: Clear to auscultation bilaterally. CARDIOVASCULAR: Regular rate and rhythm. No murmur. No JVD. ABDOMEN: Soft, non-tender +bs EXTREMITIES: No edema. Non-tender. SKIN: No rashes or lesions. Warm. NEUROLOGIC: No focal neurological deficits. CN II-XII grossly intact PSYCHIATRIC: Cooperative. Appropriate mood and affect [facility] Medical History Type 2 diabetes mellitus with diabetic chronic kidney disease Cerebral infarction intermediate (current) use of insulin Overweight (BMI 25.0-29.9) 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 disc herniation Vitamin D deficiency Polycythemia Thrombocytopenia Pure hypercholesterolemia Benign essential hypertension Chronic kidney disease (CKD), stage III (moderate) Surgical History Status post cervical discectomy (~09/04/16) History of right nephrectomy (~03/30/13) Family History Mother Hypertension Social History Household Members: Spouse Housing: House Do you presently have visiting nurse or other home services: No Alcohol intake: never Comment: pt low fall, calls appropriately for assistance OOB Patient Tobacco Use Status: Former Tobacco user e-Cigarette/Vaping Use: Never Used Second Hand Smoke Exposure: No Substance Use Type: Marijuana Advance Directives Date on File: 02/19/24 service: No Current occupational status: employed Cognitive needs: No Hearing needs: No Vision needs: Yes (glasses) Physical Exam Vital Signs: Last Vital Signs Pulse 76 03/18/24 14:26 BP 120/70 03/18/24 14:26 BMI result Body Mass Index 26.3 Results Reviewed Results Reviewed: Laboratory Last Values Glucose (Clinic) 121 mg/dL (60-115) H 03/18/24 14:31 Assessment & Plan Assessment & Plan (1) Type 2 diabetes mellitus with diabetic chronic kidney disease: Code(s): E11.22 - Type 2 diabetes mellitus with diabetic chronic kidney disease Category: Medical Qualifiers: Chronic kidney disease stage: stage 3 (moderate) Chronic kidney disease stage 3 subtype: stage 3b (GFR 30-44) Diabetes mellitus salvage determiner insulin use: without salvage determiner use Qualified Code(s): E11.21 - Type 2 diabetes mellitus with diabetic nephropathy; N18.32 - Chronic kidney disease, stage 3b Plan: Improved glycemic control Continue current dose of Lantus and jardiance. Will have patient return in 2 months with readings and have A1C at that time. He will call the office if he has any questions or problems in the interim Coding Level of Care Code Est Pt Level 3 (27922) Diagnoses Type 2 diabetes mellitus with stage 3b chronic kidney disease, without long-term current use of insulin E11.21; N18.32 Chronic kidney disease stage: stage 3 (moderate) Chronic kidney disease stage 3 subtype: stage 3b (GFR 30-44) Diabetes mellitus fpc insulin use: without fpc use
[2024-03-18 14:26] VITALS: BP 120/70; PULSE 76; BMI 26.3
[2024-03-18 14:35] LABS: Glucose, Whole Blood 121 mg/dL (60-115)
== END 2024-03-18 14:54 | disposition home or self-care (01) ==
PROVIDERS: PCP Internal Medicine; Visit Provider Internal Medicine
DX: E11.21 Type 2 diabetes mellitus with diabetic nephropathy (principal); N18.32 Chronic kidney disease, stage 3b

== ENCOUNTER → 2024-03-18 14:23 | Outpatient (BNVA) | payer OTHER, SELFPAY | PROVIDERS: PCP Internal Medicine; Visit Provider Internal Medicine | DX: E11.22 Type 2 diabetes mellitus with diabetic chronic kidney disease (principal); E11.21 Type 2 diabetes mellitus with diabetic nephropathy; N18.32 Chronic kidney disease, stage 3b; Z79.4 Long term (current) use of insulin | CPT/HCPCS: 82947; 99212 ==

== ENCOUNTER 2024-03-24 14:49 | Outpatient (AMB) | payer OTHER, SELFPAY ==
--- NOTE | 2024-03-24 14:52 | MHC.OFFVIS ---
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 KAMILAH post cerebral infarction and aphasia Hot Box Operator Required: No Electrical Continuity Tester: Electrical Continuity Tester Present Accompanied by: Spouse Allergies Latex, Natural Rubber Allergy (Mild, Verified 03/04/24 11:02) Rash pseudoephedrine [Sudafed] Adverse Reaction (Intermediate, Verified 03/04/24 11:02) dizziness, panic attacks Medication List - Last Reconciled 03/24/24 by Maury Ordonez MD amlodipine 5 mg (1/2 x 10 mg) PO DAILY 90 days aspirin 81 mg PO DAILY 90 days atorvastatin 40 mg PO BEDTIME blood pressure monitor As directed blood sugar diagnostic (FreeStyle Lite Strips) As directed empagliflozin (Jardiance) 10 mg PO DAILY flash glucose scanning reader (MetaSolvStyle Dexter 14 Day [place]) As directed insulin glargine (Lantus U-100 Insulin) 8 units (0.08 mL) subcut DAILY lancets (FreeStyle Lancets) As directed pen needle, diabetic (BD Katya 2nd Gen Pen Needle) once a day HPI Comments Details: Thank you for referring Brayan in cardiology consultation today for newly detected stroke on brain imaging. Patient was referred here for further evaluation from cardiac source. Patient with past medical history of renal cell cancer status post nephrectomy, hypertension, hyperlipidemia, polycythemia. Patient was referred here as after recent presentation altered mental status and was noted on brain imaging to have a new infarct. Patient denies any prior cardiac issues. Denies any history of murmurs or palpitations. Denies any exertional chest pain or shortness of breath. Recommend by Neurology to undergo KAMILAH. 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 Overweight (BMI 25.0-29.9) 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 disc herniation Vitamin D deficiency Polycythemia Thrombocytopenia Pure hypercholesterolemia Benign essential hypertension Chronic kidney disease (CKD), stage III (moderate) Surgical History Status post cervical discectomy (~09/04/16) History of right nephrectomy (~03/30/13) Family History Mother Hypertension Social History Household Members: Spouse Housing: House Do you presently have visiting nurse or other home services: No Alcohol intake: never Comment: pt low fall, calls appropriately for assistance OOB Patient Tobacco Use Status: Former Tobacco user e-Cigarette/Vaping Use: Never Used Second Hand Smoke Exposure: No Substance Use Type: Marijuana Advance Directives Date on File: 02/19/24 service: No Current occupational status: employed Cognitive needs: No Hearing needs: No Vision needs: Yes (glasses) Review of Systems Const Denies chills, Denies daytime sleepiness, Denies fatigue, Denies fever(s), Denies frequent falls, Denies poor appetite, Denies snoring, Denies stops breathing during sleep, Denies weakness, Denies weight gain and Denies weight loss Eyes Denies loss of vision ENT Denies dizziness and Denies hearing loss Card Denies chest pain, Denies claudication, Denies leg edema, Denies lightheadedness, Denies palpitations, Denies dyspnea, Denies dyspnea on exertion and Denies orthopnea Resp Denies cough, Denies excessive phlegm production, Denies dyspnea, Denies dyspnea on exertion, Denies snoring and Denies wheezing GI Denies abdominal pain, Denies hematochezia, Denies change in bowel habits, Denies nausea and Denies vomiting Denies dysuria and Denies urinary frequency Musc Denies arthralgias, Denies muscle weakness, Denies numbness and Denies other (frequent falls) Skin/Breast Denies nail changes and Denies rash Neuro Denies Abnormal speech present, Denies dizziness, Denies frequent falls, Denies loss of vision, Denies memory loss, Denies numbness and Denies weakness Psych Denies depression and Denies memory loss Endo Denies fatigue and Denies palpitations Mukesh/Lymph Reports easy bruising and Reports other (anemia) Aller/Immun Denies wheezing Physical Exam Vital Signs: Last Vital Signs Pulse 75 03/24/24 14:53 BP 122/70 03/24/24 14:53 BMI result Body Mass Index 26.3 Const General: cooperative, comfortable, no acute distress, alert and awake Nutritional Appearance: average body habitus Orientation/consciousness: patient oriented x3 Limitations: no limitations HEENT Head: Yes normocephalic and Yes atraumatic Neck Neck: Yes trachea midline, Yes supple and Yes no JVD Resp Effort & Inspection: normal respiratory effort Auscultation: clear to auscultation bilaterally Cardio Jugular venous distension: no JVD Palpation: normal PMI Rate: regular rate Rhythm: regular rhythm Heart sounds: S1 normal heart sound present, S2 normal heart sound present, no click, no gallops, no murmurs and no rubs GI Auscultation: normal bowel sounds Skin General skin exam: no rashes or lesions noted Neuro General: patient oriented x3 and no focal motor deficits Speech: No Abnormal speech present Extrem General: Yes no clubbing, cyanosis or edema Assessment & Plan Assessment & Plan (1) CVA (cerebral vascular accident): Code(s): I63.9 - Cerebral infarction, unspecified Category: Medical Plan: Patient with recently noted CVA on brain imaging when he presented with altered mental status. Etiology is unclear. I agree given his age although he has lot of other risk factors to undergo KAMILAH to evaluate for cardiac source of embolism including evaluation for PFO. We discussed about the procedure of KAMILAH including possible risks and alternatives. He understands agrees. Will schedule him in near future to assess for the same. Further treatment based on the findings. Also strongly recommended to undergo a 30 day event monitor to evaluate for any presence of atrial fibrillation as he was multiple risk factors for the same as this would change his management. This was discussed with him. He understands and agrees. Will follow up in the clinic if need be. Thank you for allowing me to partake in his care Orders: Orders ECG 30 day event monitor 03/24/24 I63.9 - Cerebral infarction, unspecified CA echo transesophageal w con 03/24/24 I63.9 - Cerebral infarction, unspecified Coding Level of Care Code New Pt Level 4 (40700) Diagnoses CVA (cerebral vascular accident) I63.9
[2024-03-24 14:53] VITALS: BP 122/70; PULSE 75; BMI 26.3
== END 2024-03-24 15:50 | disposition home or self-care (01) ==
PROVIDERS: PCP Internal Medicine; Visit Provider Internal Medicine Cardiovascular Disease
DX: I69.30 Unspecified sequelae of cerebral infarction (principal)
CPT/HCPCS: 99214

== ENCOUNTER → 2024-03-24 14:49 | Outpatient (BNVA) | payer OTHER, SELFPAY | PROVIDERS: PCP Internal Medicine; Visit Provider Internal Medicine Cardiovascular Disease | DX: I63.9 Cerebral infarction, unspecified (principal) | CPT/HCPCS: 99212 ==

== ENCOUNTER 2024-04-02 11:50 | Day surgery (SDC) | payer OTHER, SELFPAY ==
[2024-04-02] VITALS (8 sets, daily range): BP systolic 96–142; BP diastolic 54–85; PULSE 66–91; RESP 16–20; TEMP 36.4–36.9; O2SAT 98–100; BMI 25.8
[2024-04-02] MEDS: Lactated Ringers 1,000 ML 100 ML IVCONT (13:05)
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
[2024-04-02 13:34] LABS: Glucose, Whole Blood 123 mg/dL (60-115)
--- NOTE | 2024-04-02 13:35 | CA_ITS ---
Transesophageal Echocardiogram Patient (Last, First, Middle): Brayan Maza D Gender: Male Date of : 1970 Age: 53 Procedure Date: 04/02/2024 Procedure Type: Transesophageal Echocardiogram Location: OP Height: 172.72 cm Weight: kg Traffic Administrator: MILADIS Referring MD: Maury Ordonez MD Medical Resident: Maury Ordonez MD Symptoms: I63.9 - Cerebral infarction, unspecified Conclusion: ??? 1. No intracardiac shunting 2. No intracardiac masses, thrombi, vegetations 3. Normal LV ejection fraction of 60-65% 4. Mild mitral regurgitation 5. No significant atherosclerotic changes noted in the aorta 6. No gross pericardial effusion Findings Procedure Information Consent was obtained prior to the procedure. Pre KAMILAH oral cavity was checked and revealed no overcrowding. The adult 3D probe was passed with no difficulty. Left Ventricle Normal left ventricular size, thickness, and systolic function. The visually estimated ejection fraction is between 60-65%. There is no evidence of a mass in the left ventricle. Right Ventricle Normal right ventricular cavity size and systolic function. Atria The left atrium is normal in size. There is no evidence of a patent foramen ovale. There is no evidence of thrombus or mass in the left atrium. The left upper, left lower, right upper and right lower pulmonary veins were draining normally into the left atrium. There appears to be a right accessory pulmonary vein also. Left atrial appendage was identified him multiple views and there is no evidence of any thrombus. Left atrial appendage ejection velocities within normal limits. The right atrium is normal in size. There is no evidence of thrombus or mass in the right atrium. The IVC and SVC drain into right atrium normally. Aortic Valve Normal aortic valve structure and function. There is no evidence of a mass on the aortic valve. Mitral Valve Normal mitral valve structure and function. There is mild mitral valve regurgitation. There is no mitral valve stenosis. There is no mass noted on the mitral valve. Pulmonic Valve The pulmonic valve is normal. There is trace pulmonic valve regurgitation. Tricuspid Valve Normal tricuspid valve structure. There is trace tricuspid valve regurgitation. There is no evidence of a mass on the tricuspid valve. The right ventricular systolic pressure is not calculated. Great Vessels All visible segments of the aorta are normal in size. There is no evidence of plaque in the aorta. The visualized portions of the pulmonary artery and branches are normal. Venous The inferior vena cava is normal in size. Pericardium/Pleural There is no evidence of pericardial effusion. Updated by Maury Ordonez on 04:55 PM with Status of Final Maury Ordonez MD electronically signed on 04/02/2024 4:55:39 PM with status of Final
--- NOTE | 2024-04-02 14:07 | MHC.SHP ---
Pre-Procedural Eval Section A - 24 Hr Update-Section A only Date of Service: 04/02/24 The patient is an INPATIENT: No Changes since office visit: Yes Patient answered all questions; No Cold of Flu in the past 2 weeks, No New Medical Problems and No Changes in Medication The patient has been examined within 24 hours of the surgical procedure. The History & Physical has been completed within 30 days and I have reviewed it.: Yes Section B - Complete if H&P > 30 days Chief Complaint: Cerebrovascular disease, unspecified Allergies: Allergies Allergy/AdvReac Type Severity Reaction Status Date / Time Latex, Natural Rubber Allergy Mild Rash Verified 04/02/24 13:55 pseudoephedrine [Sudafed] AdvReac Intermediate dizziness, Verified 04/02/24 13:55 panic attacks Plan I have reviewed the history and physical and performed a pertinent physical examination on my patient. No changes have occurred unless specified. Time Spent With Patient Time: Total time managing care of this patient today ____ minutes.
== END 2024-04-02 16:00 | disposition home or self-care (01) ==
PROVIDERS: PCP Internal Medicine; Visit Provider Internal Medicine Cardiovascular Disease
PROC: (CPT 93312; principal; 2024-04-02 14:00)
DX: I63.9 Cerebral infarction, unspecified (principal); I34.0 Nonrheumatic mitral (valve) insufficiency; E11.22 Type 2 diabetes mellitus with diabetic chronic kidney disease; I12.9 Hypertensive chronic kidney disease with stage 1 through stage 4 chronic kidney disease, or unspecified chronic kidney disease; N18.30 Chronic kidney disease, stage 3 unspecified; Z85.528 Personal history of other malignant neoplasm of kidney; Z90.5 Acquired absence of kidney; E78.00 Pure hypercholesterolemia, unspecified; D69.6 Thrombocytopenia, unspecified; D75.1 Secondary polycythemia; E55.9 Vitamin D deficiency, unspecified; Z79.82 Long term (current) use of aspirin; Z79.4 Long term (current) use of insulin; Z79.84 Long term (current) use of oral hypoglycemic drugs; Z79.899 Other long term (current) drug therapy; Z88.8 Allergy status to other drugs, medicaments and biological substances; Z91.040 Latex allergy status; Z87.891 Personal history of nicotine dependence
CPT/HCPCS: 93312; 82947; J2003; J2250; J2704

== ENCOUNTER → 2024-04-02 13:35 | Outpatient (BNV) | payer OTHER, SELFPAY | PROVIDERS: PCP Internal Medicine; Visit Provider Internal Medicine Cardiovascular Disease | DX: I63.9 Cerebral infarction, unspecified (principal); I34.0 Nonrheumatic mitral (valve) insufficiency | CPT/HCPCS: 76376; 93312 ==

== ENCOUNTER → 2024-04-06 10:50 | Outpatient (REF) | payer OTHER, SELFPAY ==
--- NOTE | 2024-04-06 10:52 | HM_ITS ---
* Total procedure length 30 days. Wear time 23 days. * Underlying rhythm is sinus with an average rate of 76/Min. * Rare supraventricular ectopy. * Rare ventricular ectopy. * No symptoms mentioned. MTDD
== END ==
LOC: HO.CARD 10:50
PROVIDERS: PCP Internal Medicine; Visit Provider Internal Medicine Cardiovascular Disease
DX: I63.9 Cerebral infarction, unspecified (principal)
CPT/HCPCS: 93270

== ENCOUNTER → 2024-04-06 10:52 | Outpatient (BNV) | payer OTHER, SELFPAY | PROVIDERS: PCP Internal Medicine; Visit Provider Internal Medicine | DX: I47.10 Supraventricular tachycardia, unspecified (principal) | CPT/HCPCS: 93272 ==

== ENCOUNTER 2024-05-19 13:35 | Outpatient (AMB) | payer OTHER, SELFPAY ==
--- NOTE | 2024-05-19 13:43 | MHC.OFFVIS ---
Vital Signs 05/19/24 13:46 Height 5 ft 6 in Weight 165 lb 9.074 oz BMI 26.7 BP 138/68 Blood Pressure Location Rt brachial Position Sitting Pulse 86 Pulse Source Pulse Oximeter Intake Visit Reasons: DM/CONFIRMED Intake Note: Patient present today to follow up on Type 2 Diabetes Mellitus. Last Diabetic Eye exam: Due Last Podiatry Visit: Does not see a Sales Support Specialist Random Glucose: 136 mg/dl HgA1C: 7.9% 05/19/24 Wellness Rn Required: No Accompanied by: Self / Same As Patient Allergies Latex, Natural Rubber Allergy (Mild, Verified 05/19/24 13:47) Rash pseudoephedrine [Sudafed] Adverse Reaction (Intermediate, Verified 05/19/24 13:47) dizziness, panic attacks HPI Comments Details: 53 year old male with uncontrolled type 2 diabetes presenting for diabetes Medical history: CVA, htn, hld, solitary kidney-follows with dr Sauer Diagnosed with diabetes 2017 per patient In past year patient decided to go off medications and try to improve health with diet and exercise. In mid January restarted his former medications Toujeo 20 units and Trulicity. Just two weeks later he was admitted to [facility] [place], 02/19/24- 02/27/2024. He presenting for stroke like symptoms. A1C 12.6%. Head CT done at the ER revealed (+) wedge-shaped hypoattentuation in the left temporal lobe that suggests either an acute or subacute infarct. MRI did have findings consistent with an old infarct - (+) small chronic cortical infarct involving the left temporal lobe that was not present on his previous MRI from 08/06/2022. Received sliding scale insulin while hospitalized and discharged on Lantus 8 units as he had not been requiring high doses during hospitalization Current meds: Lantus 8 units, jardiance 10mg daily. Dexter downloaded and reviewed with fasting glucose 139-224. A1C improved from 12.6 to 7.9%. Macrovascular/microvascular complications: CVA Diet: low carbohydrate. Declines referral to perioperative educator or nutrition Family history of type 2 diabetes ROS CONSTITUTIONAL: Denies weight loss, fever and chills. HEENT: Denies changes in vision and hearing. RESPIRATORY: Denies SOB and cough. CV: Denies palpitations and CP GI: Denies abdominal pain, nausea, vomiting and diarrhea. : Denies dysuria and urinary frequency. MSK: Denies new myalgia and joint pain. SKIN: Denies rash and pruritus. NEUROLOGICAL: Denies headache PSYCHIATRIC: Denies recent changes in mood. PHYSICAL EXAM: GENERAL: Alert and oriented x 3. NAD EYES: EOMI. Anicteric. HENT: Moist mucous membranes. No scleral icterus. No cervical lymphadenopathy. LUNGS: Clear to auscultation bilaterally. CARDIOVASCULAR: Regular rate and rhythm. No murmur. No JVD. ABDOMEN: Soft, non-tender +bs EXTREMITIES: No edema. Non-tender. SKIN: No rashes or lesions. Warm. NEUROLOGIC: No focal neurological deficits. CN II-XII grossly intact PSYCHIATRIC: Cooperative. 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 Overweight (BMI 25.0-29.9) 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 disc herniation Vitamin D deficiency Polycythemia Thrombocytopenia Pure hypercholesterolemia Benign essential hypertension Chronic kidney disease (CKD), stage III (moderate) Surgical History Status post cervical discectomy (~09/04/16) History of right nephrectomy (~03/30/13) Family History Mother Hypertension Social History Household Members: Spouse Housing: House Do you presently have visiting nurse or other home services: No Alcohol intake: never Comment: pt low fall, calls appropriately for assistance OOB Patient Tobacco Use Status: Former Tobacco user e-Cigarette/Vaping Use: Never Used Second Hand Smoke Exposure: No Substance Use Type: Marijuana Advance Directives Date on File: 02/19/24 service: No Current occupational status: employed Cognitive needs: No Hearing needs: No Vision needs: Yes (glasses) Physical Exam Vital Signs: Last Vital Signs Pulse 86 05/19/24 13:46 BP 138/68 05/19/24 13:46 BMI result Body Mass Index 26.7 Results AMB Hemoglobin A1c AMB Hemoglobin A1c 7.9 % Last Edit by JESSI Alvarado on 05/19/24 14:12 Results Reviewed Results Reviewed: Laboratory Last Values Glucose (Clinic) 136 mg/dL (60-115) H 05/19/24 14:00 Assessment & Plan Assessment & Plan (1) Type 2 diabetes mellitus with diabetic chronic kidney disease: Code(s): E11.22 - Type 2 diabetes mellitus with diabetic chronic kidney disease Category: Medical Qualifiers: Diabetes mellitus prison insulin use: without prison use Chronic kidney disease stage: stage 3 (moderate) Chronic kidney disease stage 3 subtype: stage 3b (GFR 30-44) Qualified Code(s): E11.21 - Type 2 diabetes mellitus with diabetic nephropathy; N18.32 - Chronic kidney disease, stage 3b Plan: Improved glycemic control. Close to goal. Will increase lantus to 10u and 12 u if no BG < 70 Return in 3 months He is look for new ophtho Orders: Orders AMB Hemoglobin A1c Today E11.21 - Type 2 diabetes mellitus with diabetic nephropathy, N18.32 - Chronic kidney disease, stage 3b Medications: Changed From insulin glargine (Lantus U-100 Insulin) 8 units (0.08 mL) subcut DAILY 10 mL 0RF E11.21 - Type 2 diabetes mellitus with diabetic nephropathy, N18.32 - Chronic kidney disease, stage 3b To Lantus U-100 Insulin (insulin glargine) 12 units (0.12 mL) subcut DAILY 15 mL 3RF NS E11.21 - Type 2 diabetes mellitus with diabetic nephropathy, N18.32 - Chronic kidney disease, stage 3b Coding Level of Care Code Est Pt Level 4 (65825) Diagnoses Type 2 diabetes mellitus with stage 3b chronic kidney disease, without long-term current use of insulin E11.21; N18.32 Diabetes mellitus prison insulin use: without ocean transportation intermediary use Chronic kidney disease stage: stage 3 (moderate) Chronic kidney disease stage 3 subtype: stage 3b (GFR 30-44)
[2024-05-19 13:46] VITALS: BP 138/68; PULSE 86; BMI 26.7
[2024-05-19 14:06] LABS: Glucose, Whole Blood 136 mg/dL (60-115)
== END 2024-05-19 14:25 | disposition home or self-care (01) ==
PROVIDERS: PCP Internal Medicine; Visit Provider Internal Medicine
DX: E11.21 Type 2 diabetes mellitus with diabetic nephropathy (principal); N18.32 Chronic kidney disease, stage 3b

== ENCOUNTER → 2024-05-19 13:35 | Outpatient (BNVA) | payer OTHER, SELFPAY | PROVIDERS: PCP Internal Medicine; Visit Provider Internal Medicine | DX: E11.22 Type 2 diabetes mellitus with diabetic chronic kidney disease (principal); N18.32 Chronic kidney disease, stage 3b; E11.21 Type 2 diabetes mellitus with diabetic nephropathy | CPT/HCPCS: 82947; 83036; 99212 ==

== ENCOUNTER 2024-05-26 10:42 | Outpatient (AMB) | payer OTHER, SELFPAY ==
[2024-05-26 10:54] VITALS: BP 132/86; PULSE 86; O2SAT 98; BMI 26.5
--- NOTE | 2024-05-26 10:54 | A.OFFPC_ITS ---
Vital Signs 05/26/24 10:54 Height 5 ft 6 in Weight 164 lb BMI 26.5 BP 132/86 Blood Pressure Location Lt brachial Position Sitting Pulse 86 Pulse Source Pulse Oximeter Pulse Oximetry (%) 98 Oxygen Delivery Method Room Air Intake Visit Reasons: follow up Computer System Technician Required: No Accompanied by: Self / Same As Patient Allergies Latex, Natural Rubber Allergy (Mild, Verified 05/26/24 11:30) Rash pseudoephedrine [Sudafed] Adverse Reaction (Intermediate, Verified 05/26/24 11:30) dizziness, panic attacks Medication List - Last Reconciled 05/26/24 by Austin Luna MD amlodipine 5 mg (1/2 x 10 mg) PO DAILY 90 days aspirin 81 mg PO DAILY 90 days atorvastatin 40 mg PO BEDTIME blood pressure monitor As directed blood sugar diagnostic (FreeStyle Lite Strips) As directed empagliflozin (Jardiance) 10 mg PO DAILY flash glucose scanning reader (Data[employer]Style Dexter 14 Day [place]) As directed lancets (DatappraiseStyle Lancets) As directed Lantus U-100 Insulin (insulin glargine) 12 units (0.12 mL) subcut DAILY NS pen needle, diabetic (BD Katya 2nd Gen Pen Needle) once a day Tobacco use date assessed: 05/26/24 Dental Screening Dental Screen Date: 05/26/24 Did you have a dental visit in the last 12 months?: Yes Did you have a dental problem in the last 6 months where you did not have access to dental care?: No Was dental information given to patient?: Patient has dentist HPI follow up HPI Details Patient comes in today for his follow-up visit States that he feels okay He denies any headaches or dizziness Denies any chest pains, no increased shortness of breath No nausea/vomiting, no abdominal pain No change in bowel habits noted He has no follow-up labs done prior to his appointment today - states that he can go and get them done tomorrow morning if we order his labs today He was also recently seen by Dr. Galloway for Neurology clearance to return to work and states that he was cleared and he has been back at work for a few weeks now [facility] Medical History (Updated 05/30/24 @ 19:21 by Austin Luna MD) Cerebral infarction Chronic kidney disease (CKD), stage III (moderate) Type 2 diabetes mellitus with diabetic chronic kidney disease senior living (current) use of insulin Overweight (BMI 25.0-29.9) 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 disc herniation Vitamin D deficiency Polycythemia Thrombocytopenia Pure hypercholesterolemia Benign essential hypertension Surgical History Status post cervical discectomy (~09/04/16) History of right nephrectomy (~03/30/13) Family History Mother Hypertension Social History Household Members: Spouse Housing: House Do you presently have visiting nurse or other home services: No Alcohol intake: never Comment: pt low fall, calls appropriately for assistance OOB Patient Tobacco Use Status: Former Tobacco user e-Cigarette/Vaping Use: Never Used Second Hand Smoke Exposure: No Substance Use Type: Marijuana Advance Directives Date on File: 02/19/24 service: No Current occupational status: employed Cognitive needs: No Hearing needs: No Vision needs: Yes (glasses) Questionnaire PHQ-9 Over the last 2 weeks, how often have you been bothered by any of the following problems? 1. Little interest or pleasure in doing things: not at all 2. Feeling down, depressed, or hopeless: not at all 3. Trouble falling or staying asleep, or sleeping too much: not at all 4. Feeling tired or having little energy: not at all 5. Poor appetite or overeating: not at all 6. Feeling bad about yourself - or that you are a failure or have let yourself or your family down: not at all 7. Trouble concentrating on things, such as reading the newspaper or watching television: not at all 8. Moving or speaking so slowly that other people could have noticed. Or the opposite - being so fidgety or restless that you have been moving around a lot more than usual: not at all 9. Thoughts that you would be better off or of hurting yourself in some way: not at all Total score: 0 Depression Screening Interpretation: Negative Depression Screening Done: Yes 00869 - PHQ-9 Billing: Yes Source: Developed by Drs. Korey Izaguirre, Johnson Mclean and colleagues, with an educational alvaro from [employer]. Thrive Questionnaire Date Thrive assessed: 05/26/24 I am a: Patient What is your living situation today?: I have a steady place to live Within the past 12 months, did the food you bought not last and you didn't have the money to get more?: Never true Within the past 12 months, did you worry whether your food would run out before you got money to buy more?: Never true Do you have trouble paying for medicines?: No Do you have trouble getting transportation to medical appointments?: No Do you have trouble paying your heating and electricity bill?: No Do you have trouble taking care of your child, family member or friend?: No Do you have trouble with day-to-day activities such as bathing, preparing meals, shopping, managing finances, etc.?: No Are you currently unemployed and looking for a job?: No Are you interested in more education?: No Please select the resources that you would like help with: None Currently or been in a relationship where the following occur: No concerns reported THRIVE Score: 0 AUDIT C Alcohol Use Questionnaire (AUDIT-C) 1. How often do you have a drink containing alcohol?: Never 3. How often do you have six or more drinks on one occasion?: Never Total Score: 0 Score Reviewed/Action Taken: Yes RYAN-7 AMB Questionnaire RYAN-7 Date RYAN - 7 assessed: 05/26/24 Feeling nervous, anxious, or on edge: 0 = Not at all Not being able to stop or control worryin = Not at all Worrying too much about different things: 0 = Not at all Trouble relaxin = Not at all Being so restless that it is hard to sit still: 0 = Not at all Becoming easily annoyed or irritable: 0 = Not at all Feeling afraid as if something awful might happen: 0 = Not at all Total RYAN-7 score (0-4 normal; 5-9 mild; 10-14 moderate; 15-21 severe): 0 Source: Developed by Drs. Korey Izaguirre, Johnson Mclean and colleagues, with an educational alvaro from [employer]. RYAN-7 Assessment Billing RYAN-7 Assessment Tool: RYAN-7 Assessment 78041 Review of Systems Const Denies chills, Denies fatigue, Denies fever(s) and Denies headache(s) ENT Denies dysphagia, Denies dizziness, Denies otalgia, Denies headache(s), Denies neck pain, Denies odynophagia and Denies sore throat Card Denies chest pain, Denies palpitations and Denies dyspnea Resp Denies chest congestion, Denies cough and Denies dyspnea GI Denies abdominal pain, Denies constipation, Denies dysphagia, Denies heartburn, Denies diarrhea, Denies nausea, Denies odynophagia and Denies vomiting Denies difficulty urinating, Denies dysuria, Denies nocturia and Denies urinary frequency Musc Denies back pain, Denies muscle weakness and Denies neck pain Skin/Breast Denies rash Neuro Denies dizziness, Denies headache(s), Denies focal weakness and Denies memory loss Psych Denies memory loss Endo Denies fatigue and Denies palpitations Physical exam (Primary Care) Vital Signs: Last Vital Signs Pulse 86 05/26/24 10:54 BP 132/86 05/26/24 10:54 Pulse Ox 98 05/26/24 10:54 Oxygen Delivery Method Room Air 05/26/24 10:54 BMI result Body Mass Index 26.5 Tobacco/Smoking Status: Tobacco use Status Tobacco use date assessed 05/26/24 05/26/24 11:00 Patient Tobacco Use Status Former Tobacco user 05/26/24 11:00 e-Cigarette/Vaping Use Never Used 05/26/24 11:00 PHQ-9: PHQ-9 Score PHQ-9: Total score 0 05/26/24 11:34 Depression Screening Interpretation: Negative Thrive Assessment: Date of Thrive Assessment Date Thrive assessed 05/26/24 05/26/24 11:00 Currently or been in a relationship where the following occur: No concerns reported Const General: no acute distress and alert Orientation/consciousness: patient oriented x3 HENMT Throat: Yes posterior oropharynx normal and Yes tonsils normal (no TP congestion) Neck Neck: Yes no lymphadenopathy and Yes supple Thyroid: Thyroid normal Resp Auscultation: clear to auscultation bilaterally, no rales and no wheezes Cardio Rate: regular rate Rhythm: regular rhythm Heart sounds: no murmurs GI Palpation (GI): Soft to palpation and nontender Auscultation: normal bowel sounds General: Yes no CVA tenderness Back/Spine/Pelvis Back: no CVA tenderness Thoracic/Lumbar Spine: No lumbar spinal tenderness Skin Rashes: no rashes Neuro General: patient oriented x3, moves all extremities and no focal motor deficits Extrem General: Yes no clubbing, cyanosis or edema Coding Level of Care Code Est Pt Level 4 (76332) Complex EM visit Add On G2211 Diagnoses Cerebral infarction due to embolism of left middle cerebral artery I63.412 Cerebral infarction mechanism: embolism Precerebral and cerebral artery: middle cerebral artery Laterality of affected vessel: left Migraine equivalent syndrome G43.109 Elevated LFTs R79.89 Type 2 diabetes mellitus with stage 3b chronic kidney disease, without long-term current use of insulin E11.21; N18.32 Diabetes mellitus alf insulin use: without alf use Chronic kidney disease stage: stage 3 (moderate) Chronic kidney disease stage 3 subtype: stage 3b (GFR 30-44) Stage 3b chronic kidney disease N18.32 Chronic kidney disease stage 3 subtype: stage 3b (GFR 30-44) Benign essential hypertension I10 Pure hypercholesterolemia E78.00 Nonintractable epilepsy without status epilepticus, unspecified epilepsy type G40.909 Epilepsy type: unspecified Intractability: not intractable Status epilepticus: without status epilepticus Thrombocytopenia D69.6 Renal cell carcinoma of right kidney C64.1 Vitamin D deficiency E55.9 Cervical disc herniation M50.20 Overweight (BMI 25.0-29.9) E66.3 Additional Codes RYAN-7 Assessment Billing - RYAN-7 Assessment Tool: RYAN-7 Assessment 48426 ([id number]) PHQ-9 - 92482 - PHQ-9 Billing: Yes ([id number]) Assessment & Plan Assessment & Plan (1) Cerebral infarction: Code(s): I63.9 - Cerebral infarction, unspecified Category: Medical Qualifiers: Cerebral infarction mechanism: embolism Precerebral and cerebral artery: middle cerebral artery Laterality of affected vessel: left Qualified Code(s): I63.412 - Cerebral infarction due to embolism of left middle cerebral artery Plan: MRI of the brain done on 02/19/2024 revealed (+) small chronic cortical infarct involving the left temporal lobe that is new when compared to prior MR imaging of the brain from 08/06/2022. There were a few scattered chronic small vessel ischemic changes visualized within the periventricular white matter but no evidence of acute territorial infarct or hemorrhage MRA of the brain came out normal EEG was also normal He was seen by neurology and was advised that his recent symptoms were likely due to migraine (migraine equivalent) rather than an acute CVA but was reportedly advised to see cardiology about getting a KAMILAH done for completion of his evaluation He had a KAMILAH, Holter monitor and cardiac event monitor done a couple months ago and all of his evaluations came back normal Continue Aspirin 81 mg QD Follow up with neurology as scheduled - he was seen by Dr. Galloway a few weeks ago and was cleared to return to work Patient states that he has been back at work for a few weeks now without any problems (2) Migraine equivalent syndrome: Code(s): G43.109 - Migraine with aura, not intractable, without status migrainosus Category: Medical Plan: He has been advised by neurology that his neurologic symptoms a few months ago were likely due to migraine He is currently NOT taking anything prescribed for migraine headaches regularly - states that he has not been experiencing any significant bouts of headaches lately Follow up with neurology as scheduled (3) Elevated LFTs: Code(s): R79.89 - Other specified abnormal findings of blood chemistry Category: Medical Plan: His LFTs were elevated significantly on his labs done a few months ago His Atorvastatin was lowered from 80 mg to 40 mg QD as a result Will have patient recheck his LFTs TERESO for follow up and will continue to monitor his LFTs regularly (4) Type 2 diabetes mellitus with diabetic chronic kidney disease: Code(s): E11.22 - Type 2 diabetes mellitus with diabetic chronic kidney disease Category: Medical Qualifiers: Diabetes mellitus roasterman insulin use: without roasterman use Chronic kidney disease stage: stage 3 (moderate) Chronic kidney disease stage 3 subtype: stage 3b (GFR 30-44) Qualified Code(s): E11.21 - Type 2 diabetes mellitus with diabetic nephropathy; N18.32 - Chronic kidney disease, stage 3b Plan: His in-office HgbA1c was at 7.9% a couple of weeks ago (was at 14.9% back in January 2024) - goal is at least <7.0% Reinforced diabetic diet Continue Lantus 12 units SQ Q HS and Jardiance 10mg QD Follow up with endocrinology as scheduled (5) Chronic kidney disease (CKD), stage III (moderate): Code(s): N18.30 - Chronic kidney disease, stage 3 unspecified Category: Medical Qualifiers: Chronic kidney disease stage 3 subtype: stage 3b (GFR 30-44) Qualified Code(s): N18.32 - Chronic kidney disease, stage 3b Plan: His renal function has been stable when last checked in February 2024 - GFR was still at 43 at the time Have again reminded him that improved diabetes control will help keep his kidney function stable, which is important as he only has one (left) functioning kidney - s/p right nephrectomy due to RCC Follow up with nephrology in [place] as scheduled (6) Benign essential hypertension: Code(s): I10 - Essential (primary) hypertension Category: Medical Plan: Reinforced low-sodium diet -? goal is systolic BP of 120 mm or less Continue Amlodipine 5 mg QD; HCTZ was previously discontinued due to renal insufficiency (7) Pure hypercholesterolemia: Code(s): E78.00 - Pure hypercholesterolemia, unspecified Category: Medical Plan: Reinforced low cholesterol diet He used to be Rosuvastatin 40 mg QD but he stopped taking this on his own a couple of years ago - his LDL cholesterol was up to 179 mg/dl back in early January 2024 He was started then on Atorvastatin 80 mg but this was eventually lowered to 40 mg QD a few weeks later due to elevated LFTs His LDL cholesterol improved to 75 mg/dl a few weeks later before his dose was cut in half Will have him now recheck his labs and fasting lipids [facility] for follow up (8) Epilepsy: Code(s): G40.909 - Epilepsy, unspecified, not intractable, without status epilepticus Category: Medical Qualifiers: Epilepsy type: unspecified Intractability: not intractable Status epilepticus: without status epilepticus Qualified Code(s): G40.909 - Epilepsy, unspecified, not intractable, without status epilepticus Plan: Repeat EEG done a few months ago reportedly came out normal; he also had a normal EEG about a year ago when he had TIA back in June 2022 He was supposed to be on Carbamazepine 200 mg BID but he has not been taking this for a while now He reports NO recurrence of his seizures lately Follow up with neurology as scheduled (9) Thrombocytopenia: Code(s): D69.6 - Thrombocytopenia, unspecified Category: Medical Plan: Patient's platelet count has been slightly lower than normal for over a year but his overall numbers have been stable previously Abdominal ultrasound done a couple of years ago showed only (+) cholelithiasis with no obstruction, splenomegaly or any other acute findings His most recent CBC done a few months ago showed a NORMAL platelet count of [id number] Will recheck his CBC for follow up (10) Renal cell carcinoma of right kidney: Comment: S/P right nephrectomy 03/30/2013 Code(s): C64.1 - Malignant neoplasm of right kidney, except renal pelvis Category: Medical Plan: S/P right nephrectomy back in 2012 for right renal cell carcinoma Follow up with urology as scheduled (11) Vitamin D deficiency: Code(s): E55.9 - Vitamin D deficiency, unspecified Category: Medical Plan: His Vitamin D level was still slightly low when last checked in January 2024 Continue Vitamin D3 2000 units QD Will recheck his Vitamin D level for follow up (12) Cervical disc herniation: Code(s): M50.20 - Other cervical disc displacement, unspecified cervical region Category: Medical Plan: S/P ACDF of C6-C7 vertebrae by Dr. Renee on 09/04/2016 with significant improvement of his previous neck symptoms (13) Overweight (BMI 25.0-29.9): Code(s): E66.3 - Overweight Category: Medical Plan: Reinforced diet/exercise as tolerated/lose weight Plan Follow up in 4 months Orders: Orders Comprehensive [place]. Panel Fast 05/27/24 E78.00 - Pure hypercholesterolemia, unspecified Lipid Panel 05/27/24 E78.00 - Pure hypercholesterolemia, unspecified Microalbumin, Random (w Creat) 05/27/24 E11.9 - Type 2 diabetes mellitus without complications TSH reflex Free T4 05/27/24 E78.00 - Pure hypercholesterolemia, unspecified UA CC w/rflx Micro + Cult 05/27/24 R30.0 - Dysuria Lipid Panel 4 Months E78.00 - Pure hypercholesterolemia, unspecified Microalbumin, Random (w Creat) 4 Months E11.9 - Type 2 diabetes mellitus without complications TSH reflex Free T4 4 Months E78.00 - Pure hypercholesterolemia, unspecified Vitamin D 25-OH Total 05/27/24 E55.9 - Vitamin D deficiency, unspecified Complete Blood Count Auto Diff 05/27/24 D64.9 - Anemia, unspecified Magnesium 05/27/24 E83.42 - Hypomagnesemia Complete Blood Count Auto Diff 4 Months D64.9 - Anemia, unspecified Comprehensive [place]. Panel Fast 4 Months E78.00 - Pure hypercholesterolemia, unspecified Hemoglobin A1c 4 Months E11.9 - Type 2 diabetes mellitus without complications UA CC w/rflx Micro + Cult 4 Months R30.0 - Dysuria Vitamin D 25-OH Total 4 Months E55.9 - Vitamin D deficiency, unspecified
== END 2024-05-26 11:40 | disposition home or self-care (01) ==
PROVIDERS: PCP Internal Medicine; Visit Provider Internal Medicine
DX: I12.9 Hypertensive chronic kidney disease with stage 1 through stage 4 chronic kidney disease, or unspecified chronic kidney disease (principal); E11.21 Type 2 diabetes mellitus with diabetic nephropathy; I63.412 Cerebral infarction due to embolism of left middle cerebral artery; N18.32 Chronic kidney disease, stage 3b; G40.909 Epilepsy, unspecified, not intractable, without status epilepticus; D69.6 Thrombocytopenia, unspecified; C64.1 Malignant neoplasm of right kidney, except renal pelvis; G43.109 Migraine with aura, not intractable, without status migrainosus; E78.00 Pure hypercholesterolemia, unspecified; E55.9 Vitamin D deficiency, unspecified; M50.20 Other cervical disc displacement, unspecified cervical region; E66.3 Overweight

== ENCOUNTER → 2024-05-26 10:42 | Outpatient (BNVA) | payer OTHER, SELFPAY | PROVIDERS: PCP Internal Medicine; Visit Provider Internal Medicine | DX: I63.412 Cerebral infarction due to embolism of left middle cerebral artery (principal); G43.109 Migraine with aura, not intractable, without status migrainosus; R79.89 Other specified abnormal findings of blood chemistry; I12.9 Hypertensive chronic kidney disease with stage 1 through stage 4 chronic kidney disease, or unspecified chronic kidney disease; E11.22 Type 2 diabetes mellitus with diabetic chronic kidney disease; N18.32 Chronic kidney disease, stage 3b; E11.21 Type 2 diabetes mellitus with diabetic nephropathy; E78.00 Pure hypercholesterolemia, unspecified; G40.909 Epilepsy, unspecified, not intractable, without status epilepticus; D69.6 Thrombocytopenia, unspecified | CPT/HCPCS: 96127; 99212 ==

== ENCOUNTER 2024-05-27 06:53 | Outpatient (REF) | payer OTHER, SELFPAY ==
[2024-05-27 07:05] LABS: MANUAL DIFF FLAG NO
[2024-05-27 07:28] LABS: Basophils Percent Auto 0.6 % (0-2); Eosinophils Absolute Auto 0.1 X10*3/uL (0.0-0.4); Eosinophils Percent Auto 1.1 % (0-4); Hematocrit 45.6 % (42.0-52.0); Hemoglobin 15.6 g/dl (14.0-18.0); Imm Gran Abs Auto 0.01 X10*3/uL (0.00-0.03); Imm Gran Pct Auto 0.2 % (0.0-0.4); Lymphocytes Absolute Auto 1.7 X10*3/uL (1.2-4.9); Lymphocytes Percent Auto 25.3 % (20-40); Mean Corpuscular HGB Conc 34.2 g/dl (31.0-36.0); Mean Corpuscular Hemoglobin 29.2 pg (27.0-33.0); Mean Corpuscular Volume 85.2 fL (80.0-98.0); Mean Platelet Volume 11.9 fL (9.4-12.4); Monocytes Absolute Auto 0.6 X10*3/uL (0.1-1.2); Monocytes Percent Auto 9.3 % (2-11); Neutrophils Absolute Auto 4.2 x10*3/uL (2.0-8.3); Neutrophils Percent Auto 63.5 % (45-73); Platelet Count 126 X10*3/uL (160-400); Red Blood Count 5.35 X10*6/uL (4.60-5.80); Red Cell Distribution Width 12.4 % (11.0-16.0); White Blood Count 6.6 X10*3/uL (4.8-10.8)
[2024-05-27 07:46] LABS: Creatinine Urine 36.37 mg/dL; Microalbum/Creatinine Ratio Ur 65.9 ug/mg cr (<30)
[2024-05-27 08:00] LABS: Alanine Aminotransferase 57 U/L (0-40); Albumin Level 4.1 g/dL (3.5-5.0); Alkaline Phosphatase 133 U/L (39-117); Anion Gap 11 (12-20); Aspartate Amino Transferase 39 U/L (5-37); Bilirubin Total 0.3 mg/dL (0.0-1.0); Blood Urea Nitrogen 37 mg/dL (9-16); Carbon Dioxide 19 mmol/L (22-29); Chloride 114 mmol/L (96-108); Cholesterol 140 mg/dL (<200); Estimated Glomerular Filt Rate 34; Glucose Fasting 319 mg/dL (60-99); HDL Cholesterol 42 mg/dL (>40); LDL Cholesterol Calculated 70 mg/dL (<100); Magnesium 2.4 mg/dL (1.6-2.6); Sodium 140 mmol/L (135-145); Total Protein 6.3 g/dL (6.5-8.0); Triglycerides 142 mg/dL (<150)
[2024-05-27 08:00] LABS: Appearance Urine Clear; Color Urine Yellow; Glucose Urine UA >=1000 mg/dL (Negative); Leukocyte Esterase Urine Negative (Negative); Nitrite Urine Negative (Negative); PH 5.5 (5.0-9.0); Specific Gravity - Urine 1.025 (1.005-1.025); UMIC TRIGGER UACC YES; Urine Blood Negative (Negative); Urine Ketones Negative (Negative); Urine Protein Negative (Neg-Trace)
[2024-05-27 08:07] LABS: TSH reflex Free T4 1.47 uIU/mL (0.32-4.0); Vitamin D 25-OH Total 19.2 ng/mL (>30)
[2024-05-27 08:15] LABS: Bacteria Urine None Seen (None Seen); Hyaline Casts Urine 0-2 /LPF (0-2); RBC Urine 0-2 /HPF (0-2); Squamous Epithelial Cell Urine 0-2 /HPF (0-2); WBC Urine 0-5 /HPF (0-5)
== END 2024-05-27 06:54 | disposition home or self-care (01) ==
LOC: HO.LAB 06:53
PROVIDERS: PCP Internal Medicine; Visit Provider Internal Medicine
DX: R79.89 Other specified abnormal findings of blood chemistry (principal); E11.9 Type 2 diabetes mellitus without complications; D64.9 Anemia, unspecified; E83.42 Hypomagnesemia; E78.00 Pure hypercholesterolemia, unspecified
CPT/HCPCS: 36415; 80053; 80061; 81001; 81003; 82043; 82306; 82570; 83735; 84443; 85025

== ENCOUNTER 2024-06-30 14:57 | Outpatient (AMB) | payer OTHER, SELFPAY ==
--- NOTE | 2024-06-30 14:58 | A.OFFVIS_ITS ---
Vital Signs 06/30/24 14:59 Height 5 ft 6 in Weight 165 lb 5.547 oz BMI 26.7 BP 124/74 Blood Pressure Location Lt brachial Position Sitting Pulse 79 Intake Visit Reasons: 3 mth f/up beckie/ w/ bubble 30 day Intake Note: Follow-up after beckie and 30 day monitor feeling good Watch Train Inspector Required: No Allergies Latex, Natural Rubber Allergy (Mild, Verified 05/26/24 11:30) Rash pseudoephedrine [Sudafed] Adverse Reaction (Intermediate, Verified 05/26/24 11:30) dizziness, panic attacks Medication List - Last Reconciled 06/30/24 by Maury Ordonez MD amlodipine 5 mg (1/2 x 10 mg) PO DAILY 90 days aspirin 81 mg PO DAILY 90 days atorvastatin 40 mg PO BEDTIME 90 days blood pressure monitor As directed blood sugar diagnostic (FreeStyle Lite Strips) As directed empagliflozin (Jardiance) 25 mg PO DAILY flash glucose scanning reader ([employer]Style Dexter 14 Day [place]) As directed lancets (FreeStyle Lancets) As directed Lantus U-100 Insulin (insulin glargine) 12 units (0.12 mL) subcut DAILY NS pen needle, diabetic (BD Katya 2nd Gen Pen Needle) once a day HPI Comments Details: rBayan comes for follow-up. No new complaints. Workup so far including a 30 day event monitor and BECKIE were within normal limits with no obvious etiology. He has not had any new neurologic deficits. Takes all his medications. Diabetes under better control. [facility] Medical History Cerebral infarction Chronic kidney disease (CKD), stage III (moderate) Type 2 diabetes mellitus with diabetic chronic kidney disease [facility] (current) use of insulin Overweight (BMI 25.0-29.9) 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 disc herniation Vitamin D deficiency Polycythemia Thrombocytopenia Pure hypercholesterolemia Benign essential hypertension Surgical History Status post cervical discectomy (~09/04/16) History of right nephrectomy (~03/30/13) Family History Mother Hypertension Social History Household Members: Spouse Housing: House Do you presently have visiting nurse or other home services: No Alcohol intake: never Comment: pt low fall, calls appropriately for assistance OOB Patient Tobacco Use Status: Former Tobacco user e-Cigarette/Vaping Use: Never Used Second Hand Smoke Exposure: No Substance Use Type: Marijuana Advance Directives Date on File: 02/19/24 service: No Current occupational status: employed Cognitive needs: No Hearing needs: No Vision needs: Yes (glasses) Review of Systems Const Denies chills, Denies fatigue, Denies fever(s), Denies frequent falls, Denies weakness, Denies weight gain and Denies weight loss ENT Denies dizziness Card Denies chest pain, Denies leg edema, Denies lightheadedness, Denies palpitations, Denies dyspnea, Denies dyspnea on exertion, Denies orthopnea and Denies other (loss of consciousness) Resp Denies cough, Denies dyspnea and Denies dyspnea on exertion GI Denies hematochezia and Denies change in stool character Musc Denies abnormal gait, Denies muscle weakness, Denies numbness, Denies radiating pain into limb and Denies tingling Neuro Denies Abnormal speech present, Denies abnormal gait, Denies dizziness, Denies frequent falls, Denies numbness, Denies tingling and Denies weakness Endo Denies fatigue and Denies palpitations Physical Exam Vital Signs: Last Vital Signs Pulse 79 06/30/24 14:59 BP 124/74 06/30/24 14:59 BMI result Body Mass Index 26.7 Const General: cooperative, comfortable, no acute distress, alert and awake Nutritional Appearance: average body habitus Orientation/consciousness: patient oriented x3 Limitations: no limitations HEENT Head: Yes normocephalic and Yes atraumatic Neck Neck: Yes trachea midline, Yes supple and Yes no JVD Resp Effort & Inspection: normal respiratory effort Auscultation: clear to auscultation bilaterally Cardio Jugular venous distension: no JVD Palpation: normal PMI Rate: regular rate Rhythm: regular rhythm Heart sounds: S1 normal heart sound present, S2 normal heart sound present, no click, no gallops, no murmurs and no rubs GI Auscultation: normal bowel sounds Skin General skin exam: no rashes or lesions noted Neuro General: patient oriented x3 and no focal motor deficits Speech: No Abnormal speech present Extrem General: Yes no clubbing, cyanosis or edema Assessment & Plan Assessment & Plan (1) CVA (cerebral vascular accident): Code(s): I63.9 - Cerebral infarction, unspecified Category: Medical Plan: Patient with CVA with obvious significant risk factor of diabetes. This is under better control. Importance of aggressive medical therapy was discussed. Continue aggressive diabetes control goal hemoglobin A1c less than 7%. Continue lifelong aspirin therapy although there is still risk for atrial fibrillation. We discussed about potentially implanted implantable loop recorder to detect for asymptomatic atrial fibrillation. He will monitor think about it. Risks and benefits were discussed. Continue high-intensity statin therapy with target goal LDL closer to 55 mg/dL. Will follow up in the clinic if need be. Thank you for allowing me to partake in his care Coding Level of Care Code Est Pt Level 4 (50730) Complex EM visit Add On G2211 Diagnoses CVA (cerebral vascular accident) I63.9
[2024-06-30 14:59] VITALS: BP 124/74; PULSE 79; BMI 26.7
== END 2024-06-30 15:24 | disposition home or self-care (01) ==
PROVIDERS: PCP Internal Medicine; Visit Provider Internal Medicine Cardiovascular Disease
DX: I63.9 Cerebral infarction, unspecified (principal)
CPT/HCPCS: 99214; G2211

== ENCOUNTER → 2024-06-30 14:57 | Outpatient (BNVA) | payer OTHER, SELFPAY | PROVIDERS: PCP Internal Medicine; Visit Provider Internal Medicine Cardiovascular Disease | DX: I63.9 Cerebral infarction, unspecified (principal) | CPT/HCPCS: 99212 ==

== ENCOUNTER 2024-08-19 15:57 | Outpatient (AMB) | payer OTHER, SELFPAY ==
--- NOTE | 2024-08-19 16:01 | A.OFFVIS_ITS ---
Vital Signs 08/19/24 16:02 Height 5 ft 6 in Weight 165 lb 5.547 oz BMI 26.7 BP 130/60 Blood Pressure Location Rt brachial Position Sitting Pulse 75 Pulse Oximetry (%) 98 Oxygen Delivery Method Room Air Intake Visit Reasons: DM Intake Note: Patient presents today for a follow-up on Type 2 Diabetes Mellitus: Last Diabetic eye exam was on: DUE Last Podiatry exam was on: Does not see a Staking Press Operator Most recent HbA1c: 7.3%, 08/19/2024 Random Glucose- 120 mg/dL, Today Television Repair Teacher Required: No Accompanied by: Other Relationship Allergies Latex, Natural Rubber Allergy (Mild, Verified 08/19/24 16:02) Rash pseudoephedrine [Sudafed] Adverse Reaction (Intermediate, Verified 08/19/24 16:02) dizziness, panic attacks PFSH Medical History Cerebral infarction Chronic kidney disease (CKD), stage III (moderate) Type 2 diabetes mellitus with diabetic chronic kidney disease 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 Overweight (BMI 25.0-29.9) 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 disc herniation Vitamin D deficiency Polycythemia Thrombocytopenia Pure hypercholesterolemia Benign essential hypertension Surgical History Status post cervical discectomy (~09/04/16) History of right nephrectomy (~03/30/13) Family History Mother Hypertension Social History Household Members: Spouse Housing: House Do you presently have visiting nurse or other home services: No Alcohol intake: never Comment: pt low fall, calls appropriately for assistance OOB Patient Tobacco Use Status: Former Tobacco user e-Cigarette/Vaping Use: Never Used Second Hand Smoke Exposure: No Substance Use Type: Marijuana Advance Directives Date on File: 02/19/24 service: No Current occupational status: employed Cognitive needs: No Hearing needs: No Vision needs: Yes (glasses) Physical Exam Vital Signs: Last Vital Signs Pulse 75 08/19/24 16:02 BP 130/60 08/19/24 16:02 Pulse Ox 98 08/19/24 16:02 Oxygen Delivery Method Room Air 08/19/24 16:02 BMI result Body Mass Index 26.7 Results AMB Hemoglobin A1c AMB Hemoglobin A1c 7.3 % Last Edit by JESSI Gaines on 08/19/24 16:20 Results Reviewed Results Reviewed: Laboratory Last Values Glucose (Clinic) 120 mg/dL (60-115) H 08/19/24 16:06 Assessment & Plan Assessment & Plan Orders: Orders AMB Hemoglobin A1c Today E11.21 - Type 2 diabetes mellitus with diabetic nephropathy, N18.32 - Chronic kidney disease, stage 3b Medications: New Ozempic (semaglutide) for 4 weeks 0.25 mg (0.368 mL) subcut QWEEK 9 mL 3RF NS E11.21 - Type 2 diabetes mellitus with diabetic nephropathy, N18.32 - Chronic kidney disease, stage 3b Coding
[2024-08-19 16:02] VITALS: BP 130/60; PULSE 75; O2SAT 98; BMI 26.7
[2024-08-19 16:10] LABS: Glucose, Whole Blood 120 mg/dL (60-115)
--- OUTSIDE RECORDS SUMMARY | 2024-08-19 19:11 | XMS_ITS | Encounter Summary ---
Author Organization [facility] Address [address] [place] [address] Phone Care Team Providers Care Data Base Administrator Name Role Phone Austin Luna MD Primary Care Provider +1- [phone] Encounter Details Date Type Department Care Team (Late st Contact Info) Description 03/04/2024 Documentation Only [facility] [place], [address] [place] [address] [address] [place] [address] Social History Tobacco Use Types Packs/Day Years Used Date Smoking Tobacco: Former Cigarettes Smokeless Tobacco: Never Comments:Smoking History Inf o:Some days Alcohol Use Standard Drinks/Week Comments No 0 (1 standard drink = 0.6 oz pur e alcohol) Sex and Gender Information Value Date Recorded Sex Assigned at Not on file Legal Sex Male 4:33 PM EST Gender Identity Not on file Sexual Orientation Not on file documented as of this encounter Plan of Treatment Not on file documented as of this encounter Visit Diagnoses Not on filedocumented in this encounter Care Teams Data Base Administrator Relationship Specialty Start Date End Date Austin Luna MD [address] [place] [address] PCP - General 07/03/20 documented as of this encounter
--- OUTSIDE RECORDS SUMMARY | 2024-08-19 19:11 | XMS_ITS | Encounter Summary ---
Author Organization [facility] Address [address] [place] [address] Phone Care Team Providers Care Automobile Radio Repairer Name Role Phone Austin Luna MD Primary Care Provider +1- [phone] Encounter Details Date Type Department Care Team (Late st Contact Info) Description 03/04/2024 Documentation Only [facility] [place], [address] [place] [address] [address] [place] [address] Social History Tobacco Use Types [...] on filedocumented in this encounter Care Teams Automobile Radio Repairer Relationship Specialty Start Date End Date Austin Luna MD [address] [place] [address] PCP - General 07/03/20 documented as of this encounter
--- OUTSIDE RECORDS SUMMARY | 2024-08-19 19:11 | XMS_ITS | Encounter Summary ---
Author Organization [facility] Address [address] [place] [address] Phone Care Team Providers Care Subway Operator Name Role Phone Austin Luna MD Primary Care Provider +1- [phone] Encounter Details Date Type Department Care Team (Late st Contact Info) Description 08/19/2023 Documentation Only [facility] [place], [address] [place] [address] [address] [place] [address] Social History Tobacco Use Types Packs/Day Years Used Date Smoking Tobacco: Former Comments:Smoking History Inf o:Some days Alcohol Use [...] on filedocumented in this encounter Care Teams Subway Operator Relationship Specialty Start Date End Date Austin Luna MD [address] [place] [address] PCP - General 07/03/20 documented as of this encounter
--- OUTSIDE RECORDS SUMMARY | 2024-08-19 19:11 | XMS_ITS | Encounter Summary ---
Author Organization [facility] Address [address] [place] [address] Phone Care Team Providers Care Pick Up Truck Driver Name Role Phone Austin Luna MD Primary Care Provider +1- [phone] Encounter Details Date Type Department Care Team (Late st Contact Info) Description 03/04/2024 Documentation Only [facility] [place], [address] [place] [address] [address] [place] [address] Social History Tobacco Use Types [...] on filedocumented in this encounter Care Teams Pick Up Truck Driver Relationship Specialty Start Date End Date Austin Luna MD [address] [place] [address] PCP - General 07/03/20 documented as of this encounter
--- OUTSIDE RECORDS SUMMARY | 2024-08-19 19:11 | XMS_ITS | Encounter Summary ---
Author Organization [facility] Address [address] [place] [address] Phone Care Team Providers Care Room Service Clerk Name Role Phone Austin Luna MD Primary Care Provider +1- [phone] Encounter Details Date Type Department Care Team (Late st Contact Info) Description 03/04/2024 Documentation Only [facility] [place], [address] [place] [address] [address] [place] [address] Social History Tobacco Use Types [...] on filedocumented in this encounter Care Teams Room Service Clerk Relationship Specialty Start Date End Date Austin Luna MD [address] [place] [address] PCP - General 07/03/20 documented as of this encounter
--- OUTSIDE RECORDS SUMMARY | 2024-08-19 19:11 | XMS_ITS | Encounter Summary ---
Author Organization [facility] Address [address] [place] [address] Phone Care Team Providers Care Instructor Looping Name Role Phone Austin Luna MD Primary Care Provider +1- [phone] Encounter Details Date Type Department Care Team (Late st Contact Info) Description 03/04/2024 Documentation Only [facility] [place], [address] [place] [address] [address] [place] [address] Social History Tobacco Use Types [...] on filedocumented in this encounter Care Teams Instructor Looping Relationship Specialty Start Date End Date Austin Luna MD [address] [place] [address] PCP - General 07/03/20 documented as of this encounter
--- OUTSIDE RECORDS SUMMARY | 2024-08-19 19:11 | XMS_ITS | Encounter Summary ---
Author Organization [facility] Address [address] [place] [address] Phone Care Team Providers Care Patient Sitter Name Role Phone Austin Luna MD Primary Care Provider +1- [phone] Encounter Details Date Type Department Care Team (Late st Contact Info) Description 03/04/2024 Documentation Only [facility] [place], [address] [place] [address] [address] [place] [address] Social History Tobacco Use Types [...] on filedocumented in this encounter Care Teams Patient Sitter Relationship Specialty Start Date End Date Austin Luna MD [address] [place] [address] PCP - General 07/03/20 documented as of this encounter
--- OUTSIDE RECORDS SUMMARY | 2024-08-19 19:11 | XMS_ITS | Encounter Summary ---
Author Organization [facility] Address [address] [place] [address] Phone Care Team Providers Care Mock Up Builder Name Role Phone Austin Luna MD Primary Care Provider +1- [phone] Encounter Details Date Type Department Care Team (Late st Contact Info) Description 01/28/2024 Documentation Only [facility] [place], [address] [place] [address] [address] [place] [address] Social History Tobacco Use Types [...] on filedocumented in this encounter Care Teams Mock Up Builder Relationship Specialty Start Date End Date Austin Luna MD [address] [place] [address] PCP - General 07/03/20 documented as of this encounter
--- OUTSIDE RECORDS SUMMARY | 2024-08-19 19:11 | XMS_ITS | Encounter Summary ---
Author Organization [facility] Address [address] [place] [address] Phone Care Team Providers Care Fabric Lay Out Worker Name Role Phone Austin Luna MD Primary Care Provider +1- [phone] Encounter Details Date Type Department Care Team (Late st Contact Info) Description 03/04/2024 Documentation Only [facility] [place], [address] [place] [address] [address] [place] [address] Social History Tobacco Use Types [...] on filedocumented in this encounter Care Teams Fabric Lay Out Worker Relationship Specialty Start Date End Date Austin Luna MD [address] [place] [address] PCP - General 07/03/20 documented as of this encounter
--- OUTSIDE RECORDS SUMMARY | 2024-08-19 19:11 | XMS_ITS | Encounter Summary ---
Author Organization [facility] Address [address] [place] [address] Phone Care Team Providers Care Alumni Secretary Name Role Phone Austin Luna MD Primary Care Provider +1- [phone] Encounter Details Date Type Department Care Team (Late st Contact Info) Description 06/21/2024 Documentation Only [facility] [place], [address] [place] [address] [address] [place] [address] Social History Tobacco Use Types [...] on filedocumented in this encounter Care Teams Alumni Secretary Relationship Specialty Start Date End Date Austin Luna MD [address] [place] [address] PCP - General 07/03/20 documented as of this encounter
--- OUTSIDE RECORDS SUMMARY | 2024-08-19 19:11 | XMS_ITS | Encounter Summary ---
Author Organization [facility] Address [address] [place] [address] Phone Care Team Providers Care Diamond Expert Name Role Phone Austin Luna MD Primary Care Provider +1- [phone] Encounter Details Date Type Department Care Team (Late st Contact Info) Description 03/04/2024 Documentation Only [facility] [place], [address] [place] [address] [address] [place] [address] Social History Tobacco Use Types [...] on filedocumented in this encounter Care Teams Diamond Expert Relationship Specialty Start Date End Date Austin Luna MD [address] [place] [address] PCP - General 07/03/20 documented as of this encounter
--- OUTSIDE RECORDS SUMMARY | 2024-08-19 19:11 | XMS_ITS | Encounter Summary ---
Author Organization [facility] Address [address] [place] [address] Phone Care Team Providers Care Engineering Specialist Technician Name Role Phone Austin Luna MD Primary Care Provider +1- [phone] Encounter Details Date Type Department Care Team (Late st Contact Info) Description 03/04/2024 Documentation Only [facility] [place], [address] [place] [address] [address] [place] [address] Social History Tobacco Use Types [...] on filedocumented in this encounter Care Teams Engineering Specialist Technician Relationship Specialty Start Date End Date Austin Luna MD [address] [place] [address] PCP - General 07/03/20 documented as of this encounter
--- OUTSIDE RECORDS SUMMARY | 2024-08-19 19:11 | XMS_ITS | Encounter Summary ---
Author Organization [facility] [place], Address [address] [place] [address] Phone Care Team Providers Care Reduction Furnace Operator Helper Name Role Phone Austin Luna MD Primary Care Provider +1- [phone] Encounter Details Date Type Department Care Team (Late st Contact Info) Description 03/09/2020 Orders Only [facility] [address] [place] [address] Chronic kidney disease stage 3 (HCC); Type 2 diabetes mellitus without complication (HCC); Essential hypertension Social History Tobacco Use Types Packs/Day Years [...] documented as of this encounter Visit Diagnoses Diagnosis Chronic kidney disease stage 3 (HCC) Type 2 diabetes mellitus without complication (HCC) Essential hypertension documented in this encounter Care Teams Reduction Furnace Operator Helper Relationship Specialty Start Date End Date Austin Luna MD [address] [place] [address] PCP - General 07/03/20 documented as of this encounter
--- OUTSIDE RECORDS SUMMARY | 2024-08-19 19:11 | XMS_ITS | Encounter Summary ---
Author Organization [facility] Address [address] [place] [address] Phone Care Team Providers Care Patented Hogshead Assembler Name Role Phone Austin Luna MD Primary Care Provider +1- [phone] Encounter Details Date Type Department Care Team (Late st Contact Info) Description 08/21/2023 Documentation Only [facility] [place], [address] [place] [address] [address] [place] [address] Social History Tobacco Use Types [...] on filedocumented in this encounter Care Teams Patented Hogshead Assembler Relationship Specialty Start Date End Date Austin Luna MD [address] [place] [address] PCP - General 07/03/20 documented as of this encounter
--- OUTSIDE RECORDS SUMMARY | 2024-08-19 19:11 | XMS_ITS | Encounter Summary ---
Author Organization [facility] Address [address] [place] [address] Phone Care Team Providers Care Hydrometeorological Technician Name Role Phone Austin Luna MD Primary Care Provider +1- [phone] Encounter Details Date Type Department Care Team (Late st Contact Info) Description 03/04/2024 Documentation Only [facility] [place], [address] [place] [address] [address] [place] [address] Social History Tobacco Use Types [...] on filedocumented in this encounter Care Teams Hydrometeorological Technician Relationship Specialty Start Date End Date Austin Luna MD [address] [place] [address] PCP - General 07/03/20 documented as of this encounter
--- OUTSIDE RECORDS SUMMARY | 2024-08-19 19:11 | XMS_ITS | Encounter Summary ---
Author Organization [facility] Address [address] [place] [address] Phone Care Team Providers Care Brilliandeer Lopper Name Role Phone Austin Luna MD Primary Care Provider +1- [phone] Encounter Details Date Type Department Care Team (Late st Contact Info) Description 01/28/2024 Documentation Only [facility] [place], [address] [place] [address] [address] [place] [address] Social History Tobacco Use Types [...] on filedocumented in this encounter Care Teams Brilliandeer Lopper Relationship Specialty Start Date End Date Austin Luna MD [address] [place] [address] PCP - General 07/03/20 documented as of this encounter
--- OUTSIDE RECORDS SUMMARY | 2024-08-19 19:11 | XMS_ITS | Encounter Summary ---
Author Organization [facility] Address [address] [place] [address] Phone Care Team Providers Care Rope Rider Name Role Phone Austin Luna MD Primary Care Provider +1- [phone] Encounter Details Date Type Department Care Team (Late st Contact Info) Description 01/28/2024 Documentation Only [facility] [place], [address] [place] [address] [address] [place] [address] Social History Tobacco Use Types [...] on filedocumented in this encounter Care Teams Rope Rider Relationship Specialty Start Date End Date Austin Luna MD [address] [place] [address] PCP - General 07/03/20 documented as of this encounter
--- OUTSIDE RECORDS SUMMARY | 2024-08-19 19:11 | XMS_ITS | Encounter Summary ---
Author Organization [facility] Address [address] [place] [address] Phone Care Team Providers Care Frame Trimmer Name Role Phone Austin Luna MD Primary Care Provider +1- [phone] Encounter Details Date Type Department Care Team (Late st Contact Info) Description 01/28/2024 Documentation Only [facility] [place], [address] [place] [address] [address] [place] [address] Social History Tobacco Use Types [...] on filedocumented in this encounter Care Teams Frame Trimmer Relationship Specialty Start Date End Date Austin Luna MD [address] [place] [address] PCP - General 07/03/20 documented as of this encounter
--- OUTSIDE RECORDS SUMMARY | 2024-08-19 19:11 | XMS_ITS | Encounter Summary ---
Author Organization [facility] Address [address] [place] [address] Phone Care Team Providers Care Kennel Hand Name Role Phone Austin Luna MD Primary Care Provider +1- [phone] Encounter Details Date Type Department Care Team (Late st Contact Info) Description 01/28/2024 Documentation Only [facility] [place], [address] [place] [address] [address] [place] [address] Social History Tobacco Use Types [...] on filedocumented in this encounter Care Teams Kennel Hand Relationship Specialty Start Date End Date Austin Luna MD [address] [place] [address] PCP - General 07/03/20 documented as of this encounter
--- OUTSIDE RECORDS SUMMARY | 2024-08-19 19:12 | XMS_ITS | Encounter Summary ---
Author Organization [facility] Address [address] [place] [address] Phone Care Team Providers Care Restaurant Bartender Name Role Phone Austin Luna MD Primary Care Provider +1- [phone] Encounter Details Date Type Department Care Team (Late st Contact Info) Description 03/04/2024 Documentation Only [facility] [place], [address] [place] [address] [address] [place] [address] Social History Tobacco Use Types [...] on filedocumented in this encounter Care Teams Restaurant Bartender Relationship Specialty Start Date End Date Austin Luna MD [address] [place] [address] PCP - General 07/03/20 documented as of this encounter
--- OUTSIDE RECORDS SUMMARY | 2024-08-19 19:12 | XMS_ITS | Encounter Summary ---
Author Organization [facility] Address [address] [place] [address] Phone Care Team Providers Care Vacuum Closing Machine Operator Name Role Phone Austin Luna MD Primary Care Provider +1- [phone] Encounter Details Date Type Department Care Team (Late st Contact Info) Description 03/04/2024 Documentation Only [facility] [place], [address] [place] [address] [address]ero Ann [address] [place] [address] Social History Tobacco Use Types [...] on filedocumented in this encounter Care Teams Vacuum Closing Machine Operator Relationship Specialty Start Date End Date Austin Luna MD [address] [place] [address] PCP - General 07/03/20 documented as of this encounter
--- OUTSIDE RECORDS SUMMARY | 2024-08-19 19:12 | XMS_ITS | Clinical Summary ---
Author Organization [facility], Address [address] [place] [address] [place] [address] Phone Care Team Providers Care Paperhanger Contractor Name Role Phone Austin Luna MD Primary Care Provider [phone]- [phone] Allergies Active Allergy Reactions Criticality Noted Date Comments Dust Mite Extract Other (see comments) 09/02/19 20 Pseudoephedrine Other (see comments) 09/02/2019 Medications atorvastatin (LIPITOR) 20 MG tablet Comments: Filled Date: Aug 04 2018 12:00AM Duration: 30 Active Dulaglutide (TRULICITY) 1.5 MG/0.5ML solution pen-injector Comments: Filled Date: Aug 12 2018 12:00AM Duration: 28 Active hydroCHLOROthi azide (MICROZIDE) 12.5 MG capsule Comments: Filled Date: Apr 16 2019 9:47AM Patient Notes: TAKE 2 CAPSULES BY MOUTH ONCE DAILY 9 Active rosuvastatin (CRESTOR) 40 MG tablet TAKE 1 TABLET BY MOUTH ONCE DAILY FOR 30 DAYS 1 Active Toujeo SoloStar 300 UNIT/ML solution pen-injector INJECT 24 UNITS SUBCUTANEOUSLY AT BEDTIME 0 Active cholecalcifero l (VITAMIN D-3) 50 MCG (1999) capsule TAKE 2 CAPSULES BY MOUTH ONCE DAILY 1 Active lisinopril 5 MG tablet Take 1 tablet (5 mg total) by mouth 1 (one) time each day 30 tablet 3 4 Active amLODIPine (Norvasc) 10 MG tablet Take 1 tablet (10 mg total) by mouth 1 (one) time each day 30 tablet 3 4 Active Active Problems Problem Noted Date Diagnosed Date Stage 3b chronic kidney disease 01/29/2024 Acquired absence of kidney 08/18/2023 Essential hypertension 09/02/2019 Type 2 diabetes mellitus 09/02/2019 Encounters Date Type Department Care Team Description 06/29/2024 Telephone [facility] [address] [place] [address] Lucero Ann 06/29/2024 Telephone [facility] [address] [place] [address] Lucero Ann 06/21/2024 Documentation Only [facility] [address] [place] [address] Lucero Ann 06/10/2024 4:00 PM EST Office Visit [facility] [address] [place] [address] Angelica Hull MD Stage 3b chronic kidney disease (HCC) (Primary Dx); Essential hypertension; Acquired absence of kidney; Type 2 diabetes mellitus with complication, not otherwise specified (HCC); Ischemic stroke (HCC) from Last 3 Months Immunizations Name Administration Dates Next Due Influenza, Quadrivalent, Preservative Free 03/12 Family History Medical History Relation Comments Diabetes Father Hypertension Mother Relation Status Comments Father Mother Social History Tobacco Use Types Packs/Day Years [...] on file Sexual Orientation Not on file Last Filed Vital Signs Vital Sign Reading Time Taken Comments Blood Pressure 120/70 03/11/2024 10:23 PM EDT Pulse 80 11/12/2022 4:44 PM EDT Temperature - - Respiratory Rate - - Oxygen Saturation - - Inhaled Oxygen Concentration - - Weight 77.6 kg (171 lb) 08/19/2023 1:59 PM EST Height 167.6 cm (5' 6 ) 05/03/2019 12:00 PM EST Body Mass Index 27.6 05/03/2019 12:00 PM EST Plan of Treatment Health Maintenance Due Date Last Done Comments Pneumococcal Vaccine: Pediat rics (0 to 5 Years) and At-Risk Patients (6 to 64 Years) (1 of 2 - PCV) 1976 Hepatitis B Vaccine (1 of 3 - 19+ 3-dose series) 06/27 Colorectal Cancer Screening: Annual FOBT 2019 Colorectal Cancer Screening: Colonoscopy 2019 Colorectal Cancer Screening: Sigmoidoscopy 2019 Diabetes: Hemoglobin A1C 09/02/2019 Diabetes: Ophthalmology Exam 09/02/2019 Diabetes: Pedal Pulse Checked 09/02/2019 Diabetes: Sensory Foot Exam 09/02/2019 Diabetes: Visual Foot Exam 09/02/2019 Influenza Vaccine (#1) 2024 03/12/2020 Procedures Procedure Name Priority Date/Time Associated Diagnosis Comments RENAL FUNCTION PANEL Routine 07/09/2024 7:54 AM EST Stage 3b chronic kidney disease (HCC) Essential hypertension Acquired absence of kidney Type 2 diabetes mellitus with complication, not otherwise specified (HCC) Ischemic stroke (HCC) from Last 3 Months Results * (ABNORMAL) Renal function panel (07/09/2024 7:54 AM EST) Glucose 162(H) 70 - 99 mg/dL [facility] BUN 36(H) 6 - 24 mg/dL [facility] Creatinine 2.13(H) 0.76 - 1.27 mg/dL [facility] eGFR CKD-EPI CR 2020 36(L) >59 mL/min/1.7 3 [facility] BUN/Creatinine Ratio 17 9 - 20 [facility] Sodium 143 134 - 144 mmol/L [facility] Potassium 4.7 3.5 - 5.2 mmol/L [facility] Chloride 110(H) 96 - 106 mmol/L [facility] Bicarbonate (CO2) 18(L) 20 - 29 mmol/L [facility] Calcium 9.1 8.7 - 10.2 mg/dL [facility] Phosphorus 4.3(H) 2.8 - 4.1 mg/dL [facility] Albumin 4.7 3.8 - 4.9 g/dL [facility] Blood (Blood, Venous) 07/09/2024 7:54 AM EST 07/09/2024 us Angelica Hull MD LAB BLOOD ORDERABLES Final Res ult [facility] [address] [place] [address] from Last 3 Months Insurance [address] [place] [facility] [address] [place] [address] [place] Care Teams Paperhanger Contractor Relationship Specialty Start Date End Date Austin Luna MD [address] [place] [address] PCP - General 07/03/20
--- OUTSIDE RECORDS SUMMARY | 2024-08-19 19:12 | XMS_ITS | Encounter Summary ---
Author Organization [facility] Address [address] [place] [address] Phone Care Team Providers Care Rn Integrated Name Role Phone Austin Luna MD Primary Care Provider [phone]- [phone] Encounter Details Date Type Department Care Team (Late st Contact Info) Description 03/04/2024 Documentation Only [facility], [address] [place] [address] Lucero Ann [address] [place] [address] Social History Tobacco Use Types [...] on filedocumented in this encounter Care Teams Rn Integrated Relationship Specialty Start Date End Date Austin Luna MD [address] [place] [address] PCP - General 07/03/20 documented as of this encounter
== END 2024-08-19 16:26 | disposition home or self-care (01) ==
PROVIDERS: PCP Internal Medicine; Visit Provider Internal Medicine
DX: E11.21 Type 2 diabetes mellitus with diabetic nephropathy (principal); N18.32 Chronic kidney disease, stage 3b

== ENCOUNTER → 2024-08-19 15:57 | Outpatient (BNVA) | payer OTHER, SELFPAY | PROVIDERS: PCP Internal Medicine; Visit Provider Internal Medicine | DX: E11.22 Type 2 diabetes mellitus with diabetic chronic kidney disease (principal); N18.32 Chronic kidney disease, stage 3b; E11.21 Type 2 diabetes mellitus with diabetic nephropathy | CPT/HCPCS: 82947; 83036; 99212 ==

== ENCOUNTER 2024-09-29 16:09 | Outpatient (AMB) | payer OTHER, SELFPAY ==
[2024-09-29 16:14] VITALS: BP 116/62; PULSE 77; O2SAT 97; BMI 26.5
--- NOTE | 2024-09-29 16:14 | A.OFFPC_ITS ---
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 Required: No Accompanied by: Self / Same As Patient Allergies Latex, Natural Rubber Allergy (Mild, Verified 09/29/24 16:41) Rash pseudoephedrine [Sudafed] Adverse Reaction (Intermediate, Verified 09/29/24 16:41) dizziness, panic attacks Medication List - Last Reconciled 09/29/24 by Austin Luna MD amlodipine 5 mg (1/2 x 10 mg) PO DAILY 90 days aspirin 81 mg PO DAILY 90 days atorvastatin 40 mg PO BEDTIME 90 days blood pressure monitor As directed blood sugar diagnostic (FreeStyle Lite Strips) As directed empagliflozin (Jardiance) 25 mg PO DAILY flash glucose scanning reader (Whimyle Dexter 14 Day [place]) As directed lancets (FreeStyle Lancets) As directed Lantus U-100 Insulin (insulin glargine) 12 units (0.12 mL) subcut DAILY NS Ozempic (semaglutide) 0.25 mg (0.368 mL) subcut QWEEK NS pen needle, diabetic (BD Katya 2nd Gen Pen Needle) once a day Tobacco use date assessed: 09/29/24 Dental Screening Dental Screen Date: 09/29/24 Did you have a dental visit in the last 12 months?: Yes Did you have a dental problem in the last 6 months where you did not have access to dental care?: No Was dental information given to patient?: Patient has dentist HPI [facility] HPI Details Patient comes in today for his follow up visit States that he feels okay He denies any headaches or dizziness Denies any chest pains, no shortness of breath No nausea/vomiting, no abdominal pain No change in bowel habits noted He had his follow-up labs done a few weeks ago - to discuss his results [facility] Medical History Cerebral infarction Chronic kidney disease (CKD), stage III (moderate) Type 2 diabetes mellitus with diabetic chronic kidney disease 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 Overweight (BMI 25.0-29.9) 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 disc herniation Vitamin D deficiency Polycythemia Thrombocytopenia Pure hypercholesterolemia Benign essential hypertension Surgical History Status post cervical discectomy (~09/04/16) History of right nephrectomy (~03/30/13) Family History Mother Hypertension Social History Household Members: Spouse Housing: House Do you presently have visiting nurse or other home services: No Alcohol intake: never Comment: pt low fall, calls appropriately for assistance OOB Patient Tobacco Use Status: Former Tobacco user e-Cigarette/Vaping Use: Never Used Second Hand Smoke Exposure: No Substance Use Type: Marijuana Advance Directives Date on File: 02/19/24 service: No Current occupational status: employed Cognitive needs: No Hearing needs: No Vision needs: Yes (glasses) Questionnaire PHQ-9 Over the last 2 weeks, how often have you been bothered by any of the following problems? 1. Little interest or pleasure in doing things: not at all 2. Feeling down, depressed, or hopeless: not at all 3. Trouble falling or staying asleep, or sleeping too much: not at all 4. Feeling tired or having little energy: not at all 5. Poor appetite or overeating: not at all 6. Feeling bad about yourself - or that you are a failure or have let yourself or your family down: not at all 7. Trouble concentrating on things, such as reading the newspaper or watching television: not at all 8. Moving or speaking so slowly that other people could have noticed. Or the opposite - being so fidgety or restless that you have been moving around a lot more than usual: not at all 9. Thoughts that you would be better off or of hurting yourself in some way: not at all Total score: 0 Depression Screening Interpretation: Negative Depression Screening Done: Yes 26508 - PHQ-9 Billing: Yes Source: Developed by Drs. Korey Izaguirre, Sravani Meyer, Johnson Sykes and colleagues, with an educational alvaro from [employer]. Thrive Questionnaire Date Thrive assessed: 09/29/24 I am a: Patient What is your living situation today?: I have a steady place to live Within the past 12 months, did the food you bought not last and you didn't have the money to get more?: Never true Within the past 12 months, did you worry whether your food would run out before you got money to buy more?: Never true Do you have trouble paying for medicines?: No Do you have trouble getting transportation to medical appointments?: No Do you have trouble paying your heating and electricity bill?: No Do you have trouble taking care of your child, family member or friend?: No Do you have trouble with day-to-day activities such as bathing, preparing meals, shopping, managing finances, etc.?: No Are you currently unemployed and looking for a job?: No Are you interested in more education?: No Please select the resources that you would like help with: None Currently or been in a relationship where the following occur: No concerns reported THRIVE Score: 0 AUDIT C Alcohol Use Questionnaire (AUDIT-C) 1. How often do you have a drink containing alcohol?: Never 3. How often do you have six or more drinks on one occasion?: Never Total Score: 0 Score Reviewed/Action Taken: Yes RYAN-7 AMB Questionnaire RYAN-7 Date RYAN - 7 assessed: 09/29/24 Feeling nervous, anxious, or on edge: 0 = Not at all Not being able to stop or control worryin = Not at all Worrying too much about different things: 0 = Not at all Trouble relaxin = Not at all Being so restless that it is hard to sit still: 0 = Not at all Becoming easily annoyed or irritable: 0 = Not at all Feeling afraid as if something awful might happen: 0 = Not at all Total RYAN-7 score (0-4 normal; 5-9 mild; 10-14 moderate; 15-21 severe): 0 Source: Developed by Drs. Korey Izaguirre, Sravani Meyer, Johnson Sykes and colleagues, with an educational alvaro from [employer]. RYAN-7 Assessment Billing RYAN-7 Assessment Tool: RYAN-7 Assessment 78176 Review of Systems Const Denies chills, Denies fatigue, Denies fever(s) and Denies headache(s) ENT Denies dysphagia, Denies dizziness, Denies otalgia, Denies headache(s), Denies neck pain, Denies odynophagia and Denies sore throat Card Denies chest pain, Denies palpitations and Denies dyspnea Resp Denies chest congestion, Denies cough and Denies dyspnea GI Denies abdominal pain, Denies constipation, Denies dysphagia, Denies heartburn, Denies diarrhea, Denies nausea, Denies odynophagia and Denies vomiting Denies difficulty urinating, Denies dysuria, Denies nocturia and Denies urinary frequency Musc Denies back pain, Denies muscle weakness and Denies neck pain Skin/Breast Denies rash Neuro Denies dizziness, Denies headache(s), Denies focal weakness and Denies memory loss Psych Denies memory loss Endo Denies fatigue and Denies palpitations Physical exam (Primary Care) Vital Signs: Last Vital Signs Pulse 77 09/29/24 16:14 BP 116/62 09/29/24 16:14 Pulse Ox 97 09/29/24 16:14 Oxygen Delivery Method Room Air 09/29/24 16:14 BMI result Body Mass Index 26.5 Tobacco/Smoking Status: Tobacco use Status Tobacco use date assessed 09/29/24 09/29/24 16:19 Patient Tobacco Use Status Former Tobacco user 09/29/24 16:19 e-Cigarette/Vaping Use Never Used 09/29/24 16:19 PHQ-9: PHQ-9 Score PHQ-9: Total score 0 09/29/24 16:45 Depression Screening Interpretation: Negative Thrive Assessment: Date of Thrive Assessment Date Thrive assessed 09/29/24 09/29/24 16:19 Currently or been in a relationship where the following occur: No concerns reported Const General: no acute distress and alert Orientation/consciousness: patient oriented x3 HENMT Ears: TM's normal bilaterally and EAC's normal Throat: Yes posterior oropharynx normal and Yes tonsils normal (no TP congestion) Neck Neck: Yes supple and No lymphadenopathy Thyroid: Thyroid normal Resp Auscultation: clear to auscultation bilaterally, no rales and no wheezes Cardio Rate: regular rate Rhythm: regular rhythm Heart sounds: no murmurs GI Palpation (GI): Soft to palpation and nontender Auscultation: normal bowel sounds General: Yes no CVA tenderness Back/Spine/Pelvis Back: no CVA tenderness Thoracic/Lumbar Spine: No lumbar spinal tenderness Skin Rashes: no rashes Neuro General: patient oriented x3, moves all extremities and no focal motor deficits Extrem General: Yes no clubbing, cyanosis or edema Results Reviewed Results Reviewed: Laboratory Tests 05/27/24 05/27/24 08/19/24 07:03 07:05 16:19 WBC 6.6 Hgb 15.6 Hct 45.6 Plt Count 126 L Sodium 140 Potassium 4.0 Creatinine 2.05 H Estimated GFR 34 Fasting Glucose 319 H Hgb A1c (Clinic) 7.3 H Calcium 9.0 Magnesium 2.4 AST 39 H ALT 57 H Triglycerides 142 Cholesterol 140 LDL Cholesterol, Calc 70 HDL Cholesterol 42 25-OH Vitamin D Total 19.2 L TSH 1.47 Ur Specific [place] 1.025 Urine Protein Negative Urine Glucose (UA) >=1000 H Urine Blood Negative Urine Nitrite Negative Ur Leukocyte Esterase Negative Microalb/Creat Ratio 65.9 H Coding Level of Care Code Est Pt Level 4 (26612) Complex EM visit Add On G2211 Diagnoses Cerebral infarction due to embolism of left middle cerebral artery I63.412 Cerebral infarction mechanism: embolism Precerebral and cerebral artery: middle cerebral artery Laterality of affected vessel: left Migraine equivalent syndrome G43.109 Elevated LFTs R79.89 Type 2 diabetes mellitus with stage 3b chronic kidney disease, without long-term current use of insulin E11.21; N18.32 Diabetes mellitus nursing home insulin use: without nursing home use Chronic kidney disease stage: stage 3 (moderate) Chronic kidney disease stage 3 subtype: stage 3b (GFR 30-44) Stage 3b chronic kidney disease N18.32 Chronic kidney disease stage 3 subtype: stage 3b (GFR 30-44) Benign essential hypertension I10 Pure hypercholesterolemia E78.00 Nonintractable epilepsy without status epilepticus, unspecified epilepsy type G40.909 Epilepsy type: unspecified Intractability: not intractable Status epilepticus: without status epilepticus Thrombocytopenia D69.6 Renal cell carcinoma of right kidney C64.1 Vitamin D deficiency E55.9 Cervical disc herniation M50.20 Overweight (BMI 25.0-29.9) E66.3 Additional Codes RYAN-7 Assessment Billing - RYAN-7 Assessment Tool: RYAN-7 Assessment 36441 ([id number]) PHQ-9 - 08712 - PHQ-9 Billing: Yes ([id number]) Assessment & Plan Assessment & Plan (1) Cerebral infarction: Code(s): I63.9 - Cerebral infarction, unspecified Category: Medical Qualifiers: Cerebral infarction mechanism: embolism Precerebral and cerebral artery: middle cerebral artery Laterality of affected vessel: left Qualified Code(s): I63.412 - Cerebral infarction due to embolism of left middle cerebral artery Plan: MRI of the brain done last year on 02/19/2024 revealed (+) small chronic cortical infarct involving the left temporal lobe that is new when compared to prior MR imaging of the brain from 08/06/2022. There were a few scattered chronic small vessel ischemic changes visualized within the periventricular white matter but no evidence of acute territorial infarct or hemorrhage MRA of the brain came out normal EEG was also normal Patient was seen by neurology and was advised that his recent symptoms were likely due to migraine (migraine equivalent) rather than an acute CVA but he was reportedly advised to see cardiology about getting a KAMILAH done for completion of his evaluation He had a KAMILAH, Holter monitor and cardiac event monitor done a few months ago and all of his evaluations came back normal Continue Aspirin 81 mg QD Follow up with neurology (Dr. Galloway) as scheduled (2) Migraine equivalent syndrome: Code(s): G43.109 - Migraine with aura, not intractable, without status migrainosus Category: Medical Plan: He has been advised by neurology that his recent neurologic symptoms were likely due to migraine He is currently NOT taking anything prescribed for migraine headaches regularly - states that he has not been experiencing any significant bouts of headaches lately Follow up with neurology as scheduled (3) Elevated LFTs: Code(s): R79.89 - Other specified abnormal findings of blood chemistry Category: Medical Plan: Resolved - his LFTs were elevated significantly on his labs done late last year but they are back to normal on his most recent labs done a few weeks ago His Atorvastatin was lowered from 80 mg to 40 mg QD back then Will continue to monitor his LFTs regularly (4) Type 2 diabetes mellitus with diabetic chronic kidney disease: Code(s): E11.22 - Type 2 diabetes mellitus with diabetic chronic kidney disease Category: Medical Qualifiers: 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: without termite control service representative use Chronic kidney disease stage: stage 3 (moderate) Chronic kidney disease stage 3 subtype: stage 3b (GFR 30-44) Qualified Code(s): E11.21 - Type 2 diabetes mellitus with diabetic nephropathy; N18.32 - Chronic kidney disease, stage 3b Plan: His in-office HgbA1c was most recently at 7.6% a few weeks ago (was previously at 7.9% earlier this year) - goal is at least <7.0% Reinforced diabetic diet Continue Lantus 12 units SQ Q HS and Jardiance 10mg QD; he was also started on Ozempic 0.25 mg weekly a couple of months ago Follow up with endocrinology as scheduled (5) Chronic kidney disease (CKD), stage III (moderate): Code(s): N18.30 - Chronic kidney disease, stage 3 unspecified Category: Medical Qualifiers: Chronic kidney disease stage 3 subtype: stage 3b (GFR 30-44) Qualified Code(s): N18.32 - Chronic kidney disease, stage 3b Plan: His renal function appeared stable back in February 2024 (GFR was still at 43 at the time) but his labs done in May 2024 showed a significant drop in his GFR (34) and rise in his serum creatinine to 2.05 Will have him recheck these TERESO for follow up and if his renal function has really declined further recently, will need to evaluate him further Have again reminded patient again that improved diabetes control will help keep his kidney function stable, which is important as he only has one (left) functioning kidney (s/p right nephrectomy due to RCC) Follow up with nephrology in [place] as scheduled (6) Benign essential hypertension: Code(s): I10 - Essential (primary) hypertension Category: Medical Plan: Reinforced low-sodium diet -? goal is systolic BP of 120 mm or less Continue Amlodipine 5 mg QD; HCTZ was previously discontinued due to renal insufficiency (7) Pure hypercholesterolemia: Code(s): E78.00 - Pure hypercholesterolemia, unspecified Category: Medical Plan: Results of his labs done a few weeks ago reviewed and discussed with patient Reinforced low cholesterol diet He used to be Rosuvastatin 40 mg QD but he stopped taking this on his own a couple of years ago - his LDL cholesterol was up to 179 mg/dl back in early January 2024 He was started then on Atorvastatin 80 mg but this was eventually lowered to 40 mg QD a few weeks later due to elevated LFTs His LDL cholesterol was most recently down to 70 mg/dl when last checked a few weeks ago Will have him recheck his labs and fasting lipids in 4 months for follow up (8) Epilepsy: Code(s): G40.909 - Epilepsy, unspecified, not intractable, without status epilepticus Category: Medical Qualifiers: Epilepsy type: unspecified Intractability: not intractable Status epilepticus: without status epilepticus Qualified Code(s): G40.909 - Epilepsy, unspecified, not intractable, without status epilepticus Plan: Repeat EEG done a few months ago reportedly came out normal; he also had a normal EEG about a year ago when he had TIA back in June 2022 He was supposed to be on Carbamazepine 200 mg BID but he has not been taking this for a while now He reports NO recurrence of his seizures lately Follow up with neurology as scheduled (9) Thrombocytopenia: Code(s): D69.6 - Thrombocytopenia, unspecified Category: Medical Plan: Patient's platelet count has been slightly lower than normal for over a year but his overall numbers have been stable previously Abdominal ultrasound done a couple of years ago showed only (+) cholelithiasis with no obstruction, splenomegaly or any other acute findings His most recent CBC done a few months ago showed platelet count of 411161 (10) Renal cell carcinoma of right kidney: Comment: S/P right nephrectomy 03/30/2013 Code(s): C64.1 - Malignant neoplasm of right kidney, except renal pelvis Category: Medical Plan: S/P right nephrectomy back in 2012 for right renal cell carcinoma Follow up with urology as scheduled (11) Vitamin D deficiency: Code(s): E55.9 - Vitamin D deficiency, unspecified Category: Medical Plan: His Vitamin D level was still low when last checked in May 2024 Continue Vitamin D3 2000 units QD (12) Cervical disc herniation: Code(s): M50.20 - Other cervical disc displacement, unspecified cervical region Category: Medical Plan: S/P ACDF of C6-C7 vertebrae by Dr. Renee on 09/04/2016 with significant improvement of his previous neck symptoms (13) Overweight (BMI 25.0-29.9): Code(s): E66.3 - Overweight Category: Medical Plan: Reinforced diet/exercise as tolerated/lose weight Plan Follow up in 4 months Orders: Orders AMB Hemoglobin A1c 09/29/24 Z13.9 - Encounter for screening, unspecified Comprehensive Met. Panel 04/11/25 E11.21 - Type 2 diabetes mellitus with diabetic nephropathy, N18.32 - Chronic kidney disease, stage 3b Lipid Panel 4 Months E78.00 - Pure hypercholesterolemia, unspecified TSH reflex Free T4 4 Months E78.00 - Pure hypercholesterolemia, unspecified Hemoglobin A1c 10/01/24 E11.21 - Type 2 diabetes mellitus with diabetic nephropathy, E11.9 - Type 2 diabetes mellitus without complications, N18.32 - Chronic kidney disease, stage 3b Hemoglobin A1c 4 Months E11.9 - Type 2 diabetes mellitus without complications Complete Blood Count Auto Diff 4 Months D64.9 - Anemia, unspecified Comprehensive [place]. Panel Fast 4 Months E78.00 - Pure hypercholesterolemia, unspecified Microalbumin, Random (w Creat) 4 Months E11.9 - Type 2 diabetes mellitus without complications UA CC w/rflx Micro + Cult 4 Months R30.0 - Dysuria Vitamin B12 and Folate 4 Months E53.8 - Deficiency of other specified B group vitamins Vitamin D 25-OH Total 4 Months E55.9 - Vitamin D deficiency, unspecified
--- OUTSIDE RECORDS SUMMARY | 2024-09-29 17:46 | XMS_ITS | Encounter Summary ---
Author Organization [facility] Address [address] [place] [address] Phone Care Team Providers Care Travelift Operator Name Role Phone Austin Luna MD Primary Care Provider +1- [phone] Encounter Details Date Type Department Care Team (Late st Contact Info) Description 01/28/2024 Documentation Only [facility] [place], [address] [place] [address] [address] [place] [address] Social History Tobacco Use Types [...] on filedocumented in this encounter Care Teams Travelift Operator Relationship Specialty Start Date End Date Austin Luna MD [address] [place] [address] PCP - General 07/03/20 documented as of this encounter
--- OUTSIDE RECORDS SUMMARY | 2024-09-29 17:46 | XMS_ITS | Encounter Summary ---
Author Organization [facility] Address [address] [place] [address] Phone Care Team Providers Care Board Layer Name Role Phone Austin Luna MD Primary Care Provider +1- [phone] Encounter Details Date Type Department Care Team (Late st Contact Info) Description 01/28/2024 Documentation Only [facility] [place], [address] [place] [address] [address] [place] [address] Social History Tobacco Use Types [...] on filedocumented in this encounter Care Teams Board Layer Relationship Specialty Start Date End Date Austin Luna MD [address] [place] [address] PCP - General 07/03/20 documented as of this encounter
--- OUTSIDE RECORDS SUMMARY | 2024-09-29 17:46 | XMS_ITS | Encounter Summary ---
Author Organization [facility] Address [address] [place] [address] Phone Care Team Providers Care Tractor Crane Operator Name Role Phone Austin Luna MD Primary Care Provider +1- [phone] Encounter Details Date Type Department Care Team (Late st Contact Info) Description 03/04/2024 Documentation Only [facility] [place], [address] [place] [address] [address] [place] [address] Social History Tobacco Use Types [...] on filedocumented in this encounter Care Teams Tractor Crane Operator Relationship Specialty Start Date End Date Austin Luna MD [address] [place] [address] PCP - General 07/03/20 documented as of this encounter
--- OUTSIDE RECORDS SUMMARY | 2024-09-29 17:46 | XMS_ITS | Encounter Summary ---
Author Organization [facility] [place], Address [address] [place] [address] Phone Care Team Providers Care Carbon Coater Machine Operator Name Role Phone Austin Luna MD Primary Care Provider +1- [phone] Reason for Visit * Reason Comments Med Refill Encounter Details Date Type Department Care Team (Late st Contact Info) Description 09/01/2024 Refill [facility] [place], [address] [place] [address] Angelica Hull MD [address] [place] [address] Social History Tobacco Use Types Packs/Day Years [...] on filedocumented in this encounter Care Teams Carbon Coater Machine Operator Relationship Specialty Start Date End Date Austin Luna MD [address] [place] [address] PCP - General 07/03/20 documented as of this encounter
--- OUTSIDE RECORDS SUMMARY | 2024-09-29 17:46 | XMS_ITS | Encounter Summary ---
Author Organization [facility] Address [address] [place] [address] Phone Care Team Providers Care Physiologist Name Role Phone Austin Luna MD Primary Care Provider +1- [phone] Encounter Details Date Type Department Care Team (Late st Contact Info) Description 03/04/2024 Documentation Only [facility] [place], [address] [place] [address] [address] [place] [address] Social History Tobacco Use Types [...] on filedocumented in this encounter Care Teams Physiologist Relationship Specialty Start Date End Date Austin Luna MD [address] [place] [address] PCP - General 07/03/20 documented as of this encounter
--- OUTSIDE RECORDS SUMMARY | 2024-09-29 17:46 | XMS_ITS | Clinical Summary ---
Author Organization [facility], Address [address] [place] [address] [place] [address] Phone Care Team Providers Care Cmm Programmer Name Role Phone Austin Luna MD Primary Care Provider +1- [phone] Allergies Active Allergy Reactions Criticality Noted Date [...] Encounters Date Type Department Care Team Description 09/01/2024 Refill [facility], [address] [place] [address] Angelica Hull MD from Last 3 Months Immunizations Name Administration [...] Diabetes: Visual Foot Exam 09/02/2019 Influenza Vaccine (Season Ended) 2025 03/12/20 20 Procedures Procedure Name Priority Date/Time Associated Diagnosis Comments RENAL FUNCTION PANEL Routine 07/09/2024 7:54 AM EST Stage 3b chronic kidney disease (HCC) Essential hypertension Acquired absence of kidney Type 2 diabetes mellitus with complication, not otherwise specified (HCC) Ischemic stroke (HCC) from Last 3 Months Results * (ABNORMAL) Renal function panel (07/09/2024 7:54 AM EST) Glucose 162(H) 70 - 99 mg/dL [facility] BUN 36(H) 6 - 24 mg/dL [facility] Creatinine 2.13(H) 0.76 - 1.27 mg/dL [facility] eGFR CKD-EPI CR 2020 36(L) >59 mL/min/1.7 3 [facility] BUN/Creatinine Ratio 17 9 - 20 [facility] Sodium 143 134 - 144 mmol/L [facility] Potassium 4.7 3.5 - 5.2 mmol/L [facility] Chloride 110(H) 96 - 106 mmol/L [facility] Bicarbonate (CO2) 18(L) 20 - 29 mmol/L [facility] Calcium 9.1 8.7 - 10.2 mg/dL [facility] Phosphorus 4.3(H) 2.8 - 4.1 mg/dL [facility] Albumin 4.7 3.8 - 4.9 g/dL [facility] Blood (Blood, Venous) 07/09/2024 7:54 AM EST 07/09/2024 us Angelica Hull MD LAB BLOOD ORDERABLES Final Res ult [facility] [address] [place] [address] from Last 3 Months Insurance [address] [place], [place] [facility] [address] [place], [place] [address] [place], [place] Care Teams Cmm Programmer Relationship Specialty Start Date End Date Austin Luna MD [address] [place] [address] PCP - General 07/03/20
--- OUTSIDE RECORDS SUMMARY | 2024-09-29 17:46 | XMS_ITS | Encounter Summary ---
Author Organization [facility] Address [address] [place] [address] Phone Care Team Providers Care Joinery Setter Out Name Role Phone Austin Luna MD Primary Care Provider +1- [phone] Encounter Details Date Type Department Care Team (Late st Contact Info) Description 03/04/2024 Documentation Only [facility] [place], [address] [place] [address] Lucero Ann [address] [place] [address] Social History Tobacco Use Types [...] on filedocumented in this encounter Care Teams Joinery Setter Out Relationship Specialty Start Date End Date Austin Luna MD [address] [place] [address] PCP - General 07/03/20 documented as of this encounter
--- OUTSIDE RECORDS SUMMARY | 2024-09-29 17:46 | XMS_ITS | Encounter Summary ---
Author Organization [facility] Address [address] [place] [address] Phone Care Team Providers Care Day Care Provider Name Role Phone Austin Luna MD Primary Care Provider +1- [phone] Encounter Details Date Type Department Care Team (Late st Contact Info) Description 01/28/2024 Documentation Only [facility] [place], [address] [place] [address] Lucero Ann [address] [place], [place] [...] on filedocumented in this encounter Care Teams Day Care Provider Relationship Specialty Start Date End Date Austin Luna MD [address] [place] [address] PCP - General 07/03/20 documented as of this encounter
--- OUTSIDE RECORDS SUMMARY | 2024-09-29 17:46 | XMS_ITS | Encounter Summary ---
Author Organization [facility] Address [address] [place] [address] Phone Care Team Providers Care High Raw Sugar Boiler Name Role Phone Austin Luna MD Primary Care Provider +1- [phone] Encounter Details Date Type Department Care Team (Late st Contact Info) Description 08/19/2023 Documentation Only [facility] [place], [address] [place] [address] Lucero Ann [address] [place] [address] Social History Tobacco Use Types [...] on filedocumented in this encounter Care Teams High Raw Sugar Boiler Relationship Specialty Start Date End Date Austin Luna MD [address] [place] [address] PCP - General 07/03/20 documented as of this encounter
--- OUTSIDE RECORDS SUMMARY | 2024-09-29 17:46 | XMS_ITS | Encounter Summary ---
Author Organization [facility] Address [address] [place] [address] Phone Care Team Providers Care Ops Manager Name Role Phone Austin Luna MD Primary Care Provider +1- [phone] Encounter Details Date Type Department Care Team (Late st Contact Info) Description 01/28/2024 Documentation Only [facility] [place], [address] [place] [address] Lucero Ann [address] [place] [address] Social History Tobacco Use Types [...] on filedocumented in this encounter Care Teams Ops Manager Relationship Specialty Start Date End Date Austin Luna MD [address] [place] [address] PCP - General 07/03/20 documented as of this encounter
--- OUTSIDE RECORDS SUMMARY | 2024-09-29 17:46 | XMS_ITS | Encounter Summary ---
Author Organization [facility] Address [address] [place] [address] Phone Care Team Providers Care Marble Finisher Name Role Phone Austin Luna MD Primary Care Provider +1- [phone] Encounter Details Date Type Department Care Team (Late st Contact Info) Description 03/04/2024 Documentation Only [facility] [place], [address] [place] [address] Lucero Ann [address] [place] [address] Social History Tobacco Use Types [...] on filedocumented in this encounter Care Teams Marble Finisher Relationship Specialty Start Date End Date Austin Luna MD [address] [place] [address] PCP - General 07/03/20 documented as of this encounter
--- OUTSIDE RECORDS SUMMARY | 2024-09-29 17:46 | XMS_ITS | Encounter Summary ---
Author Organization [facility] Address [address] [place] [address] Phone Care Team Providers Care Migratory Farm Hand Name Role Phone Austin Luna MD Primary Care Provider +1- [phone] Encounter Details Date Type Department Care Team (Late st Contact Info) Description 03/04/2024 Documentation Only [facility] [place], [address] [place] [address] Lucero Ann [address] [place] [address] Social History Tobacco Use Types [...] on filedocumented in this encounter Care Teams Migratory Farm Hand Relationship Specialty Start Date End Date Austin Luna MD [address] [place] [address] PCP - General 07/03/20 documented as of this encounter
--- OUTSIDE RECORDS SUMMARY | 2024-09-29 17:46 | XMS_ITS | Encounter Summary ---
Author Organization [facility] Address [address] [place] [address] Phone Care Team Providers Care Cnc Operator Programmer Name Role Phone Austin Luna MD Primary Care Provider +1- [phone] Encounter Details Date Type Department Care Team (Late st Contact Info) Description 01/28/2024 Documentation Only [facility] [place], [address] [place] [address] Lucero Ann [address] [place] [address] Social History Tobacco Use Types [...] on filedocumented in this encounter Care Teams Cnc Operator Programmer Relationship Specialty Start Date End Date Austin Luna MD [address] [place] [address] PCP - General 07/03/20 documented as of this encounter
--- OUTSIDE RECORDS SUMMARY | 2024-09-29 17:46 | XMS_ITS | Encounter Summary ---
Author Organization [facility] Address [address] [place] [address] Phone Care Team Providers Care High School English Teacher Name Role Phone Austin Luna MD Primary Care Provider +1- [phone] Encounter Details Date Type Department Care Team (Late st Contact Info) Description 03/04/2024 Documentation Only [facility] [place], [address] [place] [address] Lucero Ann [address] [place] [address] Social History Tobacco Use Types [...] filedocumented in this encounter Care Teams High School English Teacher Relationship Specialty Start Date End Date Austin Luna MD [address] [place] [address] PCP - General 07/03/20 documented as of this encounter
--- OUTSIDE RECORDS SUMMARY | 2024-09-29 17:46 | XMS_ITS | Encounter Summary ---
Author Organization [facility] Address [address] [place] [address] Phone Care Team Providers Care Horticultural Specialty Grower Inside Name Role Phone Austin Luna MD Primary Care Provider +1- [phone] Encounter Details Date Type Department Care Team (Late st Contact Info) Description 03/04/2024 Documentation Only [facility] [place], [address] [place] [address] Lucero Ann [address] [place] [address] Social History Tobacco Use Types [...] on filedocumented in this encounter Care Teams Horticultural Specialty Grower Inside Relationship Specialty Start Date End Date Austin Luna MD [address] [place] [address] PCP - General 07/03/20 documented as of this encounter
--- OUTSIDE RECORDS SUMMARY | 2024-09-29 17:46 | XMS_ITS | Encounter Summary ---
Author Organization [facility] Address [address] [place] [address] Phone Care Team Providers Care Belt Sander Stone Name Role Phone Austin Luna MD Primary Care Provider +1- [phone] Encounter Details Date Type Department Care Team (Late st Contact Info) Description 03/04/2024 Documentation Only [facility] [place], [address] [place] [address] Lucero Ann [address] [place] [address] Social History Tobacco Use Types [...] on filedocumented in this encounter Care Teams Belt Sander Stone Relationship Specialty Start Date End Date Austin Luna MD [address] [place] [address] PCP - General 07/03/20 documented as of this encounter
--- OUTSIDE RECORDS SUMMARY | 2024-09-29 17:46 | XMS_ITS | Encounter Summary ---
Author Organization [facility] Address [address] [place] [address] Phone Care Team Providers Care Correctional Supervisor Name Role Phone Austin Luna MD Primary Care Provider +1- [phone] Encounter Details Date Type Department Care Team (Late st Contact Info) Description 03/04/2024 Documentation Only [facility] [place], [address] [place] [address] Lucero Ann [address] [place] [address] Social History Tobacco Use Types [...] on filedocumented in this encounter Care Teams Correctional Supervisor Relationship Specialty Start Date End Date Austin Luna MD [address] [place] [address] PCP - General 07/03/20 documented as of this encounter
--- OUTSIDE RECORDS SUMMARY | 2024-09-29 17:46 | XMS_ITS | Encounter Summary ---
Author Organization [facility] Address [address] [place] [address] Phone Care Team Providers Care Director Revenue Name Role Phone Austin Luna MD Primary Care Provider +1- [phone] Encounter Details Date Type Department Care Team (Late st Contact Info) Description 08/21/2023 Documentation Only [facility] [place], [address] [place] [address] Lucero Ann [address] [place] [address] Social History Tobacco Use Types [...] on filedocumented in this encounter Care Teams Director Revenue Relationship Specialty Start Date End Date Austin Luna MD [address] [place] [address] PCP - General 07/03/20 documented as of this encounter
--- OUTSIDE RECORDS SUMMARY | 2024-09-29 17:46 | XMS_ITS | Encounter Summary ---
Author Organization [facility] Address [address] [place] [address] Phone Care Team Providers Care Beverage Sales Consultant Name Role Phone Austin Luna MD Primary Care Provider +1- [phone] Encounter Details Date Type Department Care Team (Late st Contact Info) Description 03/04/2024 Documentation Only [facility] [place], [address] [place] [address] Lucero Ann [address] [place] [address] Social History Tobacco Use [...] on filedocumented in this encounter Care Teams Beverage Sales Consultant Relationship Specialty Start Date End Date Austin Luna MD [address] [place] [address] PCP - General 07/03/20 documented as of this encounter
--- OUTSIDE RECORDS SUMMARY | 2024-09-29 17:46 | XMS_ITS | Encounter Summary ---
Author Organization [facility] Address [address] [place] [address] Phone Care Team Providers Care Livestock Auctioneer Name Role Phone Austin Luna MD Primary Care Provider +1- [phone] Encounter Details Date Type Department Care Team (Late st Contact Info) Description 03/04/2024 Documentation Only [facility] [place], [address] [place] [address] Lucero Ann [address] [place] [address] Social History Tobacco Use Types [...] on filedocumented in this encounter Care Teams Livestock Auctioneer Relationship Specialty Start Date End Date Austin Luna MD [address] [place] [address] PCP - General 07/03/20 documented as of this encounter
--- OUTSIDE RECORDS SUMMARY | 2024-09-29 17:46 | XMS_ITS | Encounter Summary ---
Author Organization [facility] Address [address] [place] [address] Phone Care Team Providers Care Well Driller Helper Name Role Phone Austin Luna MD Primary Care Provider +1- [phone] Encounter Details Date Type Department Care Team (Late st Contact Info) Description 03/04/2024 Documentation Only [facility] [place], [address] [place] [address] Lucero Ann [address] [place] [address] Social History Tobacco Use Types [...] on filedocumented in this encounter Care Teams Well Driller Helper Relationship Specialty Start Date End Date Austin Luna MD [address] [place] [address] PCP - General 07/03/20 documented as of this encounter
--- OUTSIDE RECORDS SUMMARY | 2024-09-29 17:46 | XMS_ITS | Encounter Summary ---
Author Organization [facility] Address [address] [place] [address] Phone Care Team Providers Care Photograph Inspector Name Role Phone Austin Luna MD Primary Care Provider +1- [phone] Encounter Details Date Type Department Care Team (Late st Contact Info) Description 03/04/2024 Documentation Only [facility] [place], [address] [place] [address] Lucero Ann [address] [place] [address] Social History Tobacco Use Types [...] on filedocumented in this encounter Care Teams Photograph Inspector Relationship Specialty Start Date End Date Austin Luna MD [address] [place] [address] PCP - General 07/03/20 documented as of this encounter
--- OUTSIDE RECORDS SUMMARY | 2024-09-29 17:46 | XMS_ITS | Encounter Summary ---
Author Organization [facility] Address [address] [place] [address] Phone Care Team Providers Care Pull Out Operator Name Role Phone Austin Luna MD Primary Care Provider +1- [phone] Encounter Details Date Type Department Care Team (Late st Contact Info) Description 06/21/2024 Documentation Only [facility] [place], [address] [place] [address] Lucero Ann [address] [place] [address] Social History Tobacco Use Types [...] on filedocumented in this encounter Care Teams Pull Out Operator Relationship Specialty Start Date End Date Austin Luna MD [address] [place] [address] PCP - General 07/03/20 documented as of this encounter
--- OUTSIDE RECORDS SUMMARY | 2024-09-29 17:46 | XMS_ITS | Encounter Summary ---
Author Organization [facility] [place], Address [address] [place] [address] Phone Care Team Providers Care Application Chemist Name Role Phone Austin Luna MD Primary Care Provider +1- [phone] Encounter Details Date Type Department Care Team (Late st Contact Info) Description 03/09/2020 Orders Only [facility] [address] [place] [address] Chronic kidney disease stage 3 [...] hypertension documented in this encounter Care Teams Application Chemist Relationship Specialty Start Date End Date Austin Luna MD [address] [place] [address] PCP - General 07/03/20 documented as of this encounter
== END 2024-09-29 16:46 | disposition home or self-care (01) ==
LOC: HO.HMCH 16:09
PROVIDERS: PCP Internal Medicine; Visit Provider Internal Medicine
DX: I12.9 Hypertensive chronic kidney disease with stage 1 through stage 4 chronic kidney disease, or unspecified chronic kidney disease (principal); I63.412 Cerebral infarction due to embolism of left middle cerebral artery; E11.21 Type 2 diabetes mellitus with diabetic nephropathy; N18.32 Chronic kidney disease, stage 3b; G40.909 Epilepsy, unspecified, not intractable, without status epilepticus; D69.6 Thrombocytopenia, unspecified; C64.1 Malignant neoplasm of right kidney, except renal pelvis; G43.109 Migraine with aura, not intractable, without status migrainosus; R79.89 Other specified abnormal findings of blood chemistry; E78.00 Pure hypercholesterolemia, unspecified; E55.9 Vitamin D deficiency, unspecified; M50.20 Other cervical disc displacement, unspecified cervical region; E66.3 Overweight

== ENCOUNTER → 2024-09-29 16:09 | Outpatient (BNVA) | payer OTHER, SELFPAY | PROVIDERS: PCP Internal Medicine; Visit Provider Internal Medicine | DX: G43.109 Migraine with aura, not intractable, without status migrainosus (principal); R79.89 Other specified abnormal findings of blood chemistry; E11.21 Type 2 diabetes mellitus with diabetic nephropathy; E11.22 Type 2 diabetes mellitus with diabetic chronic kidney disease; I12.9 Hypertensive chronic kidney disease with stage 1 through stage 4 chronic kidney disease, or unspecified chronic kidney disease; N18.32 Chronic kidney disease, stage 3b; E78.00 Pure hypercholesterolemia, unspecified; G40.909 Epilepsy, unspecified, not intractable, without status epilepticus; D69.6 Thrombocytopenia, unspecified; C64.1 Malignant neoplasm of right kidney, except renal pelvis; E55.9 Vitamin D deficiency, unspecified; M50.20 Other cervical disc displacement, unspecified cervical region; E66.3 Overweight; Z68.26 Body mass index [BMI] 26.0-26.9, adult; Z86.73 Personal history of transient ischemic attack (TIA), and cerebral infarction without residual deficits | CPT/HCPCS: 96127; 99212 ==

== ENCOUNTER 2024-10-01 06:06 | Outpatient (REF) | payer OTHER, SELFPAY ==
--- OUTSIDE RECORDS SUMMARY | 2024-10-01 06:08 | XMS_ITS | Encounter Summary ---
Author Organization [facility] [place], Address [address] [place] [address] Phone Care Team Providers Care Tie Presser Name Role Phone Austin Luna MD Primary Care Provider +1- [phone] Encounter Details Date Type Department Care Team (Late st Contact Info) Description 03/09/2020 Orders Only [facility] [address] [place] [address] Chronic kidney disease stage 3 [...] hypertension documented in this encounter Care Teams Tie Presser Relationship Specialty Start Date End Date Austin Luna MD [address] [place] [address] PCP - General 07/03/20 documented as of this encounter
--- OUTSIDE RECORDS SUMMARY | 2024-10-01 06:08 | XMS_ITS | Encounter Summary ---
Author Organization [facility] Address [address] [place] [address] Phone Care Team Providers Care Miller Apprentice Name Role Phone Austin Luna MD Primary Care Provider +1- [phone] Encounter Details Date Type Department Care Team (Late st Contact Info) Description 06/21/2024 Documentation Only [facility] [place], [address] [place] [address] uLcero Ann [address] [place] [address] Social History Tobacco Use Types [...] on filedocumented in this encounter Care Teams Miller Apprentice Relationship Specialty Start Date End Date Austin Luna MD [address] [place] [address] PCP - General 07/03/20 documented as of this encounter
--- OUTSIDE RECORDS SUMMARY | 2024-10-01 06:08 | XMS_ITS | Encounter Summary ---
Author Organization [facility] Address [address] [place] [address] Phone Care Team Providers Care Tool Specialist Name Role Phone Austin Luna MD Primary Care Provider +1- [phone] Encounter Details Date Type Department Care Team (Late st Contact Info) Description 03/04/2024 Documentation Only [facility] [place], [address] [place] [address] Lucero Ann [address] [place] [address] Social History Tobacco Use Types [...] on filedocumented in this encounter Care Teams Tool Specialist Relationship Specialty Start Date End Date Austin Luna MD [address] [place] [address] PCP - General 07/03/20 documented as of this encounter
--- OUTSIDE RECORDS SUMMARY | 2024-10-01 06:08 | XMS_ITS | Encounter Summary ---
Author Organization [facility] Address [address] [place] [address] Phone Care Team Providers Care Power Sewing Machine Operator Name Role Phone Austin Luna MD Primary Care Provider +1- [phone] Encounter Details Date Type Department Care Team (Late st Contact Info) Description 03/04/2024 Documentation Only [facility] [place], [address] [place] [address] Lucero Ann [address] [place] [address] Social History Tobacco Use Types [...] on filedocumented in this encounter Care Teams Power Sewing Machine Operator Relationship Specialty Start Date End Date Austin Luna MD [address] [place] [address] PCP - General 07/03/20 documented as of this encounter
--- OUTSIDE RECORDS SUMMARY | 2024-10-01 06:08 | XMS_ITS | Encounter Summary ---
Author Organization [facility] Address [address] [place] [address] Phone Care Team Providers Care X Ray Inspector Name Role Phone Austin Luna MD Primary Care Provider +1- [phone] Encounter Details Date Type Department Care Team (Late st Contact Info) Description 03/04/2024 Documentation Only [facility] [place], [address] [place] [address] Lucero Ann [address] [place] [address] Social History Tobacco Use [...] on filedocumented in this encounter Care Teams X Ray Inspector Relationship Specialty Start Date End Date Austin Luna MD [address] [place] [address] PCP - General 07/03/20 documented as of this encounter
--- OUTSIDE RECORDS SUMMARY | 2024-10-01 06:08 | XMS_ITS | Encounter Summary ---
Author Organization [facility] Address [address] [place] [address] Phone Care Team Providers Care Pest Control Pilot Name Role Phone Austin Luna MD Primary Care Provider +1- [phone] Encounter Details Date Type Department Care Team (Late st Contact Info) Description 03/04/2024 Documentation Only [facility] [place], [address] [place] [address] Lucero Ann [address] [place] [address] Social History Tobacco Use Types [...] on filedocumented in this encounter Care Teams Pest Control Pilot Relationship Specialty Start Date End Date Austin Luna MD [address] [place] [address] PCP - General 07/03/20 documented as of this encounter
--- OUTSIDE RECORDS SUMMARY | 2024-10-01 06:08 | XMS_ITS | Encounter Summary ---
Author Organization [facility] Address [address] [place] [address] Phone Care Team Providers Care Professor Of Architecture Name Role Phone Austin Luna MD Primary Care Provider +1- [phone] Encounter Details Date Type Department Care Team (Late st Contact Info) Description 03/04/2024 Documentation Only [facility] [place], [address] [place] [address] Lucero Ann [address] [place] [address] Social History Tobacco Use Types [...] on filedocumented in this encounter Care Teams Professor Of Architecture Relationship Specialty Start Date End Date Austin Luna MD [address] [place] [address] PCP - General 07/03/20 documented as of this encounter
--- OUTSIDE RECORDS SUMMARY | 2024-10-01 06:08 | XMS_ITS | Encounter Summary ---
Author Organization [facility] Address [address] [place] [address] Phone Care Team Providers Care Personal Injury Specialist Name Role Phone Austin Luna MD Primary Care Provider +1- [phone] Encounter Details Date Type Department Care Team (Late st Contact Info) Description 01/28/2024 Documentation Only [facility] [place], [address] [place] [address] Lucero Ann [address] [place] [address] Social History Tobacco Use Types [...] on filedocumented in this encounter Care Teams Personal Injury Specialist Relationship Specialty Start Date End Date Austin Luna MD [address] [place] [address] PCP - General 07/03/20 documented as of this encounter
--- OUTSIDE RECORDS SUMMARY | 2024-10-01 06:08 | XMS_ITS | Encounter Summary ---
Author Organization [facility] Address [address] [place] [address] Phone Care Team Providers Care Mainframe Systems Programmer Name Role Phone Austin Luna MD Primary Care Provider +1- [phone] Encounter Details Date Type Department Care Team (Late st Contact Info) Description 01/28/2024 Documentation Only [facility] [place], [address] [place] [address] Lucero Ann [address] [place] [address] Social History Tobacco Use Types [...] on filedocumented in this encounter Care Teams Mainframe Systems Programmer Relationship Specialty Start Date End Date Austin Luna MD [address] [place] [address] PCP - General 07/03/20 documented as of this encounter
--- OUTSIDE RECORDS SUMMARY | 2024-10-01 06:08 | XMS_ITS | Encounter Summary ---
Author Organization [facility] [place], Address [address] [place] [address] Phone Care Team Providers Care Dry Color Mixer Name Role Phone Austin Luna MD Primary Care Provider +1- [phone] Reason for Visit * Reason Comments Med Refill Encounter Details Date Type Department Care Team (Late st Contact Info) Description 09/01/2024 Refill [facility] [place], [address] [place] [address] Angelica Hull MD [address] [place] [address] Social History Tobacco Use Types [...] on filedocumented in this encounter Care Teams Dry Color Mixer Relationship Specialty Start Date End Date Austin Luna MD [address] [place] [address] PCP - General 07/03/20 documented as of this encounter
--- OUTSIDE RECORDS SUMMARY | 2024-10-01 06:08 | XMS_ITS | Encounter Summary ---
Author Organization [facility] Address [address] [place] [address] Phone Care Team Providers Care Manager Strategic Alliances Name Role Phone Austin Luna MD Primary Care Provider +1- [phone] Encounter Details Date Type Department Care Team (Late st Contact Info) Description 03/04/2024 Documentation Only [facility] [place], [address] [place] [address] Lucero Ann [address] [place] [address] Social History Tobacco Use Types [...] on filedocumented in this encounter Care Teams Manager Strategic Alliances Relationship Specialty Start Date End Date Austin Luna MD [address] [place] [address] PCP - General 07/03/20 documented as of this encounter
--- OUTSIDE RECORDS SUMMARY | 2024-10-01 06:08 | XMS_ITS | Encounter Summary ---
Author Organization [facility] Address [address] [place] [address] Phone Care Team Providers Care Otr Truck Driver Name Role Phone Austin Luna MD Primary Care Provider +1- [phone] Encounter Details Date Type Department Care Team (Late st Contact Info) Description 03/04/2024 Documentation Only [facility] [place], [address] [place] [address] Lucero Ann [address] [place] [address] Social History Tobacco Use Types [...] on filedocumented in this encounter Care Teams Otr Truck Driver Relationship Specialty Start Date End Date Austin Luna MD [address] [place] [address] PCP - General 07/03/20 documented as of this encounter
--- OUTSIDE RECORDS SUMMARY | 2024-10-01 06:08 | XMS_ITS | Encounter Summary ---
Author Organization [facility] Address [address] [place] [address] Phone Care Team Providers Care Clearance Cutter Name Role Phone Austin Luna MD Primary Care Provider +1- [phone] Encounter Details Date Type Department Care Team (Late st Contact Info) Description 08/21/2023 Documentation Only [facility] [place], [address] [place] [address] Lucero Ann [address] [place] [address] Social History Tobacco Use Types [...] on filedocumented in this encounter Care Teams Clearance Cutter Relationship Specialty Start Date End Date Austin Luna MD [address] [place] [address] PCP - General 07/03/20 documented as of this encounter
--- OUTSIDE RECORDS SUMMARY | 2024-10-01 06:08 | XMS_ITS | Encounter Summary ---
Author Organization [facility] Address [address] [place] [address] Phone Care Team Providers Care Electric Hoist Operator Name Role Phone Austin Luna MD Primary Care Provider +1- [phone] Encounter Details Date Type Department Care Team (Late st Contact Info) Description 03/04/2024 Documentation Only [facility] [place], [address] [place] [address] Lucero Ann [address] [place] [address] Social History Tobacco Use Types [...] on filedocumented in this encounter Care Teams Electric Hoist Operator Relationship Specialty Start Date End Date Austin Luna MD [address] [place] [address] PCP - General 07/03/20 documented as of this encounter
--- OUTSIDE RECORDS SUMMARY | 2024-10-01 06:08 | XMS_ITS | Encounter Summary ---
Author Organization [facility] Address [address] [place] [address] Phone Care Team Providers Care Garbage Worker Name Role Phone Austin Luna MD Primary Care Provider +1- [phone] Encounter Details Date Type Department Care Team (Late st Contact Info) Description 03/04/2024 Documentation Only [facility] [place], [address] [place] [address] [address] Ann [address] [place] [address] Social History Tobacco Use [...] on filedocumented in this encounter Care Teams Garbage Worker Relationship Specialty Start Date End Date Austin Luna MD [address] [place] [address] PCP - General 07/03/20 documented as of this encounter
--- OUTSIDE RECORDS SUMMARY | 2024-10-01 06:08 | XMS_ITS | Encounter Summary ---
Author Organization [facility] Address [address] [place] [address] Phone Care Team Providers Care Superintendent Fish Hatchery Name Role Phone Austin Luna MD Primary Care Provider +1- [phone] Encounter Details Date Type Department Care Team (Late st Contact Info) Description 03/04/2024 Documentation Only [facility] [place], [address] [place] [address] Lucero Ann [address] [place] [address] Social History Tobacco Use Types [...] on filedocumented in this encounter Care Teams Superintendent Fish Hatchery Relationship Specialty Start Date End Date Austin Luna MD [address] [place] [address] PCP - General 07/03/20 documented as of this encounter
--- OUTSIDE RECORDS SUMMARY | 2024-10-01 06:08 | XMS_ITS | Encounter Summary ---
Author Organization [facility] Address [address] [place] [address] Phone Care Team Providers Care Sort Supervisor Name Role Phone Austin Luna MD Primary Care Provider +1- [phone] Encounter Details Date Type Department Care Team (Late st Contact Info) Description 03/04/2024 Documentation Only [facility] [place], [address] [place] [address] Lucero Ann [address] [place] [address] Social History Tobacco Use Types [...] on filedocumented in this encounter Care Teams Sort Supervisor Relationship Specialty Start Date End Date Austin Luna MD [address] [place] [address] PCP - General 07/03/20 documented as of this encounter
--- OUTSIDE RECORDS SUMMARY | 2024-10-01 06:08 | XMS_ITS | Encounter Summary ---
Author Organization [facility] Address [address] [place] [address] Phone Care Team Providers Care Mechanist Name Role Phone Austin Luna MD Primary Care Provider +1- [phone] Encounter Details Date Type Department Care Team (Late st Contact Info) Description 01/28/2024 Documentation Only [facility] [place], [address] [place] [address] Lucero Ann [address] [place] [address] Social History Tobacco Use Types [...] on filedocumented in this encounter Care Teams Mechanist Relationship Specialty Start Date End Date Austin Luna MD [address] [place] [address] PCP - General 07/03/20 documented as of this encounter
--- OUTSIDE RECORDS SUMMARY | 2024-10-01 06:08 | XMS_ITS | Encounter Summary ---
Author Organization [facility] Address [address] [place] [address] Phone Care Team Providers Care Barrel Tester Name Role Phone Austin Luna MD Primary Care Provider +1- [phone] Encounter Details Date Type Department Care Team (Late st Contact Info) Description 03/04/2024 Documentation Only [facility] [place], [address] [place] [address] Lucero Ann [address] [place] [address] Social History Tobacco Use Types [...] on filedocumented in this encounter Care Teams Barrel Tester Relationship Specialty Start Date End Date Austin Luna MD [address] [place] [address] PCP - General 07/03/20 documented as of this encounter
--- OUTSIDE RECORDS SUMMARY | 2024-10-01 06:08 | XMS_ITS | Encounter Summary ---
Author Organization [facility] Address [address] [place] [address] Phone Care Team Providers Care Container Coordinator Name Role Phone Austin Luna MD Primary Care Provider +1- [phone] Encounter Details Date Type Department Care Team (Late st Contact Info) Description 01/28/2024 Documentation Only [facility] [place], [address] [place] [address] [address] Ann [address] [place] [address] Social History Tobacco Use Types [...] on filedocumented in this encounter Care Teams Container Coordinator Relationship Specialty Start Date End Date Austin Luna MD [address] [place] [address] PCP - General 07/03/20 documented as of this encounter
--- OUTSIDE RECORDS SUMMARY | 2024-10-01 06:08 | XMS_ITS | Encounter Summary ---
Author Organization [facility] Address [address] [place] [address] Phone Care Team Providers Care Management Trainee Name Role Phone Austin Luna MD Primary Care Provider +1- [phone] Encounter Details Date Type Department Care Team (Late st Contact Info) Description 03/04/2024 Documentation Only [facility] [place], [address] [place] [address] Lucero Ann [address] [place] [address] Social History Tobacco Use Types [...] on filedocumented in this encounter Care Teams Management Trainee Relationship Specialty Start Date End Date Austin Luna MD [address] [place] [address] PCP - General 07/03/20 documented as of this encounter
--- OUTSIDE RECORDS SUMMARY | 2024-10-01 06:08 | XMS_ITS | Encounter Summary ---
Author Organization [facility] Address [address] [place] [address] Phone Care Team Providers Care Intellectual Property Paralegal Name Role Phone Austin Luna MD Primary Care Provider +1- [phone] Encounter Details Date Type Department Care Team (Late st Contact Info) Description 01/28/2024 Documentation Only [facility] [place], [address] [place] [address] Lucero Ann [address] [place] [address] Social History Tobacco Use Types [...] on filedocumented in this encounter Care Teams Intellectual Property Paralegal Relationship Specialty Start Date End Date Austin Luna MD [address] [place] [address] PCP - General 07/03/20 documented as of this encounter
--- OUTSIDE RECORDS SUMMARY | 2024-10-01 06:09 | XMS_ITS | Clinical Summary ---
Author Organization [facility] [place], Address [address] [place] [address] [place] [address] Phone Care Team Providers Care Bituminous Paving Machine Operator Name Role Phone Austin Luna MD Primary Care Provider +1- [phone] Allergies Active Allergy Reactions Criticality Noted Date [...] Refill [facility] [place], [address] [place] [address] Angelica Hull MD from Last 3 Months Immunizations Immunization Administration Dates Next Due Influenza, Quadrivalent, Preservative [...] Due Date Last Done Comments Pneumococcal Vaccine: Peds ( 0 to 5 Years) and At-Risk Patients (6 to 49 Years) (1 of 2 - PCV) 1976 [...] Glucose 162(H) 70 - 99 mg/dL [facility] BUN 36(H) 6 - 24 mg/dL [facility] Creatinine 2.13(H) 0.76 - 1.27 mg/dL [facility] eGFR CKD-EPI CR 2020 36(L) >59 mL/min/1.7 3 [facility] BUN/Creatinine Ratio 17 9 - 20 [facility] Sodium 143 134 - 144 mmol/L [facility] Potassium 4.7 3.5 - 5.2 mmol/L [facility] Chloride 110(H) 96 - 106 mmol/L [facility] Bicarbonate (CO2) 18(L) 20 - 29 mmol/L [facility] Calcium 9.1 8.7 - 10.2 mg/dL [facility] Phosphorus 4.3(H) 2.8 - 4.1 mg/dL [facility] Albumin 4.7 3.8 - 4.9 g/dL [facility] Blood (Blood, Venous) 07/09/2024 7:54 AM EST 07/09/2024 us Angelica Hull MD LAB BLOOD ORDERABLES Final Res ult [facility] [address] [place] [address] from Last 3 Months Insurance [address] [place], [place] [facility] [address] [place] [address] [place], [place] Care Teams Bituminous Paving Machine Operator Relationship Specialty Start Date End Date Austin Luna MD [address] [place] [address] PCP - General 07/03/20
[2024-10-01 07:24] LABS: Estimated Average Glucose 146 mg/dL; Hemoglobin A1C 200.8779 umol/L; Hemoglobin A1c % 6.7 % (<6.0); Total Hemoglobin (HGBA1C) 4054.4402 umol/L
[2024-10-01 07:35] LABS: Alanine Aminotransferase 39 U/L (0-40); Albumin Level 4.3 g/dL (3.5-5.0); Alkaline Phosphatase 80 U/L (39-117); Anion Gap 9 (12-20); Aspartate Amino Transferase 33 U/L (5-37); Bilirubin Total 0.5 mg/dL (0.0-1.0); Blood Urea Nitrogen 34 mg/dL (9-16); Calcium 8.8 mg/dL (8.4-10.2); Carbon Dioxide 20 mmol/L (22-29); Chloride 115 mmol/L (96-108); Estimated Glomerular Filt Rate 41; Glucose Random 104 mg/dL (60-115); Potassium 4.3 mmol/L (3.3-5.1); Sodium 140 mmol/L (135-145); Total Protein 6.3 g/dL (6.5-8.0)
== END 2024-10-01 06:07 | disposition home or self-care (01) ==
LOC: HO.LAB 06:06
PROVIDERS: PCP Internal Medicine; Visit Provider Internal Medicine
DX: E11.21 Type 2 diabetes mellitus with diabetic nephropathy (principal); N18.32 Chronic kidney disease, stage 3b
CPT/HCPCS: 36415; 80053; 83036

== ENCOUNTER 2024-11-17 15:56 | Outpatient (AMB) | payer OTHER, SELFPAY ==
[2024-11-17 15:58] VITALS: BP 118/80; PULSE 89; O2SAT 98; BMI 26.7
--- NOTE | 2024-11-17 15:58 | A.OFFVIS_ITS ---
Vital Signs 11/17/24 15:58 Height 5 ft 6 in Weight 165 lb 5.547 oz BMI 26.7 BP 118/80 Blood Pressure Location Rt brachial Position Sitting Pulse 89 Pulse Source Pulse Oximeter Pulse Oximetry (%) 98 Oxygen Delivery Method Room Air Intake Visit Reasons: T2DM Intake Note: Patient presents today for a follow-up on Type 2 Diabetes Mellitus: Last Diabetic eye exam was on: OVER DUE? Last Podiatry exam was on: Patient does not see a Laborer Tree Tapping Most recent HbA1c: 6.7%, 10/01/2024 Random Glucose- 102 mg/dL, Today Xerox Machine Mechanic Required: No Accompanied by: Self / Same As Patient Allergies Latex, Natural Rubber Allergy (Mild, Verified 11/17/24 15:59) Rash pseudoephedrine [Sudafed] Adverse Reaction (Intermediate, Verified 11/17/24 15:59) dizziness, panic attacks HPI Comments Details: 54 year old male with uncontrolled type 2 diabetes presenting for diabetes Medical history: CVA, htn, hld, solitary kidney-follows with dr Sauer Diagnosed with diabetes 2017 per patient In past year patient decided to go off medications and try to improve health with diet and exercise. In mid January restarted his former medications Toujeo 20 units and Trulicity. Just two weeks later he was admitted to [facility] 02/19/24- 02/27/2024. He presenting for stroke like symptoms. A1C 12.6%. Head CT done at the ER revealed (+) wedge-shaped hypoattentuation in the left temporal lobe that suggests either an acute or subacute infarct. MRI did have findings consistent with an old infarct - (+) small chronic cortical infarct involving the left temporal lobe that was not present on his previous MRI from 08/06/2022. Received sliding scale insulin while hospitalized and discharged on Lantus 8 units as he had not been requiring high doses during hospitalization Current meds: Lantus 12 units, jardiance 25mg daily and ozempic 0.25 weekly. A1C improved to 6.7% 10/01/24. (from 12.6 to 7.9%, 7.3%) LDL 70, +alb/cr Macrovascular/microvascular complications: CVA Diet: low carbohydrate. Declines referral to perinatal educator or nutrition Family history of type 2 diabetes ROS CONSTITUTIONAL: Denies weight loss, fever and chills. HEENT: Denies changes in vision and hearing. RESPIRATORY: Denies SOB and cough. CV: Denies palpitations and CP GI: Denies abdominal pain, nausea, vomiting and diarrhea. : Denies dysuria and urinary frequency. MSK: Denies new myalgia and joint pain. SKIN: Denies rash and pruritus. NEUROLOGICAL: Denies headache PSYCHIATRIC: Denies recent changes in mood. PHYSICAL EXAM: GENERAL: Alert and oriented x 3. NAD EYES: EOMI. Anicteric. HENT: Moist mucous membranes. No scleral icterus. No cervical lymphadenopathy. LUNGS: Clear to auscultation bilaterally. CARDIOVASCULAR: Regular rate and rhythm. No murmur. No JVD. ABDOMEN: Soft, non-tender +bs EXTREMITIES: No edema. Non-tender. SKIN: No rashes or lesions. Warm. NEUROLOGIC: No focal neurological deficits. CN II-XII grossly intact PSYCHIATRIC: Cooperative. Appropriate mood and affect [facility] Medical History Cerebral infarction Chronic kidney disease (CKD), stage III (moderate) Type 2 diabetes mellitus with diabetic chronic kidney disease terminal manager (current) use of insulin Overweight (BMI 25.0-29.9) 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 disc herniation Vitamin D deficiency Polycythemia Thrombocytopenia Pure hypercholesterolemia Benign essential hypertension Surgical History Status post cervical discectomy (~09/04/16) History of right nephrectomy (~03/30/13) Family History Mother Hypertension Social History Household Members: Spouse Housing: House Do you presently have visiting nurse or other home services: No Alcohol intake: never Comment: pt low fall, calls appropriately for assistance OOB Patient Tobacco Use Status: Former Tobacco user e-Cigarette/Vaping Use: Never Used Second Hand Smoke Exposure: No Substance Use Type: Marijuana Advance Directives Date on File: 02/19/24 service: No Current occupational status: employed Cognitive needs: No Hearing needs: No Vision needs: Yes (glasses) Physical Exam Vital Signs: Last Vital Signs Pulse 89 11/17/24 15:58 BP 118/80 11/17/24 15:58 Pulse Ox 98 11/17/24 15:58 Oxygen Delivery Method Room Air 11/17/24 15:58 BMI result Body Mass Index 26.7 Assessment & Plan Assessment & Plan (1) Type 2 diabetes mellitus with diabetic chronic kidney disease: Code(s): E11.22 - Type 2 diabetes mellitus with diabetic chronic kidney disease Category: Medical Qualifiers: Diabetes mellitus exterminator insulin use: without mcfp use Chronic kidney disease stage: stage 3 (moderate) Chronic kidney disease stage 3 subtype: stage 3b (GFR 30-44) Qualified Code(s): E11.21 - Type 2 diabetes mellitus with diabetic nephropathy; N18.32 - Chronic kidney disease, stage 3b (2) Chronic kidney disease (CKD), stage III (moderate): Code(s): N18.30 - Chronic kidney disease, stage 3 unspecified Category: Medical Qualifiers: Chronic kidney disease stage 3 subtype: stage 3b (GFR 30-44) Qualified Code(s): N18.32 - Chronic kidney disease, stage 3b Plan 54 year old for diabetic follow up Congratulated on controlled A1C. He will cut his lantus dose to 6units and increase ozempic to 0.5mg. continue jardiance He will follow up in ~2 months for A1C/follow up or sooner as needed Coding Level of Care Code Tele Est Pt Level 4 (41103) Diagnoses Type 2 diabetes mellitus with stage 3b chronic kidney disease, without long-term current use of insulin E11.21; N18.32 Diabetes mellitus exterminator insulin use: without exterminator use Chronic kidney disease stage: stage 3 (moderate) Chronic kidney disease stage 3 subtype: stage 3b (GFR 30-44) Stage 3b chronic kidney disease N18.32 Chronic kidney disease stage 3 subtype: stage 3b (GFR 30-44)
[2024-11-17 16:06] LABS: Glucose, Whole Blood 102 mg/dL (60-115)
--- OUTSIDE RECORDS SUMMARY | 2024-11-17 16:13 | XMS_ITS | Encounter Summary ---
Author Organization [facility] Address [address] [facility] [address] [place] [address] Phone Care Team Providers Care General Maintenance Mechanic Name Role Phone Austin Luna MD Primary Care Provider +1- [phone] Encounter Details Date Type Department Care Team (Late Contact Info) Description 08/19/2023 Documentation Only [facility] [address] [place] [address] Lucero Ann [address] [place] [address] Social History Tobacco Use Types [...] as of this encounter Plan of Treatment Upcoming Encounters Date Type Department Care Team (Late st Contact Info) Description 12/02/2024 3:00 PM EDT Office Visit [facility] [address] [place] [address] Angelica Hull MD [address] [place] [address] [place] [address] documented as of this encounter Visit Diagnoses Not on filedocumented in this encounter Care Teams General Maintenance Mechanic Relationship Specialty Start Date End Date Austin Luna MD [address] [place] [id number] PCP - General 07/03/20 documented as of this encounter
== END 2024-11-17 16:24 | disposition home or self-care (01) ==
LOC: HO.ENCR 15:57
PROVIDERS: PCP Internal Medicine; Visit Provider Internal Medicine
DX: E11.22 Type 2 diabetes mellitus with diabetic chronic kidney disease (principal); N18.32 Chronic kidney disease, stage 3b

== ENCOUNTER → 2024-11-17 15:56 | Outpatient (BNVA) | payer OTHER, SELFPAY | PROVIDERS: PCP Internal Medicine; Visit Provider Internal Medicine | DX: E11.22 Type 2 diabetes mellitus with diabetic chronic kidney disease (principal); E11.21 Type 2 diabetes mellitus with diabetic nephropathy; E78.5 Hyperlipidemia, unspecified; Q60.0 Renal agenesis, unilateral; N18.32 Chronic kidney disease, stage 3b; Z86.73 Personal history of transient ischemic attack (TIA), and cerebral infarction without residual deficits | CPT/HCPCS: 82947; 99212 ==

== ENCOUNTER 2025-01-19 15:41 | Outpatient (AMB) | payer OTHER, SELFPAY ==
--- NOTE | 2025-01-19 15:45 | A.OFFVIS_ITS ---
Vital Signs 01/19/25 15:47 Height 5 ft 6 in Weight 163 lb 2.273 oz BMI 26.3 BP 132/66 Blood Pressure Location Rt brachial Position Sitting Pulse 80 Pulse Source Pulse Oximeter Pulse Oximetry (%) 98 Oxygen Delivery Method Room Air Intake Visit Reasons: T2DM Intake Note: Patient presents today for a follow-up on Type 2 Diabetes Mellitus: Last Diabetic eye exam was on: Patient needs a new referral Last Podiatry exam was on: Patient does not see a Deputy Assessor Most recent HbA1c: 6.2%, 01/19/2025 Random Glucose- 131 mg/dL, Today Paint Stripper Required: No Accompanied by: Self / Same As Patient Allergies Latex, Natural Rubber Allergy (Mild, Verified 01/19/25 15:48) Rash pseudoephedrine (Sudafed) Adverse Reaction (Intermediate, Verified 01/19/25 15:48) dizziness, panic attacks HPI Comments Details: 54 year old male with uncontrolled type 2 diabetes presenting for diabetes Medical history: CVA, htn, hld, solitary kidney-follows with dr Sauer Diagnosed with diabetes 2017 per patient In past year patient decided to go off medications and try to improve health with diet and exercise. In mid January restarted his former medications Toujeo 20 units and Trulicity. Just two weeks later he was admitted to [facility], 02/19/24- 02/27/2024. He presenting for stroke like symptoms. A1C 12.6%. Head CT done at the ER revealed (+) wedge-shaped hypoattentuation in the left temporal lobe that suggests either an acute or subacute infarct. MRI did have findings consistent with an old infarct - (+) small chronic cortical infarct involving the left temporal lobe that was not present on his previous MRI from 08/06/2022. Received sliding scale insulin while hospitalized and discharged on Lantus 8 units as he had not been requiring high doses during hospitalization Current meds: Lantus 6 units (from 12 units) Jardiance 25mg daily ozempic 0.25 weekly A1C 6.2% from 6.7% 10/01/24. (from 12.6 to 7.9%, 7.3%). Denies lows LDL 70, +alb/cr Macrovascular/microvascular complications: CVA Diet: low carbohydrate. Declines referral to communications department chairperson or nutrition Needs referral for new eye doctor. Family history of type 2 diabetes ROS CONSTITUTIONAL: Denies weight loss, fever and chills. HEENT: Denies changes in vision and hearing. RESPIRATORY: Denies SOB and cough. CV: Denies palpitations and CP GI: Denies abdominal pain, nausea, vomiting and diarrhea. : Denies dysuria and urinary frequency. MSK: Denies new myalgia and joint pain. SKIN: Denies rash and pruritus. NEUROLOGICAL: Denies headache PSYCHIATRIC: Denies recent changes in mood. PHYSICAL EXAM: GENERAL: Alert and oriented x 3. NAD EYES: EOMI. Anicteric. HENT: Moist mucous membranes. No scleral icterus. No cervical lymphadenopathy. LUNGS: Clear to auscultation bilaterally. CARDIOVASCULAR: Regular rate and rhythm. No murmur. No JVD. ABDOMEN: Soft, non-tender +bs EXTREMITIES: No edema. Non-tender. SKIN: No rashes or lesions. Warm. NEUROLOGIC: No focal neurological deficits. CN II-XII grossly intact PSYCHIATRIC: Cooperative. Appropriate mood and affect [facility] Medical History Cerebral infarction Chronic kidney disease (CKD), stage III (moderate) Type 2 diabetes mellitus with diabetic chronic kidney disease long term care administrator (current) use of insulin Overweight (BMI 25.0-29.9) 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 disc herniation Vitamin D deficiency Polycythemia Thrombocytopenia Pure hypercholesterolemia Benign essential hypertension Surgical History Status post cervical discectomy (~09/04/16) History of right nephrectomy (~03/30/13) Family History Mother Hypertension Social History Household Members: Spouse Housing: House Do you presently have visiting nurse or other home services: No Alcohol intake: never Comment: pt low fall, calls appropriately for assistance OOB Patient Tobacco Use Status: Former Tobacco user e-Cigarette/Vaping Use: Never Used Second Hand Smoke Exposure: No Substance Use Type: Marijuana Advance Directives Date on File: 02/19/24 service: No Current occupational status: employed Cognitive needs: No Hearing needs: No Vision needs: Yes (glasses) Physical Exam Vital Signs: Last Vital Signs Pulse 80 01/19/25 15:47 BP 132/66 01/19/25 15:47 Pulse Ox 98 01/19/25 15:47 Oxygen Delivery Method Room Air 01/19/25 15:47 BMI result Body Mass Index 26.3 Results AMB Hemoglobin A1c AMB Hemoglobin A1c 6.2 % Last Edit by JESSI Gaines on 01/19/25 16:00 Assessment & Plan Assessment & Plan (1) Type 2 diabetes mellitus with diabetic chronic kidney disease: Code(s): E11.22 - Type 2 diabetes mellitus with diabetic chronic kidney disease Category: Medical Qualifiers: Diabetes mellitus long term care administrator insulin use: without long term care administrator use Chronic kidney disease stage: stage 3 (moderate) Chronic kidney disease stage 3 subtype: stage 3b (GFR 30-44) Qualified Code(s): E11.21 - Type 2 diabetes mellitus with diabetic nephropathy; N18.32 - Chronic kidney disease, stage 3b (2) Benign essential hypertension: Code(s): I10 - Essential (primary) hypertension Category: Medical (3) long term care administrator (current) use of insulin: Code(s): Z79.4 - long term care administrator (current) use of insulin Category: Medical Plan Diabetes is well controlled on current medication. No dose changes christopher Referral to ophtho placed. Number and address provided Testing supplies refilled No hypoglycemia. Treat ay hypoglycemia rules of 15s Orders: Orders AMB Hemoglobin A1c Today E11.21 - Type 2 diabetes mellitus with diabetic nephropathy, N18.32 - Chronic kidney disease, stage 3b Referrals Ophthalmology Referral E11.21 - Type 2 diabetes mellitus with diabetic nephropathy, N18.32 - Chronic kidney disease, stage 3b Medications: Changed From lancets (FreeStyle Lancets) As directed E11.21 - Type 2 diabetes mellitus with diabetic nephropathy, N18.32 - Chronic kidney disease, stage 3b To lancets (FreeStyle Lancets) once daily 100 ea 3RF E11.21 - Type 2 diabetes mellitus with diabetic nephropathy, N18.32 - Chronic kidney disease, stage 3b From blood sugar diagnostic (FreeStyle Lite Strips) As directed E11.21 - Type 2 diabetes mellitus with diabetic nephropathy, N18.32 - Chronic kidney disease, stage 3b To FreeStyle Lite Strips (blood sugar diagnostic) once daily 100 ea 3RF NS E11.21 - Type 2 diabetes mellitus with diabetic nephropathy, N18.32 - Chronic kidney disease, stage 3b Refilled Ozempic (semaglutide) for 4 weeks 0.25 mg (0.368 mL) subcut QWEEK 9 mL 3RF NS E11.21 - Type 2 diabetes mellitus with diabetic nephropathy, N18.32 - Chronic kidney disease, stage 3b Coding Level of Care Code Est Pt Level 4 (15226) Diagnoses Type 2 diabetes mellitus with stage 3b chronic kidney disease, without long-term current use of insulin E11.21; N18.32 Diabetes mellitus long term care administrator insulin use: without alf use Chronic kidney disease stage: stage 3 (moderate) Chronic kidney disease stage 3 subtype: stage 3b (GFR 30-44) Benign essential hypertension I10 care home (current) use of insulin Z79.4
[2025-01-19 15:47] VITALS: BP 132/66; PULSE 80; O2SAT 98; BMI 26.3
[2025-01-19 15:55] LABS: Glucose, Whole Blood 131 mg/dL (60-115)
--- OUTSIDE RECORDS SUMMARY | 2025-01-19 16:18 | XMS_ITS | Clinical Summary ---
Author Organization [facility] Address [address] [place] [address] Phone Care Team Providers Care Pig Farmer Name Role Phone Austin Luna MD Primary Care Provider +1 -[phone] Social History Tobacco Use Types Packs/Day Years Used Date Smoking Tobacco: Never Assessed Education Answer Date Recorded Are you interested in more education? Not on albino e 02/27/2024 Are you concerned about learning? Not on file 02/27/2024 No 02/27/2024 No 02/27/2024 Digital Access Answer Date Recorded No 02/27/2024 No 02/27/2024 Reliable internet access at home? Not on file 02/27/2024 Device with a working camera? Not on file Sex and Gender Information Value Date Recorded Sex Assigned at Not on file Legal Sex Male 9:34 PM EDT Gender Identity Not on file Sexual Orientation Not on file Plan of Treatment Not on file Medical Devices Not on file Insurance [facility] DIRECT [address] [place], [place] [facility] [employer] [place] [address] [place] [address] [employer] [place] [address] [place] [facility] [employer] [facility] [employer] [place] [address] [place] [facility] [employer] DIRECT [address] [place], [place] [address] [place] [address] [place] Care Teams Pig Farmer Relationship Specialty Start Date End Date Austin Luna MD [address] [place] [address] [place] [address] PCP - General 02/27/24 Additional Source Comments The information contained in this document represents components of the legal health record. It is not the complete legal health record.[facility]
--- OUTSIDE RECORDS SUMMARY | 2025-01-19 16:18 | XMS_ITS | Encounter Summary ---
Author Organization [facility] Address PO [facility] [address] [place] [address] Phone Care Team Providers Care Aquarist Name Role Phone Austin Luna MD Primary Care Provider +1- [phone] Encounter Details Date Type Department Care Team (Late Contact Info) Description 08/19/2023 Documentation Only [facility] [address] [place] [address] Lucero Ann [address] [place] [address] Social History Tobacco Use Types [...] Care Team (Late st Contact Info) Description 03/10/2025 3:30 PM EDT Office Visit [facility] [address] [place] [address] Angelica Hull MD [address] [place] [address] [place] [address] documented as of this encounter Visit Diagnoses Not on filedocumented in this encounter Care Teams Aquarist Relationship Specialty Start Date End Date Austin Luna MD [address] [place] [id number] PCP - General 07/03/20 documented as of this encounter
== END 2025-01-19 16:20 | disposition home or self-care (01) ==
LOC: HO.ENCR 15:42
PROVIDERS: PCP Internal Medicine; Visit Provider Internal Medicine
DX: E11.21 Type 2 diabetes mellitus with diabetic nephropathy (principal); N18.32 Chronic kidney disease, stage 3b; I10 Essential (primary) hypertension; Z79.4 Long term (current) use of insulin

== ENCOUNTER → 2025-01-19 15:41 | Outpatient (BNVA) | payer OTHER, SELFPAY | PROVIDERS: PCP Internal Medicine; Visit Provider Internal Medicine | DX: E11.21 Type 2 diabetes mellitus with diabetic nephropathy (principal); N18.32 Chronic kidney disease, stage 3b; I10 Essential (primary) hypertension; Z79.4 Long term (current) use of insulin | CPT/HCPCS: 82947; 83036; 99212 ==

== ENCOUNTER 2025-03-14 10:16 | Outpatient (REF) | payer OTHER, SELFPAY ==
--- OUTSIDE RECORDS SUMMARY | 2025-03-10 15:00 | XMS_ITS | Encounter Summary ---
Author Organization [facility] Address [address] [place] [address] Phone Care Team Providers Care Stage Builder Name Role Phone Austin Luna MD Primary Care Provider +1- [phone] Encounter Details Date Type Department Care Team (Late st Contact Info) Description 03/10/2025 3:00 PM EDT Office Visit [facility] [address] [place] [address] Angelica Hull MD [address] [place] [address] [place] [address] Stage 3b chronic kidney disease (HCC) (Primary Dx); Essential hypertension; Type 2 diabetes mellitus with complication, not otherwise specified (HCC); Ischemic stroke (HCC); Acquired absence of kidney Social History Tobacco Use Types Packs/Day Years [...] on file documented as of this encounter Last Filed Vital Signs Vital Sign Reading Time Taken Comments Blood Pressure 110/56 03/10/2025 3:30 PM EDT Pulse 78 03/10/2025 3:30 PM EDT Temperature - - Respiratory Rate - - Oxygen Saturation - - Inhaled Oxygen Concentration - - Weight - - Height - - Body Mass Index - - documented in this encounter Plan of Treatment Upcoming Encounters Date Type Department Care Team (Late st Contact Info) Description 06/09/2025 4:00 PM EST Office Visit [facility] [place] [address] [place] [address] Angelica Hull MD [address] [place] [address] Scheduled Orders Name Type Priority Associated Diagnoses Orde r Schedule CBC Lab Routine Stage 3b chronic kidney disease (HCC) Essential hypertension Type 2 diabetes mellitus with complication, not otherwise specified (HCC) Ischemic stroke (HCC) Acquired absence of kidney Expected: 03/10/2025, Expires: 04/09/2026 PTH, intact Lab Routine Stage 3b chronic kidney disease (HCC) Essential hypertension Type 2 diabetes mellitus with complication, not otherwise specified (HCC) Ischemic stroke (HCC) Acquired absence of kidney Expected: 03/10/2025, Expires: 04/09/2026 Phosphorus Lab Routine Stage 3b chronic kidney disease (HCC) Essential hypertension Type 2 diabetes mellitus with complication, not otherwise specified (HCC) Ischemic stroke (HCC) Acquired absence of kidney Expected: 03/10/2025, Expires: 04/09/2026 Renal function panel Lab Routine Stage 3b chronic kidney disease (HCC) Essential hypertension Type 2 diabetes mellitus with complication, not otherwise specified (HCC) Ischemic stroke (HCC) Acquired absence of kidney Expected: 03/10/2025, Expires: 04/09/2026 Urinalysis with microscopic Lab Routine Stage 3b chronic kidney disease (HCC) Essential hypertension Type 2 diabetes mellitus with complication, not otherwise specified (HCC) Ischemic stroke (HCC) Acquired absence of kidney Expected: 03/10/2025, Expires: 04/09/2026 Urine Albumin / Creatinine Ratio Lab Routine Stage 3b chronic kidney disease (HCC) Essential hypertension Type 2 diabetes mellitus with complication, not otherwise specified (HCC) Ischemic stroke (HCC) Acquired absence of kidney Expected: 03/10/2025, Expires: 04/09/2026 Urine Protein / creatinine ratio Lab Routine Stage 3b chronic kidney disease (HCC) Essential hypertension Type 2 diabetes mellitus with complication, not otherwise specified (HCC) Ischemic stroke (HCC) Acquired absence of kidney Expected: 03/10/2025, Expires: 04/09/2026 Magnesium Lab Routine Stage 3b chronic kidney disease (HCC) Essential hypertension Type 2 diabetes mellitus with complication, not otherwise specified (HCC) Ischemic stroke (HCC) Acquired absence of kidney Expected: 03/10/2025, Expires: 04/09/2026 documented as of this encounter Visit Diagnoses Diagnosis Stage 3b chronic kidney disease (HCC)- Primary Essential hypertension Type 2 diabetes mellitus with complication, not otherwise specified (HCC) Ischemic stroke (HCC) Acquired absence of kidney documented in this encounter Care Teams Stage Builder Relationship Specialty Start Date End Date Austin Luna MD [address] [place] [address] PCP - General 07/03/20 documented as of this encounter
[2025-03-14 10:37] LABS: MANUAL DIFF FLAG NO
[2025-03-14 10:59] LABS: Hematocrit 44.0 % (42.0-52.0); Hemoglobin 15.3 g/dl (14.0-18.0); Imm Gran Abs Auto 0.02 X10*3/uL (0.00-0.03); Imm Gran Pct Auto 0.4 % (0.0-0.4); Lymphocytes Absolute Auto 1.4 X10*3/uL (1.2-4.9); Mean Corpuscular HGB Conc 34.8 g/dl (31.0-36.0); Mean Corpuscular Hemoglobin 29.4 pg (27.0-33.0); Mean Corpuscular Volume 84.6 fL (80.0-98.0); NRBC Abs Auto 0.000 X10*3/uL (0.0-0.012); NRBC Pct Auto 0.0 /100WBC (0.0-0.2); Platelet Count 155 X10*3/uL (160-400); Red Blood Count 5.20 X10*6/uL (4.60-5.80); White Blood Count 5.6 X10*3/uL (4.8-10.8)
[2025-03-14 11:11] LABS: Hemoglobin A1C 182.4364 umol/L; Total Hemoglobin (HGBA1C) 4061.8422 umol/L
[2025-03-14 11:18] LABS: Appearance Urine Clear; Glucose Urine UA >=1000 mg/dL (Negative); PH 5.5 (5.0-9.0); Specific Gravity - Urine 1.025 (1.005-1.025); UMIC TRIGGER UA YES
[2025-03-14 11:33] LABS: Parathyroid Hormone Intact 167.5 pg/mL (8.7-77.1)
[2025-03-14 11:38] LABS: Alanine Aminotransferase 46 U/L (0-40); Albumin Level 4.7 g/dL (3.5-5.0); Alkaline Phosphatase 97 U/L (39-117); Anion Gap 12 (12-20); Aspartate Amino Transferase 35 U/L (5-37); Blood Urea Nitrogen 30 mg/dL (9-16); Calcium 8.7 mg/dL (8.4-10.2); Carbon Dioxide 20 mmol/L (22-29); Chloride 112 mmol/L (96-108); Cholesterol 138 mg/dL (<200); Estimated Glomerular Filt Rate 39; HDL Cholesterol 45 mg/dL (>40); Magnesium 2.2 mg/dL (1.6-2.6); Potassium 4.7 mmol/L (3.3-5.1); Sodium 139 mmol/L (135-145); Total Protein 6.4 g/dL (6.5-8.0); Triglycerides 50 mg/dL (<150)
[2025-03-14 11:58] LABS: Renal w Reflex Lab Use Only Order verified
[2025-03-14 12:06] LABS: Folate 11.7 ng/mL (> or = 4.0); Vitamin B12 673 pg/mL (200-900)
[2025-03-14 12:09] LABS: Microalbum/Creatinine Ratio Ur 28.8 ug/mg cr (<30)
--- OUTSIDE RECORDS SUMMARY | 2025-03-14 12:38 | XMS_ITS | Encounter Summary ---
Author Organization [facility] Address [address] [facility] [address] [place] [address] Phone Care Team Providers Care Career Professional Name Role Phone Austin Luna MD Primary Care Provider +1- [phone] Encounter Details Date Type Department Care Team (Late Contact Info) Description 01/28/2024 Documentation Only [facility] [address] [place] [address] Lucero Ann [address] [place] [address] Social History Tobacco Use Types Packs/Day [...] Visit [facility] [address] [place] [address] Angelica Hull MD [address] [place] [address] [place] [address] documented as of this encounter Visit Diagnoses Not on filedocumented in this encounter Care Teams Career Professional Relationship Specialty Start Date End Date Austin Luna MD [address] [place] [address] [phone] PCP - General 07/03/20 documented as of this encounter
--- OUTSIDE RECORDS SUMMARY | 2025-03-14 12:38 | XMS_ITS | Encounter Summary ---
Author Organization [facility] Address PO [facility] [address] [place] [address] Phone Care Team Providers Care Psychiatric Nursing Aide Name Role Phone Austin Luna MD Primary Care Provider +1- [phone] Encounter Details Date Type Department Care Team (Late Contact Info) Description 03/04/2024 Documentation Only [facility] [address] [place] [address] Lucero Ann [address] [place] [address] Social History Tobacco Use Types Packs/Day [...] Visit [facility] [address] [place] [address] Angelica Hull MD [address] [place] [address] [place] [address] documented as of this encounter Visit Diagnoses Not on filedocumented in this encounter Care Teams Psychiatric Nursing Aide Relationship Specialty Start Date End Date Austin Luna MD [address] [place] [phone] PCP - General 07/03/20 documented as of this encounter
--- OUTSIDE RECORDS SUMMARY | 2025-03-14 12:38 | XMS_ITS | Encounter Summary ---
Author Organization [facility] Address [address] [facility] [address] [place] [address] Phone Care Team Providers Care Lithographic Photographer Apprentice Name Role Phone Austin Luna MD Primary Care Provider +1- [phone] Encounter Details Date Type Department Care Team (Late Contact Info) Description 06/21/2024 Documentation Only [facility] [address] [place] [address] Lucero Ann [address] [place] [address] Social History Tobacco Use Types Packs/Day [...] Visit [facility] [address] [place] [address] Angelica Hull MD [address] [place] [address] [place] [address] documented as of this encounter Visit Diagnoses Not on filedocumented in this encounter Care Teams Lithographic Photographer Apprentice Relationship Specialty Start Date End Date Austin Luna MD [address] [place] [phone] PCP - General 07/03/20 documented as of this encounter
--- OUTSIDE RECORDS SUMMARY | 2025-03-14 12:38 | XMS_ITS | Encounter Summary ---
Author Organization [facility] Address PO [facility] [address] [place] [address] Phone Care Team Providers Care Finishing Operator Name Role Phone Austin Luna MD Primary Care Provider +1- [phone] Reason for Visit * Reason Comments Med Refill Encounter Details Date Type Department Care Team (Late Contact Info) Description 09/01/2024 Refill [facility] [address] [facility] [place] [address] Angelica Hull MD [address] [facility] [place] [address] Social History Tobacco Use Types [...] Visit [facility] [address] [place] [address] Angelica Hull MD [address] [facility] [place] [place] [address] documented as of this encounter Visit Diagnoses Not on filedocumented in this encounter Care Teams Finishing Operator Relationship Specialty Start Date End Date Austin Luna MD [address] [place] [place] [address] [address] [place] [address] PCP - General 07/03/20 documented as of this encounter
--- OUTSIDE RECORDS SUMMARY | 2025-03-14 12:38 | XMS_ITS | Encounter Summary ---
Author Organization [facility] Address PO [facility] [address] [place] [address] Phone Care Team Providers Care Monitor Technician Name Role Phone Austin Luna MD Primary Care Provider +1- [phone] Encounter Details Date Type Department Care Team (Late Contact Info) Description 01/28/2024 Documentation Only [facility] [address] [place] [address] Lucero Ann [address] [place] [address] Social History Tobacco Use Types Packs/Day [...] Visit [facility] [address] [place] [address] Angelica Hull MD [address] [place] [address] [place] [address] documented as of this encounter Visit Diagnoses Not on filedocumented in this encounter Care Teams Monitor Technician Relationship Specialty Start Date End Date Austin Luna MD [address] [place] [phone] PCP - General 07/03/20 documented as of this encounter
--- OUTSIDE RECORDS SUMMARY | 2025-03-14 12:38 | XMS_ITS | Encounter Summary ---
Author Organization [facility] Address PO [facility] [address] [place] [address] Phone Care Team Providers Care Agile Java Developer Name Role Phone Austin Luna MD Primary Care Provider +1- [phone] Encounter Details Date Type Department Care Team (Late Contact Info) Description 03/04/2024 Documentation Only [facility] [address] [place] [address] Lucero Ann [address] [place] [address] Social History Tobacco Use Types Packs/Day [...] Visit [facility] [address] [place] [address] Angelica Hull MD [address] [place] [address] [place] [address] documented as of this encounter Visit Diagnoses Not on filedocumented in this encounter Care Teams Agile Java Developer Relationship Specialty Start Date End Date Austin Luna MD [address] [place] [phone] PCP - General 07/03/20 documented as of this encounter
--- OUTSIDE RECORDS SUMMARY | 2025-03-14 12:38 | XMS_ITS | Encounter Summary ---
Author Organization [facility] Address PO [facility] [address] [place] [address] Phone Care Team Providers Care Web Merchant Name Role Phone Austin Luna MD Primary Care Provider +1- [phone] Encounter Details Date Type Department Care Team (Late Contact Info) Description 08/19/2023 Documentation Only [facility] [address] [place] [address] Lucero Ann [address] [place] [address] Social History Tobacco Use Types Packs/Day [...] Visit [facility] [address] [place] [address] Angelica Hull MD [address] [place] [address] [place] [address] documented as of this encounter Visit Diagnoses Not on filedocumented in this encounter Care Teams Web Merchant Relationship Specialty Start Date End Date Austin Luna MD [address] [place] [phone] PCP - General 07/03/20 documented as of this encounter
--- OUTSIDE RECORDS SUMMARY | 2025-03-14 12:38 | XMS_ITS | Encounter Summary ---
Author Organization [facility] Address PO [facility] [address] [place] [address] Phone Care Team Providers Care Adult Education Professional Name Role Phone Austin Luna MD Primary Care Provider +1- [phone] Encounter Details Date Type Department Care Team (Late Contact Info) Description 12/01/2024 Documentation Only [facility] [address] [place] [address] Lucero Ann [address] [place] [address] Social History Tobacco Use Types Packs/Day [...] Visit [facility] [address] [place] [address] Angelica Hull MD [address] [place] [address] [place] [address] documented as of this encounter Visit Diagnoses Not on filedocumented in this encounter Care Teams Adult Education Professional Relationship Specialty Start Date End Date Austin Luna MD [address] [place] [phone] PCP - General 07/03/20 documented as of this encounter
--- OUTSIDE RECORDS SUMMARY | 2025-03-14 12:38 | XMS_ITS | Encounter Summary ---
Author Organization [facility] Address PO [facility] [address] [place] [address] Phone Care Team Providers Care Watershed Program Manager Name Role Phone Austin Luna MD Primary Care Provider +1- [phone] Encounter Details Date Type Department Care Team (Late Contact Info) Description 01/28/2024 Documentation Only [facility] [address] [place] [address] Lucero Ann [address] [place] [address] Social History Tobacco Use Types Packs/Day [...] Visit [facility] [address] [place] [address] Angelica Hull MD [address] [place] [address] [place] [address] documented as of this encounter Visit Diagnoses Not on filedocumented in this encounter Care Teams Watershed Program Manager Relationship Specialty Start Date End Date Austin Luna MD [address] [place] [address] [phone] PCP - General 07/03/20 documented as of this encounter
--- OUTSIDE RECORDS SUMMARY | 2025-03-14 12:38 | XMS_ITS | Encounter Summary ---
Author Organization [facility] Address PO [facility] [address] [place] [address] Phone Care Team Providers Care Junior Mechanical Engineer Name Role Phone Austin Luna MD Primary Care Provider +1- [phone] Encounter Details Date Type Department Care Team (Late Contact Info) Description 03/04/2024 Documentation Only [facility] [address] [place] [address] Lucero Ann [address] [place] [address] Social History Tobacco Use Types Packs/Day [...] Visit [facility] [address] [place] [address] Angelica Hull MD [address] [place] [address] [place] [address] documented as of this encounter Visit Diagnoses Not on filedocumented in this encounter Care Teams Junior Mechanical Engineer Relationship Specialty Start Date End Date Austin Luna MD [address] [place] [phone] PCP - General 07/03/20 documented as of this encounter
--- OUTSIDE RECORDS SUMMARY | 2025-03-14 12:38 | XMS_ITS | Encounter Summary ---
Author Organization [facility] Address PO [facility] [address] [place] [address] Phone Care Team Providers Care Library Associate Name Role Phone Austin Luna MD Primary Care Provider +1- [phone] Encounter Details Date Type Department Care Team (Late Contact Info) Description 03/04/2024 Documentation Only [facility] [address] [place] [address] Lucero Ann [address] [place] [address] Social History Tobacco Use Types Packs/Day [...] [facility] [address] [place] [address] Angelica Hull MD [address] [place] [address] [place] [address] documented as of this encounter Visit Diagnoses Not on filedocumented in this encounter Care Teams Library Associate Relationship Specialty Start Date End Date Austin Luna MD [address] [place] [address] PCP - General 07/03/20 documented as of this encounter
--- OUTSIDE RECORDS SUMMARY | 2025-03-14 12:38 | XMS_ITS | Encounter Summary ---
Author Organization [facility] Address PO [facility] [address] [place] [address] Phone Care Team Providers Care Overhead Cleaner Maintainer Name Role Phone Austin Luna MD Primary Care Provider +1- [phone] Encounter Details Date Type Department Care Team (Late Contact Info) Description 03/04/2024 Documentation Only [facility] [address] [place] [address] Lucero Ann [address] [place] [phone] Social History Tobacco Use Types Packs/Day [...] Visit [facility] [address] [place] [address] Angelica Hull MD [address] [place] [address] [place] [address] documented as of this encounter Visit Diagnoses Not on filedocumented in this encounter Care Teams Overhead Cleaner Maintainer Relationship Specialty Start Date End Date Austin Luna MD [address] [place] [phone] PCP - General 07/03/20 documented as of this encounter
--- OUTSIDE RECORDS SUMMARY | 2025-03-14 12:38 | XMS_ITS | Encounter Summary ---
Author Organization [facility] [place], Address PO [facility] [address] [place] [address] Phone Care Team Providers Care Legal Officer Name Role Phone Austin Luna MD Primary Care Provider +1- [phone] Encounter Details Date Type Department Care Team ([facility] Contact Info) Description 03/11/2025 Orders Only [facility] [address] [place] [address] Lucero Ann [address] [place] [address] Essential hypertension (Primary Dx); Type 2 diabetes mellitus, not otherwise specified (HCC); Acquired absence of kidney; Stage 3b chronic kidney disease (HCC) Social History Tobacco Use Types Packs/Day Years [...] Visit [facility] [address] [place] [address] Angelica Hull MD [address] [facility] [place] [address] Scheduled Orders Name Type Priority Associated Diagnoses Orde r Schedule Magnesium Lab Routine Essential hypertension Type 2 diabetes mellitus, not otherwise specified (HCC) Acquired absence of kidney Stage 3b chronic kidney disease (HCC) Expected: 03/11/2025, Expires: 04/10/2026 Urine Protein / creatinine ratio Lab Routine Essential hypertension Type 2 diabetes mellitus, not otherwise specified (HCC) Acquired absence of kidney Stage 3b chronic kidney disease (HCC) Expected: 03/11/2025, Expires: 04/10/2026 Urine Albumin / Creatinine Ratio Lab Routine Essential hypertension Type 2 diabetes mellitus, not otherwise specified (HCC) Acquired absence of kidney Stage 3b chronic kidney disease (HCC) Expected: 03/11/2025, Expires: 04/10/2026 Urinalysis with microscopic Lab Routine Essential hypertension Type 2 diabetes mellitus, not otherwise specified (HCC) Acquired absence of kidney Stage 3b chronic kidney disease (HCC) Expected: 03/11/2025, Expires: 04/10/2026 Renal function panel Lab Routine Essential hypertension Type 2 diabetes mellitus, not otherwise specified (HCC) Acquired absence of kidney Stage 3b chronic kidney disease (HCC) Expected: 03/11/2025, Expires: 04/10/2026 Phosphorus Lab Routine Essential hypertension Type 2 diabetes mellitus, not otherwise specified (HCC) Acquired absence of kidney Stage 3b chronic kidney disease (HCC) Expected: 03/11/2025, Expires: 04/10/2026 PTH, intact Lab Routine Essential hypertension Type 2 diabetes mellitus, not otherwise specified (HCC) Acquired absence of kidney Stage 3b chronic kidney disease (HCC) Expected: 03/11/2025, Expires: 04/10/2026 CBC and differential Lab Routine Essential hypertension Type 2 diabetes mellitus, not otherwise specified (HCC) Acquired absence of kidney Stage 3b chronic kidney disease (HCC) Expected: 03/11/2025, Expires: 04/10/2026 documented as of this encounter Visit Diagnoses Diagnosis Essential hypertension- Primary Type 2 diabetes mellitus, not otherwise specified (HCC) Acquired absence of kidney Stage 3b chronic kidney disease (HCC) documented in this encounter Care Teams Legal Officer Relationship Specialty Start Date End Date Austin Luna MD [address] [place] [address] [address] [place] [address] PCP - General 07/03/20 documented as of this encounter
--- OUTSIDE RECORDS SUMMARY | 2025-03-14 12:38 | XMS_ITS | Encounter Summary ---
Author Organization [facility] Address PO [facility] [address] [place] [address] Phone Care Team Providers Care Well Logging Captain Name Role Phone Austin Luna MD Primary Care Provider +1- [phone] Encounter Details Date Type Department Care Team (Late Contact Info) Description 03/04/2024 Documentation Only [facility] [address] [place] [address] Lucero Ann [address] [place] [address] Social History Tobacco Use Types Packs/Day [...] [facility] [address] [place] [address] Angelica Hull MD [address] [place] [address] [place] [address] documented as of this encounter Visit Diagnoses Not on filedocumented in this encounter Care Teams Well Logging Captain Relationship Specialty Start Date End Date Austin Luna MD [address] [place] [address] PCP - General 07/03/20 documented as of this encounter
--- OUTSIDE RECORDS SUMMARY | 2025-03-14 12:38 | XMS_ITS | Encounter Summary ---
Author Organization [facility], Address [address] [place] [address] Phone Care Team Providers Care Scalp Treatment Operator Name Role Phone Austin Luna MD Primary Care Provider +1- [phone] Encounter Details Date Type Department Care Team (Late Contact Info) Description 03/09/2020 Orders Only [facility] [address] [place] [address] Chronic kidney disease stage 3 [...] Visit [facility] [place], [address] [facility] [place] [address] Angelica Hull MD [address] [place] [address] documented as of this encounter Visit Diagnoses Diagnosis Chronic kidney disease stage 3 (HCC) Type 2 diabetes mellitus without complication (HCC) Essential hypertension documented in this encounter Care Teams Scalp Treatment Operator Relationship Specialty Start Date End Date Austin Luna MD [address] [place] [address] PCP - General 07/03/20 documented as of this encounter
--- OUTSIDE RECORDS SUMMARY | 2025-03-14 12:38 | XMS_ITS | Encounter Summary ---
Author Organization [facility] Address PO [facility] [address] [place] [address] Phone Care Team Providers Care Stone Carriage Operator Name Role Phone Austin Luna MD Primary Care Provider +1- [phone] Encounter Details Date Type Department Care Team (Late Contact Info) Description 01/28/2024 Documentation Only [facility] [address] [place] [address] Lucero Ann [address] [place] [address] Social History Tobacco Use Types Packs/Day [...] [facility] [address] [place] [address] Angelica Hull MD [address] [place] [address] [place] [address] documented as of this encounter Visit Diagnoses Not on filedocumented in this encounter Care Teams Stone Carriage Operator Relationship Specialty Start Date End Date Austin Luna MD [address] [place] [address] [phone] PCP - General 07/03/20 documented as of this encounter
--- OUTSIDE RECORDS SUMMARY | 2025-03-14 12:38 | XMS_ITS | Encounter Summary ---
Author Organization [facility] Address PO [facility] [address] [place] [address] Phone Care Team Providers Care Mastic Worker Name Role Phone Austin Luna MD Primary Care Provider +1- [phone] Encounter Details Date Type Department Care Team (Late Contact Info) Description 08/21/2023 Documentation Only [facility] [address] [place] [address] Lucero Ann [address] [place] [address] Social History Tobacco Use Types Packs/Day [...] [facility] [address] [place] [address] Angelica Hull MD [address] [place] [address] [place] [address] documented as of this encounter Visit Diagnoses Not on filedocumented in this encounter Care Teams Mastic Worker Relationship Specialty Start Date End Date Austin Luna MD [address] [place] [address] [phone] PCP - General 07/03/20 documented as of this encounter
--- OUTSIDE RECORDS SUMMARY | 2025-03-14 12:38 | XMS_ITS | Encounter Summary ---
Author Organization [facility] Address PO [facility] [address] [place] [address] Phone Care Team Providers Care Human Resources File Clerk Name Role Phone Austin Luna MD Primary Care Provider +1- [phone] Encounter Details Date Type Department Care Team (Late Contact Info) Description 01/28/2024 Documentation Only [facility] [address] [place] [address] Lucero Ann [address] [place] [address] Social History Tobacco Use Types Packs/Day [...] Visit [facility] [address] [place] [address] Angelica Hull MD [address] [place] [address] [place] [address] documented as of this encounter Visit Diagnoses Not on filedocumented in this encounter Care Teams Human Resources File Clerk Relationship Specialty Start Date End Date Austin Luna MD [address] [place] [address] [phone] PCP - General 07/03/20 documented as of this encounter
--- OUTSIDE RECORDS SUMMARY | 2025-03-14 12:38 | XMS_ITS | Clinical Summary ---
Author Organization [facility] Address [address] [place] [address] Phone Care Team Providers Care Websphere Architect Name Role Phone Austin uLna MD Primary Care Provider +1 -[phone] Social History Tobacco Use Types Packs/Day Years [...] file Medical Devices Not on file Insurance [facility] DIRECT [address] [place], [place] [facility] [employer] [place] [address] [place] [address] CONNE[employer]ARE DIRECT [address] [place] [facility] [employer] [place] [address] [place] [facility] [employer] DIRECT [address] [place] [address] [place] [address] [place] Care Teams Websphere Architect Relationship Specialty Start Date End Date Austin Luna MD [address] [place] [address] [place] [id number] PCP - General 02/27/24 Additional Source Comments The information contained in this document represents components of the legal health record. It is not the complete legal health record.[facility]
--- OUTSIDE RECORDS SUMMARY | 2025-03-14 12:39 | XMS_ITS | Encounter Summary ---
Author Organization [facility] Address PO [facility] [address] [place] [address] Phone Care Team Providers Care Locomotive Mechanic Name Role Phone Austin Luna MD Primary Care Provider +1- [phone] Encounter Details Date Type Department Care Team (Late Contact Info) Description 03/04/2024 Documentation Only [facility] [address] [place] [address] Lucero Ann [address] [place] [address] Social History Tobacco Use Types Packs/Day [...] Visit [facility] [address] [place] [address] Angelica Hull MD [address] [place] [address] [place] [address] documented as of this encounter Visit Diagnoses Not on filedocumented in this encounter Care Teams Locomotive Mechanic Relationship Specialty Start Date End Date Austin Luna MD [address] [place] [phone] PCP - General 07/03/20 documented as of this encounter
--- OUTSIDE RECORDS SUMMARY | 2025-03-14 12:39 | XMS_ITS | Encounter Summary ---
Author Organization [facility] Address PO [facility] [address] [place] [address] Phone Care Team Providers Care Drying Oven Tender Name Role Phone Austin Luna MD Primary Care Provider +1- [phone] Encounter Details Date Type Department Care Team (Late Contact Info) Description 03/04/2024 Documentation Only [facility] [address] [place] [address] Lucero Ann [address] [place] [address] Social History Tobacco Use Types Packs/Day [...] Visit [facility] [address] [place] [address] Angelica Hull MD [address] [place] [address] [place] [address] documented as of this encounter Visit Diagnoses Not on filedocumented in this encounter Care Teams Drying Oven Tender Relationship Specialty Start Date End Date Austin Luna MD [address] [place] [phone] PCP - General 07/03/20 documented as of this encounter
--- OUTSIDE RECORDS SUMMARY | 2025-03-14 12:39 | XMS_ITS | Encounter Summary ---
Author Organization [facility] Address PO [facility] [address] [place] [address] Phone Care Team Providers Care Sash Assembler Name Role Phone Austin Luna MD Primary Care Provider +1- [phone] Encounter Details Date Type Department Care Team (Late Contact Info) Description 03/04/2024 Documentation Only [facility] [address] [place] [address] Lucero Ann [address] [place] [address] Social History Tobacco Use Types Packs/Day [...] Visit [facility] [address] [place] [address] Angelica Hull MD [address] [place] [address] [place] [address] documented as of this encounter Visit Diagnoses Not on filedocumented in this encounter Care Teams Sash Assembler Relationship Specialty Start Date End Date Austin Luna MD [address] [place] [phone] PCP - General 07/03/20 documented as of this encounter
--- OUTSIDE RECORDS SUMMARY | 2025-03-14 12:39 | XMS_ITS | Encounter Summary ---
Author Organization [facility] Address PO [facility] [address] [place] [address] Phone Care Team Providers Care Still Operator Helper Name Role Phone Austin Luna MD Primary Care Provider +1- [phone] Encounter Details Date Type Department Care Team (Late Contact Info) Description 03/04/2024 Documentation Only [facility] [address] [place] [address] Lucero Ann [address] [place] [address] Social History Tobacco Use Types Packs/Day [...] [facility] [address] [place] [address] Angelica Hull MD [address] [place] [address] [place] [address] documented as of this encounter Visit Diagnoses Not on filedocumented in this encounter Care Teams Still Operator Helper Relationship Specialty Start Date End Date Austin Luna MD [address] [place] [phone] PCP - General 07/03/20 documented as of this encounter
--- OUTSIDE RECORDS SUMMARY | 2025-03-14 12:39 | XMS_ITS | Encounter Summary ---
Author Organization [facility] Address PO [facility] [address] [place] [address] Phone Care Team Providers Care Accounts Receivable Coordinator Name Role Phone Austin Luna MD Primary Care Provider +1- [phone] Encounter Details Date Type Department Care Team (Late Contact Info) Description 03/04/2024 Documentation Only [facility] [address] [place] [address] Lucero Ann [address] [place] [address] Social History Tobacco Use Types Packs/Day [...] Visit [facility] [address] [place] [address] Angelica Hull MD [address] [place] [address] [place] [address] documented as of this encounter Visit Diagnoses Not on filedocumented in this encounter Care Teams Accounts Receivable Coordinator Relationship Specialty Start Date End Date Austin Luna MD [address] [place] [phone] PCP - General 07/03/20 documented as of this encounter
--- OUTSIDE RECORDS SUMMARY | 2025-03-14 12:39 | XMS_ITS | Clinical Summary ---
Author Organization [facility] [place], Address [address] [place] [address] [place] [address] Phone Care Team Providers Care Glass Ribbon Machine Operator Name Role Phone Austin Luna MD Primary Care Provider +1- [phone] Allergies Active Allergy Reactions Criticality Noted Date [...] 1 (one) time each day 30 tablet 11 5 Active Empagliflozin (Jardiance) 25 MG tablet Take 25 mg by mouth every morning 30 tablet 11 5 Active amLODIPine (NORVASC) 10 MG tablet Take 1 tablet (10 mg total) by mouth 1 (one) time each day 90 tablet 3 5 Active Active Problems Problem Noted Date Diagnosed Date Stage 3b chronic kidney disease 01/29/2024 Acquired absence of kidney 08/18/2023 Essential hypertension 09/02/2019 Type 2 diabetes mellitus 09/02/2019 Encounters Date Type Department Care Team Description 03/11/2025 Orders Only [facility] [address] [place] [address] Lucero Ann Essential hypertension (Primary Dx); Type 2 diabetes mellitus, not otherwise specified (HCC); Acquired absence of kidney; Stage 3b chronic kidney disease (HCC) 03/10/2025 3:00 PM EDT Office Visit [facility] [address] [place] [address] Angelica Hull MD Stage 3b chronic kidney disease (HCC) (Primary Dx); Essential hypertension; Type 2 diabetes mellitus with complication, not otherwise specified (HCC); Ischemic stroke (HCC); Acquired absence of kidney 01/31/2025 Refill [facility] [address] [place] [address] Lucero Ann 01/12/2025 Refill [facility] Of [address] [place] [address] Angelica Hull MD 12/29/2024 Refill [facility] [address] [place] [address] Aaron Woodard MD from Last 3 Months Immunizations Immunization [...] 05/03/2019 12:00 PM EST Plan of Treatment Upcoming Encounters Date Type Department Care Team (Late st Contact Info) Description 06/09/2025 4:00 PM EST Office Visit [facility] [place], [address] [facility] [place] [address] Angelica Hull MD [address] [facility] [place] [address] Health Maintenance Due Date Last Done Comments Hepatitis B Vaccine (1 of 3 - 19+ 3-dose series) 06/27 Pneumococcal Vaccine: 50+ Years (1 of 2 - PCV) 990 Colorectal Cancer Screening: Annual FOBT 2019 Colorectal Cancer Screening: Colonoscopy 2019 Colorectal Cancer Screening: Sigmoidoscopy 2019 Diabetes: Hemoglobin A1C 09/02/2019 Diabetes: Ophthalmology Exam 09/02/2019 Diabetes: Pedal Pulse Checked 09/02/2019 Diabetes: Sensory Foot Exam 09/02/2019 Diabetes: Visual Foot Exam 09/02/2019 Influenza Vaccine (#1) 2025 03/12/2020 Insurance [facility] [address] [place], [place] [address] [place] Care Teams Glass Ribbon Machine Operator Relationship Specialty Start Date End Date Austin Luna MD [address] [facility] [address] [place] [phone] PCP - General 07/03/20
--- OUTSIDE RECORDS SUMMARY | 2025-03-14 12:39 | XMS_ITS | Encounter Summary ---
Author Organization [facility] Address PO [facility] [address] [place] [address] Phone Care Team Providers Care Family Nurse Name Role Phone Austin Luna MD Primary Care Provider +1- [phone] Encounter Details Date Type Department Care Team (Late Contact Info) Description 03/04/2024 Documentation Only [facility] [address] [place] [address] Lucero Ann [address] [place] [phone] Social History Tobacco Use Types Packs/Day [...] Visit [facility] [address] [place] [address] Angelica Hull MD [address] [place] [address] [place] [address] documented as of this encounter Visit Diagnoses Not on filedocumented in this encounter Care Teams Family Nurse Relationship Specialty Start Date End Date Austin Luna MD [address] [place] [phone] PCP - General 07/03/20 documented as of this encounter
--- OUTSIDE RECORDS SUMMARY | 2025-03-14 12:39 | XMS_ITS | Encounter Summary ---
Author Organization [facility] Address PO [facility] [address] [place] [address] Phone Care Team Providers Care Flame Channeler Name Role Phone Austin Luna MD Primary Care Provider +1- [phone] Encounter Details Date Type Department Care Team (Late Contact Info) Description 03/04/2024 Documentation Only [facility] [address] [place] [address] Lucero Ann [address] [place] [phone] Social History Tobacco Use Types Packs/Day [...] Visit [facility] [address] [place] [address] Angelica Hull MD [address] [place] [address] [place] [address] documented as of this encounter Visit Diagnoses Not on filedocumented in this encounter Care Teams Flame Channeler Relationship Specialty Start Date End Date Austin Luna MD [address] [place] [id number] PCP - General 07/03/20 documented as of this encounter
== END 2025-03-14 10:17 | disposition home or self-care (01) ==
LOC: HO.LAB 10:16
PROVIDERS: PCP Internal Medicine; Visit Provider Internal Medicine Nephrology
DX: I12.9 Hypertensive chronic kidney disease with stage 1 through stage 4 chronic kidney disease, or unspecified chronic kidney disease (principal); E11.22 Type 2 diabetes mellitus with diabetic chronic kidney disease; N18.32 Chronic kidney disease, stage 3b; E55.9 Vitamin D deficiency, unspecified; E53.8 Deficiency of other specified B group vitamins; E78.00 Pure hypercholesterolemia, unspecified
CPT/HCPCS: 36415; 80051; 80053; 80061; 81001; 82043; 82306; 82310; 82565; 82570; 82607; 82746; 83036; 83735; 83970; 84100; 84443; 84520; 85025

== ENCOUNTER 2025-04-20 15:15 | Outpatient (AMB) | payer OTHER, SELFPAY ==
--- NOTE | 2025-04-20 15:21 | MHC.OFFVIS ---
Vital Signs 04/20/25 15:22 Height 5 ft 6 in Weight 163 lb 2.273 oz BMI 26.3 BP 120/76 Blood Pressure Location Rt brachial Position Sitting Pulse 65 Pulse Source Pulse Oximeter Pulse Oximetry (%) 100 Oxygen Delivery Method Room Air Intake Visit Reasons: DM Intake Note: Patient presents today for a follow-up on Type 2 Diabetes Mellitus: Last Diabetic eye exam was on: Need a new referral, Pt still looking for an Opthalmologist Last Podiatry exam was on: Patient does not see a Call Specialist Most recent HbA1c: 6.3%, 03/14/2025 Random Glucose- 177 mg/dL, Today Liquor Department Manager Required: No Accompanied by: Self / Same As Patient Allergies Latex, Natural Rubber Allergy (Mild, Verified 04/20/25 15:22) Rash pseudoephedrine (Sudafed) Adverse Reaction (Intermediate, Verified 04/20/25 15:22) dizziness, panic attacks HPI Comments Details: 54 year old male with uncontrolled type 2 diabetes presenting for diabetes Medical history: CVA, htn, hld, solitary kidney-follows with dr Sauer Diagnosed with diabetes 2017 per patient In past year patient decided to go off medications and try to improve health with diet and exercise. In mid January restarted his former medications Toujeo 20 units and Trulicity. Just two weeks later he was admitted to [facility], 02/19/24- 02/27/2024. He presenting for stroke like symptoms. A1C 12.6%. Head CT done at the ER revealed (+) wedge-shaped hypoattentuation in the left temporal lobe that suggests either an acute or subacute infarct. MRI did have findings consistent with an old infarct - (+) small chronic cortical infarct involving the left temporal lobe that was not present on his previous MRI from 08/06/2022. Received sliding scale insulin while hospitalized and discharged on Lantus 8 units as he had not been requiring high doses during hospitalization Current meds: Lantus 6 units (from 12 units) Jardiance 25mg daily ozempic 0.25 weekly A1C 6.3% 02/2025. (from 12.6 to 7.9%, 7.3%). Not using CGM. Checking fsbs 1-2 times daily. No hypoglycemia. Macrovascular/microvascular complications: CVA, CKD follows with nephrology Diet: low carbohydrate. Declines referral to health promotion educator or nutrition Referred to ophtho. Family history of type 2 diabetes ROS CONSTITUTIONAL: Denies weight loss, fever and chills. HEENT: Denies changes in vision and hearing. RESPIRATORY: Denies SOB and cough. CV: Denies palpitations and CP GI: Denies abdominal pain, nausea, vomiting and diarrhea. : Denies dysuria and urinary frequency. MSK: Denies new myalgia and joint pain. SKIN: Denies rash and pruritus. NEUROLOGICAL: Denies headache PSYCHIATRIC: Denies recent changes in mood. PHYSICAL EXAM: GENERAL: Alert and oriented x 3. NAD EYES: EOMI. Anicteric. HENT: Moist mucous membranes. No scleral icterus. No cervical lymphadenopathy. LUNGS: Clear to auscultation bilaterally. CARDIOVASCULAR: Regular rate and rhythm. No murmur. No JVD. ABDOMEN: Soft, non-tender +bs EXTREMITIES: No edema. Non-tender. SKIN: No rashes or lesions. Warm. NEUROLOGIC: No focal neurological deficits. CN II-XII grossly intact PSYCHIATRIC: Cooperative. 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 herniation Vitamin D deficiency Polycythemia Thrombocytopenia Pure hypercholesterolemia Benign essential hypertension Surgical History Status post cervical discectomy (~09/04/16) History of right nephrectomy (~03/30/13) Family History Mother Hypertension Social History Household Members: Spouse Housing: House Do you presently have visiting nurse or other home services: No Alcohol intake: never Comment: pt low fall, calls appropriately for assistance OOB Patient Tobacco Use Status: Former Tobacco user e-Cigarette/Vaping Use: Never Used Second Hand Smoke Exposure: No Substance Use Type: Marijuana Advance Directives Date on File: 02/19/24 service: No Current occupational status: employed Cognitive needs: No Hearing needs: No Vision needs: Yes (glasses) Physical Exam Vital Signs: Last Vital Signs Pulse 65 04/20/25 15:22 BP 120/76 04/20/25 15:22 Pulse Ox 100 04/20/25 15:22 Oxygen Delivery Method Room Air 04/20/25 15:22 BMI result Body Mass Index 26.3 Assessment & Plan Assessment & Plan (1) Type 2 diabetes mellitus with diabetic chronic kidney disease: Code(s): E11.22 - Type 2 diabetes mellitus with diabetic chronic kidney disease Category: Medical Qualifiers: Diabetes mellitus prison insulin use: without prison use Chronic kidney disease stage: stage 3 (moderate) Chronic kidney disease stage 3 subtype: stage 3b (GFR 30-44) Qualified Code(s): E11.21 - Type 2 diabetes mellitus with diabetic nephropathy; N18.32 - Chronic kidney disease, stage 3b (2) [facility] (current) use of insulin: Code(s): Z79.4 - ad terminal makeup operator (current) use of insulin Category: Medical Plan Diabetes is well controlled CKD stable-continue nephro follow up Increase ozempic to 0.5mg weekly. He will try off insulin and continue jardiance Number given for ophtho office Treat any hypoglycemia by rules of 15s. Follow up in 3 months or sooner as needed Medications: Changed From Ozempic (semaglutide) for 4 weeks 0.25 mg (0.368 mL) subcut QWEEK 9 mL 3RF NS E11.21 - Type 2 diabetes mellitus with diabetic nephropathy, N18.32 - Chronic kidney disease, stage 3b To Ozempic (semaglutide) for 4 weeks 0.5 mg (0.736 mL) subcut QWEEK 9 mL 3RF NS E11.21 - Type 2 diabetes mellitus with diabetic nephropathy, N18.32 - Chronic kidney disease, stage 3b From Lantus U-100 Insulin (insulin glargine) 12 units (0.12 mL) subcut DAILY 15 mL 3RF NS E11.21 - Type 2 diabetes mellitus with diabetic nephropathy, N18.32 - Chronic kidney disease, stage 3b To Lantus U-100 Insulin (insulin glargine) 6 units (0.06 mL) subcut DAILY 15 mL 3RF NS E11.21 - Type 2 diabetes mellitus with diabetic nephropathy, N18.32 - Chronic kidney disease, stage 3b Coding Level of Care Code Est Pt Level 4 (76401) Diagnoses Type 2 diabetes mellitus with stage 3b chronic kidney disease, without long-term current use of insulin E11.21; N18.32 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
[2025-04-20 15:22] VITALS: BP 120/76; PULSE 65; O2SAT 100; BMI 26.3
[2025-04-20 15:32] LABS: Glucose, Whole Blood 177 mg/dL (60-115)
--- OUTSIDE RECORDS SUMMARY | 2025-04-20 19:39 | XMS_ITS | Encounter Summary ---
Author Organization [facility] Address PO [facility] [address] [place] [address] Phone Care Team Providers Care Backing In Machine Tender Name Role Phone Austin Luna MD Primary Care Provider +1- [phone] Encounter Details Date Type Department Care Team (Late Contact Info) Description 03/04/2024 Documentation Only [facility] [address] [place] [address] Lucero Ann [address] [place] [phone] Social History Tobacco Use Types Packs/Day [...] Visit [facility] [address] [place] [address] Angelica Hull MD [address] [place] [address] [place] [address] documented as of this encounter Visit Diagnoses Not on filedocumented in this encounter Care Teams Backing In Machine Tender Relationship Specialty Start Date End Date Austin Luna MD [address] [place] [phone] PCP - General 07/03/20 documented as of this encounter
--- OUTSIDE RECORDS SUMMARY | 2025-04-20 19:39 | XMS_ITS | Encounter Summary ---
Author Organization [facility] Address PO [facility] [address] [place] [address] Phone Care Team Providers Care Top Knitter Name Role Phone Austin Luna MD Primary Care Provider +1- [phone] Encounter Details Date Type Department Care Team (Late Contact Info) Description 01/28/2024 Documentation Only [facility] [address] [place] [address] Lucero Ann [address] [place] [phone] Social History Tobacco Use Types Packs/Day [...] Visit [facility] [address] [place] [address] Angelica Hull MD [address] [place] [address] [place] [address] documented as of this encounter Visit Diagnoses Not on filedocumented in this encounter Care Teams Top Knitter Relationship Specialty Start Date End Date Austin Luna MD [address] [place] [address] [phone] PCP - General 07/03/20 documented as of this encounter
--- OUTSIDE RECORDS SUMMARY | 2025-04-20 19:39 | XMS_ITS | Encounter Summary ---
Author Organization [facility] Address PO [facility] [address] [place] [address] Phone Care Team Providers Care Automotive Artist Name Role Phone Austin Luna MD Primary Care Provider +1- [phone] Reason for Visit * Reason Comments Med Refill Encounter Details Date Type Department Care Team (Late Contact Info) Description 09/01/2024 Refill [facility] [address] [facility] [address] [place] [address] Angelica Hull MD [address] [place] [address] Social History Tobacco Use Types [...] Visit [facility] [address] [place] [address] Angelica Hull MD [address] [place] [address] documented as of this encounter Visit Diagnoses Not on filedocumented in this encounter Care Teams Automotive Artist Relationship Specialty Start Date End Date Austin Luna MD [address] [place] [address] [address] [place] [address] PCP - General 07/03/20 documented as of this encounter
--- OUTSIDE RECORDS SUMMARY | 2025-04-20 19:39 | XMS_ITS | Encounter Summary ---
Author Organization [facility] Address PO [facility] [address] [place] [address] Phone Care Team Providers Care Tube Rebuilder Name Role Phone Austin Luna MD Primary Care Provider +1- [phone] Encounter Details Date Type Department Care Team (Late Contact Info) Description 01/28/2024 Documentation Only [facility] [address] [place] [address] Lucero Ann [address] [place] [phone] Social History Tobacco Use Types Packs/Day [...] Visit [facility] [address] [place] [address] Angelica Hull MD [address] [place] [address] [place] [address] documented as of this encounter Visit Diagnoses Not on filedocumented in this encounter Care Teams Tube Rebuilder Relationship Specialty Start Date End Date Austin Luna MD [address] [place] [address] [phone] PCP - General 07/03/20 documented as of this encounter
--- OUTSIDE RECORDS SUMMARY | 2025-04-20 19:39 | XMS_ITS | Encounter Summary ---
Author Organization [facility] Address PO [facility] [address] [place] [address] Phone Care Team Providers Care Jack Spooler Tender Name Role Phone Austin Luna MD Primary Care Provider +1- [phone] Encounter Details Date Type Department Care Team (Late Contact Info) Description 03/04/2024 Documentation Only [facility] [address] [place] [address] Lucero Ann [address] [place] [phone] Social History Tobacco Use Types Packs/Day [...] [facility] [address] [place] [address] Angelica Hull MD [address] [place] [address] [place] [address] documented as of this encounter Visit Diagnoses Not on filedocumented in this encounter Care Teams Jack Spooler Tender Relationship Specialty Start Date End Date Austin Luna MD [address] [place] [phone] PCP - General 07/03/20 documented as of this encounter
--- OUTSIDE RECORDS SUMMARY | 2025-04-20 19:39 | XMS_ITS | Clinical Summary ---
Author Organization [facility], Address [address] [place] [address] [place] [address] Phone Care Team Providers Care Welder Gas Tungsten Arc Name Role Phone Austin Luna MD Primary Care Provider +1- [phone] Allergies Active Allergy Reactions Criticality Noted Date [...] Encounters Date Type Department Care Team Description 03/17/2025 Documentation Only [facility] [address] [place] [address] Lucero Ann 03/11/2025 Orders Only [facility] [address] [place] [address] Lucero Ann Essential hypertension (Primary Dx); Type 2 diabetes mellitus, not otherwise specified (HCC); Acquired absence of kidney; Stage 3b chronic kidney disease (HCC) 03/10/2025 3:00 PM EDT Office Visit [facility] [address] [place] [address] Angelica Hull MD Stage 3b chronic kidney disease (HCC) (Primary Dx); Essential hypertension; Type 2 diabetes mellitus with complication, not otherwise specified (HCC); Ischemic stroke (HCC); Acquired absence of kidney 01/31/2025 Refill [facility] [address] [place] [address] Lucero Ann from Last 3 Months Immunizations Immunization Administration [...] Visit [facility], [address] [facility] [place] [address] Angelica Hull MD [address] [place] [address] Health Maintenance Due Date Last Done Comments [...] 09/02/2019 Influenza Vaccine (#1) 2025 03/12/2020 Insurance [facility] Care Teams Welder Gas Tungsten Arc Relationship Specialty Start Date End Date Austin Luna MD [address] [facility] [address] [place] [address] PCP - General 07/03/20
--- OUTSIDE RECORDS SUMMARY | 2025-04-20 19:39 | XMS_ITS | Clinical Summary ---
Author Organization [facility] Address [address] [place] [address] Phone Care Team Providers Care Levelman Name Role Phone Austin Luna MD Primary Care Provider +1 -[phone] Social History Tobacco Use Types Packs/Day Years [...] file Medical Devices Not on file Insurance [facility] DIRECT [address] [place], [place] [facility] [employer] [place] [address] [place] [address] [employer] DIRECT [address] [place] [facility] [employer] DIRECT [facility] [employer] DIRECT [address] [place] [facility] [employer] DIRECT [address] [place] [address] [place] [address] [place] Care Teams Levelman Relationship Specialty Start Date End Date Austin Luna MD [address] [place] [address] [place] [address] PCP - General 02/27/24 Additional Source Comments The information contained in this document represents components of the legal health record. It is not the complete legal health record.[facility]
--- OUTSIDE RECORDS SUMMARY | 2025-04-20 19:39 | XMS_ITS | Encounter Summary ---
Author Organization [facility] Address PO [facility] [address] [place] [address] Phone Care Team Providers Care Military Equipment Specialist Name Role Phone Austin Luna MD Primary Care Provider +1- [phone] Encounter Details Date Type Department Care Team (Late Contact Info) Description 01/28/2024 Documentation Only [facility] [address] [place] [address] Lucero Ann [address] [place] [phone] Social History Tobacco Use Types Packs/Day [...] Visit [facility] [address] [place] [address] Angelica Hull MD [address] [place] [address] [place] [address] documented as of this encounter Visit Diagnoses Not on filedocumented in this encounter Care Teams Military Equipment Specialist Relationship Specialty Start Date End Date Austin Luna MD [address] [place] [address] [phone] PCP - General 07/03/20 documented as of this encounter
--- OUTSIDE RECORDS SUMMARY | 2025-04-20 19:39 | XMS_ITS | Encounter Summary ---
Author Organization [facility] Address PO [facility] [address] [place] [address] Phone Care Team Providers Care Fleet Administrative Assistant Name Role Phone Austin Luna MD Primary Care Provider +1- [phone] Encounter Details Date Type Department Care Team (Late Contact Info) Description 12/01/2024 Documentation Only [facility] [address] [place] [address] Lucero Ann [address] [place] [phone] Social History Tobacco Use Types Packs/Day [...] Visit [facility] [address] [place] [address] Angelica Hull MD [address] [place] [address] [place] [address] documented as of this encounter Visit Diagnoses Not on filedocumented in this encounter Care Teams Fleet Administrative Assistant Relationship Specialty Start Date End Date Austin Luna MD [address] [place] [phone] PCP - General 07/03/20 documented as of this encounter
--- OUTSIDE RECORDS SUMMARY | 2025-04-20 19:39 | XMS_ITS | Encounter Summary ---
Author Organization [facility] Address PO [facility] [address] [place] [address] Phone Care Team Providers Care Regional Flatbed Truck Driver Name Role Phone Austin Luna MD Primary Care Provider +1- [phone] Encounter Details Date Type Department Care Team (Late Contact Info) Description 03/04/2024 Documentation Only [facility] [address] [place] [address] Lucero Ann [address] [place] [phone] Social History Tobacco Use Types Packs/Day [...] Visit [facility] [address] [place] [address] Angelica Hull MD [address] [place] [address] [place] [address] documented as of this encounter Visit Diagnoses Not on filedocumented in this encounter Care Teams Regional Flatbed Truck Driver Relationship Specialty Start Date End Date Austin Luna MD [address] [place] [phone] PCP - General 07/03/20 documented as of this encounter
--- OUTSIDE RECORDS SUMMARY | 2025-04-20 19:39 | XMS_ITS | Encounter Summary ---
Author Organization [facility] Address PO [facility] [address] [place] [address] Phone Care Team Providers Care Wallpaper Inspector And Shipper Name Role Phone Austin Luna MD Primary Care Provider +1- [phone] Encounter Details Date Type Department Care Team (Late Contact Info) Description 01/28/2024 Documentation Only [facility] Of [address] [place] [address] Lucero Ann [address] [place] [phone] Social History Tobacco Use Types Packs/Day [...] [facility] [address] [place] [address] Angelica Hull MD [address] [place] [address] [place] [address] documented as of this encounter Visit Diagnoses Not on filedocumented in this encounter Care Teams Wallpaper Inspector And Shipper Relationship Specialty Start Date End Date Austin Luna MD [address] [place] [address] [phone] PCP - General 07/03/20 documented as of this encounter
--- OUTSIDE RECORDS SUMMARY | 2025-04-20 19:39 | XMS_ITS | Encounter Summary ---
Author Organization [facility] Address PO [facility] [address] [place] [address] Phone Care Team Providers Care Zinc Miner Blasting Name Role Phone Austin Luna MD Primary Care Provider +1- [phone] Encounter Details Date Type Department Care Team (Late Contact Info) Description 03/04/2024 Documentation Only [facility] Of [address] [place] [address] Lucero Ann [address] [place] [phone] Social History Tobacco Use Types Packs/Day [...] [facility] [address] [place] [address] Angelica Hull MD [address] [place] [address] [place] [address] documented as of this encounter Visit Diagnoses Not on filedocumented in this encounter Care Teams Zinc Miner Blasting Relationship Specialty Start Date End Date Austin Luna MD [address] [place] [phone] PCP - General 07/03/20 documented as of this encounter
--- OUTSIDE RECORDS SUMMARY | 2025-04-20 19:39 | XMS_ITS | Encounter Summary ---
Author Organization [facility] Address PO [facility] [address] [place] [address] Phone Care Team Providers Care Solid Tire Finisher Name Role Phone Austin Luna MD Primary Care Provider +1- [phone] Encounter Details Date Type Department Care Team (Late Contact Info) Description 06/21/2024 Documentation Only [facility] Of [address] [place] [address] [address]ero Ann [address] [place] [address] Social History Tobacco Use Types Packs/Day [...] Visit [facility] Of [address] [place] [address] Angelica Hull MD [address] [place] [address] [place] [address] documented as of this encounter Visit Diagnoses Not on filedocumented in this encounter Care Teams Solid Tire Finisher Relationship Specialty Start Date End Date Austin Luna MD [address] [place] [address] PCP - General 07/03/20 documented as of this encounter
--- OUTSIDE RECORDS SUMMARY | 2025-04-20 19:39 | XMS_ITS | Encounter Summary ---
Author Organization [facility] Address PO [facility] [address] [place] [address] Phone Care Team Providers Care Corrosion Engineer Name Role Phone Austin Luna MD Primary Care Provider +1- [phone] Encounter Details Date Type Department Care Team (Late Contact Info) Description 03/04/2024 Documentation Only [facility] Of [address] [place] [address] Lucero Ann [address] [place] [address] Social History Tobacco Use Types Packs/Day [...] Visit [facility] Of [address] [place] [address] Angelica Hull MD [address] [place] [address] [place] [address] documented as of this encounter Visit Diagnoses Not on filedocumented in this encounter Care Teams Corrosion Engineer Relationship Specialty Start Date End Date Austin Luna MD [address] [place] [address] PCP - General 07/03/20 documented as of this encounter
--- OUTSIDE RECORDS SUMMARY | 2025-04-20 19:39 | XMS_ITS | Encounter Summary ---
Author Organization [facility] Address PO [facility] [address] [place] [address] Phone Care Team Providers Care Assistant Clinical Director Name Role Phone Austin Luna MD Primary Care Provider +1- [phone] Encounter Details Date Type Department Care Team (Late Contact Info) Description 08/21/2023 Documentation Only [facility] Of [address] [place] [address] Lucero Ann [address] [place] [address] Social History Tobacco Use Types Packs/Day [...] Visit [facility] Of [address] [place] [address] Angelica Hull MD [address] [place] [address] [place] [address] documented as of this encounter Visit Diagnoses Not on filedocumented in this encounter Care Teams Assistant Clinical Director Relationship Specialty Start Date End Date Austin Luna MD [address] [place] [phone] PCP - General 07/03/20 documented as of this encounter
--- OUTSIDE RECORDS SUMMARY | 2025-04-20 19:39 | XMS_ITS | Encounter Summary ---
Author Organization [facility] Address PO [facility] [address] [place] [address] Phone Care Team Providers Care Plug Paster Name Role Phone Austin Luna MD Primary Care Provider +1- [phone] Encounter Details Date Type Department Care Team (Late Contact Info) Description 03/04/2024 Documentation Only [facility] Of [address] [place] [address] Lucero Ann [address] [place] [address] Social History Tobacco Use Types Packs/Day [...] Visit [facility] Of [address] [place] [address] Angelica Hull MD [address] [place] [address] [place] [address] documented as of this encounter Visit Diagnoses Not on filedocumented in this encounter Care Teams Plug Paster Relationship Specialty Start Date End Date Austin Luna MD [address] [place] [address] PCP - General 07/03/20 documented as of this encounter
--- OUTSIDE RECORDS SUMMARY | 2025-04-20 19:39 | XMS_ITS | Encounter Summary ---
Author Organization [facility] [place], Address [address] [place] [address] Phone Care Team Providers Care Rn Intern Name Role Phone Austin Luna MD Primary Care Provider +1- [phone] Encounter Details Date Type Department Care Team (Late Contact Info) Description 03/09/2020 Orders Only [facility] [place] [address] [place] [address] Chronic kidney disease stage 3 [...] Visit [facility] [place], [address] [address] Angelica Hull MD [address] [place] [address] documented as of this encounter Visit Diagnoses Diagnosis Chronic kidney disease stage 3 (HCC) Type 2 diabetes mellitus without complication (HCC) Essential hypertension documented in this encounter Care Teams Rn Intern Relationship Specialty Start Date End Date Austin Luna MD [address] [place] [address] PCP - General 07/03/20 documented as of this encounter
--- OUTSIDE RECORDS SUMMARY | 2025-04-20 19:39 | XMS_ITS | Encounter Summary ---
Author Organization [facility] Address PO [facility] [address] [place] [address] Phone Care Team Providers Care Property Manager Name Role Phone Austin Luna MD Primary Care Provider +1- [phone] Encounter Details Date Type Department Care Team (Late Contact Info) Description 03/04/2024 Documentation Only [facility] Of [address] [place] [address] Lucero Ann [address] [place] [address] Social History Tobacco Use Types Packs/Day [...] Visit [facility] [address] [place] [address] Angelica Hull MD [address] [place] [address] [place] [address] documented as of this encounter Visit Diagnoses Not on filedocumented in this encounter Care Teams Property Manager Relationship Specialty Start Date End Date Austin Luna MD [address] [place] [address] PCP - General 07/03/20 documented as of this encounter
--- OUTSIDE RECORDS SUMMARY | 2025-04-20 19:39 | XMS_ITS | Encounter Summary ---
Author Organization [facility] Address PO [facility] [address] [place] [address] Phone Care Team Providers Care Mounter Sousaphones Name Role Phone Austin Luna MD Primary Care Provider +1- [phone] Encounter Details Date Type Department Care Team (Late Contact Info) Description 03/04/2024 Documentation Only [facility] Of [address] [place] [address] Lucero Ann [address] [place] [address] Social History Tobacco Use Types Packs/Day [...] Visit [facility] Of [address] [place] [address] Angelica Hull MD [address] [place] [address] [place] [address] documented as of this encounter Visit Diagnoses Not on filedocumented in this encounter Care Teams Mounter Sousaphones Relationship Specialty Start Date End Date Austin Luna MD [address] [place] [address] PCP - General 07/03/20 documented as of this encounter
--- OUTSIDE RECORDS SUMMARY | 2025-04-20 19:39 | XMS_ITS | Encounter Summary ---
Author Organization [facility] Address PO [facility] [address] [place] [address] Phone Care Team Providers Care Regional Geodetic Advisor Name Role Phone Austin Luna MD Primary Care Provider +1- [phone] Encounter Details Date Type Department Care Team (Late Contact Info) Description 08/19/2023 Documentation Only [facility] Of [address] [place] [address] Lucero Ann [address] [place] [address] Social History Tobacco Use Types Packs/Day [...] [facility] [address] [place] [address] Angelica Hull MD [address] [place] [address] [place] [address] documented as of this encounter Visit Diagnoses Not on filedocumented in this encounter Care Teams Regional Geodetic Advisor Relationship Specialty Start Date End Date Austin Luna MD [address] [place] [phone] PCP - General 07/03/20 documented as of this encounter
--- OUTSIDE RECORDS SUMMARY | 2025-04-20 19:39 | XMS_ITS | Encounter Summary ---
Author Organization [facility] Address PO [facility] [address] [place] [address] Phone Care Team Providers Care Front Counter Attendant Name Role Phone Austin Luna MD Primary Care Provider +1- [phone] Encounter Details Date Type Department Care Team (Late Contact Info) Description 01/28/2024 Documentation Only [facility] Of [address] [place] [address] Lucero Ann [address] [place] [address] Social History Tobacco Use Types Packs/Day [...] Visit [facility] Of [address] [place] [address] Angelica Hull MD [address] [place] [address] [place] [address] documented as of this encounter Visit Diagnoses Not on filedocumented in this encounter Care Teams Front Counter Attendant Relationship Specialty Start Date End Date Austin Luna MD [address] [place] [address] [phone] PCP - General 07/03/20 documented as of this encounter
--- OUTSIDE RECORDS SUMMARY | 2025-04-20 19:39 | XMS_ITS | Encounter Summary ---
Author Organization [facility] Of [facility] Address PO [facility] [address] [place] [address] Phone Care Team Providers Care Fork Truck Driver Name Role Phone Austin Luna MD Primary Care Provider +1- [phone] Encounter Details Date Type Department Care Team (Late Contact Info) Description 03/04/2024 Documentation Only [facility] Of [address] [place] [address] Lucero Ann [address] [place] [address] Social History Tobacco Use Types Packs/Day [...] [facility] [address] [place] [address] Angelica Hull MD [address] [place] [address] [place] [address] documented as of this encounter Visit Diagnoses Not on filedocumented in this encounter Care Teams Fork Truck Driver Relationship Specialty Start Date End Date Austin Lnua MD [address] [place] [address] PCP - General 07/03/20 documented as of this encounter
--- OUTSIDE RECORDS SUMMARY | 2025-04-20 19:39 | XMS_ITS | Encounter Summary ---
Author Organization [facility] Address PO [facility] [address] [place] [address] Phone Care Team Providers Care Chemical Cell Changer Name Role Phone Austin Luna MD Primary Care Provider +1- [phone] Encounter Details Date Type Department Care Team (Late Contact Info) Description 03/04/2024 Documentation Only [facility] Of [address] [place] [address] Lucero Ann [address] [place] [address] Social History Tobacco Use Types Packs/Day [...] Visit [facility] Of [address] [place] [address] Angelica Hull MD [address] [place] [address] [place] [address] documented as of this encounter Visit Diagnoses Not on filedocumented in this encounter Care Teams Chemical Cell Changer Relationship Specialty Start Date End Date Austin Luna MD [address] [place] [address] PCP - General 07/03/20 documented as of this encounter
--- OUTSIDE RECORDS SUMMARY | 2025-04-20 19:39 | XMS_ITS | Encounter Summary ---
Author Organization [facility] Address PO [facility] [address] [place] [address] Phone Care Team Providers Care Retort Fireman Name Role Phone Austin Luna MD Primary Care Provider +1- [phone] Encounter Details Date Type Department Care Team (Late Contact Info) Description 03/17/2025 Documentation Only [facility] Of [address] [place] [address] Lucero Ann [address] [place] [address] Social History Tobacco Use Types Packs/Day [...] Visit [facility] Of [address] [place] [address] Angelica Hull MD [address] [place] [address] [place] [address] documented as of this encounter Visit Diagnoses Not on filedocumented in this encounter Care Teams Retort Fireman Relationship Specialty Start Date End Date Austin Luna MD [address] [place] [address] PCP - General 07/03/20 documented as of this encounter
--- OUTSIDE RECORDS SUMMARY | 2025-04-20 19:39 | XMS_ITS | Encounter Summary ---
Author Organization [facility] Of [facility] Address PO [facility] [address] [place] [address] Phone Care Team Providers Care Sugarcane Research Technician Name Role Phone Austin Luna MD Primary Care Provider +1- [phone] Encounter Details Date Type Department Care Team (Late Contact Info) Description 03/04/2024 Documentation Only [facility] Of [address] [place] [address] Lucero Ann [address] [place] [address] Social History Tobacco Use Types Packs/Day [...] [facility] [address] [place] [place] [address] Angelica Hull MD [address] [place] [address] [place] [address] documented as of this encounter Visit Diagnoses Not on filedocumented in this encounter Care Teams Sugarcane Research Technician Relationship Specialty Start Date End Date Austin Luna MD [address] [place] [address] PCP - General 07/03/20 documented as of this encounter
--- OUTSIDE RECORDS SUMMARY | 2025-04-20 19:39 | XMS_ITS | Encounter Summary ---
Author Organization [facility] Address PO [facility] [address] [place] [address] Phone Care Team Providers Care Ampoule Examiner Name Role Phone Austin Luna MD Primary Care Provider +1- [phone] Encounter Details Date Type Department Care Team (Late Contact Info) Description 03/04/2024 Documentation Only [facility] Of [address] [place] [address] Lucero Ann [address] [place] [address] Social History Tobacco Use Types Packs/Day [...] [facility] [address] [place] [address] Angelica Hull MD [address] [place] [address] [place] [address] documented as of this encounter Visit Diagnoses Not on filedocumented in this encounter Care Teams Ampoule Examiner Relationship Specialty Start Date End Date Austin Luna MD [address] [place] [address] PCP - General 07/03/20 documented as of this encounter
--- OUTSIDE RECORDS SUMMARY | 2025-04-20 19:39 | XMS_ITS | Encounter Summary ---
Author Organization [facility] Address PO [facility] [address] [place] [address] Phone Care Team Providers Care Apple Solutions Consultant Name Role Phone Austin Luna MD Primary Care Provider +1- [phone] Encounter Details Date Type Department Care Team (Late Contact Info) Description 03/04/2024 Documentation Only [facility] Of [address] [place] [address] Lucero Ann [address] [place] [address] Social History Tobacco Use Types Packs/Day [...] Visit [facility] Of [address] [place] [address] Angelica Hull MD [address] [place] [address] [place] [address] documented as of this encounter Visit Diagnoses Not on filedocumented in this encounter Care Teams Apple Solutions Consultant Relationship Specialty Start Date End Date Austin Luna MD [address] [place] [address] PCP - General 07/03/20 documented as of this encounter
== END 2025-04-20 15:56 | disposition home or self-care (01) ==
LOC: HO.ENCR 15:16
PROVIDERS: PCP Internal Medicine; Visit Provider Internal Medicine
DX: E11.21 Type 2 diabetes mellitus with diabetic nephropathy (principal); N18.32 Chronic kidney disease, stage 3b; Z79.4 Long term (current) use of insulin

== ENCOUNTER → 2025-04-20 15:15 | Outpatient (BNVA) | payer OTHER, SELFPAY | PROVIDERS: PCP Internal Medicine; Visit Provider Internal Medicine | DX: E11.21 Type 2 diabetes mellitus with diabetic nephropathy (principal); E11.22 Type 2 diabetes mellitus with diabetic chronic kidney disease; E11.65 Type 2 diabetes mellitus with hyperglycemia; N18.32 Chronic kidney disease, stage 3b; Z79.4 Long term (current) use of insulin | CPT/HCPCS: 82947; 99212 ==

== ENCOUNTER 2025-06-15 08:34 | Outpatient (AMB) | payer OTHER, SELFPAY ==
--- OUTSIDE RECORDS SUMMARY | 2025-06-15 08:37 | XMS_ITS | Encounter Summary ---
Author Organization [facility] Address [address] [place] [address] Phone Care Team Providers Care Shop Director Name Role Phone Austin Luna MD Primary Care Provider +1- [phone] Encounter Details Date Type Department Care Team (Late st Contact Info) Description 03/04/2024 Documentation Only [facility] [place], [address] [place] [address] Lucero Ann [address] [place] [address] Social History Tobacco Use Types [...] on filedocumented in this encounter Care Teams Shop Director Relationship Specialty Start Date End Date Austin Luna MD [address] [place] [address] PCP - General 07/03/20 documented as of this encounter
--- OUTSIDE RECORDS SUMMARY | 2025-06-15 08:37 | XMS_ITS | Encounter Summary ---
Author Organization [facility] Address [address] [place] [address] Phone Care Team Providers Care Assistant Winemaker Name Role Phone Austin Luna MD Primary Care Provider +1- [phone] Encounter Details Date Type Department Care Team (Late st Contact Info) Description 08/21/2023 Documentation Only [facility] [place], [address] [place] [address] Lucero Ann [address] [place] [address] Social History Tobacco Use Types [...] filedocumented in this encounter Care Teams Assistant Winemaker Relationship Specialty Start Date End Date Austin Luna MD [address] [place] [address] PCP - General 07/03/20 documented as of this encounter
--- OUTSIDE RECORDS SUMMARY | 2025-06-15 08:37 | XMS_ITS | Encounter Summary ---
Author Organization [facility] [place], Address [address] [place] [address] Phone Care Team Providers Care Hand Sign Writer Name Role Phone Austin Luna MD Primary Care Provider +1- [phone] Encounter Details Date Type Department Care Team (Late st Contact Info) Description 03/09/2020 Orders Only [facility] [address] [place] [address] Chronic kidney disease stage 3 [...] hypertension documented in this encounter Care Teams Hand Sign Writer Relationship Specialty Start Date End Date Austin Luna MD [address] [place] [address] PCP - General 07/03/20 documented as of this encounter
--- OUTSIDE RECORDS SUMMARY | 2025-06-15 08:37 | XMS_ITS | Encounter Summary ---
Author Organization [facility] Of [facility] Address [address] [place] [address] Phone Care Team Providers Care Power Nut Runner Operator Name Role Phone Austin Luna MD Primary Care Provider +1- [phone] Encounter Details Date Type Department Care Team (Late st Contact Info) Description 03/04/2024 Documentation Only [facility] [place], [address] [place] [address] Lucero Ann [address] [place] [address] Social History Tobacco Use Types [...] filedocumented in this encounter Care Teams Power Nut Runner Operator Relationship Specialty Start Date End Date Austin Luna MD [address] [place] [address] PCP - General 07/03/20 documented as of this encounter
--- OUTSIDE RECORDS SUMMARY | 2025-06-15 08:37 | XMS_ITS | Encounter Summary ---
Author Organization [facility] Address [address] [place] [address] Phone Care Team Providers Care Customer Services Manager Name Role Phone Austin Luna MD Primary Care Provider +1- [phone] Encounter Details Date Type Department Care Team (Late st Contact Info) Description 01/28/2024 Documentation Only [facility] [place], [address] [place] [address] Lucero Ann [address] [place] [address] Social History Tobacco Use Types [...] on filedocumented in this encounter Care Teams Customer Services Manager Relationship Specialty Start Date End Date Austin Luna MD [address] [place] [address] PCP - General 07/03/20 documented as of this encounter
--- OUTSIDE RECORDS SUMMARY | 2025-06-15 08:37 | XMS_ITS | Encounter Summary ---
Author Organization [facility] Address [address] [place] [address] Phone Care Team Providers Care Endocrinology Nurse Name Role Phone Austin Luna MD Primary Care Provider +1- [phone] Encounter Details Date Type Department Care Team (Late st Contact Info) Description 03/04/2024 Documentation Only [facility] [place], [address] [place] [address] Lucero Ann [address] [place] [address] Social History Tobacco Use Types [...] on filedocumented in this encounter Care Teams Endocrinology Nurse Relationship Specialty Start Date End Date Austin Luna MD [address] [place] [address] PCP - General 07/03/20 documented as of this encounter
--- OUTSIDE RECORDS SUMMARY | 2025-06-15 08:37 | XMS_ITS | Encounter Summary ---
Author Organization [facility] Of [facility] Address [address] [place] [address] Phone Care Team Providers Care Enrobing Machine Feeder Name Role Phone Austin Luna MD Primary Care Provider +1- [phone] Encounter Details Date Type Department Care Team (Late st Contact Info) Description 03/04/2024 Documentation Only [facility] [place], [address] [place] [address] Lucero Ann [address] [place] [address] Social History Tobacco Use Types [...] on filedocumented in this encounter Care Teams Enrobing Machine Feeder Relationship Specialty Start Date End Date Austin Luna MD [address] [place] [address] PCP - General 07/03/20 documented as of this encounter
--- OUTSIDE RECORDS SUMMARY | 2025-06-15 08:37 | XMS_ITS | Encounter Summary ---
Author Organization [facility] Of [facility] Address [address] [place] [address] Phone Care Team Providers Care Instructional Media Services Technician Name Role Phone Austin Luna MD Primary Care Provider +1- [phone] Encounter Details Date Type Department Care Team (Late st Contact Info) Description 01/28/2024 Documentation Only [facility] [place], [address] [place] [address] Lucero Ann [address] [place] [address] Social History Tobacco Use Types [...] on filedocumented in this encounter Care Teams Instructional Media Services Technician Relationship Specialty Start Date End Date Austin Luna MD [address] [place] [address] PCP - General 07/03/20 documented as of this encounter
--- OUTSIDE RECORDS SUMMARY | 2025-06-15 08:37 | XMS_ITS | Encounter Summary ---
Author Organization [facility] Address [address] [place] [address] Phone Care Team Providers Care Rabble Furnace Tender Name Role Phone Austin Luna MD Primary Care Provider +1- [phone] Encounter Details Date Type Department Care Team (Late st Contact Info) Description 01/28/2024 Documentation Only [facility] [place], [address] [place] [address] Lucero Ann [address] [place] [address] Social History Tobacco Use Types [...] on filedocumented in this encounter Care Teams Rabble Furnace Tender Relationship Specialty Start Date End Date Austin Luna MD [address] [place] [address] PCP - General 07/03/20 documented as of this encounter
--- OUTSIDE RECORDS SUMMARY | 2025-06-15 08:37 | XMS_ITS | Encounter Summary ---
Author Organization [facility] Address [address] [place] [address] Phone Care Team Providers Care Valve Setter Name Role Phone Austin Luna MD Primary Care Provider +1- [phone] Encounter Details Date Type Department Care Team (Late st Contact Info) Description 03/17/2025 Documentation Only [facility] [place], [address] [place] [address] Lucero Ann [address] [place] [address] Social History Tobacco Use Types [...] on filedocumented in this encounter Care Teams Valve Setter Relationship Specialty Start Date End Date Austin Luna MD [address] [place] [address] PCP - General 07/03/20 documented as of this encounter
--- OUTSIDE RECORDS SUMMARY | 2025-06-15 08:37 | XMS_ITS | Encounter Summary ---
Author Organization [facility] Address [address] [place] [address] Phone Care Team Providers Care Sales Development Specialist Name Role Phone Austin Luna MD Primary Care Provider +1- [phone] Encounter Details Date Type Department Care Team (Late st Contact Info) Description 03/04/2024 Documentation Only [facility] [place], [address] [place] [address] Lucero Ann [address] [place] [address] Social History Tobacco Use Types [...] on filedocumented in this encounter Care Teams Sales Development Specialist Relationship Specialty Start Date End Date Austin Luna MD [address] [place] [address] PCP - General 07/03/20 documented as of this encounter
--- OUTSIDE RECORDS SUMMARY | 2025-06-15 08:37 | XMS_ITS | Encounter Summary ---
Author Organization [facility] Address [address] [place] [address] Phone Care Team Providers Care Welfare Manager Name Role Phone Austin Luna MD Primary Care Provider +1- [phone] Encounter Details Date Type Department Care Team (Late st Contact Info) Description 03/04/2024 Documentation Only [facility] [place], [address] [place] [address] Lucero Ann [address] [place] [address] Social History Tobacco Use Types [...] on filedocumented in this encounter Care Teams Welfare Manager Relationship Specialty Start Date End Date Austin Luna MD [address] [place] [address] PCP - General 07/03/20 documented as of this encounter
--- OUTSIDE RECORDS SUMMARY | 2025-06-15 08:37 | XMS_ITS | Encounter Summary ---
Author Organization [facility] Address [address] [place] [address] Phone Care Team Providers Care Lamp Shade Joiner Name Role Phone Austin Luna MD Primary Care Provider +1- [phone] Encounter Details Date Type Department Care Team (Late st Contact Info) Description 06/01/2025 Documentation Only [facility] [place], [address] [place] [address] Lucero Ann [address] [place] [address] Social History Tobacco Use Types [...] on filedocumented in this encounter Care Teams Lamp Shade Joiner Relationship Specialty Start Date End Date Austin Luna MD [address] [place] [address] PCP - General 07/03/20 documented as of this encounter
--- OUTSIDE RECORDS SUMMARY | 2025-06-15 08:37 | XMS_ITS | Encounter Summary ---
Author Organization [facility] [place], Address [address] [place] [address] Phone Care Team Providers Care Product Lister Name Role Phone Asutin Luna MD Primary Care Provider +1- [phone] Reason for Visit * Reason Comments Med Refill Encounter Details Date Type Department Care Team (Late st Contact Info) Description 09/01/2024 Refill [facility] [place], [address] [place] [address] Angelica Hull MD [address] [place] [address] Social History Tobacco Use Types [...] on filedocumented in this encounter Care Teams Product Lister Relationship Specialty Start Date End Date Austin Luna MD [address] [place] [address] PCP - General 07/03/20 documented as of this encounter
--- OUTSIDE RECORDS SUMMARY | 2025-06-15 08:37 | XMS_ITS | Clinical Summary ---
Author Organization [facility] [place], Address [address] [place] [address] [place] [address] Phone Care Team Providers Care Tennis Centre Manager Name Role Phone Austin Luna MD Primary Care Provider +1- [phone] Allergies Active Allergy Reactions Criticality Noted Date [...] Encounters Date Type Department Care Team Description 06/01/2025 Documentation Only [facility] [address] [place] [address] Lucero Ann 06/01/2025 Documentation Only [facility] [address] [place] [address] Lucero Ann 03/17/2025 Documentation Only [facility] [address] [place] [address] Lucero Ann from Last 3 Months Immunizations [...] (1 of 3 - 19+ 3-dose series) 1989 Pneumococcal Vaccine: 50+ Ye ars (1 of 2 - PCV) 1989 Colorectal Cancer Screening: Annual FOBT 2019 Colorectal Cancer Screening: Colonoscopy 2019 Colorectal Cancer Screening: Sigmoidoscopy 2019 Diabetes: Hemoglobin A1C 09/02/2019 Diabetes: Ophthalmology Exam 09/02/2019 Diabetes: Pedal Pulse Checked 09/02/2019 Diabetes: Sensory Foot Exam 09/02/2019 Diabetes: Visual Foot Exam 09/02/2019 Influenza Vaccine (#1) 2025 03/12/2020, 2019 Insurance [address] [place], [place] [facility] [address] [place] [place] [address] [place] Care Teams Tennis Centre Manager Relationship Specialty Start Date End Date Austin Luna MD [address] [place] [address] PCP - General 07/03/20
--- OUTSIDE RECORDS SUMMARY | 2025-06-15 08:37 | XMS_ITS | Encounter Summary ---
Author Organization [facility] Address [address] [place] [address] Phone Care Team Providers Care Scaleman Name Role Phone Austin Luna MD Primary Care Provider +1- [phone] Encounter Details Date Type Department Care Team (Late st Contact Info) Description 12/01/2024 Documentation Only [facility] [place], [address] [place] [address] Lucero Ann [address] [place] [address] Social History Tobacco Use Types [...] on filedocumented in this encounter Care Teams Scaleman Relationship Specialty Start Date End Date Austin Luna MD [address] [place] [address] PCP - General 07/03/20 documented as of this encounter
--- OUTSIDE RECORDS SUMMARY | 2025-06-15 08:37 | XMS_ITS | Encounter Summary ---
Author Organization [facility] Address [address] [place] [address] Phone Care Team Providers Care Production Control Analyst Name Role Phone Austin Luna MD Primary Care Provider +1- [phone] Encounter Details Date Type Department Care Team (Late st Contact Info) Description 01/28/2024 Documentation Only [facility] [place], [address] [place] [address] Lucero Ann [address] [place] [address] Social History Tobacco Use Types [...] on filedocumented in this encounter Care Teams Production Control Analyst Relationship Specialty Start Date End Date Austin Luna MD [address] [place] [address] PCP - General 07/03/20 documented as of this encounter
--- OUTSIDE RECORDS SUMMARY | 2025-06-15 08:37 | XMS_ITS | Encounter Summary ---
Author Organization [facility] Address [address] [place] [address] Phone Care Team Providers Care Hatch Tender Name Role Phone Austin Luna MD Primary Care Provider +1- [phone] Encounter Details Date Type Department Care Team (Late st Contact Info) Description 03/04/2024 Documentation Only [facility] [place], [address] [place] [address] Lucero Ann [address] [place] [address] Social History Tobacco Use Types [...] on filedocumented in this encounter Care Teams Hatch Tender Relationship Specialty Start Date End Date Austin Luna MD [address] [place] [address] PCP - General 07/03/20 documented as of this encounter
--- OUTSIDE RECORDS SUMMARY | 2025-06-15 08:37 | XMS_ITS | Clinical Summary ---
Author Organization [facility] Address [address] [place] [address] Phone Care Team Providers Care Space Buyer Name Role Phone Austin Luna MD Primary Care Provider +1 -[phone] Social History Tobacco Use Types Packs/Day Years [...] file Medical Devices Not on file Insurance [facility] DIRECT [address] [place], [place] [facility] [employer] [place] [address] [place] [address] [employer] DIRECT [address] [place] [facility] [address] [place] [facility] [employer] [address] [place] [facility] [employer] DIRECT [address] [place], [place] [address] [place] [address] [place] Care Teams Space Buyer Relationship Specialty Start Date End Date Austin Luna MD [address] [place] [address] [place] [address] PCP - General 02/27/24 Additional Source Comments The information contained in this document represents components of the legal health record. It is not the complete legal health record.[facility]
--- OUTSIDE RECORDS SUMMARY | 2025-06-15 08:37 | XMS_ITS | Encounter Summary ---
Author Organization [facility] Address [address] [place] [address] Phone Care Team Providers Care Package Checker Name Role Phone Austin Luna MD Primary Care Provider +1- [phone] Encounter Details Date Type Department Care Team (Late st Contact Info) Description 03/04/2024 Documentation Only [facility] [place], [address] [place] [address] Lucero Ann [address] [place] [address] Social History Tobacco Use Types [...] on filedocumented in this encounter Care Teams Package Checker Relationship Specialty Start Date End Date Austin Luna MD [address] [place] [address] PCP - General 07/03/20 documented as of this encounter
--- OUTSIDE RECORDS SUMMARY | 2025-06-15 08:37 | XMS_ITS | Encounter Summary ---
Author Organization [facility] Address [address] [place] [address] Phone Care Team Providers Care Spinner Hydraulic Name Role Phone Austin Luna MD Primary Care Provider +1- [phone] Encounter Details Date Type Department Care Team (Late st Contact Info) Description 06/21/2024 Documentation Only [facility] [place], [address] [place] [address] Lucero Ann [address] [place] [address] Social History Tobacco Use Types [...] on filedocumented in this encounter Care Teams Spinner Hydraulic Relationship Specialty Start Date End Date Austin Luna MD [address] [place] [address] PCP - General 07/03/20 documented as of this encounter
--- OUTSIDE RECORDS SUMMARY | 2025-06-15 08:37 | XMS_ITS | Encounter Summary ---
Author Organization [facility] Address [address] [place] [address] Phone Care Team Providers Care Software Team Leader Name Role Phone Austin Luna MD Primary Care Provider +1- [phone] Encounter Details Date Type Department Care Team (Late st Contact Info) Description 08/19/2023 Documentation Only [facility] [place], [address] [place] [address] Lucero Ann [address] [place] [address] Social History Tobacco Use Types [...] on filedocumented in this encounter Care Teams Software Team Leader Relationship Specialty Start Date End Date Austin Luna MD [address] [place] [address] PCP - General 07/03/20 documented as of this encounter
--- OUTSIDE RECORDS SUMMARY | 2025-06-15 08:37 | XMS_ITS | Encounter Summary ---
Author Organization [facility] Address [address] [place] [address] Phone Care Team Providers Care Nuclear Equipment Research Engineer Name Role Phone Austin Luna MD Primary Care Provider +1- [phone] Encounter Details Date Type Department Care Team (Late st Contact Info) Description 03/04/2024 Documentation Only [facility] [place], [address] [place] [address] Lucero Ann [address] [place] [address] Social History Tobacco Use Types [...] on filedocumented in this encounter Care Teams Nuclear Equipment Research Engineer Relationship Specialty Start Date End Date Austin Luna MD [address] [place] [address] PCP - General 07/03/20 documented as of this encounter
--- OUTSIDE RECORDS SUMMARY | 2025-06-15 08:37 | XMS_ITS | Encounter Summary ---
Author Organization [facility] Address [address] [place] [address] Phone Care Team Providers Care Outbound Telemarketing Representative Name Role Phone Austin Luna MD Primary Care Provider +1- [phone] Encounter Details Date Type Department Care Team (Late st Contact Info) Description 03/04/2024 Documentation Only [facility] [place], [address] [place] [address] Lucero Ann [address] [place] [address] Social History Tobacco Use Types [...] on filedocumented in this encounter Care Teams Outbound Telemarketing Representative Relationship Specialty Start Date End Date Austin Luna MD [address] [place] [address] PCP - General 07/03/20 documented as of this encounter
--- OUTSIDE RECORDS SUMMARY | 2025-06-15 08:37 | XMS_ITS | Encounter Summary ---
Author Organization [facility] Address [address] [place] [address] Phone Care Team Providers Care Fashion Editor Name Role Phone Austin Luna MD Primary Care Provider +1- [phone] Encounter Details Date Type Department Care Team (Late st Contact Info) Description 06/01/2025 Documentation Only [facility] [place], [address] [place] [address] Lucero Ann [address] [place] [address] Social History Tobacco Use Types [...] on filedocumented in this encounter Care Teams Fashion Editor Relationship Specialty Start Date End Date Austin Luna MD [address] [place] [address] PCP - General 07/03/20 documented as of this encounter
--- OUTSIDE RECORDS SUMMARY | 2025-06-15 08:37 | XMS_ITS | Encounter Summary ---
Author Organization [facility] Address [address] [place] [address] Phone Care Team Providers Care Glass Blower Name Role Phone Austin Luna MD Primary Care Provider +1- [phone] Encounter Details Date Type Department Care Team (Late st Contact Info) Description 03/04/2024 Documentation Only [facility] [place], [address] [place] [address] Lucero Ann [address] [place] [address] Social History Tobacco Use Types [...] on filedocumented in this encounter Care Teams Glass Blower Relationship Specialty Start Date End Date Austin Luna MD [address] [place] [address] PCP - General 07/03/20 documented as of this encounter
--- OUTSIDE RECORDS SUMMARY | 2025-06-15 08:37 | XMS_ITS | Encounter Summary ---
Author Organization [facility] Address [address] [place] [address] Phone Care Team Providers Care Tail Board Worker Name Role Phone Austin Luna MD Primary Care Provider +1- [phone] Encounter Details Date Type Department Care Team (Late st Contact Info) Description 03/04/2024 Documentation Only [facility] [place], [address] [place] [address] Lucero Ann [address] [place] [address] Social History Tobacco Use Types [...] on filedocumented in this encounter Care Teams Tail Board Worker Relationship Specialty Start Date End Date Austin Luna MD [address] [place] [address] PCP - General 07/03/20 documented as of this encounter
--- OUTSIDE RECORDS SUMMARY | 2025-06-15 08:37 | XMS_ITS | Encounter Summary ---
Author Organization [facility] Address [address] [place] [address] Phone Care Team Providers Care Finishing Range Feeder Name Role Phone Austin Luna MD Primary Care Provider +1- [phone] Encounter Details Date Type Department Care Team (Late st Contact Info) Description 03/04/2024 Documentation Only [facility] [place], [address] [place] [address] Lucero Ann [address] [place] [address] Social History Tobacco Use Types [...] filedocumented in this encounter Care Teams Finishing Range Feeder Relationship Specialty Start Date End Date Austin Luna MD [address] [place] [address] PCP - General 07/03/20 documented as of this encounter
--- OUTSIDE RECORDS SUMMARY | 2025-06-15 08:37 | XMS_ITS | Encounter Summary ---
Author Organization [facility] Address [address] [place] [address] Phone Care Team Providers Care Pharmacologist Name Role Phone Austin Luna MD Primary Care Provider +1- [phone] Encounter Details Date Type Department Care Team (Late st Contact Info) Description 01/28/2024 Documentation Only [facility] [place], [address] [place] [address] Lucero Ann [address] [place] [address] Social History Tobacco Use Types [...] on filedocumented in this encounter Care Teams Pharmacologist Relationship Specialty Start Date End Date Austin Luna MD [address] [place] [address] PCP - General 07/03/20 documented as of this encounter
--- NOTE | 2025-06-15 08:42 | A.OFFPC_ITS ---
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 AMB Hemoglobin A1c 06/15/25 Z13.9 - Encounter for screening, unspecified Complete Blood Count Auto Diff 4 Months D69.6 - Thrombocytopenia, unspecified, E11.21 - Type 2 diabetes mellitus with diabetic nephropathy, E55.9 - Vitamin D deficiency, unspecified, E66.9 - Obesity, unspecified, E78.00 - Pure hypercholesterolemia, unspecified, G45.9 - Transient cerebral ischemic attack, unspecified, I10 - Essential (primary) hypertension, N18.32 - Chronic kidney disease, stage 3b, R55 - Syncope and collapse, R79.89 - Other specified abnormal findings of blood chemistry, Z79.4 - [employer] (current) use of insulin Lipid Panel 4 Months D69.6 - Thrombocytopenia, unspecified, E11.21 - Type 2 diabetes mellitus with diabetic nephropathy, E55.9 - Vitamin D deficiency, unspecified, E66.9 - Obesity, unspecified, E78.00 - Pure hypercholesterolemia, unspecified, G45.9 - Transient cerebral ischemic attack, unspecified, I10 - Essential (primary) hypertension, N18.32 - Chronic kidney disease, stage 3b, R55 - Syncope and collapse, R79.89 - Other specified abnormal findings of blood chemistry, Z79.4 - [facility] (current) use of insulin UA CC w/rflx Micro + Cult 4 Months D69.6 - Thrombocytopenia, unspecified, E11.21 - Type 2 diabetes mellitus with diabetic nephropathy, E55.9 - Vitamin D deficiency, unspecified, E66.9 - Obesity, unspecified, E78.00 - Pure hypercholesterolemia, unspecified, G45.9 - Transient cerebral ischemic attack, unspecified, I10 - Essential (primary) hypertension, N18.32 - Chronic kidney disease, stage 3b, R55 - Syncope and collapse, R79.89 - Other specified abnormal findings of blood chemistry, Z79.4 - [employer] (current) use of insulin Vitamin D 25-OH Total 4 Months D69.6 - Thrombocytopenia, unspecified, E11.21 - Type 2 diabetes mellitus with diabetic nephropathy, E55.9 - Vitamin D deficiency, unspecified, E66.9 - Obesity, unspecified, E78.00 - Pure hypercholesterolemia, unspecified, G45.9 - Transient cerebral ischemic attack, unspecified, I10 - Essential (primary) hypertension, N18.32 - Chronic kidney disease, stage 3b, R55 - Syncope and collapse, R79.89 - Other specified abnormal findings of blood chemistry, Z79.4 - [employer] (current) use of insulin Comprehensive [place]. Panel Fast 4 Months D69.6 - Thrombocytopenia, unspecified, E11.21 - Type 2 diabetes mellitus with diabetic nephropathy, E55.9 - Vitamin D deficiency, unspecified, E66.9 - Obesity, unspecified, E78.00 - Pure hypercholesterolemia, unspecified, G45.9 - Transient cerebral ischemic attack, unspecified, I10 - Essential (primary) hypertension, N18.32 - Chronic kidney disease, stage 3b, R55 - Syncope and collapse, R79.89 - Other specified abnormal findings of blood chemistry, Z79.4 - [facility] (current) use of insulin TSH reflex Free T4 4 Months D69.6 - Thrombocytopenia, unspecified, E11.21 - Type 2 diabetes mellitus with diabetic nephropathy, E55.9 - Vitamin D deficiency, unspecified, E66.9 - Obesity, unspecified, E78.00 - Pure hypercholesterolemia, unspecified, G45.9 - Transient cerebral ischemic attack, unspecified, I10 - Essential (primary) hypertension, N18.32 - Chronic kidney disease, stage 3b, R55 - Syncope and collapse, R79.89 - Other specified abnormal findings of blood chemistry, Z79.4 - [employer] (current) use of insulin Hemoglobin A1c 4 Months D69.6 - Thrombocytopenia, unspecified, E11.21 - Type 2 diabetes mellitus with diabetic nephropathy, E55.9 - Vitamin D deficiency, unspecified, E66.9 - Obesity, unspecified, E78.00 - Pure hypercholesterolemia, unspecified, G45.9 - Transient cerebral ischemic attack, unspecified, I10 - Essential (primary) hypertension, N18.32 - Chronic kidney disease, stage 3b, R55 - Syncope and collapse, R79.89 - Other specified abnormal findings of blood chemistry, Z79.4 - [employer] (current) use of insulin Referrals Counseling Referral F41.9 - Anxiety disorder, unspecified, F43.10 - Post- traumatic stress disorder, unspecified Medications: New cholecalciferol (vitamin D3) 50 mcg PO DAILY 90 caps 3RF
[2025-06-15 08:43] VITALS: BP 118/60; PULSE 78; RESP 18; O2SAT 98; BMI 26.5
== END 2025-06-15 09:43 | disposition home or self-care (01) ==
LOC: HO.HMCH 08:35
PROVIDERS: PCP Internal Medicine
DX: Z13.9 Encounter for screening, unspecified (principal)

== ENCOUNTER → 2025-06-15 08:34 | Outpatient (BNVA) | payer OTHER, SELFPAY | PROVIDERS: PCP Internal Medicine | DX: I63.412 Cerebral infarction due to embolism of left middle cerebral artery (principal); G43.109 Migraine with aura, not intractable, without status migrainosus; G40.909 Epilepsy, unspecified, not intractable, without status epilepticus; R79.89 Other specified abnormal findings of blood chemistry; E11.21 Type 2 diabetes mellitus with diabetic nephropathy; E11.22 Type 2 diabetes mellitus with diabetic chronic kidney disease; I12.9 Hypertensive chronic kidney disease with stage 1 through stage 4 chronic kidney disease, or unspecified chronic kidney disease; N18.32 Chronic kidney disease, stage 3b; E78.00 Pure hypercholesterolemia, unspecified; D69.6 Thrombocytopenia, unspecified; C64.1 Malignant neoplasm of right kidney, except renal pelvis; E55.9 Vitamin D deficiency, unspecified; M50.20 Other cervical disc displacement, unspecified cervical region; E66.3 Overweight; F43.10 Post-traumatic stress disorder, unspecified; T14.8XXA Other injury of unspecified body region, initial encounter | CPT/HCPCS: 83036; 99212 ==